=== PATIENT | female | born 1940 | race Caucasian/White ===

== ENCOUNTER 2023-12-12 18:49 | Inpatient (IN) | payer OTHER, SELFPAY ==
[2023-12-12] VITALS (70 sets, daily range): BP systolic 78–126; BP diastolic 44–92; BMI 17.1
--- NOTE | 2023-12-12 08:07 | ED.GENMED ---
History of Present Illness
<Lois Yarbrough [employer] HEAT WELDER - Last Filed: 12/12/23 15:58>
General
Chief Complaint: Heart Rate Problem
Source: patient and ambulance crew
Exam Limitations: none
Time Seen by Provider: 12/12/23 07:59
Nursing documentation reviewed up to this point in time: agreed with
History of Present Illness
History of Present Illness:
83-year-old female with history of COPD, adenocarcinoma RUL s/p lobectomy, HTN, anxiety/depression, HLD, bowel resection, anemia, hypothyroidism, A-fib with RVR, the first episode was 06/04/2023 and she was cardioverted. On Eliquis.
It is reported the patient felt faint today and had chest heaviness for the past 2 days. According to EMS she was found to be in A-fib with RVR. Pt denies CP at this time. Feels 'a little bit' SOB. Denies n/v/c/d, denies Abdominal pain.
Past History
<Lois Yarbrough, [employer] HE[employer] W[employer]DER - Last Filed: 12/12/23 15:58>
Past History
ED Past Medical History: Arrthythmia (Afib with RVR), COPD, Hypercholesterolemia and Hypothyroidism
ED Past Surgical History: Appendectomy, Bowel resection and Other (RUL lobectomy for lung CA)
Social History
Tobacco: Former smoker
Personal: Single
Living: with family
Review of Systems
<Lois Yarbrough, [employer] HE[employer] W[employer]DER - Last Filed: 12/12/23 15:58>
Review of Systems
Allergies reviewed?: Yes
All Other Systems: ROS reviewed and negative except as documented in HPI and ROS
Constitutional: Reports fatigue; Denies fever
Respiratory: Reports trouble breathing ('a ittle' SOB); Denies cough
Cardiac: Denies chest pain, diaphoresis, palpitations or syncope
ABD/GI: Denies abdominal pain, nausea, vomiting or diarrhea
: Reports no symptoms
Musculoskeletal: Reports no symptoms
Skin: Reports no symptoms
Neurological: Reports no symptoms
Phy Exam
<Lois Yarbrough [employer] HE[employer] W[employer]DER - Last Filed: 12/12/23 15:58>
Physical Exam
Physical Exam:
GENERAL: No acute distress. A&Ox3.
CONSTITUTIONAL: Afebrile.
EYES: PERRL, conjunctivae normal
ENMT: moist mucus membranes, Pharynx nl
RESPIRATORY: Regular respirations, nonlabored, lungs clear.
CARDIOVASCULAR: Regular rate and rhythm, HR 156 a fib or flutter on bedside monitor, no murmurs, no rubs.
GI: Soft, nontender, normal BS
MUSCULOSKELETAL: Moves with ease. Well perfused. No edema
SKIN: Warm, dry, pink
PSYCH: Normal mood and affect. Well kept, interactive and appropriate
NEUROLOGIC: Awake, alert and oriented. No focal neurological deficits
Scores
<Lois Yarbrough, [employer] HE[employer] WELDER - Last Filed: 12/12/23 15:58>
[id number] Score for Afib Stroke Risk
Age in Years (65=0, 65-74=1, >/=75=2): > or = 75
Sex (Female=+1): Female
Congestive Heart Failure History (Yes=+1): No
Hypertension History (Yes=+1): No
Stroke/TIA/Thromboembolism History (Yes=+2): No
Vascular Disease History (Yes=+1): No
Diabetes Mellitus (Yes=+1): No
Score: 3
Anticoagulation Recommendations: Recommend anticoagulation (as validated in nonvalvular fib)
Course
<Lois Yarbrough, [employer] HE[employer] WELDER - Last Filed: 12/12/23 15:58>
Orders/Labs/Results
Orders:
Orders
12/12/23 08:04
Electrocardiogram (*1) Urgent
Reason for Study: Chest Pain
Cardiac Monitoring- Treatment ONCE
EKG- Treatment ONCE
IV Insert/Care/Rem.- Treatment PRN
O2 Therapy [RESP] Urgent
Titrate/Wean O2 to maintain O2 sat greater than (%): 90
Special Instructions: Maintain sats >/=90%
Pulse Ox/spot Check [RESP] Urgent
Quantity: 1
Special Instructions: ON ROOM AIR
12/12/23 08:08
Complete Blood Count/With Diff Urgent
Comprehensive Metabolic Panel Urgent
12/12/23 08:19
Diltiazem HCl [Cardizem] 10 mg IV NOW STA
12/12/23 08:20
Diltiazem 125 mg/125 ml Nss [Cardizem] 125 mg in 125 ml IV NOW
Initial dose in mg/hr, then titrate:: 5
Titrate to keep:: Heart rate 80-100 bpm
Titrate by mg/hr:: 5 mg/hr
Frequency of titrations (minutes):: 15
Maximum dose in mg/hr:: 15
12/12/23 08:21
0.9% Sodium Chloride 500 ml [Nss] 500 ml IV BOLUS
12/12/23 09:08
Troponin I Urgent
12/12/23 10:46
Diltiazem HCl [Cardizem] 5 mg IV NOW STA
12/12/23 10:48
Diltiazem HCl [Cardizem] 10 mg IV NOW STA
12/12/23 12:56
Diltiazem [Cardizem] 120 mg PO NOW STA
Metoprolol [Lopressor] 75 mg PO NOW STA
12/12/23 13:30
Metoprolol Xl [Toprol Xl] 25 mg PO NOW STA
Metoprolol Xl [Toprol Xl] 50 mg PO NOW STA
12/12/23 13:51
Diltiazem Extended Release [Cardizem Cd] 120 mg PO NOW STA
12/12/23 13:52
CR Chest - 2 Views Urgent
Comment:
Reason For Exam: chest pain
12/12/23 14:11
Urinalysis Reflex To Culture Urgent
Date Specimen was Collected: 12/12/23
Time Specimen was Collected: 13:01
Urine Microscopic Reflex Cult Urgent
12/12/23 14:15
Acetaminophen [Tylenol] 1,000 mg .ROUTE .STK-MED ONE
12/12/23 14:21
Acetaminophen [Tylenol] 1,000 mg PO NOW STA
12/12/23 15:45
Lactic Acid Q4H
Comment: CANCEL 2nd LACTIC ACID IF 1st LACTIC ACID IS LESS THAN 2
Blood Culture Q30M
ARACELI Source: Blood/Venous
Specimen Description:
12/12/23 15:48
COVID-19 Antigen Urgent
Source: Nasal Swab
Influenza A+B Rapid Molecular Urgent
ARACELI Source: Nasal Swab
Specimen Description:
12/12/23 16:15
Blood Culture Q30M
ARACELI Source: Blood/Venous
Specimen Description:
12/12/23 19:45
Lactic Acid Q4H
Comment: CANCEL 2nd LACTIC ACID IF 1st LACTIC ACID IS LESS THAN 2
Abnormal Lab Results
12/12/23 12/12/23
08:08 14:11
WBC 15.2 H 10^3/uL
(4.8-10.8)
RBC 3.89 L 10^6/uL
(4.20-5.40)
Hgb 11.1 L g/dL
(12.0-16.0)
Hct 33.6 L %
(37.0-47.0)
RDW 14.6 H %
(11.5-14.5)
Plt Count 453 H 10^3/uL
(130-400)
Abs Immat Gran (auto) 0.1 H 10^3/uL
(0-0.05)
Absolute Neuts (auto) 12.9 H 10^3/uL
(1.4-6.5)
Absolute Lymphs (auto) 1.0 L 10^3/uL
(1.2-3.4)
Absolute Monos (auto) 1.1 H 10^3/uL
(0.1-0.6)
Neutrophils % 84.8 H %
(42.2-75.2)
Lymphocytes % 6.5 L %
(20.5-51.1)
Sodium 134 L mmol/L
(135-145)
BUN 21 H mg/dl
(7-17)
Glucose 116 H mg/dl
(70-99)
AST 43 H U/L
(14-36)
ALT 44 H U/L
(0-35)
Alkaline Phosphatase 311 H U/L
(38-126)
Total Protein 6.0 L g/dl
(6.3-8.2)
Albumin 3.2 L g/dl
(3.5-5.0)
Urine Ketones Trace A
(Negative)
Ur Occult Blood Reflex 1+ A
(Negative)
Urine Bilirubin 1+ A
(Negative)
Leukocyte Esterase Rfl Trace A
(Negative)
Urine RBC 3-6 A /HPF
(0-2)
Urine Bacteria (Reflex) Few A
(Negative)
12/12/23 08:08
12/12/23 08:08
Vital Signs
Initial and Last Documented VS:
Initial Vital Signs
Temp Pulse Resp BP Pulse Ox
98.2 F 152 24 107/69 98
12/12/23 08:05 12/12/23 08:05 12/12/23 08:05 12/12/23 08:05 12/12/23 08:05
Last Documented Vital Signs
Temp Pulse Resp BP Pulse Ox
101.8 F H 117 29 98/65 94
12/12/23 14:13 12/12/23 14:22 12/12/23 14:15 12/12/23 14:22 12/12/23 13:46
<Henok Kumari DO - Last Filed: 12/12/23 08:40>
Orders/Labs/Results
Orders:
Orders
12/12/23 08:04
Electrocardiogram (*1) Urgent
Reason for Study: Chest Pain
Cardiac Monitoring- Treatment ONCE
EKG- Treatment ONCE
IV Insert/Care/Rem.- Treatment PRN
O2 Therapy [RESP] Urgent
Titrate/Wean O2 to maintain O2 sat greater than (%): 90
Special Instructions: Maintain sats >/=90%
Pulse Ox/spot Check [RESP] Urgent
Quantity: 1
Special Instructions: ON ROOM AIR
12/12/23 08:08
Complete Blood Count/With Diff Urgent
Comprehensive Metabolic Panel Urgent
12/12/23 08:19
Diltiazem HCl [Cardizem] 10 mg IV NOW STA
12/12/23 08:20
Diltiazem 125 mg/125 ml Nss [Cardizem] 125 mg in 125 ml IV NOW
Initial dose in mg/hr, then titrate:: 5
Titrate to keep:: Heart rate 80-100 bpm
Titrate by mg/hr:: 5 mg/hr
Frequency of titrations (minutes):: 15
Maximum dose in mg/hr:: 15
12/12/23 08:21
0.9% Sodium Chloride 500 ml [Nss] 500 ml IV BOLUS
12/12/23 09:08
Troponin I Urgent
12/12/23 10:46
Diltiazem HCl [Cardizem] 5 mg IV NOW STA
12/12/23 10:48
Diltiazem HCl [Cardizem] 10 mg IV NOW STA
12/12/23 12:56
Diltiazem [Cardizem] 120 mg PO NOW STA
Metoprolol [Lopressor] 75 mg PO NOW STA
12/12/23 13:30
Metoprolol Xl [Toprol Xl] 25 mg PO NOW STA
Metoprolol Xl [Toprol Xl] 50 mg PO NOW STA
12/12/23 13:51
Diltiazem Extended Release [Cardizem Cd] 120 mg PO NOW STA
12/12/23 13:52
CR Chest - 2 Views Urgent
Comment:
Reason For Exam: chest pain
12/12/23 14:11
Urinalysis Reflex To Culture Urgent
Date Specimen was Collected: 12/12/23
Time Specimen was Collected: 13:01
Urine Microscopic Reflex Cult Urgent
12/12/23 14:15
Acetaminophen [Tylenol] 1,000 mg .ROUTE .STK-MED ONE
12/12/23 14:21
Acetaminophen [Tylenol] 1,000 mg PO NOW STA
12/12/23 15:45
Lactic Acid Q4H
Comment: CANCEL 2nd LACTIC ACID IF 1st LACTIC ACID IS LESS THAN 2
Blood Culture Q30M
ARACELI Source: Blood/Venous
Specimen Description:
12/12/23 15:48
COVID-19 Antigen Urgent
Source: Nasal Swab
Influenza A+B Rapid Molecular Urgent
ARACELI Source: Nasal Swab
Specimen Description:
12/12/23 16:15
Blood Culture Q30M
ARACELI Source: Blood/Venous
Specimen Description:
12/12/23 19:45
Lactic Acid Q4H
Comment: CANCEL 2nd LACTIC ACID IF 1st LACTIC ACID IS LESS THAN 2
Abnormal Lab Results
12/12/23 12/12/23
08:08 14:11
WBC 15.2 H 10^3/uL
(4.8-10.8)
RBC 3.89 L 10^6/uL
(4.20-5.40)
Hgb 11.1 L g/dL
(12.0-16.0)
Hct 33.6 L %
(37.0-47.0)
RDW 14.6 H %
(11.5-14.5)
Plt Count 453 H 10^3/uL
(130-400)
Abs Immat Gran (auto) 0.1 H 10^3/uL
(0-0.05)
Absolute Neuts (auto) 12.9 H 10^3/uL
(1.4-6.5)
Absolute Lymphs (auto) 1.0 L 10^3/uL
(1.2-3.4)
Absolute Monos (auto) 1.1 H 10^3/uL
(0.1-0.6)
Neutrophils % 84.8 H %
(42.2-75.2)
Lymphocytes % 6.5 L %
(20.5-51.1)
Sodium 134 L mmol/L
(135-145)
BUN 21 H mg/dl
(7-17)
Glucose 116 H mg/dl
(70-99)
AST 43 H U/L
(14-36)
ALT 44 H U/L
(0-35)
Alkaline Phosphatase 311 H U/L
(38-126)
Total Protein 6.0 L g/dl
(6.3-8.2)
Albumin 3.2 L g/dl
(3.5-5.0)
Urine Ketones Trace A
(Negative)
Ur Occult Blood Reflex 1+ A
(Negative)
Urine Bilirubin 1+ A
(Negative)
Leukocyte Esterase Rfl Trace A
(Negative)
Urine RBC 3-6 A /HPF
(0-2)
Urine Bacteria (Reflex) Few A
(Negative)
12/12/23 08:08
12/12/23 08:08
Vital Signs
Initial and Last Documented VS:
Initial Vital Signs
Temp Pulse Resp BP Pulse Ox
98.2 F 152 24 107/69 98
12/12/23 08:05 12/12/23 08:05 12/12/23 08:05 12/12/23 08:05 12/12/23 08:05
Last Documented Vital Signs
Temp Pulse Resp BP Pulse Ox
101.8 F H 117 29 98/65 94
12/12/23 14:13 12/12/23 14:22 12/12/23 14:15 12/12/23 14:22 12/12/23 13:46
<Lois Yarbrough, [employer] HE[employer] WELDER - Last Filed: 12/12/23 15:58>
MDM/Problems Addressed
Differential Diagnosis Includes:
afib w RVR,
PNA, UTI, Covid, Flu
MDM/Problems Addressed:
83-year-old female with history of COPD, adenocarcinoma RUL s/p lobectomy, HTN, anxiety/depression, HLD, bowel resection, anemia, hypothyroidism, A-fib with RVR, the first episode was 06/04/2023 and she was cardioverted. On Eliquis.
It is reported the patient felt faint today and had chest heaviness for the past 2 days. According to EMS she was found to be in A-fib with RVR. Pt denies CP at this time. Feels 'a little bit' SOB. Denies n/v/c/d, denies Abdominal pain.
NAD, HR 130-150's A fib on monitor, BP 105/ RR 28 Pulse ox 98% RA
9:15 a.m.
EKG: A flutter 2:1 block
Monitor showing alternating a fib- a flutter.
Hemodynamically stable
Dr. Kumari in to evaluate. Pt states 'my chest feels a little heavy.'
CBC: WBC 15.2 otherwise unremarkable
CMP: Mild elevation of liver enzymes
Troponin WNL
Daughter arrives, she works at [employer] and knows pt's long haul truck driver. States pt is constantly in and out of a fib, they have been adjusting her medications, 2 weeks ago changed Metoprolol Tartrate to Succinate and increased it from 50 to
75 mg BID They discussed increasing it to 100 mg BID or to increase her Cardizem as next move. Daughter does not want cardioversion ans she will deal with this with her long haul truck driver.
She states the reason she called EMS is that pt has been complaining all week at various times of her chest hurts, her neck hurts, she feels weak, appetite has been poor, 3 a.m. knocked on daughter's bedroom door and pt told her she felt weak and
'look at my poop, it's green.' (stool wall light colored with a green).
10:50 AM
Heart rate vacillating between 120's-130's
Second Cardizem bolus ordered per Dr. Kumari
1:04 PM
For the past 90 minutes heart rate has remained between 108 and 120
Will give patient's her p.o. diltiazem and metoprolol since she has not taken it yet today and will start to wean her off the Cardizem drip
2 PM:
Patient just spiked a fever
Of 101.8 rectally,
UA negative
Pt continues to complain of chest pressure
Chest x-ray: Radiology report read:IMPRESSION:
1. Moderate cardiomegaly. Mild central pulmonary vascular congestion.
2. Small bilateral pleural effusions.
Plan: Admit to hospitalist: Donavon steven RVR: Cardizem drip weaned down to 5 mg after pt given her daily Cardizem and Metoprol. HR remains low low 100's - 120 BPM
As discussing discharge, pt spiked fever still with chest 'pressure'
Blood cultures pending
Hospitalist notified of admission.
Covid and Flu tests pending
<Lois Yarbrough [employer] HE[employer] WELDER - Last Filed: 12/12/23 15:58>
*Critical Care Note
Total Time (30-74mins, 75-104mins- exclusive of procedures): Not Applicable
ED Attending Note
<Lois Yarbrough [employer] HE[employer] WELDER - Last Filed: 12/12/23 15:58>
-
Portions of this chart may have been created with voice recognition software.� Occasional wrong word or��sound alike� substitutions may have occurred due to the inherent limitations of voice recognition software.
<Henok Kumari DO - Last Filed: 12/12/23 08:40>
ED Attending Note
Patient seen and examined by attending physician: Yes
I performed the substantive portion of visit, reviewed & personally made and approve the management plan that is documented in note by myself or EPIFANIO.: Yes
Discharge Plan
Departure
Patient Disposition: Admit
Date of Disposition: 12/12/23
Time of Disposition: 15:40
Admit to: Telemetry
Presentation/result/management discussed w/ accepting MD/DO: Hospitalist
Condition: Fair
Discharge Problem:
Fever, Atrial fibrillation with RVR
Prescriptions:
No Action
alendronate 35 mg tablet
35 mg PO MO
levothyroxine 100 mcg Tablet
100 mcg PO DAILY AT 0700 Qty: 30 0RF
Eliquis 2.5 mg Tablet
2.5 mg PO BID Qty: 60 0RF
magnesium oxide 500 mg Tablet
500 mg PO DAILY Qty: 60 0RF
atorvastatin 40 mg Tablet
40 mg PO HS
metoprolol succinate 50 mg Tablet Extended Release 24 Hr
75 mg PO BID
dofetilide 250 mcg Capsule
250 mcg PO Q12H
diltiazem HCl 120 mg Capsule,Extended Release 24 Hr
120 mg PO DAILY
benzonatate 100 mg Capsule
100 mg PO TID PRN (Reason: cough)
aspirin 81 mg Tablet,Chewable
81 mg PO DAILY
furosemide 20 mg Tablet
20 mg PO DAILY
mirtazapine 15 mg Tablet,Disintegrating
15 mg PO HS
Referrals:
UNKNOWN - PT DOES,NOT KNOW [Family Provider] -
Interventions
Interventions:
*General Assessment Last Done: 12/12/23 08:05
*Neglect/Abuse Screening Last Done: 12/12/23 08:05
ED- Cardiac Assessment Last Done: 12/12/23 09:00
ED- Pulmonary Assessment Last Done: 12/12/23 09:00
Discharge Date and Time
Print Language: YORUBA
[2023-12-12] MEDS: CARDIZEM 5 MG IV ×2 (08:28→08:44)
[2023-12-12 08:29] LABS: % Basophils 0.5 % (0-2); % Eosinophils 0.3 % (0-6); % Immature Granulocytes 0.5 % (0-0.5); % Lymphocytes 6.5 % (20.5-51.1); % Monocytes 7.4 % (1.7-9.3); % Neutrophils 84.8 % (42.2-75.2); Absolute Basophils 0.1 10^3/uL (0-0.2); Absolute Immature Granulocytes 0.1 10^3/uL (0-0.05); Absolute Monocytes 1.1 10^3/uL (0.1-0.6); Absolute Neutrophils 12.9 10^3/uL (1.4-6.5); Hematocrit 33.6 % (37.0-47.0); Hemoglobin 11.1 g/dL (12.0-16.0); Mean Corpuscular Hgb 28.5 pg (27.0-31.0); Mean Corpuscular Volume 86.4 fL (81.0-99.0); Mean Platelet Volume 9.6 fL (7.4-10.4); Nucleated Red Blood Cells % 0 %; Platelet Count 453 10^3/uL (130-400); Red Blood Cell Count 3.89 10^6/uL (4.20-5.40); Red Cell Dist. Width 14.6 % (11.5-14.5); White Blood Cell Count 15.2 10^3/uL (4.8-10.8)
[2023-12-12] MEDS: NSS 500 IV (08:29)
[2023-12-12 08:32] LABS: ALT (SGPT) 44 U/L (0-35); AST (SGOT) 43 U/L (14-36); Albumin 3.2 g/dl (3.5-5.0); Alkaline Phosphatase 311 U/L (38-126); Blood Urea Nitrogen 21 mg/dl (7-17); Calcium 8.8 mg/dl (8.4-10.2); Carbon Dioxide 25 mmol/L (22-30); Chloride 99 mmol/L (98-107); Estimated Creatinine Clearance 46 ml/min; Glucose 116 mg/dl (70-99); Potassium 4.1 mmol/L (3.5-5.1); Sodium 134 mmol/L (135-145); Total Bilirubin 1.2 mg/dl (0.2-1.3); eGFR > 60.00
[2023-12-12] MEDS: CARDIZEM 125 IV (08:37)
[2023-12-12 09:42] LABS: Troponin I < 0.012 ng/ml
[2023-12-12] MEDS: CARDIZEM 10 MG IV (10:59)
[2023-12-12] MEDS: TOPROL XL 50 MG PO (13:45)
[2023-12-12] MEDS: TOPROL XL 25 MG PO (13:47)
[2023-12-12] MEDS: TYLENOL 1000 MG PO (14:21)
[2023-12-12] MEDS: CARDIZEM CD 120 MG PO (14:22)
[2023-12-12 14:26] LABS: Urine Albumin Trace (Neg - Trace); Urine Bilirubin 1+ (Negative); Urine Character Clear (Clear); Urine Color Yellow; Urine Glucose Negative (Negative); Urine Ketone Trace (Negative); Urine Leukocyte Trace (Negative); Urine Nitrite Negative (Negative); Urine Occult Blood 1+ (Negative); Urine Urobilinogen Negative (Neg - 1+)
[2023-12-12 14:55] LABS: Urine Squamous Cell 16-20 /LPF (Few)
[2023-12-12 14:58] LABS: Urine Bacteria Few (Negative)
--- NOTE | 2023-12-12 17:06 | HPS.HSE ---
Addendum entered and electronically signed by Matthew Barrett DO 12/12/23 18:20:
Patient seen and examined and discussed with ANDREINA Case, and I agree with her note.
Gen-AAOx3, NAD
HEENT-NC, AT, anicteric, clear oral mm
Neck-supple
CV-reg, no M, +S1/S2
Lungs-clear B/L
Abd-soft, NT, ND
Ext-no edema
Musculoskeletal-no cyanosis, clubbing
Skin-warm and dry
Neuro-grossly non-focal
Psych-calm, cooperative
Shock -possibly due to sepsis versus cardiogenic versus other. Support with Levophed infusion. Start in the emergency room. Admit to ICU overnight. Consult tree killer. BNP 4150. Chest x-ray with mild central pulmonary vascular congestion.
Small bilateral pleural effusions.
Check stat echocardiogram this evening given the large heart on chest x-ray, hypotension, history of malignancy. Rule out pericardial effusion, tamponade. Discussed with cardiology.
Sepsis -unclear source. Concern for septic shock given hypotension. Blood cultures sent. She has no localizing findings on exam. Low suspicion for pneumonia. Urinalysis nonconcerning. COVID and influenza negative. Hold antibiotics for now.
Lactic acidosis noted.
Rapid atrial fibrillation -hypotension will make rate control difficult. Transiently received Cardizem infusion in the emergency room now discontinued. She is on metoprolol succinate, diltiazem, dofetilide, Eliquis at home. Cardiology consulted
for assistance. If hypotension persists along with rapid rates may need to perform cardioversion.
Hyponatremia -sodium 134. Check TSH, urine studies.
Normocytic anemia -likely chronic. Monitor for now.
Elevated LFTs -primarily transaminases, alkaline phosphatase. Bilirubin normal. Unclear if due to passive congestion versus other etiology.
Hypothyroidism -on levothyroxine. Check TSH.
Hyperlipidemia -on atorvastatin.
History of pulmonary adenocarcinoma -underwent right upper lobectomy about 5 to 6 years ago according to family.
Dementia, likely Alzheimer's type -watch for delirium in the hospital.
DNR
Updated daughter at the bedside.
Original Note:
Family Physician
-
Family Physician: NOT KNOW UNKNOWN - PT DOES
Chief Complaint
-
Chest Heaviness and Fever
History of Present Illness
This is an 83 year old female with past medical history of atrial fibrillation, hypothyroidism, and recently diagnosed dementia who presents to the emergency department for chest tightness for 3 weeks and fatigue for 1 week. The patient reports she
was also experiencing dizziness and lightheadedness that have both resolved. The patient reports the chest tightness has improved since she presented here this morning. The patient's daughter reports the fatigue for the last week is impacting her
mother's ability to ambulate around their home. The patient reports her legs become painful with exertion. Additionally, since being in the emergency department, the patient spiked a fever of 101.8 F. She denies feeling warm, headache, cough,
palpitations, nausea, vomiting, diarrhea, abdominal pain, dysuria, polyuria, and nocturia. The patient denies recent sick contacts and recent travel.
Medical History
Past Medical History
Past Medical History: Reports Other
Additional Past Medical History:
Paroxysmal Atrial Fibrillation
TIA
Essential Hypertension
Hyperlipidemia
COPD
Adenocarcinoma Right Upper Lobe
Anxiety/Depression
Hypothyroidism
Osteoporosis
Dementia
Past Surgical History: Reports Other
Additional Past Surgical History:
Right Upper Lobectomy
Bowel Resection for Volvulus
Appendectomy
Hysterectomy
Social History
Tobacco: Former Smoker
Alcohol: None
Drug: None
Family History
Family History: Not pertinent
Allergies / Home Medications
Allergies reflects when Allergies were last updated in [facility].
Home Medications with original date entered in [facility]
Allergy/Medication List:
Allergies
Allergy/AdvReac Type Severity Reaction Status Date / Time
No Known Allergies Allergy Verified 06/06/23 19:44
Home Medications
alendronate 35 mg tablet 35 mg PO MO osteoperosis 06/06/23
apixaban 2.5 mg tablet (Eliquis) 2.5 mg PO BID Blood clot prevention/tx #60 tabs 06/07/23
levothyroxine 100 mcg tablet 100 mcg PO DAILY AT 0700 Thyroid #30 tabs 06/07/23
magnesium oxide 500 mg PO DAILY Electrolyte Repletion #60 tabs 06/08/23
aspirin 81 mg chewable tablet 81 mg PO DAILY 12/12/23
atorvastatin 40 mg tablet 40 mg PO HS 12/12/23
benzonatate 100 mg capsule 100 mg PO TID PRN cough 12/12/23
diltiazem HCl 120 mg capsule,24 hr,extended release 120 mg PO DAILY 12/12/23
dofetilide 250 mcg capsule 250 mcg PO Q12H 12/12/23
furosemide 20 mg tablet 20 mg PO DAILY 12/12/23
metoprolol succinate 50 mg tablet,extended release 24 hr 75 mg PO BID 12/12/23
mirtazapine 15 mg disintegrating tablet 15 mg PO HS 12/12/23
Review of Systems
-
A 12 point ROS was completed and negative except as noted: Yes
Constitutional: Reports Fever; Denies Chills
Respiratory: Denies Cough or Trouble Breathing
Cardiac: Denies Chest Pain or Palpitations
Abdomen/GI: Denies Abdominal Pain, Nausea, Vomiting or Diarrhea
: Denies Dysuria or Frequency
Skin: Denies Rash
Physical Exam
Vital Signs
Vital Signs
Temp Pulse Resp BP Pulse Ox
101.8 F H 117 29 98/65 94
12/12/23 14:13 12/12/23 14:22 12/12/23 14:15 12/12/23 14:22 12/12/23 13:46
Physical Exam
General: Comfortable and Conversant
HEENT: Anicteric and Moist mucous membranes
Respiratory: Clear and Non Labored Respirations
Cardiac: S1/S2, Irregular Rhythm and Tachycardia (Rate ranges from 95-105 )
GI: Soft and Non Tender
Rectal: Deferred by Provider
Musculoskeletal: No Clubbing, No Cyanosis and No Edema
Skin: Warm and Dry
Neuro: Awake, Alert and Nonfocal/grossly intact
Psych: Calm
Laboratory Results
-
12/12/23 08:08
12/12/23 08:08
Laboratory Results
Total Bilirubin 1.2 mg/dl (0.2-1.3) 12/12/23 08:08
AST 43 U/L (14-36) H 12/12/23 08:08
ALT 44 U/L (0-35) H 12/12/23 08:08
Alkaline Phosphatase 311 U/L (38-126) H 12/12/23 08:08
Troponin I < 0.012 ng/ml 12/12/23 09:08
Data Reviewed
-
Lab Data: Labs Reviewed by me
Old Records: Reviewed
Impression/Plan
-
Sepsis though source of infection is unclear
-Admit to ICU for close monitoring and possible need for pressors
-Urinalysis not indicative of infection
-CXR without pneumonia
-COVID and Influenza negative
-Check blood cultures
-Start Levophed if needed to maintain MAP greater than 65
-Check STAT Echo due to hypotension and prior history of pericardial effusion
Atrial Fibrillation with Rapid Ventricular Response
-Consult Cardiology
-Rate improved and patient is now off Cardizem drip
-Continue Eliquis for anticoagulation
-Continue oral Cardizem, and Toprol as blood pressure allows
-Continue Tikosyn
Hx TIA
-Continue aspirin
Hyperlipidemia
-Continue atorvastatin
Anxiety/Depression
-Continue Remeron
Hypothyroidism
-Continue levothyroxine
-Check TSH
Dementia, possibly Alzheimer's
-Monitor for mood/behavior changes during hospitalization
Hx Adenocarcinoma Right Upper Lobe s/p Lobectomy
DVT proph: Eliquis
Code Status: DNR
[2023-12-12 17:41] LABS: COVID-19 Antigen Negative (Negative)
[2023-12-12 17:52] LABS: NT-proBNP 4150 pg/ml
[2023-12-12 18:12] LABS: Lactic Acid 2.2 mmol/L (0.7-2.0)
[2023-12-12] MEDS: LEVOPHED 250 IV (18:28)
--- NOTE | 2023-12-12 19:41 | W.PN.CD ---
Addendum entered and electronically signed by Cristóbal Otero MD 12/12/23 19:54:
Unclear indication for BOTH ASA and apixaban. I would do single agent NOAC unless new information becomes available.
Original Note:
Today's Communication / Plan
-
Impression / Plan
-
Impression: 83F with dyspnea and CP noted with recurrent persistent AF. During evaluation she was febrile to 38.8�C. She became hypotensive to mid 70s. Dr. Barrett noted that 2PM CXR showed a markedly larger cardiac silhouette when compared to
May 2023. Urgent echocardiogram confirms large pericardial effusion (new from May 2023, but seen to some degree in July 2023)
Plan
Hypotension - seems likely due to confluence of AF/RVR, medication, infection,and this large effusion. She is dependent on norepinephrine for BP support currently
- Urgent pericardiocentesis -> while it is possible her symptoms are solely due to sepsis physiology it is challenging to rely on that, especially when she's already on a pressor. 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 Last dose of ASA yesterday AM and Eliquis yesterday PM
- treat infection
- hold BP meds and furosemide
AF, persistent. Her outpatient nurse's aides teacher (Jatinder) has been adjusting medications
- Rate: 100-120
- Rhythm: continue dofetilide for now
- Oral Anticoagulation: Hold AC until OK with Dr. Jackson
HTN - hold meds as above
Prior lung cancer
COPD report
Anxiety
Memory?
Critically ill 44 minutes used including discussion with family, primary team, and other consultants.
Physical Exam
Vital Signs/Labs
Vital Signs
Temp Pulse Resp BP Pulse Ox
38.8 C H 103 24 94/65 95
12/12/23 14:13 12/12/23 19:15 12/12/23 19:15 12/12/23 19:10 12/12/23 17:15
12/11/23 12/12/23 12/13/23
06:59 06:59 06:59
Actual Weight 102 lb 8.239 oz
12/12/23 08:08
12/12/23 08:08
12/12/23
09:08
[id number] Pept 4150
LAB Results
12/12/23
09:08
Troponin I < 0.012
Physical Exam
Constitutional: No acute distress
EENT: Anicteric
Cardiovascular: Systolic murmur absent, Diastolic murmur absent, Rhythm/rate is irregular and JVD present
Respiratory: Respiratory effort normal
GI: Soft, Distention absent, Non tender and Normal bowel sounds
Neuro/Psych: Alert
Data Reviewed
-
Date of Service: December 12, 2023
--- NOTE | 2023-12-12 20:36 | PTCARENOTE ---
Received pt from ED RN, daughter is at bedside. Cardiac laboratory operations coordinator called for patient to come down to liaison inspection laboratory assistant for Pericardicentesis. Pt and daughter were taken to laboratory operations coordinator where consent was signed. Pt was Aox3, forgetful, denies pained. VSS, she
remained on 2mcg of levophed with a MAP > 64. Room air, lungs diminished some crackles in left base. Uncontrolled Afib 110's on monitor.
--- NOTE | 2023-12-12 21:20 | ITS.CL.PN ---
[facility] - Procedure Note
Procedure
Procedure Note:
PERICARDIOCENTESIS PROCEDURE NOTE
Date of procedure: 12/12/2023
Referring Physician/Provider: Cristóbal Otero M.D.
Indication: Large pericardial effusion, hypotension, impending tamponade.
Procedure:
After obtaining consent, the patient was brought to the cardiac energy systems laboratory director and placed in a recumbent position. Echocardiogram was used to ascertain the best approach vector. A(n) apical approach was selected. The fifth intercostal space along the
lateral clavicular line was anesthetized with 1% lidocaine. Under ultrasound guidance, a micropuncture needle was advanced into the pericardial space under negative pressure. After obtaining flashback of pericardial fluid, the micropuncture wire was
advanced into the pericardial space and the needle was removed. The micropuncture sheath was advanced over the wire and the wire and dilator were removed. Agitated saline was injected through the micropuncture sheath confirming its presence in the
pericardial space on echocardiography. A 0.035 inch J-wire was advanced through the micropuncture sheath and into the pericardial space. The micropuncture sheath was removed and a 6 Faroese sheath was advanced over the 0.035 inch wire. A pigtail
catheter was advanced through the sheath over the J-wire and placed in the pericardial space. The J-wire was removed. The pericardial pressure was measured. A sufficient sample of pericardial fluid was removed and sent for laboratory testing
(hemoglobin, hematocrit, white blood cell count, LDH, albumin, total protein, cytology and culture). The pigtail catheter was then connected to a Vacutainer and the pericardial space was evacuated. Serial echocardiography confirmed reduction in the
pericardial effusion from severe to trace. All evidence of tamponade was removed. The 6 Faroese sheath was sutured into place. The pigtail catheter was likewise sutured into place then curled around the sheath and covered by a sterile Tegaderm.
Repeat pericardial pressure was measured, confirming significant reduction. The pigtail catheter was then connected to a [place] drain to suction. The patient reported significant improvement in their shortness of breath.
Procedure Details:
Approach: Apical
Sheath/Drain size (Fr) 6
Pericardial Volume (mL): 385
Effusion type: Cloudy, straw-colored.
Non-effusion blood loss (mL): None.
Pericardial pressures
Pre drainage (mmHg): 14
Post drainage (mmHg): 10
Radiation dose:
Dose (mGy): 15.73
DAP (Gy*cm2): 2.0661
Fluoroscopy Time (minutes): 3.2
Conclusions:
1. Successful placement of a 6 Faroese pericardial drain via an apical approach yielding 385 mL of cloudy, straw-colored fluid with reduction in pericardial pressure from 14 mmHg to 10 mmHg.
2. Pericardial fluid has been sent for laboratory analysis.
Edgar Jackson DO, FACC, FACP
Copy to: Cristóbal Otero M.D.
[2023-12-12 21:35] LABS: Body Fluid Hematocrit < 1.0 %
[2023-12-12 21:44] LABS: Body Fluid Glucose 61 mg/dl; Body Fluid LDH 561 U/L; Body Fluid Protein 4.7 g/dl
[2023-12-12 21:54] LABS: Body Fluid WBC 7920 /CUMM
--- NOTE | 2023-12-12 21:56 | PTCARENOTE ---
Pt received from ammunition assembly ii laborer approx [id number], Pericardial drain in place, has serous output in drain. dressing is clean, dry intact. Upon assessment pt sounds to have a cardiac rub post procedure. Pt c/p of mild left shoulder discomfort. Frequent vitals
monitored.
[2023-12-12 21:59] LABS: Body Fluid Second Tech KB
[2023-12-12 22:01] LABS: Body Fluid Granulocytes 87 %; Body Fluid Lymphocytes 8 %; Body Fluid Macrophages 5 %
[2023-12-12] MEDS: TIKOSYN 250 MCG PO (22:29)
[2023-12-12] MEDS: LIPITOR 40 MG PO (22:29)
[2023-12-12] MEDS: REMERON ODT 15 MG PO (22:29)
[2023-12-12] MEDS: COLCHICINE 0.599999999999999978 MG PO (23:13)
[2023-12-12] MEDS: DILAUDID 0.25 MG IV (23:14)
[2023-12-12 23:27] LABS: INR 1.66; PT 19.4 Sec (11.4-14.6)
[2023-12-12 23:28] LABS: APTT 36.8 Sec (23.4-35.0)
[2023-12-12 23:31] LABS: Lactic Acid 1.8 mmol/L (0.7-2.0)
[2023-12-13] VITALS (56 sets, daily range): BP systolic 70–108; BP diastolic 52–88; BMI 15.9
[2023-12-13 04:34] LABS: Hemoglobin 12.1 g/dL (12.0-16.0); Mean Corp Hgb Conc. 33.6 g/dL (33.0-37.0); Mean Corpuscular Hgb 28.5 pg (27.0-31.0); Mean Corpuscular Volume 84.9 fL (81.0-99.0); Mean Platelet Volume 9.8 fL (7.4-10.4); Platelet Count 571 10^3/uL (130-400); Red Blood Cell Count 4.24 10^6/uL (4.20-5.40); Red Cell Dist. Width 14.6 % (11.5-14.5)
[2023-12-13 04:59] LABS: Blood Urea Nitrogen 29 mg/dl (7-17); Calcium 7.9 mg/dl (8.4-10.2); Carbon Dioxide 23 mmol/L (22-30); Chloride 99 mmol/L (98-107); Estimated Creatinine Clearance 36 ml/min; Glucose 127 mg/dl (70-99); Magnesium 1.8 mg/dl (1.6-2.3); Potassium 4.5 mmol/L (3.5-5.1); Sodium 131 mmol/L (135-145); eGFR > 60.00
[2023-12-13 05:29] LABS: TSH Reflex To Free T4 3.94 uIU/ml (0.47-4.68)
--- NOTE | 2023-12-13 05:36 | PTCARENOTE ---
Pt with some discomfort in left shoulder and at drain site, one time dose of Dilaudid given with relief. Drain site is CDI, covered with Tegaderm film, 50 cc of serous fluid output. Pt pleasantly confused, needs constant reminders. Uncontrolled Afib
on monitor. Bed exit alarm is active and audile on bed. Pt has not challenge. No urine output overnight, bladder scanned for zero.
[2023-12-13] MEDS: SYNTHROID 100 MCG PO (05:51)
--- NOTE | 2023-12-13 07:47 | W.PN.HOSP.TC ---
Today's Communication/Plan
-
Continue supportive care
Await cultures
Fluid restriction
Urine studies
Assessment / Plan
Assessment / Plan
Gen-AAOx3, NAD
HEENT-NC, AT, anicteric, clear oral mm
Neck-supple
CV-irregular, tachycardic, no M, +S1/S2, subxiphoid pericardial drain intact
Lungs-clear B/L
Abd-soft, NT, ND
Ext-no edema
Musculoskeletal-no cyanosis, clubbing
Skin-warm and dry
Neuro-grossly non-focal
Psych-calm, cooperative
Shock -possibly due to sepsis versus cardiogenic versus other. Support with Levophed infusion. BNP 4150. Chest x-ray with mild central pulmonary vascular congestion. Small bilateral pleural effusions.
Large pericardial effusion -noted on echocardiogram. Urgent pericardiocentesis with drain placement performed 12/11 evening. 385 cc cloudy straw-colored fluid removed. Drain output 50 cc overnight. Etiology of effusion unclear at this point,
differential includes infection versus malignancy versus inflammatory. Noted history of lung cancer is concerning. Pericardial fluid sent for culture and cytology.
Sepsis -unclear source. Concern for septic shock given hypotension. Blood cultures sent. Low suspicion for pneumonia. Urinalysis nonconcerning. COVID and influenza negative. Hold antibiotics for now. Lactic acidosis improved.
Rapid atrial fibrillation -hypotension will make rate control difficult. Transiently received Cardizem infusion in the emergency room now discontinued. She is on metoprolol succinate, diltiazem, dofetilide, Eliquis at home. Cardiology consulted
for assistance. If hypotension persists along with rapid rates may need to perform cardioversion. Eliquis currently on hold due to large pericardial effusion.
Hyponatremia -sodium 131. TSH 3.9. Check urine studies. Fluid restrict.
Normocytic anemia -likely chronic. Monitor for now.
Elevated LFTs -primarily transaminases, alkaline phosphatase. Bilirubin normal. Unclear if due to passive congestion versus other etiology.
Hypothyroidism -on levothyroxine. TSH normal.
Hyperlipidemia -on atorvastatin.
History of pulmonary adenocarcinoma -underwent right upper lobectomy about 5 to 6 years ago according to family.
Dementia, likely Alzheimer's type -watch for delirium in the hospital.
DNR
Anticipated Discharge: > 48 hours
Subjective/Interval History
-
Date of Service: December 13, 2023
Patient seen and examined. Complaining of feeling hungry. Denies shortness of breath. Chest pressure improving.
Objective Data
-
Labs:
Laboratory Results
12/12/23 12/13/23
23:01 04:09
WBC 15.0 H
Hgb 12.1
Hct 36.0 L
Plt Count 571 H D
PT 19.4 H
INR 1.66
APTT 36.8 H
Sodium 131 L
Potassium 4.5
Chloride 99
Carbon Dioxide 23
BUN 29 H
Creatinine 0.9
Glucose 127 H
Calcium 7.9 L
Vital Signs:
Vital Signs
Temp Pulse Resp BP Pulse Ox
98.1 F 118 22 84/70 95
12/13/23 05:54 12/13/23 07:00 12/13/23 07:00 12/13/23 07:00 12/13/23 07:00
I&O
12/12/23 12/13/23 12/14/23
06:59 06:59 06:59
Intake Total 52.5 / 52.5
Output Total 50 / 50
Balance 2.5 / 2.5
Review of Systems
-
History Source: Patient
All other systems: Reviewed and negative
[2023-12-13] MEDS: TIKOSYN 250 MCG PO ×2 (08:04→20:03)
[2023-12-13] MEDS: TYLENOL 650 MG PO ×2 (08:05→20:03)
[2023-12-13] MEDS: MAGNESIUM OXIDE 500 MG PO (08:05)
[2023-12-13] MEDS: LOW STRENGTH ASPIRIN 81 MG PO (08:05)
[2023-12-13] MEDS: COLCHICINE 0.599999999999999978 MG PO (08:14)
--- NOTE | 2023-12-13 08:36 | PTCARENOTE ---
Pt oriented to person and place (hospital), forgetful, but pleasantly confused. MARTINEZ, follows commands. Reports being extremely hungry this morning. Breakfast ordered as requested. Maintained on levo to keep map 65. Remains in afib, 110-140s.
Pt denies cp/tightness/racing heart. Feels 'a little' sob with movement, and c/o some lightheadedness but 'not to bed'. After sitting up and taking pills, pt suddenly became nauseated and dry heaving when she was rinsing mouth. Resolved without
intervention. Otherwise please refer to worklist.
--- NOTE | 2023-12-13 08:37 | CON.INTV ---
Consultation
Consultation Request
Date/Time Consultation Requested: 12/12/2023 - 1945
Date/Time Consultation Performed: 12/13/2023829
Requesting Provider: Dr. Barrett
Performing Provider: Dr. Marroquin
Reason for Consultation: Hypotension
Medical History
-
Chief Complaint: Dizzy/lightheaded, syncope with chest heaviness for a few days
History of Present Illness:
83-year-old female with a past medical history of A-fib, COPD, hyperlipidemia and hypothyroidism who presents with syncope earlier prior to arrival and chest heaviness X 2 days. EMS called and she was in A-fib with RVR. Brought to the ER for
further evaluation. She was tachycardic to 152, tachypnea to 24 breaths/min, saturating 90% on room air, afebrile to 98.2 �F and hypotensive to 107/69. She was given IVF bolus with NS 0.9% X 500 cc, and started on Cardizem drip. Labs showed
leukocytosis to 15.2, anemia to 11.1, slightly low sodium of 134, elevated LFTs, negative troponin at <0.012, elevated proBNP of 4150, and urinalysis was abnormal with trace leukocyte esterase but only 6�10 urine WBC. She was COVID antigen
negative. TSH also WNL. Blood cultures were collected. CXR showed moderate cardiomegaly with small bilateral pleural effusions. EKG confirmed A-fib with RVR. Found to have large pericardial effusion on bedside echo without overt tamponade
physiology, and she went to labor delivery rn with removal of 385cc of cloudy, straw-colored fluid. Her pericardial pressures improved from 14 to 10 mmHg. To try to reach heart rate control, she was given PO Cardizem and metoprolol however her blood
pressure remained low requiring Levophed. She was then transferred to the ICU for further care, and critical care services consulted for additional management/recommendations.
Patient seen this morning. She denies chest pain or shortness of breath. She is currently Levophed at 4mcg/min, with BP 75/59, heart rate 113, and she is saturating 98% on room air. She is in no acute distress. She is confused, has dementia and
does not know how she got here to the hospital.
PMHx: A-fib Eliquis, COPD, HLD, hypothyroidism, Hx of lung Ca s/p RUL-lobectomy (5-6 years ago per family), dementia with memory loss, history of TIA, osteoporosis
PSHx: Hysterectomy, volvulus with small bowel resection, right upper lobe lobectomy for lung cancer, appendectomy
Past Medical History
Past Medical History: Other (Above as per HPI)
Past Surgical History: Other (Above as per HPI)
Social History
Tobacco: Former Smoker
Alcohol: None
Drug: None
Family History
Family History: Reviewed & Not Pertinent
Allergies / Home Medications
Allergies
Allergy/AdvReac Type Severity Reaction Status Date / Time
No Known Allergies Allergy Verified 06/06/23 19:44
Home Medications
�Medication �Instructions �Recorded �Confirmed �Last Taken �Type
alendronate 35 mg tablet 35 mg PO MO osteoperosis 06/06/23 12/12/23 12/10/23 History
apixaban 2.5 mg tablet (Eliquis) 2.5 mg PO BID Blood clot 06/07/23 12/12/23 12/11/23 Rx
prevention/tx #60 tabs
levothyroxine 100 mcg tablet 100 mcg PO DAILY AT 0700 Thyroid 06/07/23 12/12/23 12/11/23 Rx
#30 tabs
magnesium oxide 500 mg PO DAILY Electrolyte 06/08/23 12/12/23 Unknown Rx
Repletion #60 tabs
aspirin 81 mg chewable tablet 81 mg PO DAILY 12/12/23 12/12/23 Unknown History
atorvastatin 40 mg tablet 40 mg PO HS 12/12/23 12/12/23 12/11/23 History
benzonatate 100 mg capsule 100 mg PO TID PRN cough 12/12/23 12/12/23 Unknown History
diltiazem HCl 120 mg capsule,24 120 mg PO DAILY 12/12/23 12/12/23 12/11/23 History
hr,extended release
dofetilide 250 mcg capsule 250 mcg PO Q12H 12/12/23 12/12/23 12/11/23 History
furosemide 20 mg tablet 20 mg PO DAILY 12/12/23 12/12/23 12/11/23 History
metoprolol succinate 50 mg 75 mg PO BID 12/12/23 12/12/23 12/11/23 History
tablet,extended release 24 hr
mirtazapine 15 mg disintegrating 15 mg PO HS 12/12/23 12/12/23 12/11/23 History
tablet
Review of Systems
-
Unable to Obtain full review of systems at this time due to: Dementia
Vitals / Labs / Diagnostic Testing
Vital Signs
Temp Pulse Resp BP Pulse Ox
97.3 F 138 24 74/59 92
12/13/23 07:59 12/13/23 08:31 12/13/23 08:31 12/13/23 08:31 12/13/23 08:00
Lab Data
12/13/23 04:09
12/13/23 04:09
Laboratory Results
12/12/23
23:01
PT 19.4 H
INR 1.66
APTT 36.8 H
Microbiology
12/12/23 20:38 Pericardial Fluid Gram Stain - Preliminary
12/12/23 17:09 Nasal Swab Influenza Types A & B (STEPHANY) - Final
Negative for Influenza A & B, NAAT
Negative results must be combined with clinical observations
and patient history.
Nucleic Acid Amplification test (NAAT)performed on the
[facility] platform.
Diagnostic Testing:
Physical Exam
-
HEENT: Normocephalic and Anicteric
Cardiovascular: Irregular Rhythm (Irregularly irregular), Peripheral Edema (Negative) and Other (Tachycardic)
Respiratory: Wheeze (Negative), Rales (Bilaterally), Rhonchi (Negative) and Non-Labored Respirations
GI: Soft, Non Distended and Non Tender
Neurology: Awake and Alert
Skin: Warm and Dry
General: Comfortable, Fever (Negative) and Chills (Negative)
Assessment
-
Assessment: 83-year-old female with a past medical history of A-fib, COPD, hyperlipidemia and hypothyroidism who presents with syncope earlier prior to arrival and chest heaviness X 2 days. EMS called and she was in A-fib with RVR. Brought to the
ER for further evaluation. She was tachycardic to 152, tachypnea to 24 breaths/min, saturating 90% on room air, afebrile to 98.2 �F and hypotensive to 107/69. She was given IVF bolus with NS 0.9% X 500 cc, and started on Cardizem drip. Labs
showed leukocytosis to 15.2, anemia to 11.1, slightly low sodium of 134, elevated LFTs, negative troponin at <0.012, elevated proBNP of 4150, and urinalysis was abnormal with trace leukocyte esterase but only 6�10 urine WBC. She was COVID antigen
negative. TSH also WNL. Blood cultures were collected. CXR showed moderate cardiomegaly with small bilateral pleural effusions. EKG confirmed A-fib with RVR. Found to have large pericardial effusion on bedside echo without overt tamponade
physiology, and she went to labor delivery rn with removal of 385cc of cloudy, straw-colored fluid. Her pericardial pressures improved from 14 to 10 mmHg. To try to reach heart rate control, she was given PO Cardizem and metoprolol however her blood
pressure remained low requiring Levophed. She was then transferred to the ICU for further care, and critical care services consulted for additional management/recommendations.
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
Impression:
#Shock - likely due to cardiogenic in setting of pericardial effusion and rapid A-fib; unable to rule out sepsis but she is non-toxic appearing
#Pericardial effusion with concern for infection given it was cloudy, vs pericarditis vs malignant
#Thrombocytosis likely reactive due to acute inflammatory state; doubt this is a myeloproliferative condition
#Persistent atrial fibrillation with RVR requiring Cardizem drip - now off but still in A-fib
#Reported Hx of COPD not in an acute exacerbation
#History of right-sided lung cancer s/p right upper lobe lobectomy
#Dementia with cognitive impairment
Plan:
- Would recommend starting broad spectrum Abx--> I reviewed the case with cardiology, Dr. Peng, and he agrees with starting Abx at this time. ID started rocephin + vanco
- Follow up pericardial fluid studies and blood Cx
- Continue Levophed and wean as tolerated. If Levophed requirements reach 10mcg/min then I will start vasopressin
- Maintain MAP>65
- Trend WBC
- Monitor drain output; defer removal of pericardial drain to cardiology
- Keep in bed until SBP approaches 100mmHg
- Rate control with goal HR<110bpm
- Replete electrolytes with K>4, Mg>2
- Renally dose her colchicine due to low GFR --> reviewed with pharmacy --> reduced to 0.3mg daily
- Maintain SpO2 >88-94%
- prn nebulized bronchodilators with Xopenex; currently she was breathing comfortably on room air saturating 98% so I will not start anything standing especially as it does not appear she takes any maintenance inhalers at home
- Obtain former medical records from her PCP so we can get more information on her lung cancer as well as her COPD; would recommend obtaining CT chest when she is stable and off of vasopressors
- Trend plt count and if it continues to rise antithetical to the patient improving, then would consult hematology at that point
- Maintain euglycemia with goal BG 140-180
- Incentive spirometer encouraged
- DVT ppx
Critical care statement: A total of 40 minutes of critical care time was provided for this patient today. This includes management of unstable vital signs, evaluation of the patient at bedside, reviewing the patient's pertinent medical records
including radiographs, microbiology, laboratory evaluations, and discussion with primary team, consultants, pharmacy, nutrition, physical therapy, case management, charge nurse, critical care nursing, and respiratory therapy.
Data:
CXR 12-12-2023:
1. Moderate cardiomegaly. Mild central pulmonary vascular congestion.
2. Small bilateral pleural effusions.
--- NOTE | 2023-12-13 10:09 | W.PN.CD ---
Today's Communication / Plan
-
Monitor results of pericardiocentesis.
Monitor pericardial drain output. When drainage is < 1 mL/hour x 12-24 hours, we will repeat echo prior to pulling drain.
Continue colchicine for presumptive inflammatory pericarditis.
Treat potential infection empirically.
Hold all diuretics and antihypertensives.
HR of 100-120 is acceptable.
Impression / Plan
-
Impression/Plan: 83F with a history of HTN, lung adenoCA s/p surgical resection (without adjuvant chemotherapy or radiation per daughter) and COPD, admitted in May 2024 with PAF with RVR and started on apixaban, now admitted with dyspnea and CP
noted with recurrent persistent AF, found to be febrile and hypotensive with new, large pericardial effusion.
#Pericardial effusion
-Acute, likely with at least some hemodynamic compromise.
-S/P pericardiocentesis for 385 mL of cloudy, straw colored fluid.
-Exudate. Serum protein 6.0:Pericardial protein 4.7; Serum LDH pending:Pericardial LDH 561.
-DDx includes infection (septic pericarditis), inflammatory pericarditis, malignant pericarditis. Cultures/cytology pending.
-Continue colchicine for presumed inflammatory pericarditis. ID following for possible infection.
-Monitor drain. When output is < 1 mL/hour x 12-24 hours, we will repeat echo prior to pulling drain. Higher than normal threshold to pull drain given loculations/septations.
#Hypotension
-Multifactorial.
-Seems likely due to confluence of AF/RVR, medication, infection,and this large effusion.
-Maintain norepinephrine for BP support. Goal MAP > 65 mmHg.
-Hold all antihypertensives.
-Treat a presumptive infection/sepsis.
-UA is not impressive. COVID negative. CXR does not show infiltrate.
-Monitor blood cultures, pericardial cultures.
#AF
-Persistent. Currently in AF with controlled ventricular response.
-Her outpatient mailing specialist ([place]) has been adjusting medications.
-Maintain dofetilide 250 mg q12 hours.
-Rate: 100-120 (acceptable given her potentially septic picture).
-Rhythm: continue dofetilide for now.
-Oral Anticoagulation: Anticoagulation on hold until we have a better idea of her effusion output.
#HTN
-Chronic.
-Currently hypotensive.
-All medications on hold.
#Prior lung cancer
-Chronic, stable/remote.
-Presence of a exudative pericardial effusion is obviously concerning.
-I would favor CT chest to look for recurrence when she is hemodynamically stable.
#COPD
-Chronic, stable.
-She is not in acute exacerbation.
#Anxiety
#At least mild cognitive impairment.
Critical Care Time = 40 minutes.
Subjective/Interval History:
Admitted with recurrent AF, SOB/QUARLES and CP, found to have a new pericardial effusion.
Echo shows some loculations/septations.
S/P pericardiocentesis (and some BRITTANY) for 385 mL of cloudy, straw colored fluid.
Patient is pleasantly confused.
She required norepinephrine for BP support.
Afebrile since 12/12/2023 at 20:00.
SaO2 92% on RA.
Last dose of metoprolol and diltiazem were yesterday.
She is continuing to get dofetilide.
Pericardial culture shows NGTD.
DATA:
Pericardiocentesis, 12/12/2023:
Conclusions:
1. Successful placement of a 6 Macedonian pericardial drain via an apical approach yielding 385 mL of cloudy, straw-colored fluid with reduction in pericardial pressure from 14 mmHg to 10 mmHg.
2. Pericardial fluid has been sent for laboratory analysis.
TTE, 12/12/2023:
CONCLUSIONS
Normal left ventricular size and systolic function. LV ejection fraction is 60-
65% by visual assessment.
Mild concentric left ventricular hypertrophy.
Moderate eccentric tricuspid regurgitation. Estimated pulmonary artery pressure
of 35-40 mmHg.
Large pericardill effusion without overt tamponade physiology.
Compared to prior study of May, effusion is new.
CXR, 12/12/2023:
IMPRESSION:
1. Moderate cardiomegaly. Mild central pulmonary vascular congestion.
2. Small bilateral pleural effusions.
Physical Exam
Vital Signs/Labs
Vital Signs
Temp Pulse Resp BP Pulse Ox
36.3 C 138 24 74/59 92
12/13/23 07:59 12/13/23 08:31 12/13/23 08:31 12/13/23 08:31 12/13/23 08:00
12/11/23 12/12/23 12/13/23
11:59 11:59 11:59
Actual Weight 46.5 kg 43.3 kg
12/13/23 04:09
12/13/23 04:09
PT 19.4 Sec (11.4-14.6) H 12/12/23 23:01
INR 1.66 12/12/23 23:01
APTT 36.8 Sec (23.4-35.0) H 12/12/23 23:01
Magnesium 1.8 mg/dl (1.6-2.3) 12/13/23 04:09
12/12/23
09:08
Tsb-M-Pqskwtcirls Pept 4150
LAB Results
12/12/23
09:08
Troponin I < 0.012
Physical Exam
Constitutional: No acute distress and Comfortable
EENT: Anicteric and Moist mucous membranes
Cardiovascular: Pedal edema is absent, JVD pressure is normal, Rhythm/rate is irregular, S1S2 is normal and Murmur/rub/gallop absent
Respiratory: Respiratory effort normal, Lungs clear to auscul., Wheeze Absent, Crackles Absent and Rhonchi Absent
GI: Soft, Distention absent, Flat, Non tender and Normal bowel sounds
Neuro/Psych: Alert and Oriented
Other: Cath Site (Left apical pericardial drain in place.)
Data Reviewed
-
Date of Service: December 13, 2023
Medical Decision Making: Reviewed Test Results, Independent Historian Assessment, Test Interpretation and Review of Case with other Provider
EKG: Tracing Personally Visualized and interpreted and Report Reviewed by me
Echo: Tracing Personally Visualized and interpreted and Report Reviewed by me
X-Ray/CT/US/MRI/NUC/PET: Image Personally Visualized and interpreted and Report Reviewed by me
Medical Tests (PFT, Pathology etc): Image Personally Visualized and interpreted, Report Reviewed by me, Discussed with Nurse, Discussed with Patient and Discussed with Family
Labs: Labs Reviewed by me and Labs Ordered by me
[2023-12-13] MEDS: MORPHINE SULFATE 1 MG IV (10:34)
--- NOTE | 2023-12-13 10:39 | PTCARENOTE ---
pt restless in bed c/o chest pain, nonradiating. Hr 90-110s afib since am tikosyn. ekg completed during rounds and reviewed by Dr Marroquin. Pt given morphine as ordered for pain, currently resting. Held on out of bed per Dr Marroquin and delayed
pt/ot until bp above 100
[2023-12-13] MEDS: PHENERGAN 25 MG PO (12:40)
--- NOTE | 2023-12-13 12:47 | PTCARENOTE ---
pt with intermittent nausea/dry heaving. remains pleasantly confused. denies sob. bp remains borderline on levophed as charted. pt aware of need for urine sample. no void this shift, bladder scan under 200ml, purewick placed. frequent
reminders about cardiac drain. reposition frequently for butt discomfort. turning with air pillow.
--- NOTE | 2023-12-13 13:33 | CON.ID ---
Consultation
-
Date/Time Consultation Requested: 12/13/23 13:33
Date/Time Consultation Performed: 12/13/23 13:34
Requesting Provider: Dr Barrett
Performing Provider: Dr Witt
Reason for Consultation: large pericardial effusion, shock
Chief Complaint / Past History
Chief Complaint
Chest Heaviness and Fever
History of Present Illness
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 She is cachexic. Reports caludication. No: headache,
cough, palpitations, nausea, vomiting, diarrhea, abdominal pain, dysuria, sick contacts or recent travel. She is around small children who are not in day care have had some viral illnessness recently that were described as mild. Never around
anyone known to have pulmonary TB. Remote history of gardening. No tick bites for years. Did have a previous diagnosis of lyme disease that she reports was treated.
Since arrival here tmax 101.8 rectally, she has been persistently hypotensive requiring levophed, wbc on arrival 15.2 and today 15.0, hgb 12, plt 571, L shift is noted, INR 1.66, Na 131, cr 0.9, lactic acid 2.2 now 1.8, t bili 1.2, ast 43, alt 44,
alk phos 311, probnp 4000, UA no pyuria, s/p pericardiocentesis late last evening with ~400 ccs were removed, cloudy, a drin was placed, fluid with 8000 wbc, PMN predominant, glucose 61, ldh 560; gram stain no organsims seen, aerobic, fungal and afb
cultures have been sent, path is pending, covid ag neg, she has not yet received antibiotics, ID is consutled for assistance with management.
Past History
Additional Past Medical History:
Paroxysmal Atrial Fibrillation
TIA
Essential Hypertension
Hyperlipidemia
COPD
Adenocarcinoma Right Upper Lobe
Anxiety/Depression
Hypothyroidism
Osteoporosis
Dementia
Additional Past Surgical History:
Right Upper Lobectomy
Bowel Resection for Volvulus
Appendectomy
Hysterectomy
Allergy History:
No Known Allergies Allergy (Verified 06/06/23 19:44)
Medications Reviewed: Yes
Social History
Tobacco: Former Smoker
Alcohol: None
Drug: None
Family History
Family History: Not Pertinent
Review of Systems
Review of Systems
General: Fever
All systems: All other systems were reviewed and were negative
Vital Signs
Temp Pulse Resp BP Pulse Ox
97.7 F 118 24 79/58 97
12/13/23 11:40 12/13/23 12:08 12/13/23 12:08 12/13/23 12:08 12/13/23 11:15
Physical Exam
Physical Exam
Constitutional: No Acute Distress
Cardiovascular: Regular Rate and S1/S2; Negative Murmur or Rub
Pulmonary: Clear and Symmetric; Negative Wheezes, Rales or Rhonchi
Gastrointestinal: Soft, Non Tender, Non Distended and Normal Bowel Sounds
Skin: Warm and Dry; Negative Rash or Jaundice
Lab / Diagnostic Study Results
12/13/23 04:09
12/13/23 04:09
Abs Immat Gran (auto) 0.1 10^3/uL (0-0.05) H 12/12/23 08:08
Absolute Neuts (auto) 12.9 10^3/uL (1.4-6.5) H 12/12/23 08:08
Absolute Lymphs (auto) 1.0 10^3/uL (1.2-3.4) L 12/12/23 08:08
Absolute Monos (auto) 1.1 10^3/uL (0.1-0.6) H 12/12/23 08:08
Absolute Basos (auto) 0.1 10^3/uL (0-0.2) 12/12/23 08:08
Immature Gran % 0.5 % (0-0.5) 12/12/23 08:08
Neutrophils % 84.8 % (42.2-75.2) H 12/12/23 08:08
Lymphocytes % 6.5 % (20.5-51.1) L 12/12/23 08:08
Monocytes % 7.4 % (1.7-9.3) 12/12/23 08:08
Eosinophils % 0.3 % (0-6) 12/12/23 08:08
Basophils % 0.5 % (0-2) 12/12/23 08:08
PT 19.4 Sec (11.4-14.6) H 12/12/23 23:01
INR 1.66 12/12/23 23:01
Lactic Acid 1.8 mmol/L (0.7-2.0) 12/12/23 23:01
Ur Squamous Epith Cells 16-20 /LPF (Few) 12/12/23 14:11
Microbiology Results
Micro:
12/12/23 20:38 Body Fluid Culture - Pending
Pericardial Fluid Gram Stain - Preliminary
12/12/23 20:38 Fungal Culture - Pending
Pericardial Fluid
12/12/23 20:38 Acid Fast Bacilli Smear - Pending
Pericardial Fluid Acid Fast Bacilli Culture - Pending
12/12/23 17:09 Blood Culture - Pending
Blood/Venous
12/12/23 17:09 Influenza Types A & B (STEPHANY) - Final
Nasal Swab Negative for Influenza A & B, NAAT
Negative results must be combined with clinical observations
and patient history.
Nucleic Acid Amplification test (NAAT)performed on the
[employer] platform.
12/12/23 17:28 Blood Culture - Pending
Blood/Venous
Assessment / Plan
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
Cachexia
- pericardial fluid with neutrophil predominant fluid, elevated WBC count; gram stain without organisms. Glucose normal
- blood cultures x2 are in progress no growth to date
- cytology pending - malignant effusion also possible and would be high on my differential particularly with marked cachexia
- fungal and afb cultures on the pericardial fluid sent
- covid ag negative
- qft gold will be sent in the AM; does not require isolation
- lyme serology
- start vancomycin and ceftriaxone for present, follow clinically
--- NOTE | 2023-12-13 13:40 | CM ---
CM following re: discharge planning.
Reviewed pt's chart, met with pt and spoke to pt's daughter Taryn.
Pt is an 83 year old female, admitted with primary dx of Sepsis
Pt reports she lives alone in a 2SH, 2 steps to enter and her daughter stays with her. 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 No DME, VN or SNF history. Pt reports she used to live with her
and he around 6 months ago. Emotional support offered and provided.
Per daughter Taryn, pt mostly staying with her, pt still has her own house and cannot live alone due to dx of Dementia. Per daughter, pt is forgetful. Per daughter, her a year ago. Pt's daughter stated that pt will return back
to her (daughter's) house at discharge and she will provide necessary care for her.
PCP: Dr. Wong
Pharmacy: [facility]
D/C plan: home with anticipated no needs. Daughter to transport at discharge.
CM will follow with discharge plan updates as hospitalization progresses
[2023-12-13] MEDS: TUMS EX (EXTRA STRENGTH) CHEWABLE 2 TABLET PO (14:23)
--- NOTE | 2023-12-13 15:50 | PTCARENOTE ---
Systems reviewed. Pt still with nausea/dry heaves with position changes it seems. Denies sob or pain. REstless at times. Daughter at bedside and updated.
[2023-12-13] MEDS: LEVOPHED 250 IV (15:58)
--- NOTE | 2023-12-13 15:59 | PHA.VAN.IN ---
Assessment
- Assessment
Renal Function: Appears similar to baseline
Plan
- Plan
Initial / Loading Dose: 1250mg (29mg/kg TBW / 22mg/kg IBW)
Maintenance Regimen: dosing by level
Monitoring: random - 12/13 0600 to guage clearance
Given BMI < 20, patient may have enhanced clearance compared to population PK predictions
Will start with dose by level for now to gauge how patient is clearing (est CrCl using IBW = 44 [SCR 0.9] to 56 [SCR 0.7])
Pharmacokinetics Vancomycin I
- -
Patient Age: 83
Patient Sex: Female
Vancomycin Day #: 1
Indication: Other
Requesting Provider: Dr. Witt
Pertinent Antimicrobial Allergies:
NKDA
Height / Weight:
Height 5 ft 5 in
Actual Weight 43.3 kg
IBW in k
Pertinent Past Medical History: BMI ~15.9
- Vital Signs / Lab Results
Temp Pulse Resp BP Pulse Ox
97.7 F 107 21 96/54 97
12/13/23 11:40 12/13/23 15:00 12/13/23 15:00 12/13/23 15:00 12/13/23 11:15
Lab Results - Hematology
12/12/23 12/13/23
08:08 04:09
WBC 15.2 H 15.0 H
Lab Results - Chemistry
12/12/23 12/13/23
08:08 04:09
BUN 21 H 29 H
Creatinine 0.7 0.9
Estimated Creat Clear 46 36
Albumin 3.2 L
12/12/23 12/12/23
17:09 23:01
Lactic Acid 2.2 H 1.8
Lab Results - Urine
12/12/23
14:11
Urine Nitrite (Reflex) Negative
Leukocyte Esterase Rfl Trace A
Urine WBC (Reflex) 6-10
Ur Squamous Epith Cells 16-20
Urine Bacteria (Reflex) Few A
Microbiology Results
12/12/23 20:38 Gram Stain - Preliminary
Pericardial Fluid
12/12/23 17:09 Influenza Types A & B (STEPHANY) - Final
Nasal Swab Negative for Influenza A & B, NAAT
Negative results must be combined with clinical observations
and patient history.
Nucleic Acid Amplification test (NAAT)performed on the
[employer] NOW platform.
[2023-12-13] MEDS: ROCEPHIN 2000 MG IV (16:33)
[2023-12-13] MEDS: STERILE WATER FOR INJECTION 20 ML IV (16:33)
[2023-12-13] MEDS: VANCOCIN 275 MG IV (16:34)
[2023-12-13] MEDS: LIPITOR 40 MG PO (22:01)
[2023-12-13] MEDS: REMERON ODT 15 MG PO (22:01)
[2023-12-14] VITALS (46 sets, daily range): BP systolic 66–148; BP diastolic 45–117; BMI 16.0
--- NOTE | 2023-12-14 03:50 | PTCARENOTE ---
Rec'd care of patient at 2300. Patient pleasantly confused. Oriented to self and place. Anxious at times requiring reassurance. Remains in afib on tele monitor. Rate in the 110-120's. Up to the 130's with anxiety. Pericardial drain in place.
Serosanguineous drainage. Sutures and dressing intact. VSS. Levophed currently infusing at 2 mcg/min. Weaning as tolerated for MAP >65. Lung sounds cta on RA. Patient still with no void. Bladder scan 262 at 0345. Patient placed on bedpan and
encouraged to try and void. Incontinent of loose BM prior. Pericare performed. Bed alarm on and safe environment maintained. Full assessment and care as charted on worklist.
[2023-12-14 04:34] LABS: % Basophils 0.3 % (0-2); % Immature Granulocytes 0.5 % (0-0.5); % Lymphocytes 6.2 % (20.5-51.1); % Monocytes 6.6 % (1.7-9.3); % Neutrophils 86.4 % (42.2-75.2); Absolute Basophils 0.1 10^3/uL (0-0.2); Absolute Immature Granulocytes 0.1 10^3/uL (0-0.05); Absolute Lymphocytes 1.1 10^3/uL (1.2-3.4); Absolute Monocytes 1.1 10^3/uL (0.1-0.6); Absolute Neutrophils 14.8 10^3/uL (1.4-6.5); Hematocrit 35.7 % (37.0-47.0); Hemoglobin 12.3 g/dL (12.0-16.0); Mean Corp Hgb Conc. 34.5 g/dL (33.0-37.0); Mean Corpuscular Hgb 28.6 pg (27.0-31.0); Mean Platelet Volume 9.5 fL (7.4-10.4); Nucleated Red Blood Cells % 0 %; Platelet Count 632 10^3/uL (130-400); Red Cell Dist. Width 14.6 % (11.5-14.5); White Blood Cell Count 17.2 10^3/uL (4.8-10.8)
[2023-12-14 05:08] LABS: Vancomycin Random 14.6 ug/ml
[2023-12-14 05:36] LABS: ALT (SGPT) 43 U/L (0-35); AST (SGOT) 55 U/L (14-36); Albumin 2.6 g/dl (3.5-5.0); Alkaline Phosphatase 244 U/L (38-126); Blood Urea Nitrogen 52 mg/dl (7-17); Calcium 8.3 mg/dl (8.4-10.2); Carbon Dioxide 20 mmol/L (22-30); Chloride 100 mmol/L (98-107); Estimated Creatinine Clearance 17 ml/min; Glucose 115 mg/dl (70-99); Potassium 4.4 mmol/L (3.5-5.1); Sodium 130 mmol/L (135-145); Total Bilirubin 0.5 mg/dl (0.2-1.3); Total Protein 5.4 g/dl (6.3-8.2); eGFR 27.96
[2023-12-14 05:46] LABS: Procalcitonin 2.24 ng/ml (0.0-0.25)
--- NOTE | 2023-12-14 06:11 | PTCARENOTE ---
Addendum entered by Heaven Snell RN 12/14/23 06:24:
Cardiology updated.
Original Note:
Patient placed on bedpan for large liquid BM. Cleaned and repositioned. Once sitting up in bed, patient with a 23 beat run of vtach. Asymptomatic. Followed by afib with rate in the 130-150's. BP 106/81 on 1 mcg/min of Levophed. About 5 minutes
later, patient with another 10 beat run of vtach. Patient's HR fluctuating between 120-130, occasionally up to 140-150's. FIELD [address] RESEARCHER notified. Also notified of Procal level of 2.24 and Blasting Contract Miner increase from 0.9 to 1.8.
[2023-12-14] MEDS: SYNTHROID 100 MCG PO (06:49)
[2023-12-14] MEDS: NSS 1000 IV (08:30)
--- NOTE | 2023-12-14 08:38 | W.PN.HOSP.TC ---
Addendum entered and electronically signed by Matthew Barrett DO 12/14/23 11:54:
Moderate protein calorie malnutrition
Original Note:
Today's Communication/Plan
-
IV fluid bolus
Increase Levophed
Add midodrine
Await cultures
IV amiodarone if no improvement in rhythm
Assessment / Plan
Assessment / Plan
Gen-AAOx3, NAD, nontoxic
HEENT-NC, AT, anicteric, clear oral mm
Neck-supple
CV-irregular, tachycardic, no M, +S1/S2, subxiphoid pericardial drain intact
Lungs-clear B/L
Abd-soft, NT, ND
Ext-no edema
Musculoskeletal-no cyanosis, clubbing
Skin-warm and dry
Neuro-grossly non-focal
Psych-calm, cooperative
Shock -possibly due to sepsis versus cardiogenic versus other. Support with Levophed infusion. BNP 4150. Chest x-ray with mild central pulmonary vascular congestion. Small bilateral pleural effusions. Still hypotensive today, will give IV
fluids and increase Levophed rate. Discussed with nursing.
Large pericardial effusion -noted on echocardiogram. Urgent pericardiocentesis with drain placement performed 12/11 evening. 385 cc cloudy straw-colored fluid removed. Drain output 50 cc overnight. Etiology of effusion unclear at this point,
differential includes infection versus malignancy versus inflammatory. Noted history of lung cancer is concerning. Pericardial fluid sent for culture and cytology.
Now on empiric antibiotics per infectious disease.
Sepsis -unclear source, possibly infectious pericarditis. Concern for septic shock given hypotension. Blood cultures negative so far. Low suspicion for pneumonia. Urinalysis nonconcerning. COVID and influenza negative.
WBCs up to 17,000. Afebrile.
EMMY -likely ATN related to hypotension, shock. Support blood pressure with IV fluids, vasopressors. Monitor renal function. Monitor bladder scans. Consult nephrology if it worsens.
Rapid atrial fibrillation -hypotension will make rate control difficult. Rhythm appears to be SVT with aberrancy versus nonsustained V. tach this morning. Discussed with cardiology. Start amiodarone if no improvement in blood pressure and rhythm
with IV fluid administration. Transiently received Cardizem infusion in the emergency room now discontinued. She is on metoprolol succinate, diltiazem, dofetilide, Eliquis at home. Cardiology consulted for assistance. If hypotension persists
along with rapid rates may need to perform cardioversion. Eliquis currently on hold due to large pericardial effusion.
Hyponatremia -sodium 130. TSH 3.9. Check urine studies.
Normocytic anemia -likely chronic. Monitor for now.
Elevated LFTs -primarily transaminases, alkaline phosphatase. Bilirubin normal. Unclear if due to passive congestion versus other etiology.
Hypothyroidism -on levothyroxine. TSH normal.
Hyperlipidemia -on atorvastatin.
History of pulmonary adenocarcinoma -underwent right upper lobectomy about 5 to 6 years ago according to family.
Dementia, likely Alzheimer's type -watch for delirium in the hospital.
DNR
Updated daughter Taryn on the phone. All questions answered.
Anticipated Discharge: > 48 hours
Subjective/Interval History
-
Date of Service: December 14, 2023
Patient seen and examined. No complaints. Denies chest pain or shortness of breath.
Objective Data
-
Labs:
Laboratory Results
12/14/23
04:25
WBC 17.2 H
Hgb 12.3
Hct 35.7 L
Plt Count 632 H
Sodium 130 L
Potassium 4.4
Chloride 100
Carbon Dioxide 20 L
BUN 52 H
Creatinine 1.8 H
Glucose 115 H
Calcium 8.3 L
Total Bilirubin 0.5
AST 55 H
ALT 43 H
Alkaline Phosphatase 244 H
Vital Signs:
Vital Signs
Temp Pulse Resp BP Pulse Ox
97.8 F 150 17 93/69 96
12/14/23 07:56 12/14/23 06:03 12/14/23 06:03 12/14/23 06:03 12/14/23 04:30
I&O
12/13/23 12/14/23 12/15/23
06:59 06:59 06:59
Intake Total 52.5 / 63.8 849.2 / 849.2
Output Total 50 / 50 50 / 50
Balance 2.5 / 13.8 799.2 / 799.2
Review of Systems
-
History Source: Patient
All other systems: Reviewed and negative
--- NOTE | 2023-12-14 08:39 | W.PN.CD ---
Addendum entered and electronically signed by Edgar Jackson DO 12/14/23 09:37:
Hold dofetilide in light of amiodarone use.
Original Note:
Today's Communication / Plan
-
Agree with ABX.
F/U culture/cytology from pericardium.
LR 1000 mL now.
After 250 mL of LR infused, give amiodarone 150 mg x1.
Repeat echo.
If effusion has resolved, we can pull drain.
If she becomes clinically unstable with VT, defibrillate.
No role for catheterization at this time (no angina, normal LV function).
Impression / Plan
-
Impression/Plan: 83F with a history of HTN, lung adenoCA s/p surgical resection (without adjuvant chemotherapy or radiation per daughter) and COPD, admitted in May 2024 with PAF with RVR and started on apixaban, now admitted with dyspnea and CP
noted with recurrent persistent AF, found to be febrile and hypotensive with new, large pericardial effusion.
#Pericardial effusion
-Acute, likely with at least some hemodynamic compromise.
-S/P pericardiocentesis for 385 mL of cloudy, straw colored fluid.
-Exudate. Serum protein 6.0:Pericardial protein 4.7; Serum LDH pending:Pericardial LDH 561.
-DDx includes infection (septic pericarditis), inflammatory pericarditis, malignant pericarditis. Cultures/cytology pending.
-Continue colchicine for presumed inflammatory pericarditis. ID following for possible infection.
-No further drainage.
-Repeat TTE to assess pericardial effusion. If effusion remains resolved, d/c drain.
#Hypotension
-Multifactorial.
-Seems likely due to confluence of AF/RVR, medication, infection,and this large effusion.
-Maintain norepinephrine for BP support. Goal MAP > 65 mmHg.
-Hold all antihypertensives.
-Treat a presumptive infection/sepsis.
-UA is not impressive. COVID negative. CXR does not show infiltrate.
-Monitor blood cultures, pericardial cultures.
#AF/VT
-Persistent. Currently in AF with rapid ventricular response.
-Her outpatient accountant property ([employer]) has been adjusting medications.
-Maintain dofetilide 250 mg q12 hours.
-Rate: 150-160.
-Rhythm: continue dofetilide for now.
-Oral Anticoagulation: Anticoagulation on hold until we have a better idea of her effusion output.
-VT is new and hypotension is worse. Asymptomatic and breaking back into AF. This could be true sustained VT vs. AF with aberrancy.
-Volume expansion with LR 1L now.
-After 250 mL of LR is infused, give amiodarone 150 mg IV. We need to be cautious. If hypotension is due to intravascular depletion, then AF/RVR is a physiologic (not pathologic) response. Slowing HR would be potentially detrimental.
-Check Mg level.
-If she becomes clinically unstable with VT, perform defibrillation.
#HTN
-Chronic.
-Currently hypotensive.
-All medications on hold.
#Prior lung cancer
-Chronic, stable/remote.
-Presence of a exudative pericardial effusion is obviously concerning.
-I would favor CT chest to look for recurrence when she is hemodynamically stable.
#COPD
-Chronic, stable.
-She is not in acute exacerbation.
#Anxiety
#At least mild cognitive impairment.
Critical Care Time = 42 minutes.
Subjective/Interval History:
Called to bedside for sustained ventricular tachycardia.
Patient reportedly hypotensive (SBP in the 60's) but completely asymptomatic.
Review of telemetry shows wide complex tachycardia.
AF has now accelerated to 150-160's.
No further drainage from the pericardial drain.
WBC up to 17.2.
Procalcitonin elevated at 2.24.
Ceftriaxone and vancomycin started yesterday.
BUN/Creatinine up to 52/1.8.
Mild transaminitis stable.
DATA:
Pericardiocentesis, 12/12/2023:
Conclusions:
1. Successful placement of a 6 Nepali pericardial drain via an apical approach yielding 385 mL of cloudy, straw-colored fluid with reduction in pericardial pressure from 14 mmHg to 10 mmHg.
2. Pericardial fluid has been sent for laboratory analysis.
TTE, 12/12/2023:
CONCLUSIONS
Normal left ventricular size and systolic function. LV ejection fraction is 60-
65% by visual assessment.
Mild concentric left ventricular hypertrophy.
Moderate eccentric tricuspid regurgitation. Estimated pulmonary artery pressure
of 35-40 mmHg.
Large pericardill effusion without overt tamponade physiology.
Compared to prior study of May, effusion is new.
CXR, 12/12/2023:
IMPRESSION:
1. Moderate cardiomegaly. Mild central pulmonary vascular congestion.
2. Small bilateral pleural effusions.
Physical Exam
Vital Signs/Labs
Vital Signs
Temp Pulse Resp BP Pulse Ox
36.6 C 150 17 93/69 96
12/14/23 07:56 12/14/23 06:03 12/14/23 06:03 12/14/23 06:03 12/14/23 04:30
12/12/23 12/13/23 12/14/23
11:59 11:59 11:59
Actual Weight 46.5 kg 43.3 kg 43.6 kg
12/14/23 04:25
12/14/23 04:25
PT 19.4 Sec (11.4-14.6) H 12/12/23 23:01
INR 1.66 12/12/23 23:01
APTT 36.8 Sec (23.4-35.0) H 12/12/23 23:01
Magnesium 1.8 mg/dl (1.6-2.3) 12/13/23 04:09
12/12/23
09:08
Fke-P-Rqampumgafe Pept 4150
LAB Results
12/12/23
09:08
Troponin I < 0.012
Physical Exam
Constitutional: No acute distress and Comfortable
EENT: Anicteric and Moist mucous membranes
Cardiovascular: Pedal edema is absent, JVD pressure is normal, Rhythm/rate is irregular and S1S2 is normal
Respiratory: Respiratory effort normal, Lungs clear to auscul., Wheeze Absent, Crackles Absent and Rhonchi Absent
GI: Soft, Distention absent, Flat, Non tender and Normal bowel sounds
Neuro/Psych: Alert and Oriented
Other: Cath Site (Pericardial drain site is C/D/I.)
Data Reviewed
-
Date of Service: December 14, 2023
Medical Decision Making: Reviewed Test Results, Independent Historian Assessment, Test Interpretation and Review of Case with other Provider
EKG: Tracing Personally Visualized and interpreted, Report Reviewed by me and Ordered by me
Echo: Tracing Personally Visualized and interpreted, Report Reviewed by me and Ordered by me
X-Ray/CT/US/MRI/NUC/PET: Image Personally Visualized and interpreted and Report Reviewed by me
Medical Tests (PFT, Pathology etc): Image Personally Visualized and interpreted and Report Reviewed by me
Labs: Labs Reviewed by me and Labs Ordered by me (Magnesium)
Old Records: Reviewed
--- NOTE | 2023-12-14 08:45 | PHA.VAN.FU ---
Vancomycin Assessment / Plan
- Assessment
Renal Function: SCR Increasing
WBC's are: Trending Up
In the past 24 hrs, patient has been: Afebrile
Concomitant Antimicrobials: ceftriaxone
- Assessment - Therapeutic Drug Monitoring
Random Level: 14.6 - drawn ~12H after 1250mg loading dose
- Dosing Plan
Dosing by Level: Re-dose today (Vanc 500mg)
- Monitoring Plan
Random Level: 12/14 0600
- Follow Up
Pharmacy will continue to follow.
Vancomycin Follow UP
- -
Patient Age: 83
Patient Sex: Female
Vancomycin Day #: 2
Indication: Other
Requesting Provider: Dr. Witt
Pertinent Antimicrobial Allergies:
NKDA
Height / Weight:
Height 5 ft 5 in
Actual Weight 43.6 kg
IBW in k
Pertinent Past Medical History: BMI ~15.9
- Vital Signs / Lab Results
Temp Pulse Resp BP Pulse Ox
97.8 F 150 17 93/69 96
12/14/23 07:56 12/14/23 06:03 12/14/23 06:03 12/14/23 06:03 12/14/23 04:30
Lab Results - Hematology
12/12/23 12/13/23 12/14/23
08:08 04:09 04:25
WBC 15.2 H 15.0 H 17.2 H
Lab Results - Chemistry
12/12/23 12/13/23 12/14/23
08:08 04:09 04:25
BUN 21 H 29 H 52 H
Creatinine 0.7 0.9 1.8 H
Estimated Creat Clear 46 36 17
Albumin 3.2 L 2.6 L
12/12/23 12/12/23
17:09 23:01
Lactic Acid 2.2 H 1.8
Microbiology Results
12/12/23 17:28 Blood Culture - Preliminary
Blood/Venous No Growth in 24 hours- Final report to follow
12/12/23 17:09 Blood Culture - Preliminary
Blood/Venous No Growth in 24 hours- Final report to follow
12/12/23 20:38 Gram Stain - Preliminary
Pericardial Fluid
12/12/23 17:09 Influenza Types A & B (STEPHANY) - Final
Nasal Swab Negative for Influenza A & B, NAAT
Negative results must be combined with clinical observations
and patient history.
Nucleic Acid Amplification test (NAAT)performed on the
[employer] platform.
Therapeutic Drug Monitoring
Random Vancomycin 14.6 ug/ml 12/14/23 04:25
[2023-12-14] MEDS: TIKOSYN PO (08:48)
--- NOTE | 2023-12-14 08:55 | W.PN.ID1 ---
Date of Service
Date of Service: December 14, 2023
Today's Communication
- continue vancomycin and ceftriaxone for present, follow clinically
Assessment / Plan
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
EMMY
Cachexia
- suspect EMMY related to hypoperfusion
- pericardial fluid with neutrophil predominant fluid, elevated WBC count; gram stain without organisms. Glucose normal
- pericaridal fluid culture pending
- blood cultures x2 are in progress no growth to date
- cytology pending - malignant effusion also possible and would be high on my differential particularly with marked cachexia
- fungal and afb cultures on the pericardial fluid sent
- covid ag negative
- qft gold will be sent in the AM; does not require isolation
- lyme serology
- coxsackie serology was sent - unlikely to change house attendant
- continue vancomycin and ceftriaxone for present, follow clinically
Chief Complaint
-: Other (purulent pericarditis)
Subjective / Review of Systems
afebrile
on minimal norepi overnight
episodes of VT this AM
persistent leukocytosis
persistent thrombocytosis
L shift is noted
no eos present
marked emmy - cr 1.8 from 0.9
small increase in transaminitis
Vital Signs / Physical Exam
Vital Signs
Vital Signs
Temp Pulse Resp BP Pulse Ox
97.8 F 150 17 93/69 96
12/14/23 07:56 12/14/23 06:03 12/14/23 06:03 12/14/23 06:03 12/14/23 04:30
Physical Exam
Constitutional: No Acute Distress
Cardiovascular: Regular Rate and S1/S2; Negative Murmur or Rub
Pulmonary: Clear and Symmetric; Negative Wheezes or Rales
Gastrointestinal: Soft, Non Tender, Non Distended and Normal Bowel Sounds
Skin: Warm and Dry; Negative Rash or Jaundice
Lines: Other (drain fluid serosanguinous, mildly cloudy)
Objective Data
Lab Data
Lab Results
12/14/23 04:25
12/14/23 04:25
PT 19.4 Sec (11.4-14.6) H 12/12/23 23:01
INR 1.66 12/12/23 23:01
APTT 36.8 Sec (23.4-35.0) H 12/12/23 23:01
Estimated Creat Clear 17 ml/min 12/14/23 04:25
Lactic Acid 1.8 mmol/L (0.7-2.0) 12/12/23 23:01
Total Bilirubin 0.5 mg/dl (0.2-1.3) 12/14/23 04:25
AST 55 U/L (14-36) H 12/14/23 04:25
ALT 43 U/L (0-35) H 12/14/23 04:25
Alkaline Phosphatase 244 U/L (38-126) H 12/14/23 04:25
Most recent labs reviewed.
Micro Results:
12/12/23 17:28 Blood Culture - Preliminary
Blood/Venous No Growth in 24 hours- Final report to follow
12/12/23 17:09 Blood Culture - Preliminary
Blood/Venous No Growth in 24 hours- Final report to follow
12/12/23 20:38 Body Fluid Culture - Pending
Pericardial Fluid Gram Stain - Preliminary
12/12/23 20:38 Fungal Culture - Pending
Pericardial Fluid
12/12/23 20:38 Acid Fast Bacilli Smear - Pending
Pericardial Fluid Acid Fast Bacilli Culture - Pending
12/12/23 17:09 Influenza Types A & B (STEPHANY) - Final
Nasal Swab Negative for Influenza A & B, NAAT
Negative results must be combined with clinical observations
and patient history.
Nucleic Acid Amplification test (NAAT)performed on the
[employer] platform.
--- NOTE | 2023-12-14 08:55 | PN.CDI ---
CDI
- -
CDI:
Physician Documentation Request
Admit Date: 12/12/23 18:49
Dear Doctor Arnold,
Patient admitted for shock.
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 With < 75% estimated needs > 1 month and observed muscle and fat
wasting pt meets AND/ASPEN criteria of moderate protein calorie malnutrition of chronic illness.'
Based on the information and your assessment, which of the following most accurately represents the patient's nutritional status?
Moderate protein calorie malnutrition
Other
[place] Criteria ([facility] Hospitalist 2017)
2 or more criteria must be present for either
non severe or severe malnutrition
Note that the criteria differs related to the
presence of an acute or chronic illness
Acute Illness Chronic Illness
Energy Intake Non Severe: <75% for >7 days Non Severe: <75% for >1 month
Severe: <50% for >5 days Severe: <75% for >1 month
Weight Loss Non Severe: 1-2% over 1 week Non Severe: 5% over 1 month
5% over 1 month 7.5% over 3 months
7.5% over 3 months 10% over 6 months
1 year N/A 20% over 1 year
Severe: >2% over 1 week Severe: >5% over 1 month
>5% over 1 month >7.5% over 3 months
>7.5% over 3 months >10% over 6 months
1 year N/A >20% over 1 year
Body Fat Non Severe: Mild Decrease Non Severe: Mild Loss
Severe: Moderate Decrease Severe: Severe Loss
Muscle Mass Non Severe: Mild Decrease Non Severe: Mild Loss
Severe: Moderate Decrease Severe: Severe Loss
Fluid Accumulation Non Severe: Mild Accumulation Non Severe: Mild Accumulation
Severe: Moderate to severe Severe: Moderate to severe
accumulation accumulation
Reduced Building Wrecker Strength Non Severe: N/A Non Severe: N/A
Severe: Measurably reduced Severe: Measurably reduced
Additional criteria that can be used to Determine if Mild or Moderate Malnutrition (Merck Manual 2018)
Mild Moderate Severe
Albumin gm/dl <3.0 gm/dl <2.5 gm/dl <2.0 gm/dl
Pre Albumin mg/dl <15 gm/dl <10 mg/dl <5.0 mg/dl
BMI <18.5 <17 <16
Use of terms such as suspected, likely, concern for, or probable (associated with a specific diagnosis that is being evaluated, monitored, or treated as if it exists) are acceptable and can be coded in the inpatient setting, when documented at the
time of discharge.
Thank you,
Jane Chilel RN, BSN
CDI Specialist
Available via [place] text
Please use your independent medical judgment in providing your response.
[2023-12-14] MEDS: CORDARONE 103 MG IV (09:01)
[2023-12-14] MEDS: COLCHICINE 0.299999999999999989 MG PO (09:05)
[2023-12-14] MEDS: ProAmatine 10 MG PO ×3 (09:05→17:19)
[2023-12-14] MEDS: LOW STRENGTH ASPIRIN 81 MG PO (09:05)
[2023-12-14] MEDS: MAGNESIUM OXIDE 500 MG PO (09:06)
[2023-12-14] MEDS: CORDARONE 518 MG IV (09:07)
[2023-12-14 09:31] LABS: Magnesium 2.1 mg/dl (1.6-2.3)
--- NOTE | 2023-12-14 11:12 | W.PN.INTV ---
Today's Communication / Plan
Recommendations
IV amiodarone
Follow repeat echocardiogram
Continue antibiotics
Follow cytology and cultures from pericardial effusion
Follow electrolytes and replete as necessary
Vasopressors as needed.
Will maintain ICU level of care
Assessment
-
Assessment: 83-year-old female with a past medical history of A-fib, COPD, hyperlipidemia and hypothyroidism who presents with syncope earlier prior to arrival and chest heaviness X 2 days. EMS called and she was in A-fib with RVR. Brought to the
ER for further evaluation. She was tachycardic to 152, tachypnea to 24 breaths/min, saturating 90% on room air, afebrile to 98.2 �F and hypotensive to 107/69. She was given IVF bolus with NS 0.9% X 500 cc, and started on Cardizem drip. Labs
showed leukocytosis to 15.2, anemia to 11.1, slightly low sodium of 134, elevated LFTs, negative troponin at <0.012, elevated proBNP of 4150, and urinalysis was abnormal with trace leukocyte esterase but only 6�10 urine WBC. She was COVID antigen
negative. TSH also WNL. Blood cultures were collected. CXR showed moderate cardiomegaly with small bilateral pleural effusions. EKG confirmed A-fib with RVR. Found to have large pericardial effusion on bedside echo without overt tamponade
physiology, and she went to quality control lab technician with removal of 385cc of cloudy, straw-colored fluid. Her pericardial pressures improved from 14 to 10 mmHg. To try to reach heart rate control, she was given PO Cardizem and metoprolol however her blood
pressure remained low requiring Levophed. She was then transferred to the ICU for further care, and critical care services consulted for additional management/recommendations.
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
Impression:
#Shock - likely due to cardiogenic in setting of pericardial effusion and rapid A-fib; unable to rule out sepsis but she is non-toxic appearing
#Pericardial effusion with concern for infection given it was cloudy, vs pericarditis vs malignant
#Thrombocytosis likely reactive due to acute inflammatory state; doubt this is a myeloproliferative condition
#Persistent atrial fibrillation with RVR /ventricular tachycardia-nonsustained.
# Acute kidney injury
#Reported Hx of COPD not in an acute exacerbation
#History of right-sided lung cancer s/p right upper lobe lobectomy
#Dementia with cognitive impairment
Plan:
-
This morning developed hypotension, nonsustained ventricular tachycardia.
Hemodynamics improved after bolus of normal saline.
Started on amiodarone per cardiology.
Echocardiogram to be repeated to reassess pericardial effusion
Cytology pending
If effusion has resolved drain will be pulled out
Levophed has been discontinued.
If vasopressors required may consider Denis-Synephrine.
-
-Continue antibiotics- ID started rocephin + vanco
- Follow up pericardial fluid studies and blood Cx
-
Shock state improved.
Levophed has been discontinued
Continue to hold antihypertensive for now.
Try to avoid further vasopressors if possible with ventricular tachycardia/atrial fibrillation.
Trend WBC and fever curve.
-
Rate control with goal HR<110bpm-atrial fibrillation/ventricular tachycardia.
Management per cardiology as above.
Replete electrolytes with K>4, Mg>2
Renally dose her colchicine due to low GFR --> reviewed with pharmacy --> reduced to 0.3mg daily
-
? History of COPD. No details clear. Not bronchospastic on exam.
As needed Xopenex
Oxygen supplementation to maintain pulse ox above 90%
Eventual CT chest.
-
Thrombocytosis noted: Continue to trend. May be reactive.
May need hematology at some point if not improving
Maintain euglycemia with goal BG 140-180
Incentive spirometer encouraged
- DVT ppx-on apixaban
Critical care statement: A total of 34 minutes of critical care time was provided for this patient today. This includes management of unstable vital signs, evaluation of the patient at bedside, reviewing the patient's pertinent medical records
including radiographs, microbiology, laboratory evaluations, and discussion with primary team, consultants, pharmacy, nutrition, physical therapy, case management, charge nurse, critical care nursing, and respiratory therapy.
Data:
CXR 12-12-2023:
1. Moderate cardiomegaly. Mild central pulmonary vascular congestion.
2. Small bilateral pleural effusions.
Subjective Dataa
Subjective Data
Date of Service:
Date of Service: December 14, 2023
Chief Complaint: Sales Process Manager Follow Up (Shock/pericardial effusion)
Subjective:
Currently denies any significant discomfort.
This morning hypotensive, responded to IV fluids.
Denies nausea or vomiting.
Denies shortness of breath at rest
Review of Systems
General: Fever (n)
Cardiopulmonary: Dyspnea (none at rest) and Sputum Production (n)
GI: Abdominal Pain (n) and Nausea (n)
Neuro: Headache (n)
Objective Data
Data Reviewed
Vital Signs / I&O / Oxygen:
Vital Signs
Temp Pulse Resp BP Pulse Ox
97.8 F 135 17 101/80 96
12/14/23 07:56 12/14/23 09:05 12/14/23 06:03 12/14/23 09:05 12/14/23 04:30
Intake and Output
12/13/23 12/14/23 12/15/23
06:59 06:59 06:59
Intake Total 52.5 / 63.8 849.2 / 849.2
Output Total 50 / 50 50 / 50
Balance 2.5 / 13.8 799.2 / 799.2
SaO2 96
Physical Exam
General: Respiratory Distress (n) and Comfortable
HEENT: Normocephalic
Cardiovascular: S1-S2, Regular Rhythm and Other (Pericardial drain in place-serosanguineous fluid.)
Respiratory: Clear and Non-Labored Respirations
GI: Soft and Non Distended
Neurology: Awake, Alert and No Motor Deficits
Labs/Micro/Reports
Lab Data
12/14/23 04:25
12/14/23 04:25
Microbiology
12/12/23 20:38 Pericardial Fluid Body Fluid Culture - Preliminary
No Growth After 18-24 Hours
12/12/23 20:38 Pericardial Fluid Gram Stain - Preliminary
12/12/23 17:28 Blood/Venous Blood Culture - Preliminary
No Growth in 24 hours- Final report to follow
12/12/23 17:09 Blood/Venous Blood Culture - Preliminary
No Growth in 24 hours- Final report to follow
12/12/23 17:09 Nasal Swab Influenza Types A & B (STEPHANY) - Final
Negative for Influenza A & B, NAAT
Negative results must be combined with clinical observations
and patient history.
Nucleic Acid Amplification test (NAAT)performed on the
[employer] platform.
[2023-12-14] MEDS: VANCOCIN HCL 500 MG 100 IV (12:29)
--- NOTE | 2023-12-14 12:48 | PTCARENOTE ---
pt awake and alert, oriented, anxious at times , SVT on monitor this am at change of shift , periods of VT on monitor , her 78/65 map 72, Levophed at 1mcg , labs noted, magnesium added to labs K 4.4 creatine up to 1.8 , did not void , bladder
scanned for 200 , Dr Barrett at bedside , cardiology notified, pt was given NSS bolus as ordered and Amiodarone bolus and gtt started as ordered , she was weaned off of Levophed by 0930 , her HR down to 130s rhythm is now afib on monitor , HR is now
119-125, no further VT , pt was asymptomatic during all episodes of SVT and VT this am , pericardial drain in with bloody drainage 100ml out since yesterday , pt daughter at bedside and updated on plan of care and condition
--- NOTE | 2023-12-14 13:43 | CM ---
CM following re: discharge planning.
Reviewed pt's chart, met with pt.
Pt lives alone in a 2SH, 2 steps to enter and her daughter stays with her. Pt reports she has 2 children and pt described herself as independent in all areas RN NIGHT. Per daughter Taryn, pt mostly staying with her, pt still has her own house and
cannot live alone due to dx of Dementia. Pt's daughter stated that pt will return back to her (daughter's) house at discharge and she will provide necessary care for her.
PT and OT evaluations pending.
D/C plan: home with anticipated no needs. Daughter to transport at discharge.
CM will follow with discharge plan updates as hospitalization progresses
[2023-12-14] MEDS: ROCEPHIN 2000 MG IV (15:49)
[2023-12-14] MEDS: STERILE WATER FOR INJECTION 20 ML IV (15:49)
--- NOTE | 2023-12-14 17:55 | PTCARENOTE ---
pt had repeat echocardiogram , results given to Dr Jackson, pt had pericardial drain removed at [address] Jackson, dressing over site is dry and intact , no complaints of pain , poor appetite with meals
--- NOTE | 2023-12-14 18:02 | W.PN.UPDATE ---
Update Note
Progress Note Update
No further drainage from pericardial drain.
I reviewed the limited follow up echo, showing resolution of the pericardial effusion.
The patient converted to normal sinus rhythm earlier this afternoon.
The patient's blood pressure and heart rate are markedly improved after her bolus of fluid and episcopalian of NSR.
The pericardial drain was pulled and dressed with gauze and a tegaderm.
The patient tolerated the procedure well.
[2023-12-14] MEDS: REMERON ODT 15 MG PO (21:52)
[2023-12-14] MEDS: LIPITOR 40 MG PO (21:52)
[2023-12-14] MEDS: MORPHINE SULFATE 1 MG IV (21:53)
--- NOTE | 2023-12-14 22:01 | PTCARENOTE ---
Pt received at 19:00. Pt Ox3, with periods of confusion/forgetfulness. Pt aware of confusion, frustrated at times. Pt rang call green multiple times stating that she thought the red button (nurse call), was to hang up her cell phone. Pt easily
redirected. Pt on RA, pulse ox 94%. Breath sounds diminished. Safe environment maintained, call green remains within reach--using appropriately at this time. Pt assisted with repositioning. Plan of care ongoing.
[2023-12-15] VITALS (37 sets, daily range): BP systolic 102–169; BP diastolic 62–138; PULSE 82–85; O2SAT 91; BMI 16.5
[2023-12-15 04:17] LABS: % Basophils 0.5 % (0-2); % Eosinophils 1.5 % (0-6); % Immature Granulocytes 0.5 % (0-0.5); % Lymphocytes 11.6 % (20.5-51.1); % Neutrophils 78.9 % (42.2-75.2); Absolute Basophils 0.1 10^3/uL (0-0.2); Absolute Eosinophils 0.2 10^3/uL (0-0.7); Absolute Immature Granulocytes 0.1 10^3/uL (0-0.05); Absolute Lymphocytes 1.1 10^3/uL (1.2-3.4); Absolute Monocytes 0.7 10^3/uL (0.1-0.6); Absolute Neutrophils 7.8 10^3/uL (1.4-6.5); Hematocrit 30.2 % (37.0-47.0); Hemoglobin 10.5 g/dL (12.0-16.0); Mean Corp Hgb Conc. 34.8 g/dL (33.0-37.0); Mean Corpuscular Hgb 28.8 pg (27.0-31.0); Mean Platelet Volume 9.4 fL (7.4-10.4); Nucleated Red Blood Cells % 0 %; Platelet Count 502 10^3/uL (130-400); Red Blood Cell Count 3.64 10^6/uL (4.20-5.40); Red Cell Dist. Width 14.6 % (11.5-14.5); White Blood Cell Count 9.9 10^3/uL (4.8-10.8)
[2023-12-15 04:40] LABS: ALT (SGPT) 39 U/L (0-35); AST (SGOT) 57 U/L (14-36); Albumin 2.5 g/dl (3.5-5.0); Alkaline Phosphatase 313 U/L (38-126); Blood Urea Nitrogen 48 mg/dl (7-17); Calcium 8.2 mg/dl (8.4-10.2); Carbon Dioxide 22 mmol/L (22-30); Chloride 101 mmol/L (98-107); Estimated Creatinine Clearance 23 ml/min; Glucose 84 mg/dl (70-99); Potassium 3.8 mmol/L (3.5-5.1); Sodium 130 mmol/L (135-145); Total Bilirubin 0.6 mg/dl (0.2-1.3); Total Protein 5.2 g/dl (6.3-8.2); eGFR 41.31
[2023-12-15 04:44] LABS: Vancomycin Random 13.8 ug/ml
[2023-12-15] MEDS: SYNTHROID 100 MCG PO (06:36)
--- NOTE | 2023-12-15 07:16 | PHA.VAN.FU ---
Vancomycin Assessment / Plan
- Assessment
Renal Function: SCR Decreasing (SCr 0.9->1.8->1.3)
WBC's are: WNL
In the past 24 hrs, patient has been: Afebrile (ceftriaxone)
- Assessment - Therapeutic Drug Monitoring
Random Level: 13.8 - 16 hours after 500 mg dose
- Dosing Plan
Continue: to dose by level
Dosing by Level: Re-dose today (750 mg (13 mg.kg of IBW))
- Monitoring Plan
Random Level: 6/2 am
- Follow Up
Pharmacy will continue to follow.
Vancomycin Follow UP
- -
Patient Age: 83
Patient Sex: Female
Vancomycin Day #: 3
Indication: Other
Requesting Provider: Dr. Witt
Pertinent Antimicrobial Allergies:
NKDA
Height / Weight:
Height 5 ft 5 in
Actual Weight 44.9 kg
IBW in k
Pertinent Past Medical History: BMI ~15.9
- Vital Signs / Lab Results
Temp Pulse Resp BP Pulse Ox
97.7 F 78 25 112/71 93
12/15/23 00:22 12/15/23 00:00 12/15/23 00:00 12/15/23 00:00 12/15/23 00:00
Lab Results - Hematology
12/12/23 12/13/23 12/14/23
08:08 04:09 04:25
WBC 15.2 H 15.0 H 17.2 H
12/15/23
04:09
WBC 9.9
Lab Results - Chemistry
12/12/23 12/13/23 12/14/23
08:08 04:09 04:25
BUN 21 H 29 H 52 H
Creatinine 0.7 0.9 1.8 H
Estimated Creat Clear 46 36 17
Albumin 3.2 L 2.6 L
12/15/23
04:09
BUN 48 H
Creatinine 1.3 H
Estimated Creat Clear 23
Albumin 2.5 L
12/12/23 12/12/23
17:09 23:01
Lactic Acid 2.2 H 1.8
Microbiology Results
12/12/23 20:38 Acid Fast Bacilli Smear - Preliminary
Pericardial Fluid Acid Fast Bacilli Culture - Preliminary
12/12/23 17:09 Blood Culture - Preliminary
Blood/Venous No Growth in 48 hours- Final report to follow
12/12/23 17:28 Blood Culture - Preliminary
Blood/Venous No Growth in 48 hours- Final report to follow
12/12/23 20:38 Body Fluid Culture - Preliminary
Pericardial Fluid No Growth After 18-24 Hours
Gram Stain - Preliminary
Therapeutic Drug Monitoring
Random Vancomycin 13.8 ug/ml 12/15/23 04:09
--- NOTE | 2023-12-15 07:26 | W.PN.HOSP.TC ---
Today's Communication/Plan
-
PT/OT
Transfer out of ICU
Assessment / Plan
Assessment / Plan
Gen-AAOx3, NAD, nontoxic, cachectic
HEENT-NC, AT, anicteric, clear oral mm
Neck-supple
CV-irregular, tachycardic, no M, +S1/S2, subxiphoid pericardial drain intact
Lungs-clear B/L
Abd-soft, NT, ND
Ext-no edema
Musculoskeletal-no cyanosis, clubbing
Skin-warm and dry
Neuro-grossly non-focal
Psych-calm, cooperative
Shock - possibly due to sepsis versus cardiogenic versus other. Hemodynamically improved, shock resolved. Continue midodrine. Off IV vasopressors. BNP 4150. Chest x-ray with mild central pulmonary vascular congestion. Small bilateral pleural
effusions.
Large pericardial effusion - noted on echocardiogram. Urgent pericardiocentesis with drain placement performed 12/11 evening. 385 cc cloudy straw-colored fluid removed. Drain output 50 cc overnight. Etiology of effusion unclear at this point,
differential includes infection versus malignancy versus inflammatory. Noted history of lung cancer is concerning. Pericardial fluid sent for culture and cytology. Pericardial drain removed 12/13.
Now on empiric antibiotics per infectious disease.
Sepsis - unclear source, possibly infectious pericarditis. Concern for septic shock given hypotension. Blood cultures negative so far. Low suspicion for pneumonia. Urinalysis nonconcerning. COVID and influenza negative.
White blood cell count normalized, afebrile.
EMMY - likely ATN related to hypotension, shock. Support blood pressure with IV fluids, vasopressors. Creatinine improving. Tamsulosin added for urinary retention.
Rapid atrial fibrillation -spontaneously converted to sinus rhythm. Remains on amiodarone drip. Cardiology to see today.
Moderate protein calorie malnutrition
Hyponatremia -sodium stable 130. TSH 3.9. Check urine studies.
Normocytic anemia -likely chronic. Monitor for now.
Elevated LFTs -primarily transaminases, alkaline phosphatase. Bilirubin normal. Unclear if due to passive congestion versus other etiology.
Hypothyroidism -on levothyroxine. TSH normal.
Hyperlipidemia -on atorvastatin.
History of pulmonary adenocarcinoma -underwent right upper lobectomy about 5 to 6 years ago according to family.
Dementia, likely Alzheimer's type -watch for delirium in the hospital.
DNR
Transfer out of ICU today.
PT/OT
Anticipated Discharge: > 48 hours
Subjective/Interval History
-
Date of Service: December 15, 2023
Patient seen and examined. No complaints.
Objective Data
-
Labs:
Laboratory Results
12/15/23
04:09
WBC 9.9
Hgb 10.5 L
Hct 30.2 L
Plt Count 502 H D
Sodium 130 L
Potassium 3.8
Chloride 101
Carbon Dioxide 22
BUN 48 H
Creatinine 1.3 H
Glucose 84
Calcium 8.2 L
Total Bilirubin 0.6
AST 57 H
ALT 39 H
Alkaline Phosphatase 313 H
Vital Signs:
Vital Signs
Temp Pulse Resp BP Pulse Ox
97.7 F 78 25 112/71 93
12/15/23 00:22 12/15/23 00:00 12/15/23 00:00 12/15/23 00:00 12/15/23 00:00
I&O
12/14/23 12/15/23 12/16/23
06:59 06:59 06:59
Intake Total 849.2 / 856.7 1947.0 / 1947.0
Output Total 50 / 50 500 / 500
Balance 799.2 / 806.7 1447.0 / 1447.0
Review of Systems
-
History Source: Patient
All other systems: Reviewed and negative
--- NOTE | 2023-12-15 07:37 | W.PN.ID1 ---
Date of Service
Date of Service: December 15, 2023
Today's Communication
Continue abx for today.
Assessment / Plan
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
Leukocytosis; improved
EMMY; improved
Cachexia
- suspect EMMY related to hypoperfusion
- pericardial fluid with neutrophil predominant fluid, elevated WBC count; gram stain without organisms. Glucose normal
- pericardial fluid culture pending
- blood cultures x2 are in progress no growth to date
- cytology pending - malignant effusion also possible and would be high on my differential particularly with marked cachexia
- fungal and afb cultures on the pericardial fluid sent
- covid ag negative
- qft gold will be sent in the AM; does not require isolation
- lyme serology
- coxsackie serology was sent - unlikely to exchange floor manager
- continue vancomycin and ceftriaxone for present, follow clinically
����������������������������������������������������������
Chief Complaint
-: Other (purulent pericarditis)
Subjective / Review of Systems
Review of Systems: No Fever and No Chills
Vital Signs / Physical Exam
Vital Signs
Vital Signs
Temp Pulse Resp BP Pulse Ox
98.0 F 78 25 112/71 93
12/15/23 07:31 12/15/23 00:00 12/15/23 00:00 12/15/23 00:00 12/15/23 00:00
Physical Exam
Constitutional: No Acute Distress, Comfortable and Non-toxic
Eyes: Sclera Anicteric
Cardiovascular: S1/S2; Negative S3/S4
Pulmonary: Non Labored; Negative Wheezes or Rales
Gastrointestinal: Soft and Non Distended
Neurological: Awake and Alert
Psychological: Calm
Objective Data
Lab Data
Lab Results
12/15/23 04:09
12/15/23 04:09
PT 19.4 Sec (11.4-14.6) H 12/12/23 23:01
INR 1.66 12/12/23 23:01
APTT 36.8 Sec (23.4-35.0) H 12/12/23 23:01
Estimated Creat Clear 23 ml/min 12/15/23 04:09
Lactic Acid 1.8 mmol/L (0.7-2.0) 12/12/23 23:01
Total Bilirubin 0.6 mg/dl (0.2-1.3) 12/15/23 04:09
AST 57 U/L (14-36) H 12/15/23 04:09
ALT 39 U/L (0-35) H 12/15/23 04:09
Alkaline Phosphatase 313 U/L (38-126) H 12/15/23 04:09
Most recent labs reviewed.
Micro Results:
12/12/23 20:38 Acid Fast Bacilli Smear - Preliminary
Pericardial Fluid Acid Fast Bacilli Culture - Preliminary
12/12/23 17:09 Blood Culture - Preliminary
Blood/Venous No Growth in 48 hours- Final report to follow
12/12/23 17:28 Blood Culture - Preliminary
Blood/Venous No Growth in 48 hours- Final report to follow
12/12/23 20:38 Body Fluid Culture - Preliminary
Pericardial Fluid No Growth After 18-24 Hours
Gram Stain - Preliminary
12/12/23 20:38 Fungal Culture - Pending
Pericardial Fluid
12/12/23 17:09 Influenza Types A & B (STEPHANY) - Final
Nasal Swab Negative for Influenza A & B, NAAT
Negative results must be combined with clinical observations
and patient history.
Nucleic Acid Amplification test (NAAT)performed on the
[employer] platform.
Imaging:
12/14/2023 ECHO (TTE): Normal biventricular size and systolic function. No pericardial effusion. Compared to the 12/12/2023 echocardiogram, the large pericardial effusion with tamponade physiology is no longer seen.
[2023-12-15] MEDS: LOW STRENGTH ASPIRIN 81 MG PO (08:41)
[2023-12-15] MEDS: VANCOCIN 150 IV (08:41)
[2023-12-15] MEDS: MAGNESIUM OXIDE 500 MG PO (08:41)
[2023-12-15] MEDS: ProAmatine 10 MG PO (08:41)
--- NOTE | 2023-12-15 08:44 | PTCARENOTE ---
0700 patient in bed. AAO x3. Denies pain or discomfort. c/o nausea and not able to void. Bladder scanned for 626. ; Left upper arm BP 113/84 MAp 94 SR 82. Trace edema palatable pedal pulses. Amio at 0.5 via RT AC . Transfer to chair with walker one
person assist for balance. Able to void bedside commode dark laly urine 600cc. Appetite poor . Will encourage PO intake
--- NOTE | 2023-12-15 08:45 | W.PN.CD ---
Today's Communication / Plan
-
transition to po amiodarone
resume eliquis
stop baby asa
Impression / Plan
-
Impression/Plan: 83F with a history of HTN, lung adenoCA s/p surgical resection (without adjuvant chemotherapy or radiation per daughter) and COPD, admitted in May 2024 with PAF with RVR and started on apixaban, now admitted with dyspnea and CP
noted with recurrent persistent AF, found to be febrile and hypotensive with new, large pericardial effusion.
#Pericardial effusion
-Acute, likely with at least some hemodynamic compromise.
-S/P pericardiocentesis for 385 mL of cloudy, straw colored fluid.
-Exudate. Serum protein 6.0:Pericardial protein 4.7; Serum LDH pending:Pericardial LDH 561.
-DDx includes infection (septic pericarditis), inflammatory pericarditis, malignant pericarditis. Cultures/cytology pending.
-Continue colchicine for presumed inflammatory pericarditis. ID following for possible infection.
-pericardial drain removed 12/14/23
#Hypotension
-Multifactorial.
-Seems likely due to confluence of AF/RVR, medication, infection,and this large effusion.
-Maintain norepinephrine for BP support. Goal MAP > 65 mmHg.
-Hold all antihypertensives.
-Treat a presumptive infection/sepsis.
-UA is not impressive. COVID negative. CXR does not show infiltrate.
-Monitor blood cultures, pericardial cultures.
#AF/VT
-back in NSR
-Her outpatient energy technician (Jatinder) has been adjusting medications.
-Dofetilide transitioned to Amiodarone given VT/AF despite Tikosyn. Will continue with this, transition to po.
-Rate: 150-160.
-Rhythm: continue dofetilide for now.
-Oral Anticoagulation: will resume anticoagulation, stop aspirin
#HTN
-Chronic.
-Currently hypotensive. Given amiodarone will aim to only resume bb, no ccb
-All medications on hold.
#Prior lung cancer
-Chronic, stable/remote.
-Presence of a exudative pericardial effusion is obviously concerning.
-I would favor CT chest to look for recurrence when she is hemodynamically stable.
#COPD
-Chronic, stable.
-She is not in acute exacerbation.
#Anxiety
#At least mild cognitive impairment.
Tele is stable, now off iv vasopressors, ok to transfer to tele
Critical Care Time = 32minutes.
Subjective/Interval History:
Back in NSR, she is clinically improved, without complaint. Tele stable
DATA:
Pericardiocentesis, 12/12/2023:
Conclusions:
1. Successful placement of a 6 Greek pericardial drain via an apical approach yielding 385 mL of cloudy, straw-colored fluid with reduction in pericardial pressure from 14 mmHg to 10 mmHg.
2. Pericardial fluid has been sent for laboratory analysis.
TTE, 12/12/2023:
CONCLUSIONS
Normal left ventricular size and systolic function. LV ejection fraction is 60-
65% by visual assessment.
Mild concentric left ventricular hypertrophy.
Moderate eccentric tricuspid regurgitation. Estimated pulmonary artery pressure
of 35-40 mmHg.
Large pericardill effusion without overt tamponade physiology.
Compared to prior study of May, effusion is new.
CXR, 12/12/2023:
IMPRESSION:
1. Moderate cardiomegaly. Mild central pulmonary vascular congestion.
2. Small bilateral pleural effusions.
Physical Exam
Vital Signs/Labs
Vital Signs
Temp Pulse Resp BP Pulse Ox
98.0 F 84 25 113/84 93
12/15/23 07:31 12/15/23 08:41 12/15/23 00:00 12/15/23 08:41 12/15/23 00:00
12/14/23 12/15/23 12/16/23
06:59 06:59 06:59
Actual Weight 43.6 kg 44.9 kg
12/15/23 04:09
12/15/23 04:09
PT 19.4 Sec (11.4-14.6) H 12/12/23 23:01
INR 1.66 12/12/23 23:01
APTT 36.8 Sec (23.4-35.0) H 12/12/23 23:01
Magnesium 2.1 mg/dl (1.6-2.3) 12/14/23 04:25
12/12/23
09:08
Tbt-K-Tuyvpeiuqrb Pept 4150
LAB Results
12/12/23
09:08
Troponin I < 0.012
Physical Exam
Constitutional: No acute distress
Cardiovascular: Rhythm & rate is regular, Pedal edema is absent, JVD pressure is normal and Systolic murmur absent
Respiratory: Respiratory effort normal, Lungs clear to auscul., Wheeze Absent and Crackles Absent
Neuro/Psych: AO x 3
Data Reviewed
-
Date of Service: December 15, 2023
Medical Decision Making: Review of Case with other Provider (Dr Barrett, resume eliquis, stop asa, transition to po amio)
[2023-12-15] MEDS: NSS 1000 IV (08:52)
[2023-12-15] MEDS: FLOMAX 0.400000000000000022 MG PO (09:04)
--- NOTE | 2023-12-15 10:24 | W.PN.INTV ---
Today's Communication / Plan
Recommendations
Follow cytology and cultures
Continue antibiotics
Outpatient pulmonary follow-up
As needed Xopenex-patient not bronchospastic
Sign off
Transfer out of ICU
Assessment
-
Assessment: 83-year-old female with a past medical history of A-fib, COPD, hyperlipidemia and hypothyroidism who presents with syncope earlier prior to arrival and chest heaviness X 2 days. EMS called and she was in A-fib with RVR. Brought to the
ER for further evaluation. She was tachycardic to 152, tachypnea to 24 breaths/min, saturating 90% on room air, afebrile to 98.2 �F and hypotensive to 107/69. She was given IVF bolus with NS 0.9% X 500 cc, and started on Cardizem drip. Labs
showed leukocytosis to 15.2, anemia to 11.1, slightly low sodium of 134, elevated LFTs, negative troponin at <0.012, elevated proBNP of 4150, and urinalysis was abnormal with trace leukocyte esterase but only 6�10 urine WBC. She was COVID antigen
negative. TSH also WNL. Blood cultures were collected. CXR showed moderate cardiomegaly with small bilateral pleural effusions. EKG confirmed A-fib with RVR. Found to have large pericardial effusion on bedside echo without overt tamponade
physiology, and she went to lab head with removal of 385cc of cloudy, straw-colored fluid. Her pericardial pressures improved from 14 to 10 mmHg. To try to reach heart rate control, she was given PO Cardizem and metoprolol however her blood
pressure remained low requiring Levophed. She was then transferred to the ICU for further care, and critical care services consulted for additional management/recommendations.
Chronic conditions CONSTRUCTION CONSULTANT: A-fib Eliquis, COPD, HLD, hypothyroidism, Hx of lung Ca s/p RUL-lobectomy (5-6 years ago per family), dementia with memory loss
Impression:
#Shock - likely due to cardiogenic in setting of pericardial effusion and rapid A-fib; unable to rule out sepsis but she is non-toxic appearing
#Pericardial effusion with concern for infection given it was cloudy, vs pericarditis vs malignant
#Thrombocytosis likely reactive due to acute inflammatory state; doubt this is a myeloproliferative condition
#Persistent atrial fibrillation with RVR /ventricular tachycardia-nonsustained.
# Acute kidney injury
#Reported Hx of COPD not in an acute exacerbation
#History of right-sided lung cancer s/p right upper lobe lobectomy
#Dementia with cognitive impairment
Plan:
-
Hemodynamically stable overnight
Heart rate is controlled
No further arrhythmias
Pericardial drain has been discontinued 12/14/2023 and patient tolerating well
Repeat echocardiogram showed resolution of pericardial effusion
-
No further requirements of vasopressors. Shock has resolved
Atrial fibrillation/nonsustained V. tach
On amiodarone drip
Cardiology following.
-
Pericardial effusion could be infectious/malignant.
Cytology pending
Cultures pending
Seems to be responding to antibiotics
-Continue antibiotics- ID started rocephin + vanco
Follow up pericardial fluid studies and blood Cx still pending.
-
Extensive discussion with pharmacy, high risk of toxicity with amiodarone and colchicine.
Hold for now as there is no clear whether there is going to be any significant benefit.
Can reassess later on.
-
? History of COPD. No details clear. Not bronchospastic on exam.
As needed Xopenex
No significant oxygen requirements
Eventual CT chest. Particular with prior history of lung cancer with resection.
Chest x-ray: Not concerning for any lung mass.
-
Thrombocytosis noted: Continue to trend. May be reactive. Improving
Maintain euglycemia with goal BG 140-180
Incentive spirometer encouraged
DVT ppx-on apixaban
-
Agree with transfer out of the critical care unit to telemetry.
Critical care team will sign off
Please call pulmonary if any respiratory issues arise
Recommend outpatient pulmonary follow-up in the future. Unclear details on? COPD and prior lung cancer history status post resection.

Data:
CXR 12-12-2023:
1. Moderate cardiomegaly. Mild central pulmonary vascular congestion.
2. Small bilateral pleural effusions.
Subjective Dataa
Subjective Data
Date of Service:
Date of Service: December 15, 2023
Chief Complaint: Investigation Division Sergeant Follow Up (Shock/pericardial effusion)
Subjective:
No new complaints overnight
Pericardial drain was pulled out
No vasopressor requirements
No further arrhythmias
Afebrile
Review of Systems
General: Fever (n)
Cardiopulmonary: Dyspnea (none at rest)
GI: Abdominal Pain (n)
Neuro: Headache (n)
Objective Data
Data Reviewed
Vital Signs / I&O / Oxygen:
Vital Signs
Temp Pulse Resp BP Pulse Ox
98.0 F 84 25 113/84 93
12/15/23 07:31 12/15/23 08:41 12/15/23 00:00 12/15/23 08:41 12/15/23 00:00
Intake and Output
12/14/23 12/15/23 12/16/23
06:59 06:59 06:59
Intake Total 849.2 / 856.7 1947.0 / 1947.0 256.7 / 256.7
Output Total 50 / 50 500 / 500 600 / 600
Balance 799.2 / 806.7 1447.0 / 1447.0 -343.3 / -343.3
SaO2 93
Physical Exam
General: Respiratory Distress (n) and Comfortable
HEENT: Normocephalic
Cardiovascular: S1-S2 and Regular Rhythm
Respiratory: Clear and Non-Labored Respirations
GI: Soft and Non Distended
Neurology: Awake, Alert and No Motor Deficits
Labs/Micro/Reports
Lab Data
12/15/23 04:09
12/15/23 04:09
Microbiology
12/12/23 20:38 Pericardial Fluid Acid Fast Bacilli Smear - Preliminary
12/12/23 20:38 Pericardial Fluid Acid Fast Bacilli Culture - Preliminary
12/12/23 17:09 Blood/Venous Blood Culture - Preliminary
No Growth in 48 hours- Final report to follow
12/12/23 17:28 Blood/Venous Blood Culture - Preliminary
No Growth in 48 hours- Final report to follow
12/12/23 20:38 Pericardial Fluid Body Fluid Culture - Preliminary
No Growth After 18-24 Hours
12/12/23 20:38 Pericardial Fluid Gram Stain - Preliminary
12/12/23 17:09 Nasal Swab Influenza Types A & B (STEPHANY) - Final
Negative for Influenza A & B, NAAT
Negative results must be combined with clinical observations
and patient history.
Nucleic Acid Amplification test (NAAT)performed on the
[employer] platform.
--- NOTE | 2023-12-15 11:07 | PTCARENOTE ---
Amiodarone IV qtt d/c. Amiodarone PO is schedule at 1999;
[2023-12-15] MEDS: ProAmatine PO ×2 (13:23→19:16)
--- NOTE | 2023-12-15 15:09 | PTCARENOTE ---
Run of VT and changed Rhythm to Afib:
While in SR patient ambulated to bathroom with assistance . While sitting on a toilet had multiple runs of VT; Rhythm changed from SR to Afib/Aflutter 150's . c/of of dizziness, however pt did c/o of been dizzy prior to this episode. BP RT upper arm
115/100 Afib 150; pt assisted back to bed. EKG done, Aflutter with Variable aV block. pt been off Amiodarone qtt 10am. Dr Watson notified. New orders pending. pt's daughter at the bedside updates provided
--- NOTE | 2023-12-15 15:39 | SUR.OPER ---
Amiodarone 150mg bolus ordered for Afib 150's Pharmacy notified
[2023-12-15] MEDS: ROCEPHIN 2000 MG IV (15:48)
[2023-12-15] MEDS: STERILE WATER FOR INJECTION 20 ML IV (15:48)
[2023-12-15] MEDS: CORDARONE 103 MG IV (15:57)
--- NOTE | 2023-12-15 16:14 | PTCARENOTE ---
Amiodarone bolus completed . Afib 105-114; BP 137/94 RR 21; 93 rA
[2023-12-15] MEDS: LOPRESSOR 5 MG IV (17:04)
--- NOTE | 2023-12-15 17:19 | PTCARENOTE ---
Metoprolol 5mg stat order
Afib 130's BP 130/102 MAP 113; per Dr Watson Metoprolol 5mg Adm
--- NOTE | 2023-12-15 17:39 | PTCARENOTE ---
Post metoprolol 5mg
post metoprolol : afib k71 BP 123/79 RR 18 POX 93RA . awake and alert. Denies chest pain. No SOB . Currently in bed call green within reach
[2023-12-15] MEDS: ELIQUIS 2.5 MG PO (20:14)
[2023-12-15] MEDS: PACERONE 400 MG PO (20:14)
[2023-12-15] MEDS: LIPITOR 40 MG PO (22:34)
[2023-12-15] MEDS: REMERON ODT 15 MG PO (22:35)
[2023-12-16] VITALS (7 sets, daily range): BP systolic 102–157; BP diastolic 57–107; BMI 16.1
--- NOTE | 2023-12-16 00:46 | PTCARENOTE ---
Assumed care of patient at shift change. Patient resting comfortably in bed. Pleasantly confused. NSR with PACs on tele monitor. Vitals stable. Lung sounds cta on RA. +BS. No BM. Reported diarrhea on day shift. Assisted x1 to BSC to void. CHG bath
provided and linens changed. Sacral foam applied. Left anterior chest dressing from pericardial drain c/d/i. Left forearm and right antecubital INTs capped. Bed alarm on and functioning. Safe environment maintained.
[2023-12-16] MEDS: SYNTHROID 100 MCG PO (05:20)
--- NOTE | 2023-12-16 05:23 | PTCARENOTE ---
Patient sleeping peacefully throughout the night. Awoken for AM labs. Stating 'I slept like a log'. No complaints. VSS. NSR. No episodes of vtach overnight.
[2023-12-16 05:42] LABS: % Basophils 0.7 % (0-2); % Eosinophils 2.5 % (0-6); % Immature Granulocytes 0.3 % (0-0.5); % Lymphocytes 13.8 % (20.5-51.1); % Monocytes 7.6 % (1.7-9.3); % Neutrophils 75.1 % (42.2-75.2); Absolute Basophils 0.1 10^3/uL (0-0.2); Absolute Eosinophils 0.2 10^3/uL (0-0.7); Absolute Lymphocytes 0.9 10^3/uL (1.2-3.4); Absolute Monocytes 0.5 10^3/uL (0.1-0.6); Absolute Neutrophils 5.1 10^3/uL (1.4-6.5); Hematocrit 32.6 % (37.0-47.0); Hemoglobin 10.8 g/dL (12.0-16.0); Mean Corp Hgb Conc. 33.1 g/dL (33.0-37.0); Mean Corpuscular Hgb 28.9 pg (27.0-31.0); Mean Corpuscular Volume 87.2 fL (81.0-99.0); Mean Platelet Volume 9.2 fL (7.4-10.4); Nucleated Red Blood Cells % 0 %; Platelet Count 477 10^3/uL (130-400); Red Blood Cell Count 3.74 10^6/uL (4.20-5.40); Red Cell Dist. Width 14.6 % (11.5-14.5); White Blood Cell Count 6.8 10^3/uL (4.8-10.8)
[2023-12-16 05:48] LABS: Vancomycin Random 13.3 ug/ml
[2023-12-16 05:51] LABS: ALT (SGPT) 50 U/L (0-35); AST (SGOT) 82 U/L (14-36); Albumin 2.8 g/dl (3.5-5.0); Alkaline Phosphatase 406 U/L (38-126); Blood Urea Nitrogen 26 mg/dl (7-17); Calcium 8.3 mg/dl (8.4-10.2); Carbon Dioxide 22 mmol/L (22-30); Chloride 108 mmol/L (98-107); Estimated Creatinine Clearance 38 ml/min; Glucose 75 mg/dl (70-99); Potassium 3.6 mmol/L (3.5-5.1); Sodium 138 mmol/L (135-145); Total Bilirubin 0.5 mg/dl (0.2-1.3); Total Protein 5.4 g/dl (6.3-8.2); eGFR > 60.00
--- NOTE | 2023-12-16 07:31 | PTCARENOTE ---
0700 patient in bed, awake and oriented with forcefulness , Denies pain or discomfort. Denies nausea. BP via left upper arm 137/69 MAP 89 SR 81; RR 18. 92RA . all peripheral line flushed, capped. call green within reach
[2023-12-16] MEDS: FLOMAX 0.400000000000000022 MG PO (07:42)
[2023-12-16] MEDS: PACERONE 400 MG PO ×2 (07:43→20:14)
[2023-12-16] MEDS: ELIQUIS 2.5 MG PO ×2 (07:43→20:12)
[2023-12-16] MEDS: MAGNESIUM OXIDE 500 MG PO (07:43)
[2023-12-16] MEDS: ProAmatine PO (07:44)
--- NOTE | 2023-12-16 08:01 | W.PN.HOSP.TC ---
Today's Communication/Plan
-
Continue current care
Assessment / Plan
Assessment / Plan
Gen-awake, alert, NAD, nontoxic, cachectic
HEENT-NC, AT, anicteric, clear oral mm
Neck-supple
CV-irregular, tachycardic, no M, +S1/S2, subxiphoid pericardial drain intact
Lungs-clear B/L
Abd-soft, NT, ND
Ext-no edema
Musculoskeletal-no cyanosis, clubbing
Skin-warm and dry
Neuro-grossly non-focal
Psych-calm, cooperative
Shock - possibly due to sepsis versus cardiogenic versus other. Hemodynamically improved, shock resolved. Off IV vasopressors, as blood pressure has recovered we will stop midodrine. BNP 4150. Chest x-ray with mild central pulmonary vascular
congestion. Small bilateral pleural effusions.
Large pericardial effusion - noted on echocardiogram. Urgent pericardiocentesis with drain placement performed 12/11 evening. 385 cc cloudy straw-colored fluid removed. Drain output 50 cc overnight. Etiology of effusion unclear at this point,
differential includes infection versus malignancy versus inflammatory. Noted history of lung cancer is concerning. Pericardial fluid sent for culture and cytology. Pericardial drain removed 12/13.
Now on empiric antibiotics per infectious disease.
Sepsis - unclear source, possibly infectious pericarditis. Sepsis resolved. Blood cultures negative. Pericardial fluid culture no growth.
EMMY - likely ATN related to hypotension, shock. EMMY resolved. Tamsulosin added for urinary retention.
Rapid atrial fibrillation -spontaneously converted to sinus rhythm. Amiodarone changed to oral.
Moderate protein calorie malnutrition
Hypovolemic hyponatremia -sodium normalized with IV fluids.
Normocytic anemia -likely chronic. Monitor for now.
Elevated LFTs -primarily transaminases, alkaline phosphatase. Bilirubin normal. Unclear if due to passive congestion versus other etiology.
Hypothyroidism -on levothyroxine. TSH normal.
Hyperlipidemia -on atorvastatin.
History of pulmonary adenocarcinoma -underwent right upper lobectomy about 5 to 6 years ago according to family.
Dementia, likely Alzheimer's type -watch for delirium in the hospital.
DNR
Transfer out of ICU today.
PT/OT -might need SNF.
Anticipated Discharge: Within 24 hours
Subjective/Interval History
-
Date of Service: December 16, 2023
Patient seen and examined. No complaints. Denies chest pain, shortness of breath.
Objective Data
-
Labs:
Laboratory Results
12/16/23
05:19
WBC 6.8
Hgb 10.8 L
Hct 32.6 L
Plt Count 477 H
Sodium 138 D
Potassium 3.6
Chloride 108 H
Carbon Dioxide 22
BUN 26 H
Creatinine 0.8
Glucose 75
Calcium 8.3 L
Total Bilirubin 0.5
AST 82 H
ALT 50 H
Alkaline Phosphatase 406 H
Vital Signs:
Vital Signs
Temp Pulse Resp BP Pulse Ox
98.1 F 89 16 139/69 95
12/16/23 07:30 12/16/23 07:44 12/16/23 07:30 12/16/23 07:44 12/16/23 07:30
I&O
12/15/23 12/16/23 12/17/23
06:59 06:59 06:59
Intake Total 1947.0 / 1947.0 846.7 / 846.7
Output Total 500 / 500 1500 / 1500
Balance 1447.0 / 1447.0 -653.3 / -653.3
Review of Systems
-
History Source: Patient
All other systems: Reviewed and negative
--- NOTE | 2023-12-16 08:15 | W.PN.CD ---
Today's Communication / Plan
-
start metoprolol succinate 37.5mg bid today
follow tele and bp
Impression / Plan
-
Impression/Plan: 83F with a history of HTN, lung adenoCA s/p surgical resection (without adjuvant chemotherapy or radiation per daughter) and COPD, admitted in May 2024 with PAF with RVR and started on apixaban, now admitted with dyspnea and CP
noted with recurrent persistent AF, found to be febrile and hypotensive with new, large pericardial effusion.
#Pericardial effusion
-Acute, likely with at least some hemodynamic compromise.
-S/P pericardiocentesis for 385 mL of cloudy, straw colored fluid.
-Exudate. Serum protein 6.0:Pericardial protein 4.7; Serum LDH pending:Pericardial LDH 561.
-DDx includes infection (septic pericarditis), inflammatory pericarditis, malignant pericarditis. Cultures/cytology pending.
-Continue colchicine for presumed inflammatory pericarditis. ID following for possible infection.
-pericardial drain removed 12/14/23
#AF/VT
-back in NSR, but over he last 24 hours, mutliple episodes of RVR with IV bb given, still amiodarone loading
-Her outpatient parent partner (Jatinder) has been adjusting medications.
-Dofetilide transitioned to Amiodarone given VT/AF despite Tikosyn.
-resume bb
-Rhythm: continue amiodarone no plan to resume tikosyn.
-Oral Anticoagulation: will resume anticoagulation, stop aspirin
#HTN
-Chronic.
-meds had been held for hypotension
-Resume metoprolol at half her typical dose and gradually increase back up to 75mg bid today
#Prior lung cancer
-Chronic, stable/remote.
-Presence of a exudative pericardial effusion is obviously concerning.
-I would favor CT chest to look for recurrence when she is hemodynamically stable.
#COPD
-Chronic, stable.
-She is not in acute exacerbation.
#Anxiety
#At least mild cognitive impairment.
Subjective/Interval History:
she is feeling well without complaint
DATA:
Pericardiocentesis, 12/12/2023:
Conclusions:
1. Successful placement of a 6 Welsh pericardial drain via an apical approach yielding 385 mL of cloudy, straw-colored fluid with reduction in pericardial pressure from 14 mmHg to 10 mmHg.
2. Pericardial fluid has been sent for laboratory analysis.
TTE, 12/12/2023:
CONCLUSIONS
Normal left ventricular size and systolic function. LV ejection fraction is 60-
65% by visual assessment.
Mild concentric left ventricular hypertrophy.
Moderate eccentric tricuspid regurgitation. Estimated pulmonary artery pressure
of 35-40 mmHg.
Large pericardill effusion without overt tamponade physiology.
Compared to prior study of May, effusion is new.
CXR, 12/12/2023:
IMPRESSION:
1. Moderate cardiomegaly. Mild central pulmonary vascular congestion.
2. Small bilateral pleural effusions.
Physical Exam
Vital Signs/Labs
Vital Signs
Temp Pulse Resp BP Pulse Ox
98.1 F 89 16 139/69 95
12/16/23 07:30 12/16/23 07:44 12/16/23 07:30 12/16/23 07:44 12/16/23 07:30
12/15/23 12/16/23 12/17/23
06:59 06:59 06:59
Actual Weight 44.9 kg 43.8 kg
12/16/23 05:19
12/16/23 05:19
PT 19.4 Sec (11.4-14.6) H 12/12/23 23:01
INR 1.66 12/12/23 23:01
APTT 36.8 Sec (23.4-35.0) H 12/12/23 23:01
Magnesium 2.1 mg/dl (1.6-2.3) 12/14/23 04:25
12/12/23
09:08
Gvg-L-Vgmvcrhtads Pept 4150
Physical Exam
Constitutional: No acute distress
Cardiovascular: Rhythm & rate is regular, Pedal edema is absent and JVD pressure is normal
Respiratory: Respiratory effort normal, Lungs clear to auscul., Wheeze Absent, Crackles Absent and Rhonchi Absent
GI: Soft
Neuro/Psych: AO x 3
Data Reviewed
-
Date of Service: December 16, 2023
Medical Decision Making: Review of Case with other Provider (Dr Barrett and [facility] nursing adding back bb)
EKG: Other (tele with intermittent af with rvr until 18:20)
[2023-12-16] MEDS: TOPROL XL 37.5 MG PO ×2 (08:41→20:13)
--- NOTE | 2023-12-16 09:28 | W.PN.ID1 ---
Date of Service
Date of Service: December 16, 2023
Today's Communication
Continue ceftriaxone (da#4). Discontinue further vancomycin.
Assessment / Plan
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
Leukocytosis; improved
EMMY; improved
Cachexia
- suspect EMMY related to hypoperfusion
- pericardial fluid with neutrophil predominant fluid, elevated WBC count; gram stain without organisms. Glucose normal
- pericardial fluid culture NGTD
- no MRSA recovered. Discontinue further vancomycin.
- blood cultures x2 are in progress no growth to date
- cytology pending
- fungal and afb cultures on the pericardial fluid sent
- covid ag negative
- qft gold sent.
- lyme serology
- coxsackie serology was sent - unlikely to change consultant
����������������������������������������������������������
Chief Complaint
-: Other (purulent pericarditis)
Subjective / Review of Systems
Review of Systems: No Fever, No Chills, No Cough and No Chest Pain
Vital Signs / Physical Exam
Vital Signs
Vital Signs
Temp Pulse Resp BP Pulse Ox
98.1 F 85 16 138/107 95
12/16/23 07:30 12/16/23 08:41 12/16/23 07:30 12/16/23 08:41 12/16/23 07:30
Physical Exam
Constitutional: No Acute Distress, Comfortable and Non-toxic
Eyes: Sclera Anicteric
Cardiovascular: S1/S2; Negative S3/S4
Pulmonary: Non Labored; Negative Wheezes or Rales
Gastrointestinal: Soft and Non Distended
Skin: Negative Rash or Jaundice
Neurological: Awake and Alert
Psychological: Calm
Objective Data
Lab Data
Lab Results
12/16/23 05:19
12/16/23 05:19
PT 19.4 Sec (11.4-14.6) H 12/12/23 23:01
INR 1.66 12/12/23 23:01
APTT 36.8 Sec (23.4-35.0) H 12/12/23 23:01
Estimated Creat Clear 38 ml/min 12/16/23 05:19
Lactic Acid 1.8 mmol/L (0.7-2.0) 12/12/23 23:01
Total Bilirubin 0.5 mg/dl (0.2-1.3) 12/16/23 05:19
AST 82 U/L (14-36) H 12/16/23 05:19
ALT 50 U/L (0-35) H 12/16/23 05:19
Alkaline Phosphatase 406 U/L (38-126) H 12/16/23 05:19
Most recent labs reviewed.
Micro Results:
12/12/23 17:28 Blood Culture - Preliminary
Blood/Venous No Growth in 72 hours- Final report to follow
12/12/23 17:09 Blood Culture - Preliminary
Blood/Venous No Growth in 72 hours- Final report to follow
12/12/23 20:38 Body Fluid Culture - Preliminary
Pericardial Fluid No Growth After 48 Hours
Gram Stain - Preliminary
12/12/23 20:38 Acid Fast Bacilli Smear - Preliminary
Pericardial Fluid Acid Fast Bacilli Culture - Preliminary
12/12/23 20:38 Fungal Culture - Pending
Pericardial Fluid
12/12/23 17:09 Influenza Types A & B (STEPHANY) - Final
Nasal Swab Negative for Influenza A & B, NAAT
Negative results must be combined with clinical observations
and patient history.
Nucleic Acid Amplification test (NAAT)performed on the
[employer] platform.
Imaging:
12/14/2023 ECHO (TTE): Normal biventricular size and systolic function. No pericardial effusion. Compared to the 12/12/2023 echocardiogram, the large pericardial effusion with tamponade physiology is no longer seen.
[2023-12-16] MEDS: ROCEPHIN 2000 MG IV (15:49)
[2023-12-16] MEDS: STERILE WATER FOR INJECTION 20 ML IV (15:49)
--- NOTE | 2023-12-16 18:23 | PTCARENOTE ---
Patient OOB chair since this am. Supervision with walking . pt walked in a room with walker. Few loose stool today . Appetite improved compare to day before. Afib 94. BP 143/88 on RA.
[2023-12-16] MEDS: LIPITOR 40 MG PO (22:11)
[2023-12-16] MEDS: REMERON ODT 15 MG PO (22:11)
[2023-12-17] VITALS (20 sets, daily range): BP systolic 64–152; BP diastolic 37–122; BMI 15.2
--- NOTE | 2023-12-17 02:45 | PTCARENOTE ---
Rec'd care of patient at 1900. Patient resting comfortably in chair. Standby supervision to bathroom for void and BM. Alert and oriented to self and place. Forgetful at times. Bed alarm on and functioning. Patient ringing call geren appropriately.
Vitals stable. NSR on tele monitor. +1 edema in b/l LE. Palpable pulses. Lung sounds cta on RA. Sacral foam and left anterior chest dressing c/d/i. INTs capped.
[2023-12-17] MEDS: SYNTHROID 100 MCG PO (05:38)
[2023-12-17] MEDS: PACERONE 400 MG PO ×2 (08:04→19:21)
[2023-12-17] MEDS: FLOMAX 0.400000000000000022 MG PO (08:05)
[2023-12-17] MEDS: MAGNESIUM OXIDE 500 MG PO (08:05)
[2023-12-17] MEDS: ELIQUIS 2.5 MG PO ×2 (08:05→19:21)
[2023-12-17] MEDS: TOPROL XL 37.5 MG PO (08:05)
--- NOTE | 2023-12-17 08:08 | PTCARENOTE ---
patient in bed. AAO x3. Denies pain/discomfort or nausea. BP 147/122 SR 82 RR 21; No SOB on RA . appetite improving.
--- NOTE | 2023-12-17 09:34 | W.PN.CD ---
Today's Communication / Plan
-
Resume colchicine 0.6 mg BID.
Stop metoprolol.
Start carvedilol 12.5 mg BID.
Continue metoprolol 5 mg IV PRN for acute rate control.
CT Chest with contrast to evaluate for lung CA recurrence in light of exudative pericardial effusion.
RUQ US.
Impression / Plan
-
Impression/Plan: 83F with a history of HTN, lung adenoCA s/p surgical resection (without adjuvant chemotherapy or radiation per daughter) and COPD, admitted in May 2024 with PAF with RVR and started on apixaban, now admitted with dyspnea and CP
noted with recurrent persistent AF, found to be febrile and hypotensive with new, large pericardial effusion.
#Pericardial effusion
-Acute, likely with at least some hemodynamic compromise.
-S/P pericardiocentesis for 385 mL of cloudy, straw colored fluid.
-Exudate. Serum protein 6.0:Pericardial protein 4.7; Serum LDH pending:Pericardial LDH 561.
-DDx includes infection (septic pericarditis), inflammatory pericarditis, malignant pericarditis. Cultures/cytology pending.
-Colchicine held for EMMY. Restart as creatinine has normalized.
-ID following for possible infection.
-Pericardial drain removed 12/14/23.
#AF/VT
-Now in AF with RVR. HR 140-160.
-Dofetilide transitioned to Amiodarone given VT/AF despite dofetilide.
-Metoprolol succinate restarted with amiodarone. HR currently inadequately controlled, but she is asymptomatic. D/C metoprolol and add carvedilol 12.5 mg BID (BP + rate control). Continue to use metoprolol 5 mg IV PRN for acute rate control.
-Oral Anticoagulation: Apixaban 2.5 mg BID resumed.
#Transaminitis
-New diagnosis this admission.
-LFT's trending up.
-RUQ US. Source of her sepsis?
#HTN
-Chronic.
-Meds had been held for hypotension.
-Transition metoprolol to carvedilol 12.5 mg BID.
#Prior lung cancer
-Chronic, stable/remote.
-Presence of a exudative pericardial effusion is obviously concerning.
-CT chest to look for recurrence today.
#COPD
-Chronic, stable.
-She is not in acute exacerbation.
#Anxiety
#At least mild cognitive impairment.
Subjective/Interval History:
Apixaban restarted on 12/15/2023.
Metoprolol succinate 37.5 mg BID added.
Transaminitis trending up.
Coxsackie and TB testing pending.
She lapsed back into atrial fibrillation with RVR (140-160 BPM this morning).
DATA:
Pericardiocentesis, 12/12/2023:
Conclusions:
1. Successful placement of a 6 Taiwanese pericardial drain via an apical approach yielding 385 mL of cloudy, straw-colored fluid with reduction in pericardial pressure from 14 mmHg to 10 mmHg.
2. Pericardial fluid has been sent for laboratory analysis.
TTE, 12/12/2023:
CONCLUSIONS
Normal left ventricular size and systolic function. LV ejection fraction is 60-
65% by visual assessment.
Mild concentric left ventricular hypertrophy.
Moderate eccentric tricuspid regurgitation. Estimated pulmonary artery pressure
of 35-40 mmHg.
Large pericardill effusion without overt tamponade physiology.
Compared to prior study of May, effusion is new.
CXR, 12/12/2023:
IMPRESSION:
1. Moderate cardiomegaly. Mild central pulmonary vascular congestion.
2. Small bilateral pleural effusions.
Physical Exam
Vital Signs/Labs
Vital Signs
Temp Pulse Resp BP Pulse Ox
37.0 C 82 16 147/122 98
12/17/23 07:48 12/17/23 08:05 06/03/24 04:00 12/17/23 08:05 12/16/23 20:17
12/15/23 12/16/23 12/17/23
11:59 11:59 11:59
Actual Weight 44.9 kg 43.8 kg 41.3 kg
12/16/23 05:19
12/16/23 05:19
PT 19.4 Sec (11.4-14.6) H 12/12/23 23:01
INR 1.66 12/12/23 23:01
APTT 36.8 Sec (23.4-35.0) H 12/12/23 23:01
Magnesium 2.1 mg/dl (1.6-2.3) 12/14/23 04:25
12/12/23
09:08
[id number] Pept 4150
Physical Exam
Constitutional: No acute distress and Comfortable
EENT: Anicteric and Moist mucous membranes
Cardiovascular: Pedal edema is absent, JVD pressure is normal, Rhythm/rate is irregular, S1S2 is normal and Murmur/rub/gallop absent
Respiratory: Respiratory effort normal, Lungs clear to auscul., Wheeze Absent, Crackles Absent and Rhonchi Absent
GI: Soft, Distention absent, Flat, Non tender and Normal bowel sounds
Neuro/Psych: Alert and Oriented
Data Reviewed
-
Date of Service: December 17, 2023
Medical Decision Making: Reviewed Test Results, Tests Ordered, Independent Historian Assessment and Test Interpretation
EKG: Tracing Personally Visualized and interpreted and Report Reviewed by me
Echo: Tracing Personally Visualized and interpreted and Report Reviewed by me
X-Ray/CT/US/MRI/NUC/PET: Image Personally Visualized and interpreted and Report Reviewed by me
Medical Tests (PFT, Pathology etc): Image Personally Visualized and interpreted and Report Reviewed by me
Labs: Labs Reviewed by me
--- NOTE | 2023-12-17 09:53 | W.PN.ID1 ---
Addendum entered and electronically signed by Julisa Witt MD 12/17/23 16:44:
stopped ceftriaxone
Addendum entered and electronically signed by Julisa Witt MD 12/17/23 16:42:
chart checked
LFTS not yet resulted - were ordered urgent this am; at this point will cancel and reschedule for the AM
path back - suggestive of relapse of malignant as we feared
Original Note:
Date of Service
Date of Service: December 17, 2023
Today's Communication
CT chest noncontrast
LFTs
continue ctx
Assessment / Plan
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
Leukocytosis; resolved
Transaminitis - mildly progressed
Cachexia
- pericardial fluid with neutrophil predominant fluid, elevated WBC count; gram stain without organisms. Glucose normal
- pericardial fluid culture finalized neg
- blood cultures x2 are in progress no growth to date
- cytology pending
- fungal and afb cultures on the pericardial fluid sent - NGTD
- qft gold pending
- lyme serology pending
- progression of mild transaminitis yesterday - reassess today
- note elevated procalcitonin while Cr was 1.8 - uninterpretable. Of unknown value outside of sepsis and resp infection, would not resend.
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
- follow clinically
����������������������������������������������������������
Chief Complaint
-: Other (purulent pericarditis)
Subjective / Review of Systems
afebrile
bp stbale
leukocytosis resolved as of yesterday
multiple cultures reviewed - in progress
pericardial drain removed 12/13
no complaints
Vital Signs / Physical Exam
Vital Signs
Vital Signs
Temp Pulse Resp BP Pulse Ox
98.6 F 82 23 138/81 98
12/17/23 07:48 12/17/23 09:30 12/17/23 09:30 12/17/23 09:00 12/16/23 20:17
Physical Exam
Constitutional: No Acute Distress
Cardiovascular: Regular Rate and S1/S2; Negative Murmur or Rub
Pulmonary: Clear and Symmetric; Negative Wheezes or Rales
Gastrointestinal: Soft, Non Tender, Non Distended and Normal Bowel Sounds
Skin: Warm and Dry; Negative Rash or Jaundice
Neurological: Awake
Objective Data
Lab Data
Lab Results
12/16/23 05:19
12/16/23 05:19
PT 19.4 Sec (11.4-14.6) H 12/12/23 23:01
INR 1.66 12/12/23 23:01
APTT 36.8 Sec (23.4-35.0) H 12/12/23 23:01
Estimated Creat Clear 38 ml/min 12/16/23 05:19
Lactic Acid 1.8 mmol/L (0.7-2.0) 12/12/23 23:01
Total Bilirubin 0.5 mg/dl (0.2-1.3) 12/16/23 05:19
AST 82 U/L (14-36) H 12/16/23 05:19
ALT 50 U/L (0-35) H 12/16/23 05:19
Alkaline Phosphatase 406 U/L (38-126) H 12/16/23 05:19
Most recent labs reviewed.
Micro Results:
12/12/23 17:09 Blood Culture - Preliminary
Blood/Venous No Growth in 4 days- Final report to follow
12/12/23 17:28 Blood Culture - Preliminary
Blood/Venous No Growth in 4 days- Final report to follow
12/12/23 20:38 Body Fluid Culture - Final
Pericardial Fluid No Growth After 72 Hours
Gram Stain - Final
12/12/23 20:38 Acid Fast Bacilli Smear - Preliminary
Pericardial Fluid Acid Fast Bacilli Culture - Preliminary
12/12/23 20:38 Fungal Culture - Pending
Pericardial Fluid
12/12/23 17:09 Influenza Types A & B (STEPHANY) - Final
Nasal Swab Negative for Influenza A & B, NAAT
Negative results must be combined with clinical observations
and patient history.
Nucleic Acid Amplification test (NAAT)performed on the
[employer] platform.
Imaging:
12/14/2023 ECHO (TTE): Normal biventricular size and systolic function. No pericardial effusion. Compared to the 12/12/2023 echocardiogram, the large pericardial effusion with tamponade physiology is no longer seen.
--- NOTE | 2023-12-17 11:09 | PTCARENOTE ---
Afib 140's to 150's . BP 129/82 MAP 94; RR 19 POX 98RA . patient feels as if her heart is raising , denies dizziness and chest pain . Metoprolol 5 mg prn adm
[2023-12-17] MEDS: LOPRESSOR 5 MG IV ×3 (11:10→21:59)
--- NOTE | 2023-12-17 12:52 | W.PN.HOSP.TC ---
Today's Communication/Plan
-
Monitor HR-may need meds adjusted
Colchine
IV abx
CT chest pending
Abd US pending
Assessment / Plan
Assessment / Plan
Gen-awake, alert, NAD, nontoxic, cachectic
HEENT-NC, AT, anicteric, clear oral mm
Neck-supple
CV-irregular, tachycardic, no M, +S1/S2, subxiphoid pericardial drain intact
Lungs-clear B/L
Abd-soft, NT, ND
Ext-no edema
Musculoskeletal-no cyanosis, clubbing
Skin-warm and dry
Neuro-grossly non-focal
Psych-calm, cooperative
Shock - possibly due to sepsis versus cardiogenic versus other. Hemodynamically improved, shock resolved. Off IV vasopressors, as blood pressure has recovered we will stop midodrine. BNP 4150. Chest x-ray with mild central pulmonary vascular
congestion. Small bilateral pleural effusions.
Large pericardial effusion - noted on echocardiogram. Urgent pericardiocentesis with drain placement performed 12/11 evening. 385 cc cloudy straw-colored fluid removed. Drain output 50 cc overnight. Etiology of effusion unclear at this point,
differential includes infection versus malignancy versus inflammatory. Noted history of lung cancer is concerning. Pericardial fluid sent for culture and cytology. Pericardial drain removed 12/13. Started on colchine BID dosing. Trend cbc.
Now on empiric antibiotics per infectious disease.
Sepsis - unclear source, possibly infectious pericarditis. Sepsis resolved. Blood cultures negative. Pericardial fluid culture no growth.
EMMY - likely ATN related to hypotension, shock. EMMY resolved. Tamsulosin added for urinary retention.
Rapid atrial fibrillation -Amiodarone changed to oral. Coreg started. IV prn. May need infusion if without improvement. Cards recs.
Moderate protein calorie malnutrition
Hypovolemic hyponatremia -sodium normalized with IV fluids.
Normocytic anemia -likely chronic. Monitor for now.
Elevated LFTs -primarily transaminases, alkaline phosphatase. Bilirubin normal. Unclear if due to passive congestion versus other etiology. Check abdomen US. Trend LFTs.
Hypothyroidism -on levothyroxine. TSH normal.
Hyperlipidemia -on atorvastatin.
History of pulmonary adenocarcinoma -underwent right upper lobectomy about 5 to 6 years ago according to family. CT chest pending
Dementia, likely Alzheimer's type -watch for delirium in the hospital.
DNR
PT/OT -might need SNF.
Anticipated Discharge: > 48 hours
Subjective/Interval History
-
Date of Service: December 17, 2023
states feeling better
no chest pain or sob
Objective Data
-
Labs:
Laboratory Results
12/17/23
10:06
Total Bilirubin Pending
AST Pending
ALT Pending
Alkaline Phosphatase Pending
Vital Signs:
Vital Signs
Temp Pulse Resp BP Pulse Ox
98.4 F 150 23 129/82 98
12/17/23 11:19 12/17/23 11:10 12/17/23 09:30 12/17/23 11:10 12/16/23 20:17
I&O
12/16/23 12/17/23 12/18/23
06:59 06:59 06:59
Intake Total 846.7 / 846.7 240 / 240 240 / 240
Output Total 1500 / 1500
Balance -653.3 / -653.3 240 / 240 240 / 240
Data Reviewed
-
Total Time Spent with Patient (in minutes): 55
[2023-12-17] MEDS: TYLENOL 650 MG PO (14:23)
--- NOTE | 2023-12-17 14:25 | W.PN.UPDATE ---
Update Note
Progress Note Update
Our service was alerted by nursing that HR's still fast. Reviewed with Dr. Mora, will transition back from Coreg to increased dose metoprolol 50 mg PO BID. Will give a dose of metoprolol now- already received some this AM.
[2023-12-17] MEDS: TOPROL XL 25 MG PO (14:39)
--- NOTE | 2023-12-17 14:43 | CM ---
CM following re: discharge planning.
Reviewed p[t's chart, met with pt and pt's daughter Taryn at bedside.
PT and OT evaluations noted - home PT vs SNF level of care recommended. CM discussed it with pt and her daughter and they preferred SNF level of care. A list of SNFs provided to pt and her daughter. Following SNFs preferred: [facility],
[facility], [facility] and/or [facility].
A referral to above SNFs made.
D/C plan: Preferred SNF. Awaiting for determination.
CM will follow to assist pt with discharge to a preferred SNF.
[2023-12-17] MEDS: STERILE WATER FOR INJECTION 20 ML IV (15:35)
[2023-12-17] MEDS: ROCEPHIN 2000 MG IV (15:35)
--- NOTE | 2023-12-17 15:50 | PTCARENOTE ---
metoprolol 5 mg IV
Afib 130's BP 107/86 MAP 94; . Metoprolol 5mg IV given per prn order .
--- NOTE | 2023-12-17 16:00 | PTCARENOTE ---
after metoprolol HR afib 114 to 130 BP 127/[address] Jackson made aware, not new orders at this time will continue to monitor. NPO after midnight for US abdominal . CT pending. Called CT department multiple times CT will be done latter this evening
[2023-12-17 16:39] LABS: Lyme Antibody Screen, EIA Negative (Negative)
[2023-12-17] MEDS: TOPROL XL 50 MG PO (19:21)
[2023-12-17] MEDS: COLCHICINE 0.599999999999999978 MG PO (19:22)
[2023-12-17] MEDS: REMERON ODT 15 MG PO (21:59)
[2023-12-17] MEDS: LIPITOR 40 MG PO (21:59)
[2023-12-18] VITALS (19 sets, daily range): BP systolic 85–144; BP diastolic 48–103; BMI 16.3
[2023-12-18 04:51] LABS: % Basophils 0.6 % (0-2); % Eosinophils 2.3 % (0-6); % Immature Granulocytes 0.3 % (0-0.5); % Lymphocytes 9.4 % (20.5-51.1); % Monocytes 7.7 % (1.7-9.3); % Neutrophils 79.7 % (42.2-75.2); Absolute Basophils 0.1 10^3/uL (0-0.2); Absolute Eosinophils 0.2 10^3/uL (0-0.7); Absolute Monocytes 0.8 10^3/uL (0.1-0.6); Absolute Neutrophils 8.1 10^3/uL (1.4-6.5); Hematocrit 31.6 % (37.0-47.0); Hemoglobin 10.4 g/dL (12.0-16.0); Mean Corp Hgb Conc. 32.9 g/dL (33.0-37.0); Mean Corpuscular Hgb 28.8 pg (27.0-31.0); Mean Corpuscular Volume 87.5 fL (81.0-99.0); Nucleated Red Blood Cells % 0 %; Platelet Count 437 10^3/uL (130-400); Red Blood Cell Count 3.61 10^6/uL (4.20-5.40); Red Cell Dist. Width 14.6 % (11.5-14.5); White Blood Cell Count 10.2 10^3/uL (4.8-10.8)
[2023-12-18 05:49] LABS: ALT (SGPT) 39 U/L (0-35); AST (SGOT) 53 U/L (14-36); Albumin 2.7 g/dl (3.5-5.0); Alkaline Phosphatase 279 U/L (38-126); Blood Urea Nitrogen 17 mg/dl (7-17); Calcium 8.8 mg/dl (8.4-10.2); Carbon Dioxide 22 mmol/L (22-30); Chloride 107 mmol/L (98-107); Estimated Creatinine Clearance 52 ml/min; Glucose 97 mg/dl (70-99); Potassium 3.8 mmol/L (3.5-5.1); Sodium 137 mmol/L (135-145); Total Bilirubin 0.5 mg/dl (0.2-1.3); Total Protein 5.2 g/dl (6.3-8.2); eGFR > 60.00
[2023-12-18] MEDS: LOPRESSOR 5 MG IV (06:13)
[2023-12-18] MEDS: SYNTHROID 100 MCG PO (06:15)
[2023-12-18] MEDS: FLOMAX 0.400000000000000022 MG PO (07:57)
[2023-12-18] MEDS: PACERONE 400 MG PO ×2 (07:57→20:11)
[2023-12-18] MEDS: ELIQUIS 2.5 MG PO ×2 (07:58→20:12)
[2023-12-18] MEDS: COLCHICINE 0.599999999999999978 MG PO (07:58)
[2023-12-18] MEDS: TOPROL XL 50 MG PO ×2 (07:58→20:12)
[2023-12-18] MEDS: MAGNESIUM OXIDE 500 MG PO (07:58)
--- NOTE | 2023-12-18 08:24 | W.PN.CD ---
Today's Communication / Plan
-
afib rates mildly elevated. Asymptomatic
continue with amiodarone
continue metoprolol. assess HR and BP after morning dose
yesterday BPs relatively low which may limit titration of metoprolol
Follow up echo now that patient post pericardiocentesis and back on anticoagulation
Impression / Plan
-
Impression/Plan: 83F with a history of HTN, lung adenoCA s/p surgical resection (without adjuvant chemotherapy or radiation per daughter) and COPD, admitted in May 2024 with PAF with RVR and started on apixaban, now admitted with dyspnea and CP
noted with recurrent persistent AF, found to be febrile and hypotensive with new, large pericardial effusion.
#Pericardial effusion
-Acute, likely with at least some hemodynamic compromise.
-S/P pericardiocentesis for 385 mL of cloudy, straw colored fluid.
-Exudate. Serum protein 6.0:Pericardial protein 4.7; Serum LDH pending:Pericardial LDH 561.
-DDx includes infection (septic pericarditis), inflammatory pericarditis, malignant pericarditis. Cultures/cytology pending.
-Colchicine held for EMMY. Restart as creatinine has normalized.
-ID following for possible infection.
-Pericardial drain removed 12/14/23.
#AF/VT
-Now in AF with RVR. HR 140-160.
-Dofetilide transitioned to Amiodarone given VT/AF despite dofetilide.
- amiodarone and metoprolol
- rates mildy elevated . BP relatively low yesterday. Monitor HR and BP with AM metoprolol
-Oral Anticoagulation: Apixaban 2.5 mg BID resumed.
#Transaminitis
-New diagnosis this admission.
-assessment by primary team. Note ID also consulted
#Prior lung cancer
-Chronic, stable/remote.
-Presence of a exudative pericardial effusion is obviously concerning.
-CT chest with small noncalcified nodules concerning for malignancy 12/17/23
#COPD
-Chronic, stable.
-She is not in acute exacerbation.
#Anxiety
#At least mild cognitive impairment.
Subjective/Interval History:
Apixaban restarted on 12/15/2023.
Metoprolol succinate 37.5 mg BID added.
Transaminitis trending up.
Coxsackie and TB testing pending.
She lapsed back into atrial fibrillation with RVR (140-160 BPM this morning).
DATA:
Pericardiocentesis, 12/12/2023:
Conclusions:
1. Successful placement of a 6 [place]illan pericardial drain via an apical approach yielding 385 mL of cloudy, straw-colored fluid with reduction in pericardial pressure from 14 mmHg to 10 mmHg.
2. Pericardial fluid has been sent for laboratory analysis.
TTE, 12/12/2023:
CONCLUSIONS
Normal left ventricular size and systolic function. LV ejection fraction is 60-
65% by visual assessment.
Mild concentric left ventricular hypertrophy.
Moderate eccentric tricuspid regurgitation. Estimated pulmonary artery pressure
of 35-40 mmHg.
Large pericardill effusion without overt tamponade physiology.
Compared to prior study of May, effusion is new.
CXR, 12/12/2023:
IMPRESSION:
1. Moderate cardiomegaly. Mild central pulmonary vascular congestion.
2. Small bilateral pleural effusions.
Physical Exam
Vital Signs/Labs
Vital Signs
Temp Pulse Resp BP Pulse Ox
98.3 F 129 21 104/75 98
12/18/23 07:40 12/18/23 07:30 12/18/23 07:30 12/18/23 07:00 12/18/23 07:30
12/17/23 12/18/23 12/19/23
06:59 06:59 06:59
Actual Weight 41.3 kg 44.5 kg
12/18/23 04:30
12/18/23 04:30
PT 19.4 Sec (11.4-14.6) H 12/12/23 23:01
INR 1.66 12/12/23 23:01
APTT 36.8 Sec (23.4-35.0) H 12/12/23 23:01
Magnesium 2.1 mg/dl (1.6-2.3) 12/14/23 04:25
12/12/23
09:08
Trg-H-Afllijunjrs Pept 4150
Physical Exam
Constitutional: No acute distress
Cardiovascular: Rhythm/rate is irregular
Respiratory: Wheeze Absent and Rhonchi Absent
GI: Soft
Data Reviewed
-
Date of Service: December 18, 2023
Medical Decision Making: Reviewed Test Results
Echo: Report Reviewed by me
Medical Tests (PFT, Pathology etc): Report Reviewed by me
Labs: Labs Reviewed by me
--- NOTE | 2023-12-18 09:10 | W.PN.ID1 ---
Date of Service
Date of Service: December 18, 2023
Today's Communication
- cytology consistent with malignancy
- CT chest: 'Bilateral small solid noncalcified pulmonary nodules concerning for malignancy until proven otherwise. Too small for PET imaging.'
- stopped ceftriaxone evening of 12/16
ID service will follow off of antibiotics for a short period
Assessment / Plan
Malignant Pericarditis
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
Leukocytosis; resolved
Transaminitis - mildly progressed
Cachexia
- pericardial fluid culture finalized neg
- blood cultures x2 NGTD
- cytology consistent with malignancy
- fungal and afb cultures on the pericardial fluid sent - NGTD
- qft gold pending
- lyme serology negtive
- transaminitis improving
- note elevated procalcitonin while Cr was 1.8 - uninterpretable; most likely elevated due to EMMY. Of unknown value outside of sepsis and resp infection, would not resend.
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
- CT chest: 'Bilateral small solid noncalcified pulmonary nodules concerning for malignancy until proven otherwise. Too small for PET imaging.'
- stopped ceftriaxone evening of 12/16
ID service will follow off of antibiotics for a short period
����������������������������������������������������������
Chief Complaint
-: Other (purulent pericarditis)
Subjective / Review of Systems
afebrile
bp stable
without leukocytosis
L shift is noted
cr normal
CT chest concerning for possible malignancy
Vital Signs / Physical Exam
Vital Signs
Vital Signs
Temp Pulse Resp BP Pulse Ox
98.3 F 129 21 104/75 98
12/18/23 07:40 12/18/23 07:30 12/18/23 07:30 12/18/23 07:00 12/18/23 07:30
Physical Exam
Constitutional: No Acute Distress, Chronically Ill and Cachetic
Cardiovascular: Regular Rate and S1/S2; Negative Murmur or Rub
Pulmonary: Clear and Symmetric; Negative Wheezes or Rales
Gastrointestinal: Soft, Non Tender, Non Distended and Normal Bowel Sounds
Skin: Warm and Dry; Negative Rash or Jaundice
Objective Data
Lab Data
Lab Results
12/18/23 04:30
12/18/23 04:30
PT 19.4 Sec (11.4-14.6) H 12/12/23 23:01
INR 1.66 12/12/23 23:01
APTT 36.8 Sec (23.4-35.0) H 12/12/23 23:01
Estimated Creat Clear 52 ml/min 12/18/23 04:30
Lactic Acid 1.8 mmol/L (0.7-2.0) 12/12/23 23:01
Total Bilirubin 0.5 mg/dl (0.2-1.3) 12/18/23 04:30
AST 53 U/L (14-36) H 12/18/23 04:30
ALT 39 U/L (0-35) H 12/18/23 04:30
Alkaline Phosphatase 279 U/L (38-126) H 12/18/23 04:30
Most recent labs reviewed.
Micro Results:
12/12/23 17:09 Blood Culture - Final
Blood/Venous No Growth - Final Report
12/12/23 17:28 Blood Culture - Final
Blood/Venous No Growth - Final Report
12/12/23 20:38 Fungal Culture - Preliminary
Pericardial Fluid Culture in progress.
Positive cultures are reported as soon as detected.
Final report to follow in four to five weeks.
12/12/23 20:38 Body Fluid Culture - Final
Pericardial Fluid No Growth After 72 Hours
Gram Stain - Final
12/12/23 20:38 Acid Fast Bacilli Smear - Preliminary
Pericardial Fluid Acid Fast Bacilli Culture - Preliminary
12/12/23 17:09 Influenza Types A & B (STEPHANY) - Final
Nasal Swab Negative for Influenza A & B, NAAT
Negative results must be combined with clinical observations
and patient history.
Nucleic Acid Amplification test (NAAT)performed on the
[employer] platform.
Imaging:
12/14/2023 ECHO (TTE): Normal biventricular size and systolic function. No pericardial effusion. Compared to the 12/12/2023 echocardiogram, the large pericardial effusion with tamponade physiology is no longer seen.
--- NOTE | 2023-12-18 11:54 | W.PN.HOSP.TC ---
Today's Communication/Plan
-
Rate control-Cards recs
Abx stopped
OP Onc f/u
Assessment / Plan
Assessment / Plan
Gen-awake, alert, NAD, nontoxic, cachectic
HEENT-NC, AT, anicteric, clear oral mm
Neck-supple
CV-irregular, tachycardic, no M, +S1/S2, subxiphoid pericardial drain intact
Lungs-clear B/L
Abd-soft, NT, ND
Ext-no edema
Musculoskeletal-no cyanosis, clubbing
Skin-warm and dry
Neuro-grossly non-focal
Psych-calm, cooperative
Shock - possibly due to sepsis versus cardiogenic versus other. Hemodynamically improved, shock resolved. Off IV vasopressors, as blood pressure has recovered we will stop midodrine. BNP 4150. Chest x-ray with mild central pulmonary vascular
congestion. Small bilateral pleural effusions.
Large pericardial effusion - noted on echocardiogram. Urgent pericardiocentesis with drain placement performed 12/11 evening. 385 cc cloudy straw-colored fluid removed. Drain output 50 cc overnight. Etiology of effusion unclear at this point,
differential includes infection versus malignancy versus inflammatory. Noted history of lung cancer is concerning. Pericardial fluid sent for culture and cytology. Pericardial drain removed 12/13. Started on colchine BID dosing. Trend cbc.
Was on Rocephin was has been discontinued. Patient pericardial fluid negative for growth. Negative for malignancy however Calretinin highlights the reactive mesothelial cells. BEREP4 is negative and MOC31 shows weak positivity in cells that are
favored to be the reactive mesothial cells that are calretinin positive
EMMY - likely ATN related to hypotension, shock. EMMY resolved. Tamsulosin added for urinary retention.
Rapid atrial fibrillation -Amiodarone changed to oral. Coreg stopepd and now back on metoprolol. May need dose adjustment but limited due to soft BP. Cards recs
Moderate protein calorie malnutrition
Hypovolemic hyponatremia -sodium normalized with IV fluids.
Normocytic anemia -likely chronic. Monitor for now.
Elevated LFTs -primarily transaminases, alkaline phosphatase. Bilirubin normal. Unclear if due to passive congestion versus other etiology. Check abdomen US. Trend LFTs.
Hypothyroidism -on levothyroxine. TSH normal.
Hyperlipidemia -on atorvastatin.
History of pulmonary adenocarcinoma -underwent right upper lobectomy about 5 to 6 years ago according to family. CT chest small pericardial effusion with small bilateral pleural effusion. Mild left lower lobe and minimal right lower lobe
consolidation probably atelectasis. Bilateral small nodule noncalcified pulmonary nodule concerning for malignancy until proven otherwise.
Dementia, likely Alzheimer's type -watch for delirium in the hospital.
DNR
PT/OT -might need SNF.
Anticipated Discharge: > 48 hours
Subjective/Interval History
-
Date of Service: December 18, 2023
Remains in afib RVR
no chest pain
intermittent palpaptions
Objective Data
-
Labs:
Laboratory Results
12/18/23
04:30
WBC 10.2
Hgb 10.4 L
Hct 31.6 L
Plt Count 437 H
Sodium 137
Potassium 3.8
Chloride 107
Carbon Dioxide 22
BUN 17
Creatinine 0.5 L
Glucose 97
Calcium 8.8
Total Bilirubin 0.5
AST 53 H
ALT 39 H
Alkaline Phosphatase 279 H
Vital Signs:
Vital Signs
Temp Pulse Resp BP Pulse Ox
98.7 F 146 23 90/77 96
12/18/23 11:24 12/18/23 10:15 12/18/23 10:15 12/18/23 09:49 12/18/23 10:15
I&O
12/17/23 12/18/23 12/19/23
06:59 06:59 06:59
Intake Total 240 / 240 240 / 240
Balance 240 / 240 240 / 240
--- NOTE | 2023-12-18 12:28 | W.PN.UPDATE ---
Addendum entered and electronically signed by MELVI Stanford 12/18/23 17:16:
Patient now appears to be in atrial flutter. EKG.
Amiodarone bolus 150 mg IV x 1, no further digoxin.
Addendum entered and electronically signed by Darren Dukes MD 12/18/23 13:14:
Patient seen in collaboration with [facility]; agree with below.
-Called to reevaluate patient due to A-fib with RVR and low blood pressure.
-Echo now, IV fluid bolus, digoxin.
Addendum entered and electronically signed by MELVI Stanford 12/18/23 12:36:
Add normal saline bolus 500 mL x 1 now
Original Note:
Update Note
Progress Note Update
Patient with heart rate 130-150 bpm. Systolic blood pressure 85-90 mmHg. She is endorsing palpitations and weakness.
Digoxin 250 mcg IV x 1 now.
Follow-up echocardiogram to re-evaluate for pericardial effusion.
[2023-12-18] MEDS: LANOXIN 250 MCG IV (13:05)
[2023-12-18] MEDS: COLCHICINE PO (13:29)
[2023-12-18] MEDS: NSS 250 IV (13:30)
--- NOTE | 2023-12-18 17:23 | PTCARENOTE ---
Pt confused and very anxious at times. Uncontrolled Afib on monitor throughout the day. HR 120s-150s this am. Received 250ml bolus and IV Digoxin. HR improved slightly to 110s-130s. BP improved at that time. Pt reporting different symptoms
throughout the day including palpitations, weakness and later chest pressure and 'seeing stars' with activity. EKG showed Aflutter. New order received for Amiodarone gtt.
[2023-12-18] MEDS: CORDARONE 103 MG IV (17:44)
[2023-12-18] MEDS: LIPITOR 40 MG PO (21:05)
[2023-12-18] MEDS: REMERON ODT 15 MG PO (21:05)
[2023-12-19] VITALS (19 sets, daily range): BP systolic 93–124; BP diastolic 47–83; PULSE 77; BMI 16.4
--- NOTE | 2023-12-19 04:00 | PTCARENOTE ---
Assessment charted on worklist. AAOx2, forgetful at times. Gen weakness. Afib w/ PVC. Diminished lung sounds at the bases, SaO2 95% RA. Pt appeared comfortable throughout the night. Call green within reach.
[2023-12-19] MEDS: SYNTHROID 100 MCG PO (04:49)
[2023-12-19 05:32] LABS: % Basophils 0.6 % (0-2); % Eosinophils 1.6 % (0-6); % Immature Granulocytes 0.6 % (0-0.5); % Lymphocytes 8.1 % (20.5-51.1); % Monocytes 7.6 % (1.7-9.3); % Neutrophils 81.5 % (42.2-75.2); Absolute Basophils 0.1 10^3/uL (0-0.2); Absolute Eosinophils 0.2 10^3/uL (0-0.7); Absolute Immature Granulocytes 0.1 10^3/uL (0-0.05); Absolute Neutrophils 10.2 10^3/uL (1.4-6.5); Hematocrit 36.2 % (37.0-47.0); Hemoglobin 12.3 g/dL (12.0-16.0); Mean Corpuscular Volume 85.4 fL (81.0-99.0); Mean Platelet Volume 9.2 fL (7.4-10.4); Nucleated Red Blood Cells % 0 %; Platelet Count 524 10^3/uL (130-400); Red Blood Cell Count 4.24 10^6/uL (4.20-5.40); Red Cell Dist. Width 14.8 % (11.5-14.5); White Blood Cell Count 12.5 10^3/uL (4.8-10.8)
[2023-12-19 05:52] LABS: ALT (SGPT) 43 U/L (0-35); AST (SGOT) 59 U/L (14-36); Albumin 2.8 g/dl (3.5-5.0); Alkaline Phosphatase 297 U/L (38-126); Blood Urea Nitrogen 17 mg/dl (7-17); Calcium 8.7 mg/dl (8.4-10.2); Carbon Dioxide 24 mmol/L (22-30); Chloride 106 mmol/L (98-107); Estimated Creatinine Clearance 52 ml/min; Glucose 93 mg/dl (70-99); Potassium 4.1 mmol/L (3.5-5.1); Sodium 136 mmol/L (135-145); Total Bilirubin 0.7 mg/dl (0.2-1.3); Total Protein 5.6 g/dl (6.3-8.2); eGFR > 60.00
--- NOTE | 2023-12-19 09:15 | W.PN.ID1 ---
Date of Service
Date of Service: December 19, 2023
Today's Communication
follow clinically off of antibiotics at this time
Assessment / Plan
Malignant Pericarditis
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
Transaminitis - mildly progressed
Cachexia
- pericardial fluid culture finalized neg
- blood cultures x2 NGTD
- cytology consistent with malignancy
- fungal and afb cultures on the pericardial fluid sent - NGTD
- qft gold ordered 12/13 still reported as pending, called lab today, reference lab unfortunately was unable to process and would need a new sample; its no longer clinically relevant and I will not reorder at this time
- coxsackie serology was sent - unlikely to currency exchange specialist
- CT chest: 'Bilateral small solid noncalcified pulmonary nodules concerning for malignancy until proven otherwise. Too small for PET imaging.'
- stopped ceftriaxone evening of 12/16
- follow clinically
Leukocytosis - relapsed 12/18
- mild, may be reactive
- trend
- CXR
- speech evaluation
- further workup pending course
����������������������������������������������������������
Chief Complaint
-: Other (exudative pericarditis)
Subjective / Review of Systems
afebrile
bp stable
tachycardia noted
minimal leukocytosis today
increased thrombocytosis
L shift persists
cr 0.6
ast/alt continued improvement
s/p cardioversion
Vital Signs / Physical Exam
Vital Signs
Vital Signs
Temp Pulse Resp BP Pulse Ox
97.4 F 118 23 108/67 95
12/19/23 07:18 12/19/23 06:00 12/19/23 06:00 12/19/23 06:00 12/19/23 06:00
Physical Exam
Constitutional: No Acute Distress, Chronically Ill and Cachetic
Cardiovascular: Regular Rate and S1/S2
Pulmonary: Clear and Symmetric; Negative Wheezes or Rales
Gastrointestinal: Soft, Non Distended and Normal Bowel Sounds
Skin: Warm and Dry; Negative Rash or Jaundice
Neurological: Negative Awake
Objective Data
Lab Data
Lab Results
12/19/23 05:00
12/19/23 05:00
PT 19.4 Sec (11.4-14.6) H 12/12/23 23:01
INR 1.66 12/12/23 23:01
APTT 36.8 Sec (23.4-35.0) H 12/12/23 23:01
Estimated Creat Clear 52 ml/min 12/19/23 05:00
Lactic Acid 1.8 mmol/L (0.7-2.0) 12/12/23 23:01
Total Bilirubin 0.7 mg/dl (0.2-1.3) 12/19/23 05:00
AST 59 U/L (14-36) H 12/19/23 05:00
ALT 43 U/L (0-35) H 12/19/23 05:00
Alkaline Phosphatase 297 U/L (38-126) H 12/19/23 05:00
Most recent labs reviewed.
Micro Results:
12/12/23 17:09 Blood Culture - Final
Blood/Venous No Growth - Final Report
12/12/23 17:28 Blood Culture - Final
Blood/Venous No Growth - Final Report
12/12/23 20:38 Fungal Culture - Preliminary
Pericardial Fluid Culture in progress.
Positive cultures are reported as soon as detected.
Final report to follow in four to five weeks.
12/12/23 20:38 Body Fluid Culture - Final
Pericardial Fluid No Growth After 72 Hours
Gram Stain - Final
12/12/23 20:38 Acid Fast Bacilli Smear - Preliminary
Pericardial Fluid Acid Fast Bacilli Culture - Preliminary
12/12/23 17:09 Influenza Types A & B (STEPHANY) - Final
Nasal Swab Negative for Influenza A & B, NAAT
Negative results must be combined with clinical observations
and patient history.
Nucleic Acid Amplification test (NAAT)performed on the
[employer] platform.
Imaging:
12/14/2023 ECHO (TTE): Normal biventricular size and systolic function. No pericardial effusion. Compared to the 12/12/2023 echocardiogram, the large pericardial effusion with tamponade physiology is no longer seen.
--- NOTE | 2023-12-19 09:32 | W.PN.CD ---
Today's Communication / Plan
-
cont meds
s/p DCCV
Impression / Plan
-
Impression/Plan: 83F with a history of HTN, lung adenoCA s/p surgical resection (without adjuvant chemotherapy or radiation per daughter) and COPD, admitted in May 2024 with PAF with RVR and started on apixaban, now admitted with dyspnea and CP
noted with recurrent persistent AF, found to be febrile and hypotensive with new, large pericardial effusion.
#Pericardial effusion
-Acute, likely with at least some hemodynamic compromise.
-S/P pericardiocentesis for 385 mL of cloudy, straw colored fluid.
-Exudate. Serum protein 6.0:Pericardial protein 4.7; Serum LDH pending:Pericardial LDH 561.
-DDx includes infection (septic pericarditis), inflammatory pericarditis, malignant pericarditis. Cultures/cytology pending.
-Colchicine held for EMMY. Restart as creatinine has normalized.
-ID following for possible infection.
-Pericardial drain removed 12/14/23.
#AF/VT
-s/p DCCV on December 19 2023, back in SR
-Dofetilide transitioned to Amiodarone given VT/AF despite dofetilide.
- amiodarone and metoprolol
-Oral Anticoagulation: Apixaban 2.5 mg BID resumed.
#Transaminitis
-New diagnosis this admission.
-assessment by primary team. Note ID also consulted
#Prior lung cancer
-Chronic, stable/remote.
-Presence of a exudative pericardial effusion is obviously concerning.
-CT chest with small noncalcified nodules concerning for malignancy 12/17/23
#COPD
-Chronic, stable.
-She is not in acute exacerbation.
#Anxiety
#At least mild cognitive impairment.
Subjective/Interval History:
Apixaban restarted on 12/15/2023.
Metoprolol succinate 37.5 mg BID added.
Transaminitis trending up.
Coxsackie and TB testing pending.
s/p DCCV this AM December 18
DATA:
Pericardiocentesis, 12/12/2023:
Conclusions:
1. Successful placement of a 6 [place] pericardial drain via an apical approach yielding 385 mL of cloudy, straw-colored fluid with reduction in pericardial pressure from 14 mmHg to 10 mmHg.
2. Pericardial fluid has been sent for laboratory analysis.
TTE, 12/12/2023:
CONCLUSIONS
Normal left ventricular size and systolic function. LV ejection fraction is 60-
65% by visual assessment.
Mild concentric left ventricular hypertrophy.
Moderate eccentric tricuspid regurgitation. Estimated pulmonary artery pressure
of 35-40 mmHg.
Large pericardill effusion without overt tamponade physiology.
Compared to prior study of May, effusion is new.
CXR, 12/12/2023:
IMPRESSION:
1. Moderate cardiomegaly. Mild central pulmonary vascular congestion.
2. Small bilateral pleural effusions.
Physical Exam
Vital Signs/Labs
Vital Signs
Temp Pulse Resp BP Pulse Ox
97.4 F 118 23 108/67 95
12/19/23 07:18 12/19/23 06:00 12/19/23 06:00 12/19/23 06:00 12/19/23 06:00
12/18/23 12/19/23 12/20/23
06:59 06:59 06:59
Actual Weight 98 lb 1.691 oz 98 lb 12.273 oz
12/19/23 05:00
12/19/23 05:00
PT 19.4 Sec (11.4-14.6) H 12/12/23 23:01
INR 1.66 12/12/23 23:01
APTT 36.8 Sec (23.4-35.0) H 12/12/23 23:01
Magnesium 2.1 mg/dl (1.6-2.3) 12/14/23 04:25
12/12/23
09:08
[id number] Pept 4150
Physical Exam
Constitutional: No acute distress
EENT: Anicteric
Cardiovascular: Rhythm & rate is regular and Pedal edema is absent
Respiratory: Respiratory effort normal
GI: Soft
Neuro/Psych: Alert and Oriented
Data Reviewed
-
Date of Service: December 19, 2023
EKG: Tracing Personally Visualized and interpreted (AF then SR after DCCV )
Echo: Tracing Personally Visualized and interpreted (MU report pending )
Labs: Labs Reviewed by me
[2023-12-19] MEDS: ELIQUIS 2.5 MG PO ×2 (10:57→20:51)
[2023-12-19] MEDS: TOPROL XL 50 MG PO ×2 (10:57→20:51)
[2023-12-19] MEDS: FLOMAX 0.400000000000000022 MG PO (10:57)
[2023-12-19] MEDS: COLCHICINE 0.299999999999999989 MG PO (10:57)
[2023-12-19] MEDS: PACERONE 400 MG PO ×2 (10:57→20:51)
[2023-12-19] MEDS: MAGNESIUM OXIDE 500 MG PO (10:57)
--- NOTE | 2023-12-19 13:49 | W.PN.HOSP.TC ---
Today's Communication/Plan
-
tele
oob/pt
Assessment / Plan
Assessment / Plan
Gen-awake, alert, NAD, nontoxic, cachectic
HEENT-NC, AT, anicteric, clear oral mm
Neck-supple
CV-irregular, tachycardic, no M, +S1/S2, subxiphoid pericardial drain intact
Lungs-clear B/L
Abd-soft, NT, ND
Ext-no edema
Musculoskeletal-no cyanosis, clubbing
Skin-warm and dry
Neuro-grossly non-focal
Psych-calm, cooperative
Shock - possibly due to sepsis versus cardiogenic versus other. Hemodynamically improved, shock resolved. Off IV vasopressors, as blood pressure has recovered we will stop midodrine. BNP 4150. Chest x-ray with mild central pulmonary vascular
congestion. Small bilateral pleural effusions.
Large pericardial effusion - noted on echocardiogram. Urgent pericardiocentesis with drain placement performed 12/11 evening. 385 cc cloudy straw-colored fluid removed. Drain output 50 cc overnight. Etiology of effusion unclear at this point,
differential includes infection versus malignancy versus inflammatory. Noted history of lung cancer is concerning. Pericardial fluid sent for culture and cytology. Pericardial drain removed 12/13. Started on colchine daily dosing trend cbc.
Was on Rocephin was has been discontinued. Patient pericardial fluid negative for growth. Negative for malignancy however Calretinin highlights the reactive mesothelial cells. BEREP4 is negative and MOC31 shows weak positivity in cells that are
favored to be the reactive mesothial cells that are calretinin positive
EMMY - likely ATN related to hypotension, shock. EMMY resolved. Tamsulosin added for urinary retention.
Rapid atrial fibrillation -Amiodarone changed to oral 400mg BID . Coreg stopepd and now back on metoprolol 50mg BID . May need dose adjustment but limited due to soft BP. Status post MU/cardioversion and now in normal sinus rhythm.
Moderate protein calorie malnutrition
Hypovolemic hyponatremia -sodium normalized with IV fluids.
Normocytic anemia -likely chronic. Monitor for now.
Elevated LFTs -primarily transaminases, alkaline phosphatase. Bilirubin normal. Unclear if due to passive congestion due to severe effusion versus other etiology. Abdominal ultrasound negative for obstruction.
Hypothyroidism -on levothyroxine. TSH normal.
Hyperlipidemia -on atorvastatin.
History of pulmonary adenocarcinoma -underwent right upper lobectomy about 5 to 6 years ago according to family. CT chest small pericardial effusion with small bilateral pleural effusion. Mild left lower lobe and minimal right lower lobe
consolidation probably atelectasis. Bilateral small nodule noncalcified pulmonary nodule concerning for malignancy until proven otherwise.
Dementia, likely Alzheimer's type -watch for delirium and agitation in the hospital.
DNR
PT/OT -might need SNF.
If remains in NSR tx to tele later today
Anticipated Discharge: 24 - 48 hours
Subjective/Interval History
-
Date of Service: December 19, 2023
seen post CV
Now in NSR
feeling better
Objective Data
-
Labs:
Laboratory Results
12/19/23
05:00
WBC 12.5 H
Hgb 12.3
Hct 36.2 L
Plt Count 524 H
Sodium 136
Potassium 4.1
Chloride 106
Carbon Dioxide 24
BUN 17
Creatinine 0.6
Glucose 93
Calcium 8.7
Total Bilirubin 0.7
AST 59 H
ALT 43 H
Alkaline Phosphatase 297 H
Vital Signs:
Vital Signs
Temp Pulse Resp BP Pulse Ox
97.4 F 118 23 108/67 95
12/19/23 11:09 12/19/23 06:00 12/19/23 06:00 12/19/23 06:00 12/19/23 06:00
I&O
12/18/23 12/19/23 12/20/23
06:59 06:59 06:59
Intake Total 240 / 240 120 / 120
Output Total 350 / 350
Balance 240 / 240 -230 / -230
[2023-12-19] MEDS: TYLENOL 650 MG PO (18:41)
--- NOTE | 2023-12-19 20:00 | PTCARENOTE ---
Cannot verify captured vital signs prior to 1900.
[2023-12-19] MEDS: LIPITOR 40 MG PO (20:51)
[2023-12-19] MEDS: REMERON ODT 15 MG PO (20:51)
[2023-12-20] VITALS (12 sets, daily range): BP systolic 105–125; BP diastolic 59–101; PULSE 81–84; O2SAT 90–95; BMI 16.5
[2023-12-20 05:23] LABS: % Basophils 0.5 % (0-2); % Eosinophils 2.8 % (0-6); % Immature Granulocytes 0.6 % (0-0.5); % Lymphocytes 8.4 % (20.5-51.1); % Monocytes 8.7 % (1.7-9.3); Absolute Basophils 0.1 10^3/uL (0-0.2); Absolute Eosinophils 0.3 10^3/uL (0-0.7); Absolute Immature Granulocytes 0.1 10^3/uL (0-0.05); Absolute Lymphocytes 0.9 10^3/uL (1.2-3.4); Absolute Monocytes 0.9 10^3/uL (0.1-0.6); Absolute Neutrophils 8.3 10^3/uL (1.4-6.5); Hematocrit 31.3 % (37.0-47.0); Hemoglobin 10.3 g/dL (12.0-16.0); Mean Corp Hgb Conc. 32.9 g/dL (33.0-37.0); Mean Corpuscular Volume 88.2 fL (81.0-99.0); Mean Platelet Volume 9.4 fL (7.4-10.4); Nucleated Red Blood Cells % 0 %; Platelet Count 402 10^3/uL (130-400); Red Blood Cell Count 3.55 10^6/uL (4.20-5.40); White Blood Cell Count 10.5 10^3/uL (4.8-10.8)
[2023-12-20] MEDS: SYNTHROID 100 MCG PO (05:39)
[2023-12-20 05:52] LABS: ALT (SGPT) 49 U/L (0-35); AST (SGOT) 71 U/L (14-36); Albumin 2.4 g/dl (3.5-5.0); Alkaline Phosphatase 229 U/L (38-126); Blood Urea Nitrogen 18 mg/dl (7-17); Calcium 8.3 mg/dl (8.4-10.2); Carbon Dioxide 25 mmol/L (22-30); Chloride 107 mmol/L (98-107); Estimated Creatinine Clearance 52 ml/min; Glucose 89 mg/dl (70-99); Potassium 4.3 mmol/L (3.5-5.1); Sodium 137 mmol/L (135-145); Total Bilirubin 0.6 mg/dl (0.2-1.3); Total Protein 4.9 g/dl (6.3-8.2); eGFR > 60.00
[2023-12-20] MEDS: ELIQUIS 2.5 MG PO (07:15)
[2023-12-20] MEDS: COLCHICINE 0.299999999999999989 MG PO (07:15)
[2023-12-20] MEDS: FLOMAX 0.400000000000000022 MG PO (07:15)
[2023-12-20] MEDS: MAGNESIUM OXIDE 500 MG PO (07:15)
[2023-12-20] MEDS: TOPROL XL 50 MG PO (07:16)
[2023-12-20] MEDS: PACERONE 400 MG PO (07:42)
--- NOTE | 2023-12-20 08:05 | W.PN.CD ---
Today's Communication / Plan
-
continue colchicine for 3 month course
amiodarone 400mg bid through 12/28, then 200mg daily
continue Toprol XL 50mg bid, eliquis 2.5mg bid
stable from cardiac perspective: please call us back with additional questions
we will arrange for follow up with us
Impression / Plan
-
Impression/Plan: 83F with a history of HTN, lung adenoCA s/p surgical resection (without adjuvant chemotherapy or radiation per daughter) and COPD, admitted in May 2024 with PAF with RVR and started on apixaban, now admitted with dyspnea and CP
noted with recurrent persistent AF, found to be febrile and hypotensive with new, large pericardial effusion.
#Pericardial effusion
-Acute, likely with at least some hemodynamic compromise.
-S/P pericardiocentesis for 385 mL of cloudy, straw colored fluid on 12/11; Pericardial drain removed 12/14/23.
-Exudate. Serum protein 6.0:Pericardial protein 4.7; Serum LDH pending:Pericardial LDH 561.
-DDx includes infection (septic pericarditis), inflammatory pericarditis, malignant pericarditis. Cultures/cytology pending.
-ID following for possible infection.
-MU on 12/18: trivial/small pericardial effusion
-continue colchicine for 3 month course
#AF/VT
-s/p DCCV on December 19 2023, back in SR
-Dofetilide transitioned to Amiodarone given VT/AF despite dofetilide.
-amiodarone 400mg bid through 12/28, then 200mg daily
- amiodarone and metoprolol
-Oral Anticoagulation: Apixaban 2.5 mg BID resumed.
#Valvular HD: mild/moderate MR and moderate/severe TR
-outpatient follow up
#Prior lung cancer
-Chronic, stable/remote.
-Presence of a exudative pericardial effusion is obviously concerning.
-CT chest with small noncalcified nodules concerning for malignancy 12/17/23
#COPD
-Chronic, stable.
-She is not in acute exacerbation.
#Anxiety
#At least mild cognitive impairment.
Subjective/Interval History:
No chest pain, SOB, edema.
DATA:
Pericardiocentesis, 12/12/2023:
Conclusions:
1. Successful placement of a 6 [place] pericardial drain via an apical approach yielding 385 mL of cloudy, straw-colored fluid with reduction in pericardial pressure from 14 mmHg to 10 mmHg.
2. Pericardial fluid has been sent for laboratory analysis.
TTE, 12/12/2023:
CONCLUSIONS
Normal left ventricular size and systolic function. LV ejection fraction is 60-
65% by visual assessment.
Mild concentric left ventricular hypertrophy.
Moderate eccentric tricuspid regurgitation. Estimated pulmonary artery pressure
of 35-40 mmHg.
Large pericardill effusion without overt tamponade physiology.
Compared to prior study of May, effusion is new.
CXR, 12/12/2023:
IMPRESSION:
1. Moderate cardiomegaly. Mild central pulmonary vascular congestion.
2. Small bilateral pleural effusions.
Physical Exam
Vital Signs/Labs
Vital Signs
Temp Pulse Resp BP Pulse Ox
98.2 F 76 19 123/59 94
12/20/23 07:46 12/20/23 07:42 12/20/23 06:00 12/20/23 07:42 12/20/23 06:00
12/19/23 12/20/23 12/21/23
06:59 06:59 06:59
Actual Weight 44.8 kg 45 kg
12/20/23 04:57
12/20/23 04:57
PT 19.4 Sec (11.4-14.6) H 12/12/23 23:01
INR 1.66 12/12/23 23:01
APTT 36.8 Sec (23.4-35.0) H 12/12/23 23:01
Magnesium 2.1 mg/dl (1.6-2.3) 12/14/23 04:25
12/12/23
09:08
[id number] Pept 4150
Physical Exam
Constitutional: No acute distress and Comfortable
EENT: Moist mucous membranes
Cardiovascular: Rhythm & rate is regular, Pedal edema is absent, JVD pressure is normal and Systolic murmur present
Respiratory: Respiratory effort normal and Lungs clear to auscul.
GI: Soft, Distention absent and Flat
Neuro/Psych: AO x 3
Data Reviewed
-
Date of Service: December 20, 2023
EKG: Other (Tele: SR 80s)
Echo: Report Reviewed by me
Labs: Labs Reviewed by me
--- NOTE | 2023-12-20 09:26 | PTCARENOTE ---
Patient AAOx1 confused to location and time. Very pleasant. Denies any discomfort at this time. VS within normal limits. Patient inquiring about DC orders. Patient assisted with morning meds as well as breakfast.
--- NOTE | 2023-12-20 10:38 | W.PN.ID1 ---
Date of Service
Date of Service: December 20, 2023
Today's Communication
Observe off abx.
ID will sign off.
Assessment / Plan
Exudative Pericarditis
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
Transaminitis - mildly progressed
Cachexia
- pericardial fluid culture finalized neg
- blood cultures x2 NGTD
- cytology: reactive mesothelial cells
- fungal and afb cultures on the pericardial fluid sent - NGTD
- coxsackie serology was sent - unlikely to manager exchange
- CT chest: 'Bilateral small solid noncalcified pulmonary nodules concerning for malignancy until proven otherwise. Too small for PET imaging.'
- stopped ceftriaxone evening of 12/16
- Observe off abx
Leukocytosis - resolved
ID will sign off.
����������������������������������������������������������
Chief Complaint
-: Other (exudative pericarditis)
Subjective / Review of Systems
Feeling better today.
Vital Signs / Physical Exam
Vital Signs
Vital Signs
Temp Pulse Resp BP Pulse Ox
98.2 F 76 19 123/59 94
12/20/23 07:46 12/20/23 07:42 12/20/23 06:00 12/20/23 07:42 12/20/23 06:00
Physical Exam
Constitutional: Cachetic
Cardiovascular: Regular Rate and S1/S2
Pulmonary: Clear
Gastrointestinal: Soft, Non Tender and Non Distended
Neurological: AO x 3
Objective Data
Lab Data
Lab Results
12/20/23 04:57
12/20/23 04:57
PT 19.4 Sec (11.4-14.6) H 12/12/23 23:01
INR 1.66 12/12/23 23:01
APTT 36.8 Sec (23.4-35.0) H 12/12/23 23:01
Estimated Creat Clear 52 ml/min 12/20/23 04:57
Lactic Acid 1.8 mmol/L (0.7-2.0) 12/12/23 23:01
Total Bilirubin 0.6 mg/dl (0.2-1.3) 12/20/23 04:57
AST 71 U/L (14-36) H 12/20/23 04:57
ALT 49 U/L (0-35) H 12/20/23 04:57
Alkaline Phosphatase 229 U/L (38-126) H 12/20/23 04:57
Most recent labs reviewed.
Micro Results:
12/12/23 17:09 Blood Culture - Final
Blood/Venous No Growth - Final Report
12/12/23 17:28 Blood Culture - Final
Blood/Venous No Growth - Final Report
12/12/23 20:38 Fungal Culture - Preliminary
Pericardial Fluid Culture in progress.
Positive cultures are reported as soon as detected.
Final report to follow in four to five weeks.
12/12/23 20:38 Body Fluid Culture - Final
Pericardial Fluid No Growth After 72 Hours
Gram Stain - Final
12/12/23 20:38 Acid Fast Bacilli Smear - Preliminary
Pericardial Fluid Acid Fast Bacilli Culture - Preliminary
12/12/23 17:09 Influenza Types A & B (STEPHANY) - Final
Nasal Swab Negative for Influenza A & B, NAAT
Negative results must be combined with clinical observations
and patient history.
Nucleic Acid Amplification test (NAAT)performed on the
[employer] platform.
Imaging:
12/14/2023 ECHO (TTE): Normal biventricular size and systolic function. No pericardial effusion. Compared to the 12/12/2023 echocardiogram, the large pericardial effusion with tamponade physiology is no longer seen.
--- NOTE | 2023-12-20 10:44 | W.PN.HOSP.TC ---
Today's Communication/Plan
-
cont amiodarone/bb
CM for dispo
Assessment / Plan
Assessment / Plan
Gen-awake, alert, NAD, nontoxic, cachectic
HEENT-NC, AT, anicteric, clear oral mm
Neck-supple
CV-regular and NSR on tele, , +S1/S2,
Lungs-clear B/L
Abd-soft, NT, ND
Ext-no edema
Musculoskeletal-no cyanosis, clubbing
Skin-warm and dry
Neuro-grossly non-focal
Psych-calm, cooperative
Shock - possibly due to sepsis versus cardiogenic versus other. Hemodynamically improved, shock resolved. Off IV vasopressors, as blood pressure has recovered we will stop midodrine. BNP 4150. Chest x-ray with mild central pulmonary vascular
congestion. Small bilateral pleural effusions.
Large pericardial effusion - noted on echocardiogram. Urgent pericardiocentesis with drain placement performed 12/11 evening. 385 cc cloudy straw-colored fluid removed. Drain output 50 cc overnight. Etiology of effusion unclear at this point,
differential includes infection versus malignancy versus inflammatory. Noted history of lung cancer is concerning. Pericardial fluid sent for culture and cytology. Pericardial drain removed 12/13. Started on colchine daily dosing plan to
continue for 3 months. trend cbc.
Was on Rocephin was has been discontinued. Patient pericardial fluid negative for growth. Negative for malignancy however Calretinin highlights the reactive mesothelial cells. BEREP4 is negative and MOC31 shows weak positivity in cells that are
favored to be the reactive mesothial cells that are calretinin positive
EMMY - likely ATN related to hypotension, shock. EMMY resolved. Tamsulosin added for urinary retention.
Rapid atrial fibrillation -Amiodarone changed to oral 400mg BID till 12/28 and the 200mg daily . Coreg stopepd and now back on metoprolol 50mg BID . May need dose adjustment but limited due to soft BP. Status post MU/cardioversion and now in normal
sinus rhythm. Cont eliquis,.
Moderate protein calorie malnutrition
Hypovolemic hyponatremia -sodium normalized with IV fluids.
Normocytic anemia -likely chronic. Monitor for now.
Elevated LFTs -primarily transaminases, alkaline phosphatase. Bilirubin normal. Unclear if due to passive congestion due to severe effusion versus other etiology. Abdominal ultrasound negative for obstruction. OP f/u.
Hypothyroidism -on levothyroxine. TSH normal.
Hyperlipidemia -on atorvastatin.
History of pulmonary adenocarcinoma -underwent right upper lobectomy about 5 to 6 years ago according to family. CT chest small pericardial effusion with small bilateral pleural effusion. Mild left lower lobe and minimal right lower lobe
consolidation probably atelectasis. Bilateral small nodule noncalcified pulmonary nodule concerning for malignancy until proven otherwise.
Dementia, likely Alzheimer's type -watch for delirium and agitation in the hospital.
DNR
PT/OT -medically stable. CM for dispo.
d/w with cards
Anticipated Discharge: Today
Subjective/Interval History
-
Date of Service: December 20, 2023
Remains in NSR
Objective Data
-
Labs:
Laboratory Results
12/20/23
04:57
WBC 10.5
Hgb 10.3 L
Hct 31.3 L
Plt Count 402 H D
Sodium 137
Potassium 4.3
Chloride 107
Carbon Dioxide 25
BUN 18 H
Creatinine 0.5 L
Glucose 89
Calcium 8.3 L
Total Bilirubin 0.6
AST 71 H
ALT 49 H
Alkaline Phosphatase 229 H
Vital Signs:
Vital Signs
Temp Pulse Resp BP Pulse Ox
98.2 F 76 19 123/59 94
12/20/23 07:46 12/20/23 07:42 12/20/23 06:00 12/20/23 07:42 12/20/23 06:00
I&O
06/05/24 06/06/24 06/07/24
06:59 06:59 06:59
Intake Total 120 / 120
Output Total 350 / 350
Balance -230 / -230
--- NOTE | 2023-12-20 13:44 | CM ---
Addendum entered by Saba Mcrae 12/20/23 16:59:
SNF Authorization approved 12/19 - 12/24; Authorization #[id number]; Next Review Date 12/25/2023; Call #[phone]
Authorization for Ambulance #[id number]
Ambulance steel pickler scheduled for 1929
Attending notified and acknowledged [place] Text
Patient's daughter, Taryn, notified of discharge plan via phone
[facility]
Report# [phone]

Addendum entered by Saba Mcrae 12/20/23 14:52:
Authorization Reference # [id number]
Authorization approval pending medical insurance clerk review
Original Note:
Plan: discharge to SNF today via ambulance pending insurance Authorization Approval
SNF preference is [facility]
Report# [id number]
[2023-12-20 14:34] LABS: COVID-19 Antigen Negative (Negative)
--- NOTE | 2023-12-20 14:59 | W.DCSUMMARY ---
Discharge Summary
Discharge Data
Date of Admission: 12/12/23
Date of Discharge: 12/20/23
-
Pending Results: No
Hospital Course
85 female past medical history of hypothyroidism, hyperlipidemia, pulmonary adenocarcinoma, dementia, anemia, related complex hospital course. Patient was found to be in shock which was seems secondary to cardiogenic likely secondary pericardial
effusion. Patient with large pericardial effusion noted on echocardiogram. Underwent pericardiocentesis with drain placement 529. 385 cc of cloudy drained colored fluid removed. Additional fluid in [place] drain. Eventually [place] drain was removed.
Pericardial fluid was negative for culture. Overall cytology was negative for malignancy per cytology report. Patient was started on colchicine daily per cardiology. Antibiotics were discontinued per infectious disease. Patient also had EMMY
which was deemed secondary to ATN hypotension and shock. Acute kidney injury resolved. Patient was also found to atrial fibrillation with difficult to control heart rate. Patient was on amiodarone. Coreg was discontinued and started metoprolol.
Patient underwent MU cardioversion and has remained symptomatic with rapid ventricular response. Post procedure patient remained in normal sinus rhythm. Patient sodium stabilized. Patient was up by PT and OT and be discharged to [facility]
facility.
Discharge Plan
-
Patient Disposition: Assisted/SNF
Discharge Diagnosis/Procedures: Shock likely cardiogenic secondary to pericardial effusion
Large pericardial effusion status post pericardiocentesis status post drain placement and removal
Acute kidney injury
Rapid atrial fibrillation status post MU and cardioversion
Moderate protein caloric malnutrition
Hypovolemic hyponatremia
Transaminitis
Condition: Fair
Diet: Regular
Activity: With assistance
Driving Restrictions: Not until seen by your Dr
Blood Work: CMP in 1 week via primary doctor.
Others Tests: echo 4 weeks - cardiology office will call to arrange
Activity Restrictions/Additional Instructions:
Follow-up with your primary coordinator skill training program and oncologist for lung malignancy.
Continue to hold Lipitor in the setting of elevated LFTs. Can restart lipitor 40mg if improvement in liver function testing.
Amiodarone 400mg bid through 12/28, then 200mg daily
Referrals:
Roge Springer MD [Active] - in two to three weeks (May see PROCEDURE MANAGER)
Josh Ruano MD [Active] - in one month (cardiology office will call to arrange)
UNKNOWN - PT DOES,NOT KNOW [Family Provider] -
Prescriptions:
New
amiodarone [Pacerone] 200 mg Tablet
See Rx Instructions .ROUTE .COMPLEX Qty: 60 0RF
Rx Instructions:
amiodarone 400mg bid through 12/28, then 200mg daily
metoprolol succinate 50 mg Tablet Extended Release 24 Hr
50 mg PO BID 30 Days Qty: 60 0RF
colchicine 0.6 mg Tablet
0.3 mg PO DAILY Qty: 90 0RF
Continued
alendronate 35 mg tablet
35 mg PO MO
levothyroxine 100 mcg Tablet
100 mcg PO DAILY AT 0700 Qty: 30 0RF
Eliquis 2.5 mg Tablet
2.5 mg PO BID Qty: 60 0RF
magnesium oxide 500 mg Tablet
500 mg PO DAILY Qty: 60 0RF
benzonatate 100 mg Capsule
100 mg PO TID PRN (Reason: cough)
mirtazapine 15 mg Tablet,Disintegrating
15 mg PO HS
Discontinued
atorvastatin 40 mg Tablet
40 mg PO HS
metoprolol succinate 50 mg Tablet Extended Release 24 Hr
75 mg PO BID
dofetilide 250 mcg Capsule
250 mcg PO Q12H
diltiazem HCl 120 mg Capsule,Extended Release 24 Hr
120 mg PO DAILY
aspirin 81 mg Tablet,Chewable
81 mg PO DAILY
furosemide 20 mg Tablet
20 mg PO DAILY
Discharge Orders:
Discharge Patient (As Directed); Ordered 12/20/23
Ordered By: Terrance Cunningham
Discharge Date and Time
Discharge Date/Time: 12/20/23 19:35
Print Language: SWAZI
[2023-12-20] MEDS: TYLENOL 650 MG PO (19:07)
[2023-12-24 17:17] LABS: Coxsackie B1 >= 1:640 (<1:10); Coxsackie B2 1:20 (<1:10); Coxsackie B5 <1:10 (<1:10); Coxsackie B6 <1:10 (<1:10)
== END 2023-12-20 19:35 | DRG 871 ==
LOC: ICU 18:49
PROVIDERS: Internal Medicine Cardiovascular Disease; Physician Assistant Medical; Registered Nurse; ADMITTING PHYSICIAN Hospitalist; ATTENDING PHYSICIAN Hospitalist; CONSULT PHYSICIAN Internal Medicine Cardiovascular Disease; CONSULT PHYSICIAN Internal Medicine Critical Care Medicine; EMERGENCY PHYSICIAN Emergency Medicine; OTHER PHYSICIAN Student in an Organized Health Care Education/Training Program
PROC: 0W9D30Z Drainage of Pericardial Cavity with Drainage Device, Percutaneous Approach (ICD-10-PCS; 2023-12-12)
PROC: 3E033RZ Introduction of Antiarrhythmic into Peripheral Vein, Percutaneous Approach (ICD-10-PCS; 2023-12-14)
PROC: B24BZZ4 Ultrasonography of Heart with Aorta, Transesophageal (ICD-10-PCS; 2023-12-19)
PROC: 5A2204Z Restoration of Cardiac Rhythm, Single (ICD-10-PCS; 2023-12-19)
DX: A41.9 Sepsis, unspecified organism (principal); N17.0 Acute kidney failure with tubular necrosis; R65.21 Severe sepsis with septic shock; I48.19 Other persistent atrial fibrillation; E87.1 Hypo-osmolality and hyponatremia; J90 Pleural effusion, not elsewhere classified; F02.83 Dementia in other diseases classified elsewhere, unspecified severity, with mood disturbance; F02.84 Dementia in other diseases classified elsewhere, unspecified severity, with anxiety; I31.39 Other pericardial effusion (noninflammatory); I47.20 Ventricular tachycardia, unspecified; E44.0 Moderate protein-calorie malnutrition; Z68.1 Body mass index [BMI] 19.9 or less, adult; R64 Cachexia; I30.1 Infective pericarditis; J44.9 Chronic obstructive pulmonary disease, unspecified; D64.9 Anemia, unspecified; G30.9 Alzheimer's disease, unspecified; E03.9 Hypothyroidism, unspecified; I10 Essential (primary) hypertension; E78.00 Pure hypercholesterolemia, unspecified; M81.0 Age-related osteoporosis without current pathological fracture; D75.839 Thrombocytosis, unspecified; R74.01 Elevation of levels of liver transaminase levels; E86.1 Hypovolemia; I08.1 Rheumatic disorders of both mitral and tricuspid valves; F32.A Depression, unspecified; Z66 Do not resuscitate; Z90.2 Acquired absence of lung [part of]; Z87.891 Personal history of nicotine dependence; Z85.118 Personal history of other malignant neoplasm of bronchus and lung; Z79.01 Long term (current) use of anticoagulants; Z79.890 Hormone replacement therapy; Z86.73 Personal history of transient ischemic attack (TIA), and cerebral infarction without residual deficits; Z11.52 Encounter for screening for COVID-19; Z79.83 Long term (current) use of bisphosphonates
CPT/HCPCS: 88305; 93308; 33016; 51701; 71045; 71046; 71250; 76700; 80048; 80053; 80202; 81003; 81015; 82945; 83605; 83615; 83735; 83880; 84145; 84157; 84443; 84484; 85014; 85025; 85027; 85610; 85730; 86480; 86618; 86658; 87015; 87040; 87070; 87102; 87116; 87205; 87502; 87811; 88112; 88341; 88342; 89051; 92960; 93005; 93306; 93312; 93320; 93321; 93325; 96365; 96366; 96367; 96376; 97116; 97163; 97166; 97530; 97535; 99285; C1894; J1160

== ENCOUNTER 2023-12-23 00:17 | Emergency (ER) | payer OTHER, SELFPAY ==
[2023-12-23] VITALS (29 sets, daily range): BP systolic 70–152; BP diastolic 53–136; BMI 16.3
[2023-12-23 00:55] LABS: % Basophils 0.5 % (0-2); % Eosinophils 1.2 % (0-6); % Immature Granulocytes 1.5 % (0-0.5); % Monocytes 7.6 % (1.7-9.3); % Neutrophils 79.2 % (42.2-75.2); Absolute Basophils 0.1 10^3/uL (0-0.2); Absolute Eosinophils 0.1 10^3/uL (0-0.7); Absolute Immature Granulocytes 0.2 10^3/uL (0-0.05); Absolute Lymphocytes 1.1 10^3/uL (1.2-3.4); Absolute Monocytes 0.8 10^3/uL (0.1-0.6); Absolute Neutrophils 8.7 10^3/uL (1.4-6.5); Hematocrit 32.8 % (37.0-47.0); Hemoglobin 11.3 g/dL (12.0-16.0); Mean Corp Hgb Conc. 34.5 g/dL (33.0-37.0); Mean Corpuscular Hgb 28.9 pg (27.0-31.0); Mean Corpuscular Volume 83.9 fL (81.0-99.0); Mean Platelet Volume 9.9 fL (7.4-10.4); Nucleated Red Blood Cells % 0 %; Platelet Count 392 10^3/uL (130-400); Red Blood Cell Count 3.91 10^6/uL (4.20-5.40); Red Cell Dist. Width 15.4 % (11.5-14.5)
[2023-12-23] MEDS: CARDIZEM 10 MG IV (01:11)
[2023-12-23 01:21] LABS: ALT (SGPT) 58 U/L (0-35); AST (SGOT) 100 U/L (14-36); Albumin 2.7 g/dl (3.5-5.0); Alkaline Phosphatase 250 U/L (38-126); Blood Urea Nitrogen 16 mg/dl (7-17); Calcium 8.8 mg/dl (8.4-10.2); Carbon Dioxide 23 mmol/L (22-30); Chloride 105 mmol/L (98-107); Estimated Creatinine Clearance 53 ml/min; Glucose 96 mg/dl (70-99); Potassium 4.3 mmol/L (3.5-5.1); Sodium 134 mmol/L (135-145); Total Bilirubin 0.8 mg/dl (0.2-1.3); Total Protein 5.5 g/dl (6.3-8.2); eGFR > 60.00
[2023-12-23 01:29] LABS: Troponin I < 0.012 ng/ml
[2023-12-23] MEDS: CARDIZEM 125 IV (01:29)
[2023-12-23] MEDS: LOPRESSOR 25 MG PO (02:50)
--- NOTE | 2023-12-23 03:39 | ED.GENMED ---
History of Present Illness
General
Chief Complaint: Heart Rate Problem
Source: patient
Time Seen by Provider: 12/23/23 00:25
Travel History
Have you had any contact with someone who has COVID-19?: No
Do you have any symptoms of coronavirus? Fever > 100 degrees, chills, cough, shortness of breath, sore throat, loss of taste or smell, muscle aches, or headache?: No
History of Present Illness
History of Present Illness:
83-year-old female who was recently here at the hospital pericardial effusion and rapid atrial fibrillation who presents again with palpitations and fast heart rate. The patient states she did feel little bit of tightness in her chest related to
the palpitations. Heart rates were ranging from 120-140. Patient on my evaluation reports feeling better. No shortness. No nausea or vomiting.
Past History
Past History
ED Past Medical History: Arrthythmia (Afib with RVR), COPD, Hypercholesterolemia and Hypothyroidism
ED Past Surgical History: Appendectomy, Bowel resection and Other (RUL lobectomy for lung CA)
Social History
Tobacco: Former smoker
Personal: Single
Living: with family
Phy Exam
Physical Exam
Physical Exam:
CONSTITUTIONAL Patient alert and oriented to person, place and time. Well-appearing. Vital signs reviewed.
HEAD atraumatic, normocephalic.
EYES eyelids normal to inspection, Extraocular muscles intact, Conjunctiva normal, Sclera normal.
NECK normal range of motion, Trachea midline, no jugular venous distention.
RESPIRATORY CHEST No respiratory distress noted, Chest expansion equal, Bilateral breath sounds clear.
CARDIOVASCULAR irregularly irregular and tachycardic
BACK normal inspection, no obvious deformities
UPPER EXTREMITY range of motion normal, Motor strength normal, no cyanosis, no edema.
LOWER EXTREMITY range of motion normal, Motor strength normal, no cyanosis, no edema.
NEURO Speech normal, No focal motor deficits, Cranial Nerves intact to screening exam.
SKIN skin warm, dry, and normal in color.
Course
Orders/Labs/Results
Orders:
Orders
12/23/23 00:26
Electrocardiogram (*1) Urgent
Reason for Study: Atrial Fibrillation
EKG- Treatment ONCE
12/23/23 00:38
Complete Blood Count/With Diff Urgent
12/23/23 00:49
CR Chest Portable - 1 View Urgent
Comment:
Reason For Exam: tachycardia
Reason Study Needs to be Portable: Unable to Transport
12/23/23 00:50
Diltiazem 125 mg/125 ml Nss [Cardizem] 125 mg in 125 ml IV NOW
Initial dose in mg/hr, then titrate:: 5
Titrate to keep:: Heart rate 80-100 bpm
Titrate by mg/hr:: 5 mg/hr
Frequency of titrations (minutes):: 15
Maximum dose in mg/hr:: 15
Diltiazem HCl [Cardizem] 10 mg IV NOW STA
12/23/23 00:52
Comprehensive Metabolic Panel Urgent
Comment: REDRAW
Troponin I Urgent
12/23/23 02:32
Metoprolol [Lopressor] 25 mg PO NOW STA
12/23/23 05:47
Diltiazem Extended Release [Cardizem Cd] 120 mg PO NOW STA
Abnormal Lab Results
12/23/23 12/23/23
00:38 00:52
WBC 11.0 H 10^3/uL
(4.8-10.8)
RBC 3.91 L 10^6/uL
(4.20-5.40)
Hgb 11.3 L g/dL
(12.0-16.0)
Hct 32.8 L %
(37.0-47.0)
RDW 15.4 H %
(11.5-14.5)
Abs Immat Gran (auto) 0.2 H 10^3/uL
(0-0.05)
Absolute Neuts (auto) 8.7 H 10^3/uL
(1.4-6.5)
Absolute Lymphs (auto) 1.1 L 10^3/uL
(1.2-3.4)
Absolute Monos (auto) 0.8 H 10^3/uL
(0.1-0.6)
Immature Gran % 1.5 H %
(0-0.5)
Neutrophils % 79.2 H %
(42.2-75.2)
Lymphocytes % 10.0 L %
(20.5-51.1)
Sodium 134 L mmol/L
(135-145)
Creatinine 0.5 L mg/dL
(0.6-1.0)
AST 100 H U/L
(14-36)
ALT 58 H U/L
(0-35)
Alkaline Phosphatase 250 H U/L
(38-126)
Total Protein 5.5 L g/dl
(6.3-8.2)
Albumin 2.7 L g/dl
(3.5-5.0)
12/23/23 00:38
12/23/23 00:52
Vital Signs
Initial and Last Documented VS:
Initial Vital Signs
Pulse Resp
137 17
12/23/23 00:23 12/23/23 00:23
Last Documented Vital Signs
Temp Pulse Resp BP Pulse Ox
98.3 F 122 21 102/82 91
12/23/23 00:25 12/23/23 06:00 12/23/23 04:30 12/23/23 06:00 12/23/23 05:30
MDM/Problems Addressed
MDM/Problems Addressed:
Atrial flutter with RVR
*Radiology
Radiology exam reviewed: preliminary read by ED provider (Pleural effusion)
*Pulse Oximetry
Patient hypoxic: no
*EKG
Interpreted by ED Provider?: Yes
Interpretation: abnormal
Rate: tachycardiac
Rhythm: atrial flutter
[place]: normal axis
Ischemia: non-specific ST changes
*Direct Marketing Manager Interpretation
Rate: tachycardiac
Interpretation: abnormal
Rhythm: atrial flutter
*Critical Care Note
Total Time (30-74mins, 75-104mins- exclusive of procedures): 40 minutes
Data Reviewed
Review of Other/Old Records Reveals: Labs (Recent labs reviewed), Progress Notes (Recent cardiology consultation reviewed. Patient had a pericardiocentesis and a cardioversion) and Discharge Summary (Discharge summary recent admission showing that
the patient was discharged on amiodarone, metoprolol and Eliquis)
Source: patient
Prescriptions/Medications Considered But Not Given:
Considered heparin but patient already on Eliquis
Patient Management
Discussion with other providers: Spindle Plumber (cardiology)
Escalation/DeEscalation of care consider admission/obs:
83-year-old female who again presents in a flutter. Heart rate much after IV Cardizem. Patient was then given extra dose of metoprolol. Heart rate now 112. She does look well. Chest x-ray reading reviewed with patient is not hypoxic in any way.
Her heart rate is now improved. She was just cardioverted a few days ago. My suspicion is that she will not be able to be maintained in normal sinus rhythm given her atrial dilatation. Case was discussed with cardiology. Already anticoagulated.
She was in the past on Cardizem. Dr. Dukes does recommend adding back diltiazem and adding it to amiodarone and metoprolol. I do feel she is stable for outpt f/u with cards. bedside u/s shows only trace pericardial effusion.
ED Attending Note
-
Portions of this chart may have been created with voice recognition software.� Occasional wrong word or��sound alike� substitutions may have occurred due to the inherent limitations of voice recognition software.
Discharge Plan
Departure
Patient Disposition: Home (Routine Discharge)
Date of Disposition: 12/23/23
Time of Disposition: 06:14
Patient with high blood pressure during this ER visit?: No
Discharge Problem:
Atrial flutter with rapid ventricular response
Instructions: Atrial Fibrillation and Atrial Flutter ED
Prescriptions:
New
diltiazem HCl [Cardizem LA] 120 mg tablet extended release 24 hr
120 mg PO DAILY Qty: 30 0RF
No Action
alendronate 35 mg tablet
35 mg PO MO
levothyroxine 100 mcg Tablet
100 mcg PO DAILY AT 0700 Qty: 30 0RF
Eliquis 2.5 mg Tablet
2.5 mg PO BID Qty: 60 0RF
magnesium oxide 500 mg Tablet
500 mg PO DAILY Qty: 60 0RF
benzonatate 100 mg Capsule
100 mg PO TID PRN (Reason: cough)
mirtazapine 15 mg Tablet,Disintegrating
15 mg PO HS
amiodarone [Pacerone] 200 mg Tablet
See Rx Instructions .ROUTE .COMPLEX Qty: 60 0RF
Rx Instructions:
amiodarone 400mg bid through 12/28, then 200mg daily
metoprolol succinate 50 mg Tablet Extended Release 24 Hr
50 mg PO BID 30 Days Qty: 60 0RF
colchicine 0.6 mg Tablet
0.3 mg PO DAILY Qty: 90 0RF
Referrals:
Carlos Alberto Moore MD [Active] -
Royce Ayala MD [Family Provider] -
Activity Restrictions/Additional Instructions:
Please see cardiology in follow-up in the next 2 days. Return immediately for shortness of breath, lightheadedness, weakness, passing out episode or any other concerns.
Interventions
Interventions:
*Risk Screen - Suicide Last Done: 12/23/23 00:23
*General Assessment Last Done: 12/23/23 00:36
*Neglect/Abuse Screening Last Done: 12/23/23 00:24
*ED COVID-19 Vaccine History Last Done: 12/23/23 00:23
ED- Cardiac Assessment Last Done: 12/23/23 00:32
ED- Pulmonary Assessment Last Done: 12/23/23 00:33
Discharge Date and Time
Print Language: SWEDISH
[2023-12-23] MEDS: CARDIZEM CD 120 MG PO (06:05)
== END 2023-12-23 07:13 | disposition home or self-care (01) ==
LOC: EMR 00:17
PROVIDERS: EMERGENCY PHYSICIAN Emergency Medicine; FAMILY PHYSICIAN Family Medicine
DX: R00.2 Palpitations (principal); I48.91 Unspecified atrial fibrillation; I31.39 Other pericardial effusion (noninflammatory); E78.00 Pure hypercholesterolemia, unspecified; E03.9 Hypothyroidism, unspecified; I48.92 Unspecified atrial flutter; J44.9 Chronic obstructive pulmonary disease, unspecified; Z85.118 Personal history of other malignant neoplasm of bronchus and lung; Z87.891 Personal history of nicotine dependence; Z90.49 Acquired absence of other specified parts of digestive tract
CPT/HCPCS: 99283; 96374; 96376; 71045; 80053; 84484; 85025; 93005

== ENCOUNTER 2024-01-03 21:30 | Inpatient (IN) | payer OTHER, SELFPAY ==
[2024-01-03] VITALS (11 sets, daily range): BP systolic 106–129; BP diastolic 57–101; BMI 15.4
[2024-01-03 18:59] LABS: % Basophils 0.6 % (0-2); % Eosinophils 1.3 % (0-6); % Immature Granulocytes 0.7 % (0-0.5); % Lymphocytes 12.6 % (20.5-51.1); % Monocytes 6.4 % (1.7-9.3); % Neutrophils 78.4 % (42.2-75.2); Absolute Basophils 0.1 10^3/uL (0-0.2); Absolute Eosinophils 0.1 10^3/uL (0-0.7); Absolute Immature Granulocytes 0.1 10^3/uL (0-0.05); Absolute Lymphocytes 1.3 10^3/uL (1.2-3.4); Absolute Monocytes 0.6 10^3/uL (0.1-0.6); Absolute Neutrophils 7.8 10^3/uL (1.4-6.5); Hematocrit 34.5 % (37.0-47.0); Hemoglobin 11.7 g/dL (12.0-16.0); Mean Corp Hgb Conc. 33.9 g/dL (33.0-37.0); Mean Corpuscular Volume 82.5 fL (81.0-99.0); Mean Platelet Volume 9.1 fL (7.4-10.4); Nucleated Red Blood Cells % 0 %; Platelet Count 596 10^3/uL (130-400); Red Blood Cell Count 4.18 10^6/uL (4.20-5.40); Red Cell Dist. Width 15.2 % (11.5-14.5)
[2024-01-03 19:00] LABS: Urine Albumin Trace (Neg - Trace); Urine Bilirubin 1+ (Negative); Urine Character Clear (Clear); Urine Color Yellow; Urine Glucose Negative (Negative); Urine Ketone Negative (Negative); Urine Leukocyte Negative (Negative); Urine Nitrite Negative (Negative); Urine Occult Blood Negative (Negative); Urine Specific Gravity 1.015 (<1.030); Urine Urobilinogen Negative (Neg - 1+)
[2024-01-03 19:25] LABS: Troponin I < 0.012 ng/ml
[2024-01-03 20:23] LABS: Blood Urea Nitrogen 35 mg/dl (7-17); Calcium 8.4 mg/dl (8.4-10.2); Carbon Dioxide 24 mmol/L (22-30); Chloride 98 mmol/L (98-107); Estimated Creatinine Clearance 25 ml/min; Glucose 97 mg/dl (70-99); Sodium 129 mmol/L (135-145); eGFR 41.31
--- NOTE | 2024-01-03 20:32 | ED.GENMED ---
History of Present Illness
General
Chief Complaint: Weakness
Source: patient
Exam Limitations: none
Time Seen by Provider: 01/03/24 19:53
Nursing documentation reviewed up to this point in time: agreed with
History of Present Illness
History of Present Illness:
Patient with history of atrial fibrillation on amiodarone and Eliquis, presents to ED secondary to intermittent episodes of chest palpitations described as 'pounding', along with fatigue, nausea, and decreased appetite. Denies fever or chills.
Denies vomiting or diarrhea. Denies abdominal pain. Denies shortness of breath. Denies leg pain or swelling. Denies recent illness. At the time of evaluation ED, patient is without any complaints. However, patient states that aforementioned
symptoms happen periodically and she does not know why.
Past History
Past History
ED Past Medical History: Arrthythmia (Afib with RVR), COPD, Hypercholesterolemia and Hypothyroidism
ED Past Surgical History: Appendectomy, Bowel resection and Other (RUL lobectomy for lung CA)
Social History
Tobacco: Former smoker
Personal: Single
Living: with family
Review of Systems
Review of Systems
Allergies reviewed?: Yes
All Other Systems: ROS reviewed and negative except as documented in HPI and ROS
Constitutional: Reports no symptoms
EENT: Reports no symptoms
Respiratory: Reports no symptoms; Denies trouble breathing
Cardiac: Reports palpitations
ABD/GI: Reports nausea; Denies abdominal pain, vomiting or diarrhea
Musculoskeletal: Reports no symptoms
Skin: Reports no symptoms
Neurological: Reports no symptoms
Phy Exam
Physical Exam
Physical Exam:
Physical Exam
General: no apparent distress, not acutely ill. afebrile. tachycardic.
Head: nc/at. eomi
Neck: supple. no meningeal signs.
Heart: irregular irregular, tachycardic, systolic ejection murmur. equal radial pulses.
Lungs: no acute respiratory distress. clear bilaterally
Abdomen: normal bowel sounds. not tender.
Neuro: alert and oriented. no focal neurological deficits
Skin: no rash
Psychiatric: well kept. interactive and cooperative
Extremities: LE b/l edema, nonpitting. no calf tenderness.
Course
Orders/Labs/Results
Orders:
Orders
01/03/24 18:40
Electrocardiogram (*1) Urgent
Reason for Study: Fatigue / Weakness
CR Chest - 2 Views Urgent
Comment:
Reason For Exam: shortness of breath
01/03/24 18:41
EKG- Treatment ONCE
01/03/24 18:45
C-Reactive Protein Urgent
Complete Blood Count/With Diff Urgent
NT-proBNP Urgent
Comment: ADD ON
Troponin I Urgent
Urinalysis Reflex To Culture Urgent
Date Specimen was Collected: 01/03/24
Time Specimen was Collected: 18:41
01/03/24 19:51
Basic Metabolic Panel Urgent
01/03/24 20:22
0.9% Sodium Chloride 500 ml [Nss] 500 ml IV BOLUS
Diltiazem HCl [Cardizem] 10 mg IV NOW STA
01/03/24 20:35
Apixaban [Eliquis] 2.5 mg PO NOW STA
01/03/24 21:00
0.9% Sodium Chloride 500 ml [Nss] 500 ml IV 100 mls/hr
01/03/24 21:13
Admit/Transfer Patient As Directed
Co-Sign Provider:
Level of Care: Inpatient admission
Assign to:: IMU- Intermediate Care
Physician / Group: [email or web address]
Diagnosis: Recurrent fast AF while on Amiodarone, marginally hypotensive
Reason for Hospitalization: Recurrent fast AF while on Amiodarone,
marginally hypotensive
B/l pleural effusion ( Moderate on Lt, small on Rt)
Expected length of stay greater than two midnights?: Yes
ELOS- Estimated Length of Stay in days: 6
I certify the patient meets the requirements for IP care: Yes
01/03/24 21:19
Code Status As Directed
Resuscitation Status: Do not resuscitate
Based on pt advanced directive or healthcare POA form: Yes
01/03/24 21:20
DNR Bracelet Application ONCE
01/03/24 21:23
Metoprolol Xl [Toprol Xl] 25 mg PO NOW STA
01/03/24 22:00
Flush (0.9% Sodium Chloride) [Flush (Nss)] See Dose Instructions IV PER PROTOCOL
01/03/24 23:21
0.9% Sodium Chloride 500 ml [Nss] 500 ml IV 40 mls/hr
Acetaminophen [Tylenol] 1,000 mg PO Q8HPRN PRN
Benzonatate [Tessalon Perles] 100 mg PO Q8HPRN PRN
Bisacodyl [Dulcolax] 10 mg RECTAL [id number] PRN
Docusate W/Senna [Senokot-S] 1 tablet PO BIDPRN PRN
Magnesium Hydroxide [Milk of Magnesia] 30 ml PO DAILYPRN PRN
Mirtazapine Odt [Remeron Odt] 15 mg PO HS
Ondansetron Injectable [Zofran] 4 mg IV Q6HPRN PRN
Phosphate Enema [Fleet Phosphate Enema-Adult] 135 ml RECTAL DAILYPRN PRN
Polyethylene Glycol Powder [Miralax] 17 grams PO DAILYPRN PRN
01/03/24 23:21
DIETARY CONSULT Routine
Reason for Consult: Prot iker malnutrition BMI 15
Body Fluid Amylase Routine
Fluid Source: Pleural
Body Fluid Cell Count Routine
What is the Body Fluid: pleural fluid
Comment: post procedure
Body Fluid Glucose Routine
Fluid Source: Pleural
Body Fluid LDH Routine
Fluid Source: Pleural
Body Fluid Protein Routine
Fluid Source: Pleural
Body Fluid Triglycerides Routine
Fluid Source: Pleural
Body Fluid pH Routine
Fluid Source: Pleural
Hematocrit Routine
Fluid Culture with Gram Stain Routine
ARACELI Source: Pleural Fluid
Specimen Description:
Comment: post procedure
Gram Stain Routine
ARACELI Source: Pleural Fluid
Specimen Description:
Comment: POST PROCEDURE
Activity As Directed
Activity Level: With Assistance
Intake/ Output As Directed
Frequency: Per unit guidelines
Vital Signs As Directed
Frequency: Per unit guidelines
Weight As Directed
Frequency: Daily
IRAD Cytology Routine
Source: Pleural Fluid, Left
Clinical Impression: Benign vs malignant effusion
01/04/24 Breakfast
Clear Liquid
At Your Request: Limited Participation
Complete Blood Count/No Diff IN AM
Comprehensive Metabolic Panel IN AM
Levothyroxine [Synthroid] 100 mcg PO DAILY @ 0600
01/04/24 08:00
Amiodarone [Pacerone] 200 mg PO DAILY
Colchicine 0.3 mg PO DAILY
Magnesium l-Lactate [Mag-Tab Sr] 84 mg PO DAILY
Metoprolol Xl [Toprol Xl] 25 mg PO BID
Abnormal Lab Results
01/03/24 01/03/24
18:45 19:51
RBC 4.18 L 10^6/uL
(4.20-5.40)
Hgb 11.7 L g/dL
(12.0-16.0)
Hct 34.5 L %
(37.0-47.0)
RDW 15.2 H %
(11.5-14.5)
Plt Count 596 H 10^3/uL
(130-400)
Abs Immat Gran (auto) 0.1 H 10^3/uL
(0-0.05)
Absolute Neuts (auto) 7.8 H 10^3/uL
(1.4-6.5)
Immature Gran % 0.7 H %
(0-0.5)
Neutrophils % 78.4 H %
(42.2-75.2)
Lymphocytes % 12.6 L %
(20.5-51.1)
Sodium 129 L mmol/L
(135-145)
BUN 35 H mg/dl
(7-17)
Creatinine 1.3 H mg/dL
(0.6-1.0)
C-Reactive Protein 55.50 H mg/L
(0.0-10.00)
Urine Bilirubin 1+ A
(Negative)
01/03/24 18:45
01/03/24 19:51
Vital Signs
Initial and Last Documented VS:
Initial Vital Signs
Pulse Resp BP
113 22 115/57
01/03/24 18:44 01/03/24 18:44 01/03/24 18:44
Last Documented Vital Signs
Temp Pulse Resp BP Pulse Ox
97.4 F 94 22 121/90 93
01/03/24 23:52 01/03/24 23:47 01/03/24 23:47 01/03/24 23:47 01/04/24 00:45
MDM/Problems Addressed
MDM/Problems Addressed:
History exam consistent with rapid atrial fibrillation, along with acute renal failure, likely secondary to decreased oral intake. Patient will be admitted for better rate control along with hydration.
HR improved after cardizem bolus.
*Critical Care Note
Total Time (30-74mins, 75-104mins- exclusive of procedures): Not Applicable
ED Attending Note
-
Portions of this chart may have been created with voice recognition software.� Occasional wrong word or��sound alike� substitutions may have occurred due to the inherent limitations of voice recognition software.
Discharge Plan
Departure
Patient Disposition: Admit
Date of Disposition: 01/03/24
Time of Disposition: 20:38
Admit to: Telemetry
Presentation/result/management discussed w/ accepting MD/DO: Hospitalist
Discharge Problem:
Atrial fibrillation, rapid, Acute renal failure
Interventions
Interventions:
*Risk Screen - Suicide Last Done: 01/03/24 18:45
*General Assessment Last Done: 01/03/24 18:45
*Neglect/Abuse Screening Last Done: 01/03/24 18:45
ED- Fall Risk Assessment Last Done: 01/03/24 18:45
*ED COVID-19 Vaccine History Last Done: 01/03/24 18:45
*Nursing Disposition Last Done: 01/03/24 23:29
ED- Cardiac Assessment Last Done: 01/03/24 18:45
ED- Neurological Assessment Last Done: 01/03/24 18:45
ED- Pulmonary Assessment Last Done: 01/03/24 18:45
Discharge Date and Time
Discharge Date/Time: 01/03/24 23:30
[2024-01-03] MEDS: NSS 500 IV ×2 (20:33→21:53)
[2024-01-03] MEDS: CARDIZEM 10 MG IV (20:35)
[2024-01-03] MEDS: ELIQUIS 2.5 MG PO (20:48)
--- NOTE | 2024-01-03 21:08 | HPS.HSE ---
Family Physician
-
Family Physician: Royce Ayala MD
Chief Complaint
-
palpitation
History of Present Illness
83F Recent admission with Dxes: Shock likely cardiogenic secondary to pericardial effusion,Large pericardial effusion s/p pericardiocentesis status post drain placement and removal, EMMY, Rapid AF s/p MU and succesful CV,
Moderate protein caloric malnutrition, Hypovolemic hyponatremia and transaminitis seen at ER: for palpitation
Evaluation of palpitation;
- described as chest pounding palpitation
- Associated with fatigue, nausea, and decreased appetite.
- Denied CP
- Denied SoB , felt like fainting
At ER:
In AF with RVR 110s
marginal hypotension 115/57
IV Cardizem 10 mg given
Medical History
Past Medical History
Past Medical History: Reports Other
Additional Past Medical History:
Paroxysmal Atrial Fibrillation
TIA
Essential Hypertension
Hyperlipidemia
COPD
Adenocarcinoma Right Upper Lobe
Anxiety/Depression
Hypothyroidism
Osteoporosis
Dementia
Past Surgical History: Reports Other
Additional Past Surgical History:
Arrthythmia (Afib with RVR)
COPD
Hypercholesterolemia
Hypothyroidism
Social History
Tobacco: Former Smoker
Alcohol: None
Drug: None
Family History
Family History: Not pertinent
Allergies / Home Medications
Allergies reflects when Allergies were last updated in [facility].
Home Medications with original date entered in [facility]
Allergy/Medication List:
Allergies
Allergy/AdvReac Type Severity Reaction Status Date / Time
No Known Allergies Allergy Verified 06/06/23 19:44
Home Medications
alendronate 35 mg tablet 35 mg PO MO osteoperosis 06/06/23
apixaban 2.5 mg tablet (Eliquis) 2.5 mg PO BID Blood clot prevention/tx #60 tabs 06/07/23
levothyroxine 100 mcg tablet 100 mcg PO DAILY AT 0700 Thyroid #30 tabs 06/07/23
magnesium oxide 500 mg PO DAILY Electrolyte Repletion #60 tabs 06/08/23
aspirin 81 mg chewable tablet 81 mg PO DAILY 12/12/23
atorvastatin 40 mg tablet 40 mg PO HS 12/12/23
benzonatate 100 mg capsule 100 mg PO TID PRN cough 12/12/23
diltiazem HCl 120 mg capsule,24 hr,extended release 120 mg PO DAILY 12/12/23
dofetilide 250 mcg capsule 250 mcg PO Q12H 12/12/23
furosemide 20 mg tablet 20 mg PO DAILY 12/12/23
metoprolol succinate 50 mg tablet,extended release 24 hr 75 mg PO BID 12/12/23
mirtazapine 15 mg disintegrating tablet 15 mg PO HS 12/12/23
Review of Systems
-
Constitutional: Reports See HPI; Denies Fever or Night Sweats
EENT: Reports No Symptoms
Respiratory: Reports See HPI
Cardiac: Reports See HPI and Palpitations; Denies Syncope
Abdomen/GI: Reports No Symptoms
: Reports No Symptoms
Musculoskeletal: Reports No Symptoms
Skin: Reports No Symptoms
Neurological: Reports No Symptoms
Endocrine: Reports No Symptoms
Hematologic/Lymphatic: Reports No Symptoms
Psych: Reports No Symptoms
Physical Exam
Vital Signs
Vital Signs
Temp Pulse Resp BP Pulse Ox
98.5 F 99 18 117/74 96
01/03/24 18:45 01/03/24 20:35 01/03/24 20:00 01/03/24 20:35 01/03/24 20:00
Physical Exam
General: Comfortable and Conversant
HEENT: Anicteric and Moist mucous membranes
Respiratory: Clear and Non Labored Respirations
Cardiac: S1/S2, Irregular Rhythm and Tachycardia (Rate ranges from 95-105 )
GI: Soft and Non Tender
Rectal: Deferred by Provider
Musculoskeletal: No Clubbing, No Cyanosis and No Edema
Skin: Warm and Dry
Neuro: Awake, Alert and Nonfocal/grossly intact
Psych: Calm
Laboratory Results
-
01/03/24 18:45
01/03/24 19:51
Laboratory Results
Total Bilirubin Cancelled 01/03/24 19:51
AST Cancelled 01/03/24 19:51
ALT Cancelled 01/03/24 19:51
Alkaline Phosphatase Cancelled 01/03/24 19:51
Troponin I < 0.012 ng/ml 01/03/24 18:45
Data Reviewed
-
Diagnostic Radiology: Report Reviewed by me
Medical Tests (Nuc Med, Echo, EKG etc): Report Reviewed by me
Lab Data: Discussed with Physician
Old Records: Reviewed
Impression/Plan
-
Reviewed VS: BP 115/57 HR 110 RR18 POx 96
Data
Hgb 11.7
Plt 596
Na 129 - was 134 on 12/23/23
Cr 1.3- baseline 0.5 on 12/23/23
eGFR 41 - baseline > 60
NEG TPNI
Pending pro BNP
CRP 55
NEG UA
CXR:
- There is moderate left-sided pleural effusion, increased in volume when compared with the prior study and associated with probable compressive atelectasis at the left lung base
- There is a small right-sided pleural effusion, new when compared with the prior study
12/19/23 MU
LVEF 55-60
Nl RV size and function
No thrombus detected in the left atrial appendage.
Mild to moderate MR
Moderate to severe TR
Trivial to small mainly posterior pericardial effusion.
Compared to TTE from December 18, 2023, pericardial effusion better appreciated as
12/19/23 MU abd Direct CV : successfully cardioverted with 200 joules.
Last hospitalist admission: 12/11- 12/20/23
P DXS:
Shock likely cardiogenic secondary to pericardial effusion
Large pericardial effusion status post pericardiocentesis status post drain placement and removal
EMMY
Rapid atrial fibrillation status post MU and cardioversion
Moderate protein caloric malnutrition
Hypovolemic hyponatremia
Transaminitis
ASSESSMENT & PLAN
Recurrent fast AF while on Amiodarone,
marginally hypotensive
Currently on Eliquis plus Metoprolol succinate 25 mg dailly + Diltiazem 120 mg daily p;kim 30mg q12h
- cont. Amiodarone 200mg daily
- on metoprolol: escalade to 25 mg BID- may need dose adjustment but limited due to soft B
- cont. eliquis
- Keep on clear till eval by Card in case CV indicates
- ECO to eval recurrent pericardial effusion
- CBC card consult
B/l pleural effusion ( Moderate on Lt, small on Rt)
HX Pericardial effusion s/p pericardia drainage and removal on last admission
LVEF 55-60 and Nl RV size and function as of 12/19/23 MU
- check pro BNP
- cont. Colchicine
- IR consult for Lt sided thoracentesis ( Dx-tic and Rxtic )
Pre renal EMMY
Associated hypovolemic hyponatremia
Dehydration
EMMY - likely ATN related to hypotension, shock. EMMY resolved. Tamsulosin added for urinary retention.
- NS
- Trend RFts
- daily Wt
Moderate protein calorie malnutrition
- maintenance service technician consult
Hypothyroidism
-on levothyroxine
- recent TSH normal.
Hyperlipidemia
- on atorvastatin.
History of pulmonary adenocarcinoma -underwent right upper lobectomy about 5 to 6 years ago according to family.
Last CT chest:
small pericardial effusion with small bilateral pleural effusion.
Mild left lower lobe and minimal right lower lobe consolidation probably atelectasis.
Bilateral small nodule noncalcified pulmonary nodule concerning for malignancy until proven otherwise.
Dementia, likely Alzheimer's type -watch for delirium and agitation in the hospital.
DVT Px: on Eliquis
Code: DNR per patient in the presence of VEHICLE INSURANCE AGENT
IMU
[2024-01-03] MEDS: TOPROL XL 25 MG PO (21:53)
[2024-01-03 22:42] LABS: NT-proBNP 5910 pg/ml
--- NOTE | 2024-01-03 23:45 | PTCARENOTE ---
pt c/o new onset CP and chest pressure. EKG done. sent and notified TACK PULLER. Stat labs drawn. VSS. HR low 100's afib. Pt seems comfortable and relaxed in bed.
[2024-01-04] VITALS (15 sets, daily range): BP systolic 99–129; BP diastolic 53–91; BMI 16.6; BMI 15.2
[2024-01-04 00:38] LABS: Hematocrit 32.8 % (37.0-47.0)
[2024-01-04 00:52] LABS: Blood Urea Nitrogen 31 mg/dl (7-17); Calcium 8.3 mg/dl (8.4-10.2); Carbon Dioxide 21 mmol/L (22-30); Chloride 102 mmol/L (98-107); Estimated Creatinine Clearance 27 ml/min; Glucose 87 mg/dl (70-99); Potassium 4.3 mmol/L (3.5-5.1); Sodium 131 mmol/L (135-145); eGFR 45.48
[2024-01-04 01:13] LABS: Troponin I < 0.012 ng/ml
[2024-01-04] MEDS: REMERON ODT 15 MG PO ×2 (03:45→21:44)
[2024-01-04] MEDS: NSS 500 IV (03:45)
[2024-01-04] MEDS: SYNTHROID 100 MCG PO (04:38)
[2024-01-04 05:05] LABS: Hematocrit 34.1 % (37.0-47.0); Hemoglobin 11.6 g/dL (12.0-16.0); Mean Corpuscular Hgb 28.1 pg (27.0-31.0); Mean Corpuscular Volume 82.6 fL (81.0-99.0); Mean Platelet Volume 9.1 fL (7.4-10.4); Platelet Count 639 10^3/uL (130-400); Red Blood Cell Count 4.13 10^6/uL (4.20-5.40); Red Cell Dist. Width 15.1 % (11.5-14.5); White Blood Cell Count 10.5 10^3/uL (4.8-10.8)
[2024-01-04 05:21] LABS: ALT (SGPT) 27 U/L (0-35); AST (SGOT) 41 U/L (14-36); Albumin 2.6 g/dl (3.5-5.0); Alkaline Phosphatase 182 U/L (38-126); Blood Urea Nitrogen 29 mg/dl (7-17); Calcium 8.5 mg/dl (8.4-10.2); Carbon Dioxide 23 mmol/L (22-30); Chloride 105 mmol/L (98-107); Estimated Creatinine Clearance 27 ml/min; Glucose 86 mg/dl (70-99); LDH 214 U/L (120-246); Potassium 4.4 mmol/L (3.5-5.1); Sodium 134 mmol/L (135-145); Total Bilirubin 0.5 mg/dl (0.2-1.3); Total Protein 5.2 g/dl (6.3-8.2); eGFR 45.48
--- NOTE | 2024-01-04 07:09 | PTCARENOTE ---
Admitted pt overnight. aaox2, forgetful. Remains in afib low 100bpm. RA clear lungs, QUARLES & CP on exertion. EKG & trop done overnight to confirm. FLYING SQUAD SALESPERSON aware. UP to BSC x1. Reminded to turn. Sacral wound, WOC consulted.
--- NOTE | 2024-01-04 08:00 | WOUNDNOTE ---
[facility] RN note: Patient admitted with recurrent fast AF while on amiodarone. Patient currently living with her daughter.
See H&P for complete history.
PMH: recent admission 12/11-12/20/23 for pericardial effusion, s/p pericardiocentesis, s/p drain and removal of drain, EMMY, a fib s/p MU, TIA, HTN, COPD, adenocarcinoma R upper lobe, anxiety/depression, former smoker.
Wound Location and type/assessment: Patient admitted with: Dull red sacrum with a linear slightly open area vs newly healed area without drainage. Patient has a very bony sacral prominence. She likes to keep a pillow on either side of her buttocks
to off load her sacrum while in bed. Heels blanchable red. +1-2 LE edema. She wears knee high Tubigrip. +Pedal pulses heard via portable Doppler.
Appetite: currently on clear liquids. Poor appetite lately.
Pressure redistribution devices in place: Centrella Max air bed. She can turn self in bed. Heels off bed with pillow.
Plan: Sacral shaped silicone border foam dressing maintained on sacrum. Heel elevation maintained. Air chair cushion placed under each posterior hip/out buttocks area to help off load her bony sacrum. Instructed patient pressure injury prevention
measures.
Will confirm orders with hospitalist and updated JENNIFER Yan.
Care plan to be updated. Will sign off. Contact as needed.
Note to case management requested for discharge: VN if she qualifies.
[2024-01-04] MEDS: PACERONE 200 MG PO (08:14)
[2024-01-04] MEDS: COLCHICINE 0.299999999999999989 MG PO (08:14)
[2024-01-04] MEDS: ELIQUIS 2.5 MG PO ×2 (08:14→19:58)
[2024-01-04] MEDS: TOPROL XL PO ×2 (08:15→19:57)
[2024-01-04] MEDS: MAG-TAB SR 84 MG PO (08:15)
--- NOTE | 2024-01-04 08:43 | CON.CAR ---
Addendum entered and electronically signed by Milan James MD 01/04/24 12:06:
I saw and examined the patient.
The CHAIN HOIST OPERATOR's note was reviewed and I agree with the note.
83-year-old woman with history of lung cancer status postresection/chemo/XRT, COPD, PAF, history of pericardial effusion and pericardiocentesis 12/12/2023 who presents with reported shortness of breath and palpitations. Patient able to provide
limited information due to memory impairment. Patient noted to be in A-fib with RVR on presentation also with pleural effusion and just underwent thoracentesis today. Currently appears comfortable while laying flat. A-fib rates remain in the
120s. Patient has been maintained on amiodarone and was also on beta-jw and Cardizem. Amiodarone was initiated on the last hospitalization and she has had 1 cardioversion in early December.
-Continue amiodarone
-Additional rate control with IV Cardizem
-Continue anticoagulation
-Echocardiogram to reassess for pericardial effusion
-Continue to optimize medical therapy and rate control. If no evidence of pericardial effusion and respiratory status stabilizes then will consider cardioversion later this admission.
Original Note:
Consultation
Consultation Request
Date/Time Consultation Requested: 01/02/21 11:20p
Date/Time Consultation Performed: 01/04/24 8:40a
Requesting Provider: Dr. Serrano
Performing Provider: MELVI Pacheco for Dr. James
Reason for Consultation: rapid afib
Medical History
-
History of Present Illness:
Mrs. Lucas is an 83 yo female with HTN, lung cancer s/p surgical resection (without adjuvant chemotherapy or radiation per daughter) and COPD, admitted in May 2023 with PAF with RVR on Eliquis, mild/mod MR, mod/severe TR, COPD and anxiety, who
presents to the ER with c/o recurrent palpitations, fatigue, nausea, and decreased appetite for several days. She c/o feeling SOB and palpitations. EKG shows recurrent Afib with rapid rates. She is admitted to the hospitalist service with EMMY,
recurrent pleural effusions and we are consulted for rapid Afib. EMMY creat 1.3 on admit, troponin <0.012, proBNP 5910, hyponatremia 129 on admit -> now 134 today. CXR wtih moderate left-sided pleural effusion, increased in volume when compared
with the prior study and associated with probable compressive atelectasis at the left lung base, and a small right-sided pleural effusion, new when compared with the prior study.
She was just admitted at 12/12/23 through 12/20/23 with QUARLES/CP with recurrent rapid AFib, Dofetilide caused VT/Afib so it was changed to Amiodarone (plan for amiodarone load 400mg BID until 12/29/23 then reduce 200mg daily), s/p MU/DCCV 12/19/23,
maintained on Eliquis 2.5mg bid, and Toprol 50mg bid. She also had large pericardial effusion s/p pericardiocentesis 12/12/23 with 385 ml removed, drain removed 12/14/23, plan to continue colchicine for 3 month course. She also went to the ER 12/23/23
with rapid Afib, IV Dilt with slowing of rates, so Cardizem CD 120mg QD added to Toprol 50mg BID and Amiodarone load/taper as above, Eliquis continued, CXR was stable.
Past Medical History
Past Medical History: Other (as above)
Past Surgical History: Other (as above)
Allergies / Home Medications
Allergy/AdvReac Type Severity Reaction Status Date / Time
No Known Allergies Allergy Verified 06/06/23 19:44
�Medication �Instructions �Recorded �Confirmed �Type
alendronate 35 mg tablet 35 mg PO MO osteoperosis 06/06/23 01/03/24 History
benzonatate 100 mg capsule 100 mg PO Q8HPRN PRN cough 12/12/23 01/03/24 History
mirtazapine 15 mg disintegrating 15 mg PO HS Mental Health/Anxiety 12/12/23 01/03/24 History
tablet
colchicine 0.6 mg tablet 0.3 mg (1/2 x 0.6 mg) PO DAILY #90 12/20/23 01/03/24 Rx
tabs
acetaminophen 500 mg tablet 1,000 mg PO Q8HPRN PRN mild pain 01/03/24 01/03/24 History
amiodarone 200 mg tablet 200 mg PO DAILY Arrhythmia 01/03/24 01/03/24 History
apixaban 2.5 mg tablet 2.5 mg PO BID Blood Clot 01/03/24 01/03/24 History
Prevention/Tx
bisacodyl 10 mg rectal suppository 10 mg CO DAILY PRN if no BM in 8hr 01/03/24 01/03/24 History
(Dulcolax (bisacodyl)) after MOM
diltiazem HCl 120 mg capsule,24 120 mg PO DAILY Arrhythmia 01/03/24 01/03/24 History
hr,extended release
diltiazem HCl 30 mg tablet 30 mg PO Q12H Arrhythmia 01/03/24 01/03/24 History
levothyroxine 100 mcg tablet 100 mcg PO DAILY Thyroid 01/03/24 01/03/24 History
magnesium hydroxide 400 mg/5 mL 30 ml PO DAILY PRN if no BM x 2 01/03/24 01/03/24 History
oral suspension (Milk of Magnesia) days
magnesium oxide 400 mg (241.3 mg 400 mg PO DAILY Electrolyte 01/03/24 01/03/24 History
magnesium) tablet Repletion
menthol 4 % topical gel (Biofreeze 1 applic topical BID posterior neck 01/03/24 01/03/24 History
(menthol))
menthol 5 % topical patch (Icy Hot 1 patch topical BID B/L shoulders 01/03/24 01/03/24 History
(menthol))
metoprolol succinate 25 mg 25 mg PO DAILY Heart Failure 01/03/24 01/03/24 History
tablet,extended release 24 hr
ondansetron HCl 4 mg tablet 4 mg PO BIDPRN PRN nausea 01/03/24 01/03/24 History
sodium phosphates 19 gram-7 118 ml CO DAILYPRN PRN if no BM 01/03/24 01/03/24 History
gram/118 mL enema (Fleet Enema) 8hr after supp
Review of Systems
-
History Source: Patient
All other systems: Negative unless noted
Physical Exam
Vital Signs
Temp Pulse Resp BP Pulse Ox
98.1 F 110 16 110/69 93
01/04/24 07:50 01/04/24 06:00 01/04/24 06:00 01/04/24 08:15 01/04/24 06:00
Lab Results
01/04/24 04:46
01/04/24 04:46
Troponin I < 0.012 ng/ml 01/04/24 00:22
[id number] Pept Cancelled 01/03/24 20:52
Physical Exam
General: Other (thin, frail)
HEENT: Normocephalic, Anicteric and Moist Mucous Membranes
Respiratory: Non Labored Respirations and Other (diminished b/l bases)
Cardiac: S1/S2 and Irregular Rhythm (tachycardic)
Breast: Deferred by me
GI: Soft, Non Tender, Non Distended and Normal Bowel Sounds
Rectal: Deferred by Provider
Genito-urinary: No Costovertebral Tender
Musculoskeletal: No Clubbing, No Cyanosis and No Edema
Skin: Warm and Dry
Neuro: AO x 3
Hematologic/Lymphatic: No Lymphadenopathy
Psych: Calm
Impression / Plan
-
Pleural effusion - moderate left and new small right.
- plan for thoracentesis today.
AFib - recurrent with rapid rates.
- s/p MU/DCCV on 12/19/23 restoring NSR.
- Amiodarone loaded 400mg BID until 12/29/23 then reduced to 200mg daily.
- Home meds: Toprol 50mg BID, and Dilitazem 120mg was added at ER visit 12/23/23, Amiodarone 200mg daily.
- Dofetilide transitioned to Amiodarone given VT/AF.
- Oral Anticoagulation: Apixaban 2.5 mg BID, continue.
- plan for IV Diltiazem drip for now, Toprol 25mg BID, Amiodarone 200mg daily.
- check echo, consider DCCV if echo is stable.
Pericardial effusion - last admit 12/12/23 with at least some hemodynamic compromise.
- s/p pericardiocentesis for 385 mL of cloudy, straw colored fluid on 12/12/23, pericardial drain removed 12/14/23.
- MU on 12/18: trivial/small pericardial effusion
- plan for colchicine for 3 months.
- check echo today.
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
- stable on meds, continue.
Prior lung cancer - s/p resection.
- remote.
- presence of a exudative pericardial effusion is obviously concerning.
- CT chest with small noncalcified nodules concerning for malignancy 12/17/23.
COPD - chronic, stable.
Anxiety - chronic.
Data Reviewed
-
EKG: Tracing Personally Visualized and interpreted (Afib RVR 115 bpm)
Radiology: Report Reviewed by me (moderate left-sided pleural effusion, increased in volume when compared with the prior study and associated with probable compressive atelectasis at the left lung base There is a small right-sided pleural effusion,
new when compared with the prior study)
Medical Tests (Nuc Med, Echo etc): Report Reviewed by me
Labs: Labs Reviewed by me
Old Records: Reviewed
--- NOTE | 2024-01-04 09:11 | PTCARENOTE ---
Report given to CORY RN - Tele with AF rates 100-120s -BP 110/69- am meds given. Has not had breakfast yet- spoke with daughter. Will send via monitored stretcher.
[2024-01-04 10:27] LABS: Body Fluid pH 7.46
[2024-01-04 10:36] LABS: Body Fluid Polymorphonuclear 11.9 %; Body Fluid WBC 596 /CUMM
[2024-01-04 10:37] LABS: Body Fluid Mononuclear 88.1 %
[2024-01-04 10:41] LABS: Body Fluid Amylase 34 U/L; Body Fluid Glucose 85 mg/dl; Body Fluid LDH 100 U/L; Body Fluid Protein 2.9 g/dl; Body Fluid Triglycerides 34 mg/dl
[2024-01-04 10:47] LABS: Body Fluid Second Tech HB
--- NOTE | 2024-01-04 11:16 | PTCARENOTE ---
Returned from [facility]- Bandaid intact to left posterior back. BP 125/84 AF 100-120s on tele. Denies pain. Clear liq. tray ordered.
[2024-01-04] MEDS: CARDIZEM 125 IV ×2 (11:53→18:19)
--- NOTE | 2024-01-04 12:19 | W.PN.HOSP.TC ---
Today's Communication/Plan
-
Monitor vital signs and see plan
Remains in A-fib
Continue with Cardizem drip, metoprolol
Continue Eliquis
Check Pro-Berto
Advance diet
bladder scan
Daughter updated over the phone
Assessment / Plan
Assessment / Plan
General: Comfortable and Conversant
HEENT: Anicteric and Moist mucous membranes
Respiratory: Clear and Non Labored Respirations
Cardiac: S1/S2, Irregular Rhythm and Tachycardia
GI: Soft and Non Tender
Rectal: Deferred by Provider
Musculoskeletal: No Clubbing, No Cyanosis and No Edema
Neuro: Awake, Alert and Nonfocal/grossly intact
Psych: Calm
Recurrent fast AF while on Amiodarone,
marginally hypotensive at times
on eliquis; per staff at [facility] they were going to change his diltiazem 120 ER to 30 mg IR twice daily however that medication change was never started since she came to hospital.
- cont. Amiodarone ; currently on diltiazem gtt
- on metoprolol: escalade to 25 mg BID- may need dose adjustment but limited due to soft B
- cont. eliquis
advance diet since no plans of CV today
- Echo to eval recurrent pericardial effusion
cardiology following
B/l pleural effusion ( Moderate on Lt, small on Rt)
HX Pericardial effusion s/p pericardia drainage and removal on last admission
LVEF 55-60 and Nl RV size and function as of 12/19/23 MU
- check pro BNP elevated
- cont. Colchicine
s/p IR thora; unsure how much fluid is removed; appears exudative. check procal
EMMY
hyponatremia
trend creatinine
bladder scan
ua wnl
- NS
Moderate protein calorie malnutrition
- location and measurement technician consult
Hypothyroidism
-on levothyroxine
- recent TSH normal.
Hyperlipidemia
- on atorvastatin.
History of pulmonary adenocarcinoma -underwent right upper lobectomy about 5 to 6 years ago according to family.
Last CT chest:
small pericardial effusion with small bilateral pleural effusion.
Mild left lower lobe and minimal right lower lobe consolidation probably atelectasis.
Bilateral small nodule noncalcified pulmonary nodule concerning for malignancy until proven otherwise.
Dementia, likely Alzheimer's type -watch for delirium and agitation in the hospital.
DVT Px: on Eliquis
Code: DNR per patient in the presence of VARSITY BASEBALL COACH
I spent a total of 52 minutes with the patient or on the floor. More than 50% of this time involved counseling and coordination of care.
Anticipated Discharge: > 48 hours
Subjective/Interval History
-
Date of Service: January 04, 2024
denies chest pain
Objective Data
-
Labs:
Laboratory Results
01/03/24 01/04/24 01/04/24
23:21 00:22 04:46
WBC 10.5
Hgb 11.6 L
Hct 32.8 L 34.1 L
Plt Count 639 H
Sodium 131 L 134 L
Potassium 4.3 4.4
Chloride 102 105
Carbon Dioxide 21 L 23
BUN 31 H 29 H
Creatinine 1.2 H 1.2 H
Glucose Cancelled 87 86
Calcium 8.3 L 8.5
Total Bilirubin 0.5
AST 41 H
ALT 27
Alkaline Phosphatase 182 H
Vital Signs:
Vital Signs
Temp Pulse Resp BP Pulse Ox
98.2 F 114 15 99/68 94
01/04/24 11:09 01/04/24 10:06 01/04/24 10:06 01/04/24 10:06 01/04/24 10:06
I&O
01/03/24 01/04/24 01/05/24
06:59 06:59 06:59
Intake Total 500 / 500
Balance 500 / 500
--- NOTE | 2024-01-04 14:02 | PTCARENOTE ---
IV Diltiazem gtt infusing - titrated to 15mg/hr per protocol. Rates 100-110s SBP>100 -
[2024-01-04 14:36] LABS: Procalcitonin < 0.05 ng/ml (0.0-0.25)
--- NOTE | 2024-01-04 16:37 | PTCARENOTE ---
POx readings low 86% sleeping- c/o sob when awoken- 2L NC placed- order obtained. Currently 92% on 2L NC, IV Diltiazem at 15mg/hr- rates slowly coming down now 90s-100s. BP 108/64.
[2024-01-04] MEDS: LIPITOR 40 MG PO (21:44)
--- NOTE | 2024-01-04 22:04 | PTCARENOTE ---
Received pt at change of shift. AAOx3 but very forgetful. On 2 L NC; QUARLES when using the BSC; lungs are CTA. Pulseox now 94% on the 2 L. Cardizem gtt now running at 5 mg/hr with HR in 80s-90s in AFib on monitor; HR increases 120s during
ambulation. Tubi transitional kindergarten teacher removed at bedtime per order. Sacral foams intact; bandaid from thoracentesis intact. Resting in bed with call green in reach.
[2024-01-05] VITALS (18 sets, daily range): BP systolic 94–123; BP diastolic 58–103; BMI 16.4
[2024-01-05 05:20] LABS: % Basophils 0.9 % (0-2); % Eosinophils 2.5 % (0-6); % Immature Granulocytes 0.5 % (0-0.5); % Lymphocytes 12.6 % (20.5-51.1); % Monocytes 7.1 % (1.7-9.3); % Neutrophils 76.4 % (42.2-75.2); Absolute Basophils 0.1 10^3/uL (0-0.2); Absolute Eosinophils 0.2 10^3/uL (0-0.7); Absolute Immature Granulocytes 0.1 10^3/uL (0-0.05); Absolute Lymphocytes 1.2 10^3/uL (1.2-3.4); Absolute Monocytes 0.7 10^3/uL (0.1-0.6); Hematocrit 32.6 % (37.0-47.0); Hemoglobin 10.6 g/dL (12.0-16.0); Mean Corp Hgb Conc. 32.5 g/dL (33.0-37.0); Mean Corpuscular Hgb 28.6 pg (27.0-31.0); Mean Corpuscular Volume 87.9 fL (81.0-99.0); Mean Platelet Volume 9.2 fL (7.4-10.4); Nucleated Red Blood Cells % 0 %; Platelet Count 586 10^3/uL (130-400); Red Blood Cell Count 3.71 10^6/uL (4.20-5.40); Red Cell Dist. Width 15.4 % (11.5-14.5); White Blood Cell Count 9.2 10^3/uL (4.8-10.8)
[2024-01-05] MEDS: SYNTHROID 100 MCG PO (05:25)
[2024-01-05 05:47] LABS: Blood Urea Nitrogen 20 mg/dl (7-17); Calcium 8.5 mg/dl (8.4-10.2); Carbon Dioxide 24 mmol/L (22-30); Chloride 106 mmol/L (98-107); Estimated Creatinine Clearance 36 ml/min; Glucose 81 mg/dl (70-99); Potassium 4.2 mmol/L (3.5-5.1); Sodium 136 mmol/L (135-145); eGFR > 60.00
[2024-01-05] MEDS: PACERONE 200 MG PO (08:17)
[2024-01-05] MEDS: MAG-TAB SR 84 MG PO (08:17)
[2024-01-05] MEDS: ELIQUIS 2.5 MG PO ×2 (08:17→19:39)
[2024-01-05] MEDS: COLCHICINE 0.299999999999999989 MG PO (08:18)
[2024-01-05] MEDS: TOPROL XL PO ×2 (08:19→21:24)
--- NOTE | 2024-01-05 11:02 | W.PN.CD ---
Addendum entered and electronically signed by Milan James MD 01/05/24 13:17:
I saw and examined the patient.
The HORSERADISH GRINDER's note was reviewed and I agree with the note.
will try to transition from IV to short acting oral cardizme if significant increase in rates the we can resume IV cardizme.
otherwise plan for CV 01/07/24 as outlined.
I reviewed issues with her daughter who is hospital laboratory technician nurse at [employer] [facility]
Addendum entered and electronically signed by MELVI Fagan 01/05/24 12:32:
Transition to PO diltiazem- will start with short-acting. Tentative plan for cardioversion in AM Sunday- patient made NPO and nursing water plant pump operator supervisor aware. Nursing note to hold metoprolol and dilt AM of CV.
Original Note:
Today's Communication / Plan
-
-continue metoprolol, amiodarone, and diltiazem
-monitor respiratory status
-possible CV this admit
Impression / Plan
-
83-year-old woman with history of memory impairment, lung cancer status postresection/chemo/XRT, COPD, PAF, history of pericardial effusion and pericardiocentesis 12/12/2023 who presents with reported shortness of breath and palpitations. Patient
noted to be in A-fib with RVR on presentation also with pleural effusion and underwent thoracentesis. Patient has been maintained on amiodarone and was also on beta-jw and Cardizem. Amiodarone was initiated on the last hospitalization and she
has had 1 cardioversion in early December.
Pleural effusion - moderate left and new small right.
-s/p thoracentesis L side 1000 ml 01/04/24
-remains on O2 by NC
AFib - recurrent with rapid rates.
- s/p MU/DCCV on 12/19/23 restoring NSR.
- Amiodarone loaded 400mg BID until 12/29/23 then reduced to 200mg daily.
- Home meds: Toprol 50mg BID, and Dilitazem 120mg was added at ER visit 12/23/23, Amiodarone 200mg daily.
- Dofetilide recently transitioned to Amiodarone given VT/AF.
- Oral Anticoagulation: Apixaban 2.5 mg BID, continue.
- plan for IV Diltiazem drip for now, Toprol 25mg BID, Amiodarone 200mg daily.
- echo showed no pericardial effusion
- we will consider CV this admit
Pericardial effusion - last admit 12/12/23 with at least some hemodynamic compromise.
-s/p pericardiocentesis for 385 mL of cloudy, straw colored fluid on 12/12/23, pericardial drain removed 12/14/23
-no recurrence on echo
-continue colchicine
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
- echo this admit: Concentric LVH with EF 60-65%. Biatrial enlargement. Aortic sclerosis without stenosis. No recurrence of pericardial effusion. Trace MR, mild TR.
Prior lung cancer - s/p resection.
- remote.
- presence of a exudative pericardial effusion is obviously concerning.
- CT chest with small noncalcified nodules concerning for malignancy 12/17/23.
COPD - chronic
Anxiety - chronic.
Subjective: Sometimes feels palps, denies SOB, forgetful
Physical Exam
Vital Signs/Labs
Vital Signs
Temp Pulse Resp BP Pulse Ox
98.1 F 99 17 102/69 94
01/05/24 07:52 01/05/24 08:00 01/05/24 08:00 01/05/24 08:19 01/05/24 08:10
01/04/24 01/05/24 01/06/24
06:59 06:59 06:59
Actual Weight 46.6 kg 46 kg
01/05/24 05:06
01/05/24 05:06
01/03/24 01/03/24
18:45 20:52
Lkl-E-Gevqjjmjnns Pept 5910 Cancelled
LAB Results
01/03/24 01/04/24
18:45 00:22
Troponin I < 0.012 < 0.012
Physical Exam
Constitutional: No acute distress
EENT: Anicteric
Cardiovascular: Rhythm/rate is irregular
Respiratory: Respiratory effort normal and Other (coarse lung sounds left base)
Neuro/Psych: Alert
Data Reviewed
-
Date of Service: January 05, 2024
EKG: Other (AFIB tele)
Labs: Labs Reviewed by me
[2024-01-05] MEDS: CARDIZEM 125 IV (12:27)
--- NOTE | 2024-01-05 12:54 | W.PN.HOSP.TC ---
Today's Communication/Plan
-
Monitor vital signs and see plan
Wean oxygen as tolerated
Path pending from pleural effusion
Cardioversion on Sunday
Continue with Cardizem, metoprolol
Assessment / Plan
Assessment / Plan
General: Comfortable and Conversant
HEENT: Anicteric and Moist mucous membranes
Respiratory: Clear and Non Labored Respirations
Cardiac: S1/S2, Irregular Rhythm and Tachycardia
GI: Soft and Non Tender
Musculoskeletal: No Clubbing, No Cyanosis and No Edema
Neuro: Awake, Alert and Nonfocal/grossly intact
Psych: Calm
Recurrent fast AF while on Amiodarone,
marginally hypotensive at times
on eliquis; per staff at [facility] they were going to change his diltiazem 120 ER to 30 mg IR twice daily however that medication change was never started since she came to hospital.
- cont. Amiodarone ; was on dilt gtt; now on PO. plan for CV sunday
- on metoprolol: escalade to 25 mg BID- may need dose adjustment but limited due to soft B
- cont. eliquis
- Echo without recurrence of pericardial effusion, EF 60 to 65%.
cardiology following
B/l pleural effusion ( Moderate on Lt, small on Rt)
HX Pericardial effusion s/p pericardia drainage and removal on last admission
LVEF 55-60 and Nl RV size and function as of 12/19/23 MU
- check pro BNP elevated
- cont. Colchicine
s/p IR thora; unsure how much fluid is removed; appears exudative. check procal neg. gram stain neg; path pending. check CXR on sunday; if pleural effusion recurs then consult pulmonary
EMMY
hyponatremia
trend creatinine, improving
bladder scan
ua wnl
- NS
Moderate protein calorie malnutrition
- hand flatwork finisher consult
Hypothyroidism
-on levothyroxine
- recent TSH normal.
Hyperlipidemia
- on atorvastatin.
History of pulmonary adenocarcinoma -underwent right upper lobectomy about 5 to 6 years ago according to family.
Last CT chest:
small pericardial effusion with small bilateral pleural effusion.
Mild left lower lobe and minimal right lower lobe consolidation probably atelectasis.
Bilateral small nodule noncalcified pulmonary nodule concerning for malignancy until proven otherwise.
Dementia, likely Alzheimer's type -watch for delirium and agitation in the hospital.
DVT Px: on Eliquis
Code: DNR established on admission
I spent a total of 53 minutes with the patient or on the floor. More than 50% of this time involved counseling and coordination of care.
Anticipated Discharge: > 48 hours
Subjective/Interval History
-
Date of Service: January 05, 2024
denies pain
Objective Data
-
Labs:
Laboratory Results
01/05/24
05:06
WBC 9.2
Hgb 10.6 L
Hct 32.6 L
Plt Count 586 H
Sodium 136
Potassium 4.2
Chloride 106
Carbon Dioxide 24
BUN 20 H
Creatinine 0.9
Glucose 81
Calcium 8.5
Vital Signs:
Vital Signs
Temp Pulse Resp BP Pulse Ox
97.6 F 99 17 102/69 94
01/05/24 11:33 01/05/24 08:00 01/05/24 08:00 01/05/24 08:19 01/05/24 08:10
I&O
01/04/24 01/05/24 01/06/24
06:59 06:59 06:59
Intake Total 1080 / 1080
Output Total 250 / 250
Balance 830 / 830
[2024-01-05] MEDS: CARDIZEM 30 MG PO (13:08)
--- NOTE | 2024-01-05 16:23 | CM ---
Patient from [facility] with Dx Afib with RVR, B/l pleural effusion, EMMY, Moderate protein calorie malnutrition. O2 2L. Receiving Cardizem gtt. Plan cardioversion 01/06.
Spoke with patient's daughter Taryn, who is an RN in the [employer] at [employer];
the patient was at [facility] for short term rehab that was due to complete on 01/08- daughter says patient is not planning on returning to SNF.
The patient had been staying with the daughter at her home for the past 6 months, since her , however due to stairs there will not be returning there.
The patient plans on returning to her own home at discharge and daughter will be staying with her.
The patient resides in a 2 story house with first floor bedroom bath and no MARIANNE.
The address is: [address] [place] [id number]
The patient has been independent in ADLs and recently assisted with ambulation at SNF.
[facility] had ordered DME through [facility]: RW, w/c, raised toilet seat
[facility] had made a referral to [facility] - daughter agrees to [facility] at d/c. Referral placed.
Her only SNF was [facility].
PCP - Annette Wong
Pharmacy - [facility] [address]
Message to Dr Gonzalez requesting PT/OT Evals.
Plan watch for any Home O2 needs.
Plan follow up after PT/OT Evals.
Plan follow up with daughter to confirm DME delivery through [facility].
Plan follow up with [facility] for acceptance.
Plan home with DME through [facility], with [facility], with daughter.
--- NOTE | 2024-01-05 16:30 | STATUS ---
SITUATION:
C/o chest discomfort rates 8/10 feels 'bruised'-
BACKGROUND:
Uncontrolled AF, IV Diltiazem gtt converted to PO few hours ago. Thoracentesis yesterday.
ASSESSMENT:
AF on tele rates back up to 110s-130s. BP 117/78. Very anxious. Dyspneic- Sao2 88% on RAIR.
RECOMMENDATION: EKG completed, replaced O2. D/w Dr. James- IV Diltiazem gtt resumed at 10mg/hr.
[2024-01-05] MEDS: ZOFRAN 4 MG IV (18:19)
[2024-01-05] MEDS: SENOKOT-S 1 TABLET PO (18:19)
--- NOTE | 2024-01-05 18:31 | PTCARENOTE ---
Addendum entered by Farrah Andersen RN 01/05/24 18:34:
Correction had sm brown stool today.
Original Note:
C/o nausea after dinner - IV Zofran given and PRN senna given (no BM in days). Some complaints of neck pain as well - repositioned. IV Diltiazem gtt at 15mg / hr HR remain >110 currently. Emotional support provided with good relief. Anxiety
resolves will that.
[2024-01-05] MEDS: TYLENOL 1000 MG PO (19:48)
[2024-01-05] MEDS: LIPITOR 40 MG PO (21:40)
[2024-01-05] MEDS: REMERON ODT 15 MG PO (21:40)
--- NOTE | 2024-01-05 21:49 | PTCARENOTE ---
Addendum entered by Latrice Marquis RN 01/06/24 02:38:
Pt appears to be resting comfortably. respirations even and unlabored.
Addendum entered by Latrice Marquis RN 01/06/24 01:47:
Pt continued with nausea and retching. Tiffany Wu made aware, Compazine ordered.
Addendum entered by Latrice Marquis RN 01/06/24 00:55:
Pt had complaints of nausea, Zofran given.
Original Note:
Pt on Cardizem gtt at 15ml/hr. Pt appearing anxious, emotional support given. Pt having left shoulder pain in one spot, rubbing spot on should helped, also Tylenol. Assessment care and vitals as charted.
[2024-01-06] VITALS (25 sets, daily range): BP systolic 92–147; BP diastolic 57–116; BMI 16.1
[2024-01-06] MEDS: CARDIZEM 125 IV ×3 (00:23→21:50)
[2024-01-06] MEDS: ZOFRAN 4 MG IV ×2 (00:28→08:40)
[2024-01-06] MEDS: COMPAZINE 5 MG IV (01:40)
[2024-01-06 05:37] LABS: % Basophils 0.3 % (0-2); % Eosinophils 0.4 % (0-6); % Immature Granulocytes 0.8 % (0-0.5); % Lymphocytes 6.1 % (20.5-51.1); % Monocytes 6.1 % (1.7-9.3); % Neutrophils 86.3 % (42.2-75.2); Absolute Eosinophils 0.1 10^3/uL (0-0.7); Absolute Immature Granulocytes 0.1 10^3/uL (0-0.05); Absolute Lymphocytes 0.7 10^3/uL (1.2-3.4); Absolute Monocytes 0.7 10^3/uL (0.1-0.6); Hematocrit 33.5 % (37.0-47.0); Hemoglobin 10.8 g/dL (12.0-16.0); Mean Corp Hgb Conc. 32.2 g/dL (33.0-37.0); Mean Corpuscular Hgb 27.6 pg (27.0-31.0); Mean Corpuscular Volume 85.7 fL (81.0-99.0); Mean Platelet Volume 9.3 fL (7.4-10.4); Nucleated Red Blood Cells % 0 %; Platelet Count 576 10^3/uL (130-400); Red Blood Cell Count 3.91 10^6/uL (4.20-5.40); Red Cell Dist. Width 15.5 % (11.5-14.5); White Blood Cell Count 11.6 10^3/uL (4.8-10.8)
[2024-01-06 05:57] LABS: Blood Urea Nitrogen 19 mg/dl (7-17); Calcium 8.2 mg/dl (8.4-10.2); Carbon Dioxide 21 mmol/L (22-30); Chloride 107 mmol/L (98-107); Estimated Creatinine Clearance 45 ml/min; Glucose 93 mg/dl (70-99); Potassium 4.2 mmol/L (3.5-5.1); Sodium 134 mmol/L (135-145); eGFR > 60.00
[2024-01-06] MEDS: SYNTHROID 100 MCG PO (06:09)
[2024-01-06] MEDS: TOPROL XL PO (08:04)
[2024-01-06] MEDS: MAG-TAB SR 84 MG PO (08:11)
[2024-01-06] MEDS: ELIQUIS 2.5 MG PO ×2 (08:11→19:59)
[2024-01-06] MEDS: COLCHICINE 0.299999999999999989 MG PO (08:11)
[2024-01-06] MEDS: PACERONE 200 MG PO (08:13)
[2024-01-06] MEDS: MILK OF MAGNESIA 30 ML PO (11:02)
[2024-01-06] MEDS: MIRALAX 17 GRAMS PO (11:03)
--- NOTE | 2024-01-06 11:16 | PTCARENOTE ---
Assumed care of patient at beginning of this shift from previous RN with cardizem infusing at 10mg/hr; HR mostly 90s, occasionally low 100s. Ordered NPO after MN for cardioversion. Denies CP and SOB. Per report, patient had not voided on prior shift
with previous bladder scan 321. Patient with no void this morning; bladder scan by PCT 416. Patient then assisted to commode by PCT and voided small amount; was not measured. PVR scan 256. Will continue to watch output. Per report, patient was given
zofran and compazine on previous shift for c/o nausea and decreased appetite. Administered zofran this morning with some relief of nausea. Patient also with only a small bm after senokot yesterday; administered miralax and MOM as ordered prn. See
worklist for full assessment and vital signs; see MAR for med administration.
--- NOTE | 2024-01-06 13:09 | W.PN.HOSP.TC ---
Addendum entered and electronically signed by Devan Gonzalez MD 01/06/24 14:23:
Daughter updated over the phone
Original Note:
Today's Communication/Plan
-
Monitor vital signs and see plan
Check abdomen x-ray
N.p.o. past midnight for cardioversion tomorrow
Continue with amio
bladder scan
f/u path from pleural effusion
CXR in am
Assessment / Plan
Assessment / Plan
General: Comfortable and Conversant
HEENT: Anicteric and Moist mucous membranes
Respiratory: Clear and Non Labored Respirations
Cardiac: S1/S2, Irregular Rhythm and Tachycardia
GI: Soft and Non Tender
Musculoskeletal: No Clubbing, No Cyanosis and No Edema
Neuro: Awake, Alert and Nonfocal/grossly intact
Psych: Calm
Recurrent fast AF while on Amiodarone,
marginally hypotensive at times
on eliquis; per staff at [facility] they were going to change his diltiazem 120 ER to 30 mg IR twice daily however that medication change was never started since she came to hospital.
- cont. Amiodarone ; dilt gtt;plan for CV sunday
- on metoprolol: escalade to 25 mg BID
- cont. eliquis
- Echo without recurrence of pericardial effusion, EF 60 to 65%.
cardiology following
B/l pleural effusion ( Moderate on Lt, small on Rt)
HX Pericardial effusion s/p pericardia drainage and removal on last admission
LVEF 55-60 and Nl RV size and function as of 12/19/23 MU
- check pro BNP elevated
- cont. Colchicine
s/p IR thora; unsure how much fluid is removed; appears exudative. check procal neg. gram stain neg; path pending. check CXR on sunday; if pleural effusion recurs then consult pulmonary
Nausea
cw laxatives; check abdomen xray
EMMY
hyponatremia
trend creatinine, improving
bladder scan
ua wnl
Moderate protein calorie malnutrition
- concrete pourer consult
Hypothyroidism
-on levothyroxine
- recent TSH normal.
Hyperlipidemia
- on atorvastatin.
History of pulmonary adenocarcinoma -underwent right upper lobectomy about 5 to 6 years ago according to family.
Last CT chest:
small pericardial effusion with small bilateral pleural effusion.
Mild left lower lobe and minimal right lower lobe consolidation probably atelectasis.
Bilateral small nodule noncalcified pulmonary nodule concerning for malignancy until proven otherwise.
Dementia, likely Alzheimer's type -watch for delirium and agitation in the hospital.
DVT Px: on Eliquis
Code: DNR established on admission
I spent a total of 52 minutes with the patient or on the floor. More than 50% of this time involved counseling and coordination of care.
Anticipated Discharge: > 48 hours
Subjective/Interval History
-
Date of Service: January 06, 2024
denies sob
Objective Data
-
Labs:
Laboratory Results
01/06/24
05:13
WBC 11.6 H
Hgb 10.8 L
Hct 33.5 L
Plt Count 576 H
Sodium 134 L
Potassium 4.2
Chloride 107
Carbon Dioxide 21 L
BUN 19 H
Creatinine 0.7
Glucose 93
Calcium 8.2 L
Vital Signs:
Vital Signs
Temp Pulse Resp BP Pulse Ox
98.0 F 119 26 101/74 96
01/06/24 11:30 01/06/24 10:03 01/06/24 10:03 01/06/24 10:03 01/06/24 10:03
I&O
01/05/24 01/06/24 01/07/24
06:59 06:59 06:59
Intake Total 1080 / 1080 990 / 990 120 / 120
Output Total 250 / 250 0 / 0
Balance 830 / 830 990 / 990 120 / 120
--- NOTE | 2024-01-06 14:44 | PTCARENOTE ---
Patient continues to have difficulty voiding; only very small-scant amounts with bladder scan reading 200s. Dr Gonzalez made aware via tiger text and instructed to straight cath. 250ml cloudy yellow urine return. Patient did have large soft bm
following MOM and miralax. Dr Gonzalez updated.
[2024-01-06] MEDS: TOPROL XL 12.5 MG PO (15:32)
--- NOTE | 2024-01-06 15:34 | PTCARENOTE ---
Patient's HR 114-120s, occasionally 130; cardizem infusing at 15mg/hr. Patient has not received toprol xl 25mg d/t parameters (SBP <110). BP was 107/78 with MAP [address] James; instructed to give toprol xl 12.5mg po x1 dose. At
time med was given at 15:32, BP 110/96 with HR 123.
[2024-01-06] MEDS: TOPROL XL 25 MG PO (19:59)
[2024-01-06] MEDS: REMERON ODT 15 MG PO (21:51)
[2024-01-06] MEDS: LIPITOR 40 MG PO (21:51)
[2024-01-07] VITALS (21 sets, daily range): BP systolic 95–142; BP diastolic 56–94; BMI 16.2
[2024-01-07] MEDS: SYNTHROID 100 MCG PO (05:21)
--- NOTE | 2024-01-07 05:51 | PTCARENOTE ---
Pt remained on Cardizem gtt at 15mg/hr. HR at times up to the 120's. Pt voided small amount 100ml, bladder scanned residual 43ml. Pt NPO since midnight. Assessment care and vitals as charted.
[2024-01-07 06:05] LABS: % Basophils 0.3 % (0-2); % Eosinophils 0.2 % (0-6); % Immature Granulocytes 0.4 % (0-0.5); % Lymphocytes 5.4 % (20.5-51.1); % Monocytes 4.5 % (1.7-9.3); % Neutrophils 89.2 % (42.2-75.2); Absolute Immature Granulocytes 0.1 10^3/uL (0-0.05); Absolute Lymphocytes 0.6 10^3/uL (1.2-3.4); Absolute Monocytes 0.5 10^3/uL (0.1-0.6); Absolute Neutrophils 10.2 10^3/uL (1.4-6.5); Hematocrit 32.7 % (37.0-47.0); Hemoglobin 10.9 g/dL (12.0-16.0); Mean Corp Hgb Conc. 33.3 g/dL (33.0-37.0); Mean Corpuscular Hgb 28.4 pg (27.0-31.0); Mean Corpuscular Volume 85.2 fL (81.0-99.0); Nucleated Red Blood Cells % 0 %; Platelet Count 695 10^3/uL (130-400); Red Blood Cell Count 3.84 10^6/uL (4.20-5.40); Red Cell Dist. Width 15.8 % (11.5-14.5); White Blood Cell Count 11.5 10^3/uL (4.8-10.8)
[2024-01-07 06:26] LABS: Blood Urea Nitrogen 18 mg/dl (7-17); Calcium 8.5 mg/dl (8.4-10.2); Carbon Dioxide 23 mmol/L (22-30); Chloride 105 mmol/L (98-107); Estimated Creatinine Clearance 45 ml/min; Glucose 90 mg/dl (70-99); Potassium 4.7 mmol/L (3.5-5.1); Sodium 135 mmol/L (135-145); eGFR > 60.00
[2024-01-07] MEDS: CARDIZEM 125 IV (06:31)
[2024-01-07] MEDS: TOPROL XL PO (07:30)
[2024-01-07] MEDS: PACERONE 200 MG PO (08:14)
[2024-01-07] MEDS: ELIQUIS 2.5 MG PO ×2 (08:14→19:58)
[2024-01-07] MEDS: COLCHICINE 0.299999999999999989 MG PO (08:14)
[2024-01-07] MEDS: MAG-TAB SR 84 MG PO (08:15)
--- NOTE | 2024-01-07 08:57 | W.PN.CD ---
Today's Communication / Plan
-
-Plan for cardioversion 01/07/2024 ( procedure and risk were reviewed with the patient and daughter - consent signed by both)
- contiue amio. hold IV cardizem enroute to lab
- case reviewed with Dr Melo
Impression / Plan
-
83-year-old woman with history of memory impairment, lung cancer status postresection/chemo/XRT, COPD, PAF, history of pericardial effusion and pericardiocentesis 12/12/2023 who presents with reported shortness of breath and palpitations. Patient
noted to be in A-fib with RVR on presentation also with pleural effusion and underwent thoracentesis. Patient has been maintained on amiodarone and was also on beta-jw and Cardizem. Amiodarone was initiated on the last hospitalization and she
has had 1 cardioversion in early December.
Pleural effusion - moderate left and new small right.
-s/p thoracentesis L side 1000 ml 01/04/24
-remains on O2 by NC
AFib - recurrent with rapid rates.
- s/p MU/DCCV on 12/19/23 restoring NSR.
- Amiodarone loaded 400mg BID until 12/29/23 then reduced to 200mg daily.
- Home meds: Toprol 50mg BID, and Dilitazem 120mg was added at ER visit 12/23/23, Amiodarone 200mg daily.
- Dofetilide recently transitioned to Amiodarone given VT/AF.
- Oral Anticoagulation: Apixaban 2.5 mg BID, continue.
- plan for IV Diltiazem drip for now, Toprol 25mg BID, Amiodarone 200mg daily.
- echo showed no pericardial effusion
-Plan for cardioversion 01/07/2024 ( procedure and risk were reviewed with the patient and daughter - consent signed by both)
Pericardial effusion - last admit 12/12/23 with at least some hemodynamic compromise.
-s/p pericardiocentesis for 385 mL of cloudy, straw colored fluid on 12/12/23, pericardial drain removed 12/14/23
-no recurrence on echo
-continue colchicine
gi/ nutrition -ppor appetite . daughter raises concern. may be multifactoria. defer to primary team
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
- echo this admit: Concentric LVH with EF 60-65%. Biatrial enlargement. Aortic sclerosis without stenosis. No recurrence of pericardial effusion. Trace MR, mild TR.
Prior lung cancer - s/p resection.
- remote.
- presence of a exudative pericardial effusion is obviously concerning.
- CT chest with small noncalcified nodules concerning for malignancy 12/17/23.
COPD - chronic
Anxiety - chronic.
Subjective: Comfortable no complaints of chest pain or shortness of breath
Physical Exam
Vital Signs/Labs
Vital Signs
Temp Pulse Resp BP Pulse Ox
97.6 F 96 19 113/66 91
01/07/24 04:15 01/07/24 08:14 01/07/24 07:00 01/07/24 08:14 01/07/24 07:00
01/06/24 01/07/24 01/08/24
06:59 06:59 06:59
Actual Weight 45.1 kg 45.6 kg
01/07/24 05:44
01/07/24 05:44
01/03/24 01/03/24
18:45 20:52
Bkr-[id number] Pept 5910 Cancelled
Physical Exam
Constitutional: No acute distress
Cardiovascular: Rhythm/rate is irregular
Respiratory: Wheeze Absent and Rhonchi Absent
GI: Soft and Non tender
Neuro/Psych: Alert
Data Reviewed
-
Date of Service: January 07, 2024
Medical Decision Making: Reviewed Test Results
EKG: Report Reviewed by me
Medical Tests (PFT, Pathology etc): Report Reviewed by me
Labs: Labs Reviewed by me
--- NOTE | 2024-01-07 09:50 | PTCARENOTE ---
Assumed care of patient at beginning of this shift with Cardizem infusing at 15mg/hr. HR 78-80; infusion decreased to 10mg/hr at 07:32; remains afib on the monitor. Scheduled for cardioversion today; confirmed with Dr Watson that patient may
take amiodarone and eliquis as scheduled. Metoprolol held as per instructions and patient below parameters for SBP. See worklist for full assessment and vital signs.
--- NOTE | 2024-01-07 10:28 | W.PN.HOSP.TC ---
Today's Communication/Plan
-
Cardioversion today
Consult pulmonary
Assessment / Plan
Assessment / Plan
Recurrent fast AF while on Amiodarone,
on eliquis; per staff at [facility] [place] they were going to change his diltiazem 120 ER to 30 mg IR twice daily however that medication change was never started since she came to hospital.
- cont. Amiodarone ; dilt gtt;plan for CV today
- on metoprolol: escalade to 25 mg BID
- cont. eliquis
- Echo without recurrence of pericardial effusion, EF 60 to 65%.
cardiology following
HX Pericardial effusion s/p pericardia drainage and removal on last admission
LVEF 55-60 and Nl RV size and function as of 12/19/23 MU
- cont. Colchicine
B/l pleural effusion ( Moderate on Lt, small on Rt)
s/p IR thora- 1000ml removed
Exudative by protein criteria
Most recent chest CT starting on this month Showed small bilateral lung nodules. She is known to have lung cancer status post right upper lobectomy. She states she has not followed with anybody since then.
Await cytology of the left pleural effusion.
Will consult pulmonary in regards to lung nodules and history of lung cancer.
EMMY
hyponatremia
trend creatinine, improving
bladder scan
ua wnl
Moderate protein calorie malnutrition
- laborer car barn consult
Hypothyroidism
-on levothyroxine
- recent TSH normal.
Hyperlipidemia
- on atorvastatin.
Dementia, likely Alzheimer's type -watch for delirium and agitation in the hospital.
DVT Px: on Eliquis
Code: DNR established on admission
Total time spent on today's encounter was 52 minutes which included time spent in counseling the patient/family regarding diagnosis and treatment plan as listed above, goals of care, and symptom management. Case was discussed with nursing staff,
specialists, . All labs and imaging personally reviewed by me. Remainder the time spent in detailed review of previous records, lab data, imaging, and other medical provider documentation.
Anticipated Discharge: > 48 hours
Subjective/Interval History
-
Date of Service: January 07, 2024
Patient remains in A-fib. Await cardioversion today.
Denies any chest pain, palpitation or shortness of breath. No cough or fever.
Objective Data
-
Labs:
Laboratory Results
01/07/24
05:44
WBC 11.5 H
Hgb 10.9 L
Hct 32.7 L
Plt Count 695 H D
Sodium 135
Potassium 4.7
Chloride 105
Carbon Dioxide 23
BUN 18 H
Creatinine 0.7
Glucose 90
Calcium 8.5
Vital Signs:
Vital Signs
Temp Pulse Resp BP Pulse Ox
98.1 F 83 17 99/67 97
01/07/24 07:15 01/07/24 09:00 01/07/24 09:00 01/07/24 09:00 01/07/24 09:00
I&O
01/06/24 01/07/24 01/08/24
06:59 06:59 06:59
Intake Total 990 / 990 650 / 650
Output Total 0 / 0 350 / 350
Balance 990 / 990 300 / 300
Review of Systems
-
EENT: Denies Sore Throat
Abdomen/GI: Denies Abdominal Pain, Nausea or Vomiting
Neuro: Denies Dizzy
Physical Exam
-
General: No Apparent Distress
HEENT: Moist Mucous Membranes
Respiratory: Crackles (Left base); Negative Wheezes
Cardiac: S1/S2, Irregular Rhythm and Tachycardic
GI: Soft, Nontender, Nondistended and Normal Bowel Sounds
Musculoskeletal: Edema, Right Lower Extrem and Edema, Left Lower Extrem
Neuro: AO x 3
Psych: Calm; Negative Confused
Data Reviewed
-
Labs: Labs Reviewed by me
--- NOTE | 2024-01-07 10:52 | PTCARENOTE ---
Patient to equipment operator/laborer/supervisor; gracie held prior to getting patient onto stretcher as ordered.
--- NOTE | 2024-01-07 11:37 | ITS.CL.CARDI ---
Mining Consultant - Cardioversion
Cardioversion
Procedure Report:
Date of Procedure: January 07 2024
Procedure: Cardioversion
Indication: Symptomatic atrial fibrillation
Performing Physician: Puneet Melo DO, FACC
Technique: The patient was brought to the holding area. Signed informed consent was obtained. A time out was called and performed. The patient was anesthetized by the anesthesia service. Anticoagulation status was reviewed and appropriate. R2 pads
were placed anteriorly and posteriorly. A 200 J synchronized biphasic shock restored normal sinus rhythm without significant bradycardia. There were no complications.
Conclusion: Uncomplicated cardioversion from atrial fibrillation to sinus rhythm.
Recommendation: Routine post cardioversion care. Continue custodial anticoagulation.
--- NOTE | 2024-01-07 12:02 | CON.PUL ---
Consultation
Consultation Request
Date/Time Consultation Requested: 01/07/2024
Date/Time Consultation Performed: 01/07/2024
Requesting Provider: Dr. Jung
Performing Provider: Dr. Roge Velasco
Reason for Consultation: Lung nodule/pleural
Medical History
-
Chief Complaint: Dizzy/lightheaded, syncope with chest heaviness for a few days
History of Present Illness:
83-year-old female with a past medical history of A-fib, COPD, hyperlipidemia and hypothyroidism who recently was admitted after developing syncope discovered to have pericardial effusion. Underwent pericardiocentesis. She was treated with
antibiotics for possible infectious pericarditis. Cytology and cultures negative.
She did have bilateral pleural effusions on chest x-ray upon discharge.
Subsequent CT chest 12/17/2023 showed tiny small lung nodules, lingular bronchiectasis. Bilateral small pleural effusions.
Readmitted to the hospital 01/03/2024 with palpitations and shortness of breath. Feeling that she is going to faint. She was found to have an atrial fibrillation with rapid ventricular response.
Chest x-ray showed bilateral pleural effusions left greater than right.
She was discharged on colchicine for pericardial effusion/pericarditis. Management per cardiology.
Underwent left thoracentesis-showed exudative pleural effusion.
We were consulted for evaluation of tiny pulmonary nodules and exudative pleural effusion.
Past Medical History
Past Medical History: Other (Above as per HPI)
Past Surgical History: Other (Above as per HPI)
Social History
Tobacco: Former Smoker
Alcohol: None
Drug: None
Family History
Family History: Reviewed & Not Pertinent
Allergies / Home Medications
Allergies
Allergy/AdvReac Type Severity Reaction Status Date / Time
No Known Allergies Allergy Verified 06/06/23 19:44
Home Medications
�Medication �Instructions �Recorded �Confirmed �Last Taken �Type
alendronate 35 mg tablet 35 mg PO MO osteoperosis 06/06/23 01/03/24 12/10/23 History
benzonatate 100 mg capsule 100 mg PO Q8HPRN PRN cough 12/12/23 01/03/24 Unknown History
mirtazapine 15 mg disintegrating 15 mg PO HS Mental Health/Anxiety 12/12/23 01/03/24 12/11/23 History
tablet
colchicine 0.6 mg tablet 0.3 mg (1/2 x 0.6 mg) PO DAILY #90 12/20/23 01/03/24 Unknown Rx
tabs
acetaminophen 500 mg tablet 1,000 mg PO Q8HPRN PRN mild pain 01/03/24 01/03/24 Unknown History
amiodarone 200 mg tablet 200 mg PO DAILY Arrhythmia 01/03/24 01/03/24 Unknown History
apixaban 2.5 mg tablet 2.5 mg PO BID Blood Clot 01/03/24 01/03/24 Unknown History
Prevention/Tx
bisacodyl 10 mg rectal suppository 10 mg KY DAILY PRN if no BM in 8hr 01/03/24 01/03/24 Unknown History
(Dulcolax (bisacodyl)) after MOM
diltiazem HCl 120 mg capsule,24 120 mg PO DAILY Arrhythmia 01/03/24 01/03/24 Unknown History
hr,extended release
diltiazem HCl 30 mg tablet 30 mg PO Q12H Arrhythmia 01/03/24 01/03/24 Unknown History
levothyroxine 100 mcg tablet 100 mcg PO DAILY Thyroid 01/03/24 01/03/24 Unknown History
magnesium hydroxide 400 mg/5 mL 30 ml PO DAILY PRN if no BM x 2 01/03/24 01/03/24 Unknown History
oral suspension (Milk of Magnesia) days
magnesium oxide 400 mg (241.3 mg 400 mg PO DAILY Electrolyte 01/03/24 01/03/24 Unknown History
magnesium) tablet Repletion
menthol 4 % topical gel (Biofreeze 1 applic topical BID posterior neck 01/03/24 01/03/24 Unknown History
(menthol))
menthol 5 % topical patch (Icy Hot 1 patch topical BID B/L shoulders 01/03/24 01/03/24 Unknown History
(menthol))
metoprolol succinate 25 mg 25 mg PO DAILY Heart Failure 01/03/24 01/03/24 Unknown History
tablet,extended release 24 hr
ondansetron HCl 4 mg tablet 4 mg PO BIDPRN PRN nausea 01/03/24 01/03/24 Unknown History
sodium phosphates 19 gram-7 118 ml [place] DAILYPRN PRN if no BM 01/03/24 01/03/24 Unknown History
gram/118 mL enema (Fleet Enema) 8hr after supp
Review of Systems
-
History Source: Patient
All other systems: Negative unless noted
Vitals / Labs / Diagnostic Testing
Vital Signs
Temp Pulse Resp BP Pulse Ox
98.1 F 104 19 121/74 97
01/07/24 07:15 01/07/24 10:00 01/07/24 10:00 01/07/24 10:00 01/07/24 09:00
Lab Data
01/07/24 05:44
01/07/24 05:44
Microbiology
01/04/24 10:02 Pleural Fluid Body Fluid Culture - Final
No Growth After 72 Hours
01/04/24 10:02 Pleural Fluid Gram Stain - Final
Diagnostic Testing:
Physical Exam
-
HEENT: Normocephalic
Cardiovascular: S1/S2
Respiratory: Non-Labored Respirations
GI: Soft and Non Distended
Neurology: Awake and Oriented
Skin: Warm
General: Comfortable
Assessment
-
83-year-old woman with multiple comorbidities. Recently in the hospital after developed pericardial effusion requiring pericardial window. Negative cytology and cultures pretreatment antibiotics and colchicine. Readmitted with rapid atrial
fibrillation on amiodarone. Palpitations. Found to have worsening left pleural effusion underwent thoracentesis. Also CT scan in early December with tiny lung nodules-we were consulted for evaluation of both.
Bilateral pleural effusions: Left greater than right
Status postthoracentesis 01/04/2024 1 L straw-colored
01/04/2024: pH 7.46/white blood cells 596/88% mononuclear/11% PMNs/glucose 85
Total protein 2.9/LDH 100
Amylase and triglycerides normal
Finding bilateral pulmonary nodules: Unclear etiology. 2-3 mm.
Inflammatory versus less likely malignant.
With lingular bronchiectasis-TROY a possibility.
Conditions present prior admission:
Admission to [facility] 11/2023: Shock due to pericardial effusion and rapid atrial fibrillation.
Status. Post pericardiocentesis
Cultures negative
Cytology negative for malignant cells
Discharged on colchicine
Status post
Dementia with cognitive impairment
Atrial fibrillation/ventricular tachycardia in the setting of pericardial effusion
? COPD-does not have a local assistive technology specialist
Osteoporosis
HLD,
hypothyroidism,
Hx of lung Ca s/p RUL-lobectomy (5-6 years ago per family),
dementia with memory loss, history of TIA, osteoporosis
PSHx: Hysterectomy, volvulus with small bowel resection, right upper lobe lobectomy for lung cancer, appendectomy
-
Assessment and plan:
-
In regards to tiny pulmonary nodules bilaterally on CAT scan from 12/17/2023: Too small to characterize at this point.
With prior history of lung resection malignancy a possibility. Definitely there is no evidence for recurrent lung cancer as there is no dominant lesion.
Inflammatory versus malignant.
To a small for PET scan sensitivity.
With lingular bronchiectasis: Infectious etiology such as TROY is a possibility.
This will need ongoing follow-up with repeat imaging in the outpatient setting.
If patient willing, can follow-up locally. Does not have a local assistive technology specialist.
-
Bilateral pleural effusions present on prior admission.
Worsened over the weeks post recent DC.
Most recent chest x-ray showed worsening left pleural effusion. Also has small right pleural effusion.
Status postthoracentesis-01/04/2024 exudative.
Doubt any infectious etiology at this point.
She also recently had pericardial effusion status post pericardiocentesis.
Cytology and cultures negative at that time
Coxsackie antibodies were elevated-unclear significance.? Post viral.
-
Alternatively, with both pericardial and pleural effusions must rule out connective tissue disease.
Will obtain sedimentation rate, PASHA, rheumatoid factor, anti-CCP, complements etc.
Suspicion of very high blood possible.
-
proBNP is elevated/uncontrolled Atrial fibrillation: Bilateral pleural effusions may represent cardiogenic component.
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
- echo: Concentric LVH with EF 60-65%. Biatrial enlargement. Aortic sclerosis without stenosis. No recurrence of pericardial effusion. Trace MR, mild TR.
Cardiology follow plans for cardioversion on 01/07/2024.
Continue with cardiac management
-
Continue oxygen supplementation to maintain pulse ox above 88%.
-
? COPD: No details available.
Not bronchospastic on exam
Not on bronchodilators.
-
Will follow

CT chest 12/17/2023: Reviewed
Small pericardial effusion.
Small bilateral pleural effusions.
Many bilateral 2-3 mm solid noncalcified pulmonary nodules.
Moderate lingular bronchiectasis.
No evidence for interstitial lung disease. No abnormal mediastinal masses. No lymphadenopathy.
Abdominal ultrasound 12/18/2023:
Bilateral pleural effusions. Otherwise normal
Echocardiogram 12/18/2023:
LVEF 65-70%
Normal biventricular size and function
Moderate to severe TR.
Pulmonary artery pressure 40 to 45 mmHg.
no recurrent pericardial of
Data Reviewed
-
Radiology: Image personally visualized and interpreted and Report reviewed by me
--- NOTE | 2024-01-07 12:43 | PTCARENOTE ---
Patient returned from record label intern post successful cardioversion per report; patient NSR. Verified with Dr James that cardizem infusion does not need to be restarted and order can be d/c'd.
[2024-01-07 14:43] LABS: Erythrocyte Sed Rate 63 mm/hour (0-20)
[2024-01-07] MEDS: TOPROL XL 25 MG PO (20:13)
[2024-01-07] MEDS: REMERON ODT 15 MG PO (21:47)
[2024-01-07] MEDS: LIPITOR 40 MG PO (21:47)
[2024-01-08] VITALS (16 sets, daily range): BP systolic 112–184; BP diastolic 62–119; PULSE 89–90; O2SAT 96–97; BMI 16.1
--- NOTE | 2024-01-08 00:15 | PTCARENOTE ---
Addendum entered by Latrice Marquis RN 01/08/24 06:26:
Pt having another episode of anxiety this morning. Pt saying she can 'feel it build and i cant catch my breath'. SPO2 at 97% RA. Emotional support given with a lot of reassurance, 0.5L NC placed for emotional comfort. All vitals stable.
Original Note:
Assumed care of Pt from RN. Pt ringing green and calling out frequently. When answered by pct's Pt does not know what is wrong but feel 'upset in belly', Pt asked if she needs to use bathroom and denies need. Pt continuing to call out and ring green.
RN to room to assess. Pt physical Assessment benign. With emotional support Pt is able to tell RN she is 'anxious'. Time taken to give more emotional support, reassurance and reposition to a comfortable side position. Pt able to fall a sleep at this
time. Respiration even and unlabored. Vitals stable.
[2024-01-08 00:16] LABS: Complement C3 129 mg/dl (88-165)
[2024-01-08] MEDS: SYNTHROID 100 MCG PO (04:00)
[2024-01-08 04:09] LABS: Hematocrit 31.7 % (37.0-47.0); Hemoglobin 10.7 g/dL (12.0-16.0); Mean Corp Hgb Conc. 33.8 g/dL (33.0-37.0); Mean Corpuscular Hgb 28.5 pg (27.0-31.0); Mean Corpuscular Volume 84.3 fL (81.0-99.0); Mean Platelet Volume 8.8 fL (7.4-10.4); Platelet Count 712 10^3/uL (130-400); Red Blood Cell Count 3.76 10^6/uL (4.20-5.40); Red Cell Dist. Width 15.7 % (11.5-14.5); White Blood Cell Count 13.4 10^3/uL (4.8-10.8)
[2024-01-08] MEDS: COLCHICINE 0.299999999999999989 MG PO (08:53)
[2024-01-08] MEDS: PACERONE 200 MG PO (08:53)
[2024-01-08] MEDS: TOPROL XL 25 MG PO ×2 (08:54→19:58)
[2024-01-08] MEDS: MAG-TAB SR 84 MG PO (08:54)
[2024-01-08] MEDS: ELIQUIS 2.5 MG PO ×2 (08:54→19:58)
--- NOTE | 2024-01-08 09:55 | W.PN.CD ---
Today's Communication / Plan
-
- Patient remains in sinus rhythm after undergoing successful cardioversion yesterday.
- Continue Toprol 25mg BID, Amiodarone 200mg daily.
- No further cardiac recommendations at this time; outpatient follow-up with Cardiology.
Impression / Plan
-
83-year-old woman with history of memory impairment, lung cancer status postresection/chemo/XRT, COPD, PAF, history of pericardial effusion and pericardiocentesis 12/12/2023 who presents with reported shortness of breath and palpitations. Patient
noted to be in A-fib with RVR on presentation also with pleural effusion and underwent thoracentesis. Patient has been maintained on amiodarone and was also on beta-jw and Cardizem. Amiodarone was initiated on the last hospitalization and she
has had 1 cardioversion in early December.
Pleural effusion - moderate left and new small right.
-s/p thoracentesis L side 1000 ml 01/04/24
-remains on O2 by NC
AFib - recurrent with rapid rates.
- s/p MU/DCCV on 12/19/23 restoring NSR.
- Amiodarone loaded 400mg BID until 12/29/23 then reduced to 200mg daily.
- Dofetilide recently transitioned to Amiodarone given VT/AF.
- Oral Anticoagulation: Apixaban 2.5 mg BID, continue.
- Patient remains in sinus rhythm after undergoing successful cardioversion yesterday.
- Continue Toprol 25mg BID, Amiodarone 200mg daily.
Pericardial effusion - last admit 12/12/23 with at least some hemodynamic compromise.
-s/p pericardiocentesis for 385 mL of cloudy, straw colored fluid on 12/12/23, pericardial drain removed 12/14/23
-no recurrence on echo
-continue colchicine
gi/ nutrition -ppor appetite . daughter raises concern. may be multifactoria. defer to primary team
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
- echo this admit: Concentric LVH with EF 60-65%. Biatrial enlargement. Aortic sclerosis without stenosis. No recurrence of pericardial effusion. Trace MR, mild TR.
Prior lung cancer - s/p resection.
- remote.
- presence of a exudative pericardial effusion is obviously concerning.
- CT chest with small noncalcified nodules concerning for malignancy 12/17/23.
COPD - chronic
Anxiety - chronic.
Subjective: No major events overnight. No cardiac complaints this a.m. Remains in sinus rhythm on telemetry.
Physical Exam
Vital Signs/Labs
Vital Signs
Temp Pulse Resp BP Pulse Ox
97.8 F 91 16 131/63 99
01/08/24 07:20 01/08/24 08:53 01/08/24 08:00 01/08/24 08:53 01/08/24 08:00
01/07/24 01/08/24 01/09/24
06:59 06:59 06:59
Actual Weight 45.6 kg 45.2 kg
01/08/24 03:57
01/07/24 05:44
01/03/24 01/03/24
18:45 20:52
Xuu-[id number] Pept 5910 Cancelled
Physical Exam
Constitutional: No acute distress and Comfortable
EENT: Anicteric
Cardiovascular: Rhythm & rate is regular, Pedal edema present (trace), Systolic murmur present (09/18) and S1S2 is normal
Respiratory: Respiratory effort normal and Lungs clear to auscul.
GI: Soft
Neuro/Psych: AO x 3
Other: Skin (Warm, dry, intact)
Data Reviewed
-
Date of Service: January 08, 2024
EKG: Tracing Personally Visualized and interpreted (Telemetry: Sinus rhythm)
Labs: Labs Reviewed by me
--- NOTE | 2024-01-08 10:32 | W.PN.PUL3 ---
Today's Communication / Plan
-
Will follow cytology
Follow rheumatology serology
Recommend outpatient pulmonary follow-up for small lung nodules
Recommend outpatient follow-up for evaluation of COPD?
Sign off
Assessment
-
83-year-old woman with multiple comorbidities. Recently in the hospital after developed pericardial effusion requiring pericardial window. Negative cytology and cultures pretreatment antibiotics and colchicine. Readmitted with rapid atrial
fibrillation on amiodarone. Palpitations. Found to have worsening left pleural effusion underwent thoracentesis. Also CT scan in early December with tiny lung nodules-we were consulted for evaluation of both.
Bilateral pleural effusions: Left greater than right
Status postthoracentesis 01/04/2024 1 L straw-colored
01/04/2024: pH 7.46/white blood cells 596/88% mononuclear/11% PMNs/glucose 85
Total protein 2.9/LDH 100
Amylase and triglycerides normal
Finding bilateral pulmonary nodules: Unclear etiology. 2-3 mm.
Inflammatory versus less likely malignant.
With lingular bronchiectasis-TROY a possibility.
Conditions present prior admission:
Admission to [facility] 11/2023: Shock due to pericardial effusion and rapid atrial fibrillation.
Status. Post pericardiocentesis
Cultures negative
Cytology negative for malignant cells
Discharged on colchicine
Status post
Dementia with cognitive impairment
Atrial fibrillation/ventricular tachycardia in the setting of pericardial effusion
? COPD-does not have a local casing blower
Osteoporosis
HLD,
hypothyroidism,
Hx of lung Ca s/p RUL-lobectomy (5-6 years ago per family),
dementia with memory loss, history of TIA, osteoporosis
PSHx: Hysterectomy, volvulus with small bowel resection, right upper lobe lobectomy for lung cancer, appendectomy
-
Assessment and plan:
-
No overnight respiratory events.
Successfully cardioverted-cardiology has signed off
On oral anticoagulants
Currently on room air
Shortness of breath improved but has chronic exertional dyspnea
Lung exam relatively clear without bronchospasm. Minimal bibasilar crackles.
-
In regards to tiny pulmonary nodules bilaterally on CAT scan from 12/17/2023: Too small to characterize at this point.
With prior history of lung resection malignancy a possibility. Definitely there is no evidence for recurrent lung cancer as there is no dominant lesion.
Inflammatory versus malignant.
To a small for PET scan sensitivity.
With lingular bronchiectasis: Infectious etiology such as TROY is a possibility.
This will need ongoing follow-up with repeat imaging in the outpatient setting.
If patient willing, can follow-up locally. Does not have a local casing blower. Information was left on the chart during last admission.
-
Bilateral pleural effusions present on prior admission.
Worsened over the weeks post recent DC.
Most recent chest x-ray showed worsening left pleural effusion. Also has small right pleural effusion.
Status postthoracentesis-01/04/2024 exudative.
Doubt any infectious etiology at this point. Cultures negative so far.
Cytology pending: Cannot rule out malignant.
She also recently had pericardial effusion status post pericardiocentesis.
Cytology and cultures negative at that time
Coxsackie antibodies were elevated-unclear significance.? Post viral.
-
Alternatively, with both pericardial and pleural effusions must rule out connective tissue disease.
Will obtain sedimentation rate, PASHA, rheumatoid factor, anti-CCP, complements etc. pending results. Can be followed in the outpatient setting.
Suspicion of very high blood possible.
-
proBNP is elevated/uncontrolled Atrial fibrillation: Bilateral pleural effusions may represent cardiogenic component.
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
- echo: Concentric LVH with EF 60-65%. Biatrial enlargement. Aortic sclerosis without stenosis. No recurrence of pericardial effusion. Trace MR, mild TR.
Status post successful cardioversion 01/07/2024.
No further diuresis.
Anticoagulation
Cardiology has signed off continue with cardiac management
-
? COPD: No details available.
Not bronchospastic on exam
Not on bronchodilators.
-
No additional recommendations from the pulmonary perspective. Cytology will need to be followed.
Recommend outpatient pulmonary follow-up for repeat imaging.
Serology for rheumatologic disease need to be followed as well. Can be done in the outpatient setting.
-
At this point I will sign off.

CT chest 12/17/2023: Reviewed
Small pericardial effusion.
Small bilateral pleural effusions.
Many bilateral 2-3 mm solid noncalcified pulmonary nodules.
Moderate lingular bronchiectasis.
No evidence for interstitial lung disease. No abnormal mediastinal masses. No lymphadenopathy.
Abdominal ultrasound 12/18/2023:
Bilateral pleural effusions. Otherwise normal
Echocardiogram 12/18/2023:
LVEF 65-70%
Normal biventricular size and function
Moderate to severe TR.
Pulmonary artery pressure 40 to 45 mmHg.
no recurrent pericardial of
Subjective Data
-
Date of Service:
Date of Service: January 08, 2024
Chief Complaint: Pulmonary Follow Up (Bilateral pleural effusions, tiny pulmonary nodules.)
Subjective:
No new overnight events
Successfully cardioverted
No new pulmonary complaints.
Review of Systems
Cardiopulmonary: Dyspnea on Exertion (Chronic) and Chest Pain (n)
GI: Abdominal Pain (n)
Neuro: Headache (n)
Objective Data
Data Reviewed
Vital Signs / I&O / Oxygen:
Vital Signs
Temp Pulse Resp BP Pulse Ox
97.8 F 91 16 131/63 99
01/08/24 07:20 01/08/24 08:53 01/08/24 08:00 01/08/24 08:53 01/08/24 08:00
Intake and Output
01/07/24 01/08/24 01/09/24
06:59 06:59 06:59
Intake Total 650 / 650 120 / 120
Output Total 350 / 350
Balance 300 / 300 120 / 120
SaO2 99
Nasal Cannula flow liters per 2
minute
Physical Exam
General: Respiratory Distress (n) and Other (Cachectic)
HEENT: Normocephalic
Respiratory: Clear and Non-Labored Respirations
GI: Non Distended
Neurology: Awake and Alert
Labs/Micro/Reports
Lab Data
01/08/24 03:57
01/07/24 05:44
Microbiology
01/04/24 10:02 Pleural Fluid Body Fluid Culture - Final
No Growth After 72 Hours
01/04/24 10:02 Pleural Fluid Gram Stain - Final
--- NOTE | 2024-01-08 11:12 | W.PN.HOSP.TC ---
Today's Communication/Plan
-
DC planning
Assessment / Plan
Assessment / Plan
Recurrent fast AF while on Amiodarone,
on eliquis; per staff at [facility] home they were going to change his diltiazem 120 ER to 30 mg IR twice daily however that medication change was never started since she came to hospital.
- S/p electrical cardioversion 01/06-remains in sinus rhythm
- cont. Amiodarone ;off of dilt gtt
- on metoprolol: escalade to 25 mg BID
- cont. eliquis
- Echo without recurrence of pericardial effusion, EF 60 to 65%.
cardiology following
HX Pericardial effusion s/p pericardia drainage and removal on last admission
LVEF 55-60 and Nl RV size and function as of 12/19/23 MU
- cont. Colchicine
B/l pleural effusion ( Moderate on Lt, small on Rt)
s/p IR thora- 1000ml removed
Exudative by protein criteria
Most recent chest CT starting on this month Showed small bilateral lung nodules. She is known to have lung cancer status post right upper lobectomy. She states she has not followed with anybody since then.
Await cytology of the left pleural effusion.
appreciate pulmonary input regarding lung nodules and pleural effusion-diagnostic consideration and follow-up plan noted. Follow-up with pulmonary as an outpatient.
EMMY Resolved EMMY. Creatinine back to baseline.
hyponatremia- normalized
Moderate protein calorie malnutrition
- platen press operator consult
Hypothyroidism
-on levothyroxine
- recent TSH normal.
Hyperlipidemia
- on atorvastatin.
Dementia, likely Alzheimer's type -watch for delirium and agitation in the hospital.
DVT Px: on Eliquis
Code: DNR established on admission
PT OT eval
DC home today if okay from cardiology standpoint.
Anticipated Discharge: Today
Subjective/Interval History
-
Date of Service: January 08, 2024
feels okay today.
In sinus rhythm. Denies any chest pain or shortness of breath today. No nausea vomiting.
Denies any dizziness.
Pt off of oxgen.
Objective Data
-
Labs:
Laboratory Results
01/08/24
03:57
WBC 13.4 H
Hgb 10.7 L
Hct 31.7 L
Plt Count 712 H
Vital Signs:
Vital Signs
Temp Pulse Resp BP Pulse Ox
97.8 F 91 16 131/63 99
01/08/24 07:20 01/08/24 08:53 01/08/24 08:00 01/08/24 08:53 01/08/24 08:00
I&O
01/07/24 01/08/24 01/09/24
06:59 06:59 06:59
Intake Total 650 / 650 120 / 120
Output Total 350 / 350
Balance 300 / 300 120 / 120
Review of Systems
-
Constitutional: Denies Fever
EENT: Denies Sore Throat
Abdomen/GI: Denies Abdominal Pain, Nausea or Vomiting
Neuro: Denies Dizzy
Physical Exam
-
General: No Apparent Distress
HEENT: Moist Mucous Membranes
Respiratory: Decreased Breath Sounds (In left base)
Musculoskeletal: Edema, Right Lower Extrem and Edema, Left Lower Extrem
Neuro: AO x 3
Psych: Calm; Negative Confused
Data Reviewed
-
Labs: Labs Reviewed by me
--- NOTE | 2024-01-08 11:44 | PTCARENOTE ---
Pt rec'd from cool roofing installer RN, anxious and sl tearful, stated she feels like she can't catch her breath, sats remain stable high 90's -100% on 0.5L, weaned off O2 to room air, assisted oob to use commode and sit in chair till approx 11 am then asking
to get back to bed. Pt more relaxed as morning went on. Pt with limited appetite, voiding small amounts malodorous urine PRN. Lung sounds auscultated posteriorly and scatt coarse t/o left side noted. Will discuss plan with Dr. Jung upon rounds.
--- NOTE | 2024-01-08 11:57 | PTCARENOTE ---
Attending plan noted-poss dc home today with followup as outpatient with pulm. Awaiting cards clearance.
--- NOTE | 2024-01-08 12:46 | PTCARENOTE ---
pt assisted to bathroom, +large negrete BM, now seated back into chair for lunch. Poss dc later today.
--- NOTE | 2024-01-08 15:28 | CM ---
CM reviewed chart- anticipated dc noted pending lactation consultant sign off
Call to dtr with update- she requested DME to be coordinated through [employer]
Call to [facility]- awaiting pt to pay copayment for DMEs
Dtr provided call-in number to provide payment [phone] $27.05
Home O2 eval completed and pt qualifies for 2 L on ambulation
Discussion with PT/OT later in the day and SNF recommended
Pt noted concern with being home by herself during day as dtr works
Discussion with dtr and she is requesting pt return to [facility]
In agreement with backup referrals to [facility], [facility], [facility]
Referrals and [facility] sent via [facility]
Pt will require auth for SNF
Discharge Disposition- SNF pending auth
--- NOTE | 2024-01-08 16:21 | PTCARENOTE ---
Pt's daughter at bedside, tells this RN she would rather take patient home that have her go to SNF. She is requesting to discuss with attending Dr. Jung, tt sent to notify him.
--- NOTE | 2024-01-08 20:14 | PTCARENOTE ---
Received pt at change of shift. Pt OOB to chair and a 1 assist to get back in bed. Hygiene care provided. Pt appears QUARLES and at rest. Pulse ox in the mid 90s on RA. Pt very forgetful and repeats questions within minutes of one another; states
she does not do well when she's in the hospital. Bed alarm on. Resting in bed with call green in reach.
[2024-01-08] MEDS: REMERON ODT 15 MG PO (23:07)
[2024-01-08] MEDS: LIPITOR 40 MG PO (23:07)
[2024-01-09] VITALS (12 sets, daily range): BP systolic 88–168; BP diastolic 72–90; BMI 15.9
[2024-01-09] MEDS: SYNTHROID 100 MCG PO (06:27)
[2024-01-09] MEDS: PACERONE 200 MG PO (09:34)
[2024-01-09] MEDS: TOPROL XL 25 MG PO ×2 (09:34→21:28)
[2024-01-09] MEDS: MAG-TAB SR 84 MG PO (09:34)
[2024-01-09] MEDS: ELIQUIS 2.5 MG PO ×2 (09:34→21:28)
[2024-01-09] MEDS: COLCHICINE 0.299999999999999989 MG PO (09:34)
--- NOTE | 2024-01-09 11:48 | CM ---
Patient from [facility] with Hx dementia with Dx Afib with RVR s/p cardioversion, B/l pleural effusion s/p thoracentesis, Moderate protein calorie malnutrition. Home O2 Assessment done yesterday - 2L O2 with ambulation. PT & OT 01/07 recommend
skilled rehab.
Message from Dr Jung; patient may likely be ready for d/c tomorrow.
Spoke with patient's daughter Taryn; she plans on having patient return home tomorrow and daughter will be staying with her for the next few days. Daughter is meeting with [facility] today to set up caregivers for daytime (4 hrs/day 5
days/week) while daughter is at work, and daughter can be with her in the evening. Daughter is aware of patient's mobility as per PT/OT yesterday.
Daughter is expecting delivery from [facility] today with home O2, RW, w/c & raised toilet seat.
Daughter aware [facility] V[facility] is in place.
Spoke with Fabiola Nunez; provided clinical update and anticipated d/c date tomorrow.
Message to Shari PT & Agnes OT; patient going home tomorrow with VN & caregivers, may be helpful if she could be seen one more time today or tomorrow to see if she can improve her mobility.
Plan follow up with daughter tomorrow to confirm delivery home O2 & other DME.
Plan probable home tomorrow with Home O2 & other DME, with [facility] BRAY, with [facility] caregivers, with daughter.
--- NOTE | 2024-01-09 12:13 | W.PN.HOSP.TC ---
Today's Communication/Plan
-
Right thoracentesis-diagnostic and therapeutic
Check urinalysis
Follow white count
Assessment / Plan
Assessment / Plan
Recurrent fast AF while on Amiodarone,
on eliquis; per staff at [facility]) they were going to change his diltiazem 120 ER to 30 mg IR twice daily however that medication change was never started since she came to hospital.
- S/p electrical cardioversion 01/06-remains in sinus rhythm
- cont. Amiodarone ;off of dilt gtt
- on metoprolol: escalade to 25 mg BID
- cont. eliquis
- Echo without recurrence of pericardial effusion, EF 60 to 65%.
cardiology following
HX Pericardial effusion s/p pericardia drainage and removal on last admission
LVEF 55-60 and Nl RV size and function as of 12/19/23 [facility]
- cont. Colchicine
B/l pleural effusion
s/p IR thora- 1000ml removed
Exudative by protein criteria
Most recent chest CT starting on this month Showed small bilateral lung nodules. She is known to have lung cancer status post right upper lobectomy. She states she has not followed with anybody since then.
Await cytology of the left pleural effusion.
appreciate pulmonary input regarding lung nodules and pleural effusion-diagnostic consideration and follow-up plan noted. Follow-up with pulmonary as an outpatient.
Need home o2 assessments prior to DC
Shortness of breath-repeat chest x-ray shows no small to moderate right pleural effusion. Will attempt to tamponade pleural effusion and follow the symptom of shortness of breath. Weight has been stable, check a BNP and if elevated consider
Lasix.
Leukocytosis without fevers - Denies GI/ symptoms. Will check the right pleural fluid for pH and culture. Check UA. Follow off of abx.
EMMY Resolved EMMY. Creatinine back to baseline.
hyponatremia- normalized
Moderate protein calorie malnutrition
- florist consult
Hypothyroidism
-on levothyroxine
- recent TSH normal.
Hyperlipidemia
- on atorvastatin.
Dementia, likely Alzheimer's type -watch for delirium and agitation in the hospital.
DVT Px: on Eliquis
Code: DNR established on admission
DW daughter yesterday on the phone-once medically stable she wants to take her home and she is going to help her out next few days.
Total time spent on today's encounter was 52 minutes which included time spent in counseling the patient/family regarding diagnosis and treatment plan as listed above, goals of care, and symptom management. Case was discussed with nursing staff,
specialists, and care coordinators/case management. All labs and imaging personally reviewed by me. Remainder the time spent in detailed review of previous records, lab data, imaging, and other medical provider documentation.
Anticipated Discharge: 24 - 48 hours
Subjective/Interval History
-
Date of Service: January 09, 2024
Complains of shortness of breath. Present at rest. No fever or chills.. Not much of cough. No chest pain.
No nausea or vomiting.
Objective Data
-
Vital Signs:
Vital Signs
Temp Pulse Resp BP Pulse Ox
98.4 F 81 16 145/82 93
01/09/24 11:06 01/09/24 04:00 01/09/24 04:00 01/09/24 04:00 01/09/24 04:00
I&O
01/08/24 01/09/24 01/10/24
06:59 06:59 06:59
Intake Total 120 / 120 240 / 240
Output Total 250 / 250
Balance 120 / 120 -10 / -10
Review of Systems
-
Abdomen/GI: Denies Abdominal Pain, Nausea, Vomiting or Diarrhea
Genitourinary: Denies Dysuria or Frequency
Neuro: Denies Dizzy or Headache
Physical Exam
-
Respiratory: Non Labored Respirations and Decreased Breath Sounds (AT R BASE); Negative Accessory Resp Muscle Use
Cardiac: Regular Rhythm and S1/S2
GI: Soft
Musculoskeletal: Edema, Right Lower Extrem and Edema, Left Lower Extrem
Neuro: AO x 3
Psych: Calm; Negative Confused
Data Reviewed
-
Labs: Labs Reviewed by me
[2024-01-09] MEDS: ZOFRAN 4 MG IV ×2 (12:29→18:37)
--- NOTE | 2024-01-09 12:52 | PTCARENOTE ---
pt c/o nausea, denies any other symptoms. prn zofran administered with relief. 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
[2024-01-09 14:58] LABS: Body Fluid LDH 108 U/L; Body Fluid Protein 2.9 g/dl
[2024-01-09] MEDS: REMERON ODT 15 MG PO (21:28)
[2024-01-09] MEDS: LIPITOR 40 MG PO (21:28)
[2024-01-10] VITALS (30 sets, daily range): BP systolic 88–151; BP diastolic 55–96; PULSE 94; O2SAT 96; BMI 16.0
[2024-01-10 01:37] LABS: ANA, IgG Reflex to HEp-2 None Detected (None Detected)
[2024-01-10 01:45] LABS: CCP Antibody IgG/IgA 2 Units (0-19)
[2024-01-10] MEDS: SYNTHROID 100 MCG PO (05:23)
[2024-01-10 05:43] LABS: Hemoglobin 11.6 g/dL (12.0-16.0); Mean Corp Hgb Conc. 33.1 g/dL (33.0-37.0); Mean Corpuscular Volume 84.3 fL (81.0-99.0); Mean Platelet Volume 8.6 fL (7.4-10.4); Platelet Count 615 10^3/uL (130-400); Red Blood Cell Count 4.15 10^6/uL (4.20-5.40); Red Cell Dist. Width 15.7 % (11.5-14.5); White Blood Cell Count 11.3 10^3/uL (4.8-10.8)
[2024-01-10 06:13] LABS: NT-proBNP 3420 pg/ml
[2024-01-10] MEDS: COLCHICINE 0.299999999999999989 MG PO (07:59)
[2024-01-10] MEDS: ELIQUIS 2.5 MG PO ×2 (08:00→20:32)
[2024-01-10] MEDS: MAG-TAB SR 84 MG PO (08:00)
[2024-01-10] MEDS: PACERONE 200 MG PO (08:01)
[2024-01-10] MEDS: TOPROL XL 25 MG PO (08:01)
--- NOTE | 2024-01-10 12:10 | CM ---
Addendum entered by Mckenna Mares RN 01/10/24 15:18:
Spoke with Lindsay, [facility]. They are able to accept the patient on Sat 01/11 once insurance approves. Erica in [place] is working Sun & Sun. They will need a Covid test on Sat 01/11. , Dr Ayala .
Spoke with daughter who agrees to [facility] on Sunday.
Plan SNF auth tomorrow for Sunday.
Addendum entered by Mckenna Mares RN 01/10/24 12:21:
Patient and daughter's SNF preferences are [facility], [facility], [facility]. SNF referrals updated and messages out to [facility] at [facility] and [facility]. [facility] has no available beds.
During discussion with patient, daughter & nurse, concern expressed that patient is nauseated and not eating. Dr Jung and Daya, Director Of Teacher Education aware.
Plan follow up SNF referrals.
Original Note:
Patient from [facility] with Hx dementia with Dx Afib with RVR s/p cardioversion, B/l pleural effusion s/p thoracentesis, Moderate protein calorie malnutrition. Home O2 Assessment today - home O2 not needed.
Met with patient while she was working with PT & OT; therapists expressed that they felt strongly that patient would benefit from SNF for rehab. PT documenting: She has significantly weak gait and poor endurance/activity tolerance. Patient would
be a high falls risk due to weakness and LE buckling with ambulation this session.
Spoke with patient with daughter Taryn on speaker phone and nurse Chetna present; discussed patient's current mobility. Patient and daughter agree to short term rehab again. Their SNF preference
--- NOTE | 2024-01-10 12:26 | PTCARENOTE ---
Patient has very por intake today stating that everything 'tastes like poison'. Notified Dr. Jung. Multiple options for food provided and patient continues to have poor PO intake. Did move her bowels today. Denying nausea today as well.
[2024-01-10] MEDS: ZOFRAN 4 MG IV (12:51)
--- NOTE | 2024-01-10 13:08 | W.PN.HOSP.TC ---
Today's Communication/Plan
-
see above
Assessment / Plan
Assessment / Plan
Recurrent fast AF while on Amiodarone,
on eliquis; per staff at [facility] they were going to change his diltiazem 120 ER to 30 mg IR twice daily however that medication change was never started since she came to hospital.
- S/p electrical cardioversion 01/06-remains in sinus rhythm
- cont. Amiodarone ;off of dilt gtt
- on metoprolol: escalade to 25 mg BID
- cont. eliquis
- Echo without recurrence of pericardial effusion, EF 60 to 65%.
cardiology signed off.
HX Pericardial effusion s/p pericardia drainage and removal on last admission
LVEF 55-60 and Nl RV size and function as of 12/19/23 [facility]
- cont. Colchicine
B/l pleural effusion
s/p IR thora- 1000ml removed
Exudative by protein criteria but not LDH
Most recent chest CT starting on this month Showed small bilateral lung nodules. She is known to have lung cancer status post right upper lobectomy. She states she has not followed with anybody since then.
Await cytology of the left pleural effusion.
appreciate pulmonary input regarding lung nodules and pleural effusion-diagnostic consideration and follow-up plan noted. Follow-up with pulmonary as an outpatient.
Shortness of breath-repeat chest x-ray shows no small to moderate right pleural effusion. Right pleural Right Pleural Shows and it was more than a liter again. BNP is high but lower than admission. She has bilateral lower extremity edema. I
suspect the bilateral pleural effusion may be cardiac related. Continue Lasix.
Poor oral intake with some dysgeusia and nausea -patient on combination of amio which is new to her on this admission on colchicine. I suspect 1 of them is the culprit. Will ask cards to see if i can stop Colchicine . Check LFTs and lipase .
Leukocytosis without fevers - Denies GI/ symptoms. Improving without abx. Check UA. Follow off of abx.
EMMY Resolved EMMY. Creatinine back to baseline.
hyponatremia- normalized
Moderate protein calorie malnutrition
- english faculty member consult
Hypothyroidism
-on levothyroxine
- recent TSH normal.
Hyperlipidemia
- on atorvastatin.
Dementia, likely Alzheimer's type -watch for delirium and agitation in the hospital.
DVT Px: on Eliquis
Code: DNR
PT rec rehab
Will dc home once her oral intake issues are resolved
[facility] who will review her again
[facility] who will review her meds
Anticipated Discharge: Within 24 hours
Subjective/Interval History
-
Date of Service: January 10, 2024
Breathing improved after right thoracentesis.
Off of Oxygen; didnt need O2 with exertion on home O 2 eval today.
Slow improvement in oral intake.
Feels weak and was concerned about going home and not able to do things for herself.
Objective Data
-
Labs:
Laboratory Results
01/10/24
05:33
WBC 11.3 H
Hgb 11.6 L
Hct 35.0 L
Plt Count 615 H
Vital Signs:
Vital Signs
Temp Pulse Resp BP Pulse Ox
98.2 F 90 18 113/79 92
01/10/24 11:35 01/10/24 12:00 01/10/24 12:00 01/10/24 12:00 01/10/24 12:00
I&O
01/09/24 01/10/24 01/11/24
06:59 06:59 06:59
Intake Total 240 / 240 120 / 120
Output Total 250 / 250
Balance -10 / -10 120 / 120
Review of Systems
-
Constitutional: Denies Fever
Cardiac: Denies Chest Pain
Abdomen/GI: Denies Abdominal Pain or Nausea
Neuro: Denies Dizzy
Physical Exam
-
General: No Apparent Distress
HEENT: Moist Mucous Membranes
Respiratory: Clear to Auscultation and Non Labored Respirations; Negative Accessory Resp Muscle Use
Cardiac: Regular Rhythm and S1/S2
GI: Soft
Neuro: AO x 3
Psych: Calm
Data Reviewed
-
Labs: Labs Reviewed by me
--- NOTE | 2024-01-10 13:11 | PTCARENOTE ---
Patient sitting in chair, complaining of nausea. Zofran administered as per doctors orders. Patient did have a bowel movement today. Poor po intake. Nurses ordered lunch and provided Ensure Enlive supplement on ice.
--- NOTE | 2024-01-10 13:32 | W.PN.HOSP.TC ---
Today's Communication/Plan
-
see note above
Assessment / Plan
Assessment / Plan
Recurrent fast AF while on Amiodarone,
on eliquis; per staff at [facility] they were going to change his diltiazem 120 ER to 30 mg IR twice daily however that medication change was never started since she came to hospital.
- S/p electrical cardioversion 01/06-remains in sinus rhythm
- cont. Amiodarone ;off of dilt gtt
- on metoprolol: escalade to 25 mg BID
- cont. eliquis
- Echo without recurrence of pericardial effusion, EF 60 to 65%.
cardiology signed off.
HX Pericardial effusion s/p pericardia drainage and removal on last admission
LVEF 55-60 and Nl RV size and function as of 12/19/23 [facility]
- cont. Colchicine
B/l pleural effusion
s/p IR thora- 1000ml removed
Exudative by protein criteria but not LDH
Most recent chest CT starting on this month Showed small bilateral lung nodules. She is known to have lung cancer status post right upper lobectomy. She states she has not followed with anybody since then.
Await cytology of the left pleural effusion.
appreciate pulmonary input regarding lung nodules and pleural effusion-diagnostic consideration and follow-up plan noted. Follow-up with pulmonary as an outpatient.
Shortness of breath-repeat chest x-ray shows no small to moderate right pleural effusion. Right pleural Right Pleural Shows and it was more than a liter again. BNP is high but lower than admission. She has bilateral lower extremity edema. I
suspect the bilateral pleural effusion may be cardiac related. Continue Lasix.
Poor oral intake with some dysgeusia and nausea -patient on combination of amio which is new to her on this admission on colchicine. I suspect 1 of them is the culprit. Will ask cards to see if i can stop Colchicine . Check LFTs and lipase .
Leukocytosis without fevers - Denies GI/ symptoms. Improving without abx. Check UA. Follow off of abx.
EMMY Resolved EMMY. Creatinine back to baseline.
hyponatremia- normalized
Moderate protein calorie malnutrition
- senior attorney consult
Hypothyroidism
-on levothyroxine
- recent TSH normal.
Hyperlipidemia
- on atorvastatin.
Dementia, likely Alzheimer's type -watch for delirium and agitation in the hospital.
DVT Px: on Eliquis
Code: DNR
PT rec rehab
Will dc home once her oral intake issues are resolved
[facility] who will review her again
[facility] who will review her meds
Anticipated Discharge: 24 - 48 hours
Subjective/Interval History
-
Date of Service: January 10, 2024
Objective Data
-
Labs:
Laboratory Results
01/10/24
05:33
WBC 11.3 H
Hgb 11.6 L
Hct 35.0 L
Plt Count 615 H
Vital Signs:
Vital Signs
Temp Pulse Resp BP Pulse Ox
98.2 F 90 18 113/79 92
01/10/24 11:35 01/10/24 12:00 01/10/24 12:00 01/10/24 12:00 01/10/24 12:00
I&O
01/09/24 01/10/24 01/11/24
06:59 06:59 06:59
Intake Total 240 / 240 120 / 120
Output Total 250 / 250
Balance -10 / -10 120 / 120
--- NOTE | 2024-01-10 13:48 | W.PN.PUL3 ---
Today's Communication / Plan
-
Consider trial of diuresis and if not effective then a trial of prednisone for possible post viral serositis.
Continue to follow final rheumatologic evaluation.
Increase physical activity as tolerated/physical therapy/nutritional support-patient is very deconditioned.
Also malnourished. Her appetite is poor. Reports some nausea with eating. Denies abdominal pain.
Will follow
Assessment
-
83-year-old woman with multiple comorbidities. Recently in the hospital after developed pericardial effusion requiring pericardial window. Negative cytology and cultures pretreatment antibiotics and colchicine. Readmitted with rapid atrial
fibrillation on amiodarone. Palpitations. Found to have worsening left pleural effusion underwent thoracentesis. Also CT scan in early December with tiny lung nodules-we were consulted for evaluation of both.
Bilateral pleural effusions: Left greater than right
Status postthoracentesis 01/04/2024 1 L straw-colored
01/04/2024: pH 7.46/white blood cells 596/88% mononuclear/11% PMNs/glucose 85
Total protein 2.9/LDH 100
Amylase and triglycerides normal
Status post thoracentesis 01/09/2024 on the left
Minimally exudative by protein criteria. LDH not significantly elevated. Glucose is normal. Lymphocytic.
Finding bilateral pulmonary nodules: Unclear etiology. 2-3 mm.
Inflammatory versus less likely malignant.
With lingular bronchiectasis-TROY a possibility.
Conditions present prior admission:
Admission to [facility] 11/2023: Shock due to pericardial effusion and rapid atrial fibrillation.
Status. Post pericardiocentesis
Cultures negative
Cytology negative for malignant cells
Discharged on colchicine
Status post
Dementia with cognitive impairment
Atrial fibrillation/ventricular tachycardia in the setting of pericardial effusion
? COPD-does not have a local billing control clerk
Osteoporosis
HLD,
hypothyroidism,
Hx of lung Ca s/p RUL-lobectomy (5-6 years ago per family),
dementia with memory loss, history of TIA, osteoporosis
PSHx: Hysterectomy, volvulus with small bowel resection, right upper lobe lobectomy for lung cancer, appendectomy
-
Assessment and plan:
-
I was asked to revaluate patient in Dr. Jung 01/10/2024
Still complaining of dyspnea.
On room air.
Repeat chest x-ray 01/09/2024 showed worsening right pleural effusion. Moderate.
Underwent thoracentesis 1 L drained of serous fluid. (01/09/2024)
Total protein 2.9/LDH 108.
-
Bilateral pleural effusions present on prior admission.
Worsened over the weeks post recent DC.
Most recent chest x-ray showed worsening left pleural effusion. Also has small right pleural effusion.
Status postthoracentesis-01/04/2024 exudative.
Doubt any infectious etiology at this point. Cultures negative so far.
Cytology pending: negative
She also recently had pericardial effusion status post pericardiocentesis.
Cytology and cultures negative at that time
On colchicine
Not recurrent on ECHO this admit.
Coxsackie antibodies were elevated-unclear significance.? Post viral.
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
-
Suspect low albumin levels also contributing. last albumin on 01/04/2024 was 2.6. To be repeated today.
-
Rule out some degree of volume as well as proBNP on 01/10/2024 is 3420. Defer to cardiology whether a trial of diuresis may be helpful.
-
Alternatively if continues to be recurrent a trial of prednisone may be worth it.
-
With both pericardial and pleural effusions must rule out connective tissue disease.
so far serology ordered by me negative.
Normal complements.
Suspicion not very high.
-
Normal renal function
Normal liver function
Normal TSH in the recent past
No proteinuria and recent urinalysis
-
Chronic bilateral lower extremity edema. Contributing to symptoms.
Deconditioning. Also contributing to symptoms.
-
proBNP is elevated-3420 ( 01/10/2024) Atrial fibrillation-rate is better controlled: Bilateral pleural effusions may represent cardiogenic component.
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
- echo: Concentric LVH with EF 60-65%. Biatrial enlargement. Aortic sclerosis without stenosis. No recurrence of pericardial effusion. Trace MR, mild TR.
Status post successful cardioversion 01/07/2024.
defer whether a trial of diuresis may be worth it to cardiology. Discussed with Dr. Jung.
Anticoagulation
Cardiology has signed off continue with cardiac management
-
In regards to tiny pulmonary nodules bilaterally on CAT scan from 12/17/2023: Too small to characterize at this point.
With prior history of lung resection malignancy a possibility. Definitely there is no evidence for recurrent lung cancer as there is no dominant lesion.
Inflammatory versus malignant.
To a small for PET scan sensitivity.
With lingular bronchiectasis: Infectious etiology such as TROY is a possibility.
This will need ongoing follow-up with repeat imaging in the outpatient setting.
If patient willing, can follow-up locally. Does not have a local billing control clerk. Information was left on the chart during last admission.
-
? COPD: No details available.
Not bronchospastic on exam
Not on bronchodilators.
-
all patient evaluation recommended in the past. information has been left in the chart.
Dr. Velasco updated daughter on 01/10/2024. Multifactorial shortness of breath including pleural effusion, cardiac disease, anemia and significant deconditioning.

CT chest 12/17/2023: Reviewed
Small pericardial effusion.
Small bilateral pleural effusions.
Many bilateral 2-3 mm solid noncalcified pulmonary nodules.
Moderate lingular bronchiectasis.
No evidence for interstitial lung disease. No abnormal mediastinal masses. No lymphadenopathy.
Abdominal ultrasound 12/18/2023:
Bilateral pleural effusions. Otherwise normal
Echocardiogram 12/18/2023:
LVEF 65-70%
Normal biventricular size and function
Moderate to severe TR.
Pulmonary artery pressure 40 to 45 mmHg.
no recurrent pericardial of
Subjective Data
-
Date of Service:
Date of Service: January 10, 2024
Chief Complaint: Pulmonary Follow Up (Bilateral pleural effusions, tiny pulmonary nodules.)
Subjective:
he continues to report shortness of breath with exertion, none at rest.
Worsening right pleural effusion noted. Status post thoracentesis 01/09/2024.
Denies any cough, phlegm production or wheezing.
Review of Systems
General: Fever (n)
Cardiopulmonary: Dyspnea and Dyspnea on Exertion
Objective Data
Data Reviewed
Vital Signs / I&O / Oxygen:
Vital Signs
Temp Pulse Resp BP Pulse Ox
98.2 F 90 18 113/79 92
01/10/24 11:35 01/10/24 12:00 01/10/24 12:00 01/10/24 12:00 01/10/24 12:00
Intake and Output
01/09/24 01/10/24 01/11/24
06:59 06:59 06:59
Intake Total 240 / 240 120 / 120
Output Total 250 / 250
Balance -10 / -10 120 / 120
SaO2 92
Nasal Cannula flow liters per 2
minute
Physical Exam
General: Respiratory Distress (n) and Other (Cachectic)
HEENT: Normocephalic
Cardiovascular: S1-S2 and Peripheral Edema (2+, bilateral leg wraps.)
Respiratory: Clear and Non-Labored Respirations
GI: Non Distended
Neurology: Awake and Alert
Labs/Micro/Reports
Lab Data
01/10/24 05:33
Microbiology
01/09/24 14:04 Pleural Fluid Body Fluid Culture - Preliminary
No Growth After 18-24 Hours
01/09/24 14:04 Pleural Fluid Gram Stain - Preliminary
01/04/24 10:02 Pleural Fluid Body Fluid Culture - Final
No Growth After 72 Hours
01/04/24 10:02 Pleural Fluid Gram Stain - Final
--- NOTE | 2024-01-10 14:07 | W.PN.CD ---
Addendum entered and electronically signed by Josh Ruano MD 01/10/24 14:51:
I saw and examined the patient.
The SPREADER BOX OPERATOR's note was reviewed and I agree with the note.
Comment: I saw and examined the patient.
The SPREADER BOX OPERATOR's note was reviewed and I agree with the note.
Comment: IV lasix
Addendum entered and electronically signed by MELVI Fagan 01/10/24 14:42:
Of note, there was some question of her taste being off, but she tells me this is chronic and preceded her recently initiated medications.
Original Note:
Today's Communication / Plan
-
-initiate IV lasix and and monitor response
-increase BB and monitor symptoms (see below)
Impression / Plan
-
83-year-old woman with history of memory impairment, lung cancer status postresection/chemo/XRT, COPD, PAF, history of pericardial effusion and pericardiocentesis 12/12/2023 who presents with reported shortness of breath and palpitations. Patient
noted to be in A-fib with RVR on presentation also with pleural effusion and underwent thoracentesis. Patient has been maintained on amiodarone and was also on beta-jw and Cardizem. Amiodarone was initiated on the last hospitalization and she
has had 1 cardioversion in early December.
Pleural effusion -
-s/p thoracentesis L side 1000 ml 01/04/24
-s/p thoracentesis R side 1100 ml 01/09/24
-acute HFpEF seems to be contributing and we will trial IV lasix and monitor response
AFib - recurrent with rapid rates.
-s/p MU/DCCV on 12/19/23 restoring NSR.
-continue amiodarone 200 mg daily
-continue metoprolol
-continue Eliquis
-follow telemetry
Chest discomfort:
-patient chronically has this with exertion, always goes away with rest. Sounds like it could be stable angina. Will advance medical therapy with increasing BB and monitor.
-EKG fine
Pericardial effusion - last admit 12/12/23 with at least some hemodynamic compromise.
-s/p pericardiocentesis for 385 mL of cloudy, straw colored fluid on 12/12/23, pericardial drain removed 12/14/23
-no recurrence on echo
-continue colchicine
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
- echo this admit: Concentric LVH with EF 60-65%. Biatrial enlargement. Aortic sclerosis without stenosis. No recurrence of pericardial effusion. Trace MR, mild TR.
Prior lung cancer - s/p resection.
-eval per IM and pulm here
Subjective:
Feeling fine OOB to chair
Reports some chest pressure with walking today, which is not new for her- plan as above
Physical Exam
Vital Signs/Labs
Vital Signs
Temp Pulse Resp BP Pulse Ox
98.2 F 90 18 113/79 92
01/10/24 11:35 01/10/24 12:00 01/10/24 12:00 01/10/24 12:00 01/10/24 12:00
01/09/24 01/10/24 01/11/24
06:59 06:59 06:59
Actual Weight 44.7 kg 44.9 kg
01/10/24 05:33
01/03/24 01/03/24 01/10/24
18:45 20:52 05:33
Laf-K-Kghrrioqotb Pept 5910 Cancelled [id number]
Physical Exam
Constitutional: No acute distress
EENT: Anicteric
Cardiovascular: Rhythm & rate is regular
Respiratory: Respiratory effort normal and Crackles Present (bases)
Neuro/Psych: Alert and Oriented
Data Reviewed
-
Date of Service: January 10, 2024
EKG: Other (SR)
--- NOTE | 2024-01-10 14:26 | PTCARENOTE ---
After physical therapy patient was complaining of a brief period of chest pressure that resolved quickly. EKG completed, cardiology notified. Patient is now denying chest pain sitting in chair with family at bedside EKG normal sinus.
[2024-01-10 14:32] LABS: Rheumatoid Agglutinin Less Than 10 IU (<10 IU)
[2024-01-10 14:59] LABS: ALT (SGPT) 27 U/L (0-35); AST (SGOT) 49 U/L (14-36); Albumin 2.8 g/dl (3.5-5.0); Alkaline Phosphatase 229 U/L (38-126); Blood Urea Nitrogen 21 mg/dl (7-17); Calcium 8.9 mg/dl (8.4-10.2); Carbon Dioxide 23 mmol/L (22-30); Chloride 103 mmol/L (98-107); Estimated Creatinine Clearance 35 ml/min; Glucose 109 mg/dl (70-99); Potassium 4.3 mmol/L (3.5-5.1); Sodium 135 mmol/L (135-145); Total Bilirubin 0.7 mg/dl (0.2-1.3); Total Protein 5.4 g/dl (6.3-8.2); eGFR > 60.00
[2024-01-10 15:17] LABS: Myeloperoxidase Antibody 0 AU/mL (0-19); Serine Protease-3, IgG 0 AU/mL (0-19)
[2024-01-10] MEDS: LASIX 20 MG IV (15:23)
[2024-01-10 15:34] LABS: Lipase 55 U/L (23-300)
[2024-01-10 16:04] LABS: Jo-1 Antibodies 0 AU/mL (0-40)
[2024-01-10 16:35] LABS: Urine Albumin Negative (Neg - Trace); Urine Bilirubin Negative (Negative); Urine Character Clear (Clear); Urine Color Yellow; Urine Glucose Negative (Negative); Urine Ketone Negative (Negative); Urine Leukocyte 2+ (Negative); Urine Nitrite Negative (Negative); Urine Occult Blood 2+ (Negative); Urine Specific Gravity 1.015 (<1.030); Urine Urobilinogen Negative (Neg - 1+)
[2024-01-10 17:05] LABS: Urine Red Blood Cell 0-2 /HPF (0-2)
[2024-01-10 17:06] LABS: Urine White Cell 21-25 /HPF (0-5)
[2024-01-10 17:07] LABS: Urine Bacteria Many (Negative)
--- NOTE | 2024-01-10 17:51 | PTCARENOTE ---
After patient was transferred back to bed her heart rate increased into the 130s and patient became anxious. EKG completed, and confirmed Afib with RVR @130. Dr. Dukes notified.
[2024-01-10] MEDS: CORDARONE 103 MG IV (18:14)
--- NOTE | 2024-01-10 18:23 | PTCARENOTE ---
Amiodarone drip initiated per protocol. New iv placed, vital signs every 15x2. Afib at 129 at this time, . Patient educated about plan of care, verbalized understanding.
[2024-01-10] MEDS: CORDARONE 518 MG IV (18:36)
[2024-01-10] MEDS: LIPITOR 40 MG PO (20:32)
[2024-01-10] MEDS: REMERON ODT 15 MG PO (20:32)
[2024-01-10] MEDS: TOPROL XL PO (20:49)
[2024-01-10] MEDS: NSS 250 IV (21:04)
[2024-01-10] MEDS: TOPROL XL 50 MG PO (21:11)
[2024-01-10 22:02] LABS: Magnesium 1.8 mg/dl (1.6-2.3)
--- NOTE | 2024-01-10 22:30 | PTCARENOTE ---
Received pt at change of shift. Amio gtt running at 1 mg/min in new PIV. HR remains in the 130s. SBP dropping to the 90s. Notified BOILERMAKER ASSEMBLY AND ERECTIONFRANKIE Grigsby. 250 ml IV bolus ordered and administered. HS dose of 50 mg metoprolol xl given per BOILERMAKER ASSEMBLY AND ERECTION. Cardiology
notified - if SBP drops below 90, Amio to be turned off. Pt to remain NPO after midnight. Resting in bed with call green in reach.
[2024-01-11] VITALS (37 sets, daily range): BP systolic 55–128; BP diastolic 44–93; BMI 15.6
[2024-01-11] MEDS: SYNTHROID 100 MCG PO (06:07)
--- NOTE | 2024-01-11 06:42 | W.PN.UPDATE ---
Update Note
Progress Note Update
Amiodorone infusion started last evening with minimal effect on HR (went from 130s-110s) Systolic bp dropped this morning into 70s. will add IVF bolus. Cardiology aware and cardioversion to be scheduled this am.
[2024-01-11] MEDS: NSS 500 IV (06:43)
[2024-01-11 06:52] LABS: Blood Urea Nitrogen 20 mg/dl (7-17); Calcium 8.2 mg/dl (8.4-10.2); Carbon Dioxide 25 mmol/L (22-30); Chloride 104 mmol/L (98-107); Estimated Creatinine Clearance 34 ml/min; Glucose 100 mg/dl (70-99); Sodium 132 mmol/L (135-145); eGFR > 60.00
--- NOTE | 2024-01-11 07:12 | PTCARENOTE ---
BP dropped to 73/53 with HR in the 110s. Notified BOARD LINER OPERATOR. Amio gtt stopped per cardiology since SBP dropped below 90. 500 ml bolus ordered and administered over 30 minutes. BP came up to 103/66.
[2024-01-11] MEDS: PACERONE 200 MG PO (07:56)
[2024-01-11] MEDS: MAG-TAB SR 84 MG PO (07:56)
[2024-01-11] MEDS: ELIQUIS 2.5 MG PO ×2 (07:56→20:17)
[2024-01-11] MEDS: TOPROL XL PO (07:57)
--- NOTE | 2024-01-11 08:08 | W.PN.CD ---
Today's Communication / Plan
-
-Patient given Lasix yesterday, but went back into A-fib with RVR and developed hypotension.
-Given IV fluid bolus.
-Will discontinue Lasix.
-Given amiodarone 150 IV bolus yesterday, then drip started but subsequently discontinued due to hypotension.
-Continue Eliquis; has had no missed doses since undergoing MU/cardioversion on 01/07/24.
-Will arrange repeat cardioversion this a.m.; currently NPO.
Impression / Plan
-
83-year-old woman with history of memory impairment, lung cancer status postresection/chemo/XRT, COPD, PAF, history of pericardial effusion and pericardiocentesis 12/12/2023 who presents with reported shortness of breath and palpitations. Patient
noted to be in A-fib with RVR on presentation also with pleural effusion and underwent thoracentesis. Patient has been maintained on amiodarone and was also on beta-jw and Cardizem. Amiodarone was initiated on the last hospitalization and she
has had 1 cardioversion in early December.
Pleural effusion -
-s/p thoracentesis L side 1000 ml 01/04/24
-s/p thoracentesis R side 1100 ml 01/09/24
-Patient given Lasix yesterday, but went back into A-fib with RVR and developed hypotension.
-Given IV fluid bolus.
-Will discontinue Lasix.
AFib -
-s/p MU/DCCV on 12/19/23 restoring NSR, but now back in A-fib with RVR.
-Given amiodarone 150 IV bolus yesterday, then drip started but subsequently discontinued due to hypotension.
-Continue amiodarone 200 mg daily
-Continue metoprolol succinate 50 mg BID.
-Continue Eliquis; has had no missed doses since undergoing MU/cardioversion on 01/07/24.
-Will arrange repeat cardioversion this a.m.; currently NPO.
-Continue equipment monitor phototypesetting.
Pericardial effusion - last admit 12/12/23 with at least some hemodynamic compromise.
-s/p pericardiocentesis for 385 mL of cloudy, straw colored fluid on 12/12/23, pericardial drain removed 12/14/23
-no recurrence on echo
-continue colchicine
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
- echo this admit: Concentric LVH with EF 60-65%. Biatrial enlargement. Aortic sclerosis without stenosis. No recurrence of pericardial effusion. Trace MR, mild TR.
Prior lung cancer - s/p resection.
-eval per IM and pulm here
Subjective:
Patient went back into atrial fibrillation with RVR yesterday.
Physical Exam
Vital Signs/Labs
Vital Signs
Temp Pulse Resp BP Pulse Ox
97.5 F 112 15 81/63 93
01/11/24 05:18 01/11/24 06:48 01/11/24 06:48 01/11/24 06:48 01/11/24 06:48
01/10/24 01/11/24 01/12/24
06:59 06:59 06:59
Actual Weight 44.9 kg 43.8 kg
01/10/24 05:33
01/11/24 06:26
Magnesium 1.8 mg/dl (1.6-2.3) 01/10/24 14:14
01/03/24 01/03/24 01/10/24
18:45 20:52 05:33
Kym-W-Mjswirmuzmc Pept 5910 Cancelled 3420
Physical Exam
Constitutional: No acute distress and Comfortable
EENT: Anicteric
Cardiovascular: Systolic murmur absent, Rhythm/rate is irregular, Pedal edema present (1+) and S1S2 is normal
Respiratory: Respiratory effort normal and Lungs clear to auscul.
GI: Soft
Neuro/Psych: AO x 3
Other: Skin (Warm, dry, intact)
Data Reviewed
-
Date of Service: January 11, 2024
EKG: Tracing Personally Visualized and interpreted (Telemetry: A-fib)
Medical Tests (PFT, Pathology etc): Discussed with Physician, Discussed with Nurse and Discussed with Patient
Labs: Labs Reviewed by me
--- NOTE | 2024-01-11 10:22 | CM ---
Patient from [facility] with Hx dementia with Dx Afib with RVR s/p cardioversion, B/l pleural effusion s/p thoracentesis, Moderate protein calorie malnutrition. Plan cardioversion today. Receiving IV Amiodarone. PT & OT 01/09 recommend
skilled rehab.
Spoke with Bell, [facility] Insurance; initiated SNF auth for [facility] for tomorrow ( , Dr Ayala ). They require updated therapy notes from today or tomorrow for SNF auth for tomorrow, therefore the request for auth
is pended. Pended auth # [id number]. cannot submit clinical info at this time. The next step is another phone call to [facility]- if on the weekend the answering service needs to be contacted at [phone] and call will be transferred to the
Weekend Communication Center.
Message to Maty PT & Agnes OT updated therapy notes will be needed when medically appropriate.
Per CM notes yesterday, [facility] is accepting the patient on Sat 01/11 once insurance approves. Erica in [place] is working Sun & Sun. They will need a Covid test on Sat 01/11.
Plan SNF auth once updated therapy notes are available, for possible d/c Sat 01/11.
--- NOTE | 2024-01-11 10:33 | W.PN.PUL3 ---
Today's Communication / Plan
-
Cardioversion later today
Continue with management for heart failure, rate control
Continue colchicine
If continues to have recurrent effusions, may need to consider course of steroids. Hold for now
Eventual outpatient follow-up/repeat CT chest with pulmonary follow-up
Will follow
Assessment
-
83-year-old woman with multiple comorbidities. Recently in the hospital after developed pericardial effusion requiring pericardial window. Negative cytology and cultures pretreatment antibiotics and colchicine. Readmitted with rapid atrial
fibrillation on amiodarone. Palpitations. Found to have worsening left pleural effusion underwent thoracentesis. Also CT scan in early December with tiny lung nodules-we were consulted for evaluation of both.
Bilateral pleural effusions: Left greater than right
Status postthoracentesis 01/04/2024 1 L straw-colored
01/04/2024: pH 7.46/white blood cells 596/88% mononuclear/11% PMNs/glucose 85
Total protein 2.9/LDH 100
Amylase and triglycerides normal
Status post thoracentesis 01/09/2024 on the left
Minimally exudative by protein criteria. LDH not significantly elevated. Glucose is normal. Lymphocytic.
Finding bilateral pulmonary nodules: Unclear etiology. 2-3 mm.
Inflammatory versus less likely malignant.
With lingular bronchiectasis-TROY a possibility.
Conditions present prior admission:
Admission to [facility] 11/2023: Shock due to pericardial effusion and rapid atrial fibrillation.
Status. Post pericardiocentesis
Cultures negative
Cytology negative for malignant cells
Discharged on colchicine
Status post
Dementia with cognitive impairment
Atrial fibrillation/ventricular tachycardia in the setting of pericardial effusion
? COPD-does not have a local novelty balloon assembler and packer
Osteoporosis
HLD,
hypothyroidism,
Hx of lung Ca s/p RUL-lobectomy (5-6 years ago per family),
dementia with memory loss, history of TIA, osteoporosis
PSHx: Hysterectomy, volvulus with small bowel resection, right upper lobe lobectomy for lung cancer, appendectomy
Assessment and plan:
Patient presently on room air
Recurrent bilateral effusions noted
Essentially transudate
Reviewed films. Bilateral effusions, new when compared to 1 year ago
There may be some mild calcifications and pleural thickening at the base per CT imaging, suggesting chronicity
Intermittent hypotension, atrial fibrillation, rate control issues noted
Plan for cardioversion later today
Moving forward
At this time, bland appearing pleural effusions noted, cytology negative
Suspect this is primarily due to combination of heart failure (diastolic function, tachycardia?) vs viral serositis (positive coxsackie antibodies noted)
TSH normal, urinalysis normal, liver function normal, kidney function normal
Patient also has low albumin and 2+ lower extremity edema
Plan to reassess after cardioversion
Remains on colchicine therapy
May need to consider steroid therapy in the next 24 to 48 hours. Serologies are negative
Less likely inflammatory process related to connective tissue disease
Cardiology following
In and out of atrial fibrillation, plan for repeat cardioversion today
Amiodarone has been held due to hypotension
Continue with rate control management per cardiology, anticoagulation per cardiology
Hypotension may preclude ability to further diuresis at this time
In regards to tiny pulmonary nodules bilaterally on CAT scan from 12/17/2023: Too small to characterize at this point.
With prior history of lung resection malignancy a possibility. Definitely there is no evidence for recurrent lung cancer as there is no dominant lesion.
Inflammatory versus malignant.
To a small for PET scan sensitivity.
With lingular bronchiectasis: Infectious etiology such as TROY is a possibility.
This will need ongoing follow-up with repeat imaging in the outpatient setting.
If patient willing, can follow-up locally. Does not have a local novelty balloon assembler and packer. Information was left on the chart during last admission.
? COPD: No details available.
Not bronchospastic on exam
Not on bronchodilators.
Chest exam is clear
Dr. Velasco updated daughter on 01/10/2024. Multifactorial shortness of breath including pleural effusion, cardiac disease, anemia and significant deconditioning.
I reviewed with primary service

CT chest 12/17/2023: Reviewed
Small pericardial effusion.
Small bilateral pleural effusions.
Many bilateral 2-3 mm solid noncalcified pulmonary nodules.
Moderate lingular bronchiectasis.
No evidence for interstitial lung disease. No abnormal mediastinal masses. No lymphadenopathy.
Abdominal ultrasound 12/18/2023:
Bilateral pleural effusions. Otherwise normal
Echocardiogram 12/18/2023:
LVEF 65-70%
Normal biventricular size and function
Moderate to severe TR.
Pulmonary artery pressure 40 to 45 mmHg.
no recurrent pericardial of
Subjective Data
-
Date of Service:
Date of Service: January 11, 2024
Chief Complaint: Pulmonary Follow Up (Bilateral pleural effusions, tiny pulmonary nodules.)
Subjective:
Patient is without complaints at this time, on room air. She does have some mild shortness of breath, mild back discomfort, mild dry cough. Denies nausea. She also describes some mild abdominal discomfort. She feels like she is ready for a bowel
movement. Not passing gas. Comfortable and conversant. Mild lightheadedness with out of bed to chair and marginal blood pressure noted per nursing
Objective Data
Data Reviewed
Vital Signs / I&O / Oxygen:
Vital Signs
Temp Pulse Resp BP Pulse Ox
97.1 F 112 15 81/63 93
01/11/24 07:12 01/11/24 06:48 01/11/24 06:48 01/11/24 06:48 01/11/24 06:48
Intake and Output
01/10/24 01/11/24 01/12/24
06:59 06:59 06:59
Intake Total 180 / 180
Output Total 950 / 950 250 / 250
Balance -770 / -770 -250 / -250
SaO2 93
Nasal Cannula flow liters per 2
minute
Physical Exam
General: Comfortable and Other (Cachectic)
HEENT: Normocephalic and Anicteric
Cardiovascular: S1-S2, Regular Rhythm, Murmur (n), Rub (n) and Peripheral Edema (2+)
Respiratory: Clear, Wheeze (n), Crackles (n), Non-Labored Respirations and Other (Decreased at base)
GI: Soft, Non Distended and Tender (Mild s periumbilical, no rebound or guarding)
Neurology: Awake, Alert and No Motor Deficits (Able to sit up without assistance)
Skin: Good Color, Cyanosis (n), Jaundice (n) and Rash (n)
Labs/Micro/Reports
Lab Data
01/10/24 05:33
01/11/24 06:26
Microbiology
01/09/24 14:04 Pleural Fluid Body Fluid Culture - Preliminary
No Growth After 18-24 Hours
01/09/24 14:04 Pleural Fluid Gram Stain - Preliminary
--- NOTE | 2024-01-11 11:02 | W.PN.HOSP.TC ---
Today's Communication/Plan
-
continue hold colchicine.
For electrical cardioversion today.
Assessment / Plan
Assessment / Plan
Recurrent fast AF while on Amiodarone,
on eliquis; per staff at [facility] they were going to change his diltiazem 120 ER to 30 mg IR twice daily however that medication change was never started since she came to hospital.
- S/p electrical cardioversion 01/06- converted to sinus rhythm but last night she went into rapid A-fib needing amnio gtt. For electrical cardioversion as the blood pressure is on the lower side.
- cont. Amiodarone
- on metoprolol: escalade to 25 mg BID
- cont. eliquis
- Echo without recurrence of pericardial effusion, EF 60 to 65%.
cardiology following
HX Pericardial effusion s/p pericardia drainage and removal on last admission
LVEF 55-60 and Nl RV size and function as of 12/19/23 MU
- On Colchicine - holding for next couple of days to see if nausea is sec to it. According to daughter she has nausea predating this admission .
B/l pleural effusion
s/p BL thora of ~ 1l of fluid
Exudative by protein criteria but not LDH
Most recent chest CT starting on this month Showed small bilateral lung nodules. She is known to have lung cancer status post right upper lobectomy. She states she has not followed with anybody since then.
Neg cytology of the left pleural effusion.
appreciate pulmonary input regarding lung nodules and pleural effusion-diagnostic consideration and follow-up plan noted. Follow-up with pulmonary as an outpatient.
On diuretics for possible CHF
Shortness of breath- Patient has bilateral pleural effusions. BNP is high but lower than admission. She has bilateral lower extremity edema. I suspect the bilateral pleural effusion may be cardiac related/ Acute diastolic CHF. Continue Lasix.
Poor oral intake with some dysgeusia and nausea -patient on combination of amio and colchicine. I suspect colchicine may be a culprit. According to the daughter yesterday she was having persistent nausea even at rehab after discharge from
recent admission for pericardial effusion. Going to hold colchicine for couple of days and nausea resolves that explains it is all med related.
Mild AST/Alk phos chronic elevation -follow for now
Leukocytosis without fevers - Denies GI/ symptoms. Improving without abx. Ucx pending-pt without symtoms. Follow off of abx.
EMMY Resolved EMMY. Creatinine back to baseline.
hyponatremia- normalized
Moderate protein calorie malnutrition
- health unit coordinator consult
Hypothyroidism
-on levothyroxine
- recent TSH normal.
Hyperlipidemia
- on atorvastatin.
Dementia, likely Alzheimer's type -watch for delirium and agitation in the hospital.
DVT Px: on Eliquis
Code: DNR
PT rec rehab
Will dc home once her oral intake issues are resolved
DW Pulm today and he would review data on pleural effusions
DW Cards today -for CV today
Anticipated Discharge: 24 - 48 hours
Subjective/Interval History
-
Date of Service: January 11, 2024
Feels weak and tired.
Objective Data
-
Labs:
Laboratory Results
01/11/24
06:26
Sodium 132 L
Potassium 4.0
Chloride 104
Carbon Dioxide 25
BUN 20 H
Creatinine 0.9
Glucose 100 H
Calcium 8.2 L
Vital Signs:
Vital Signs
Temp Pulse Resp BP Pulse Ox
97.1 F 112 15 81/63 95
01/11/24 07:12 01/11/24 06:48 01/11/24 06:48 01/11/24 06:48 01/11/24 10:41
I&O
01/10/24 01/11/24 01/12/24
06:59 06:59 06:59
Intake Total 180 / 180
Output Total 950 / 950 250 / 250
Balance -770 / -770 -250 / -250
Review of Systems
-
Respiratory: Reports Trouble Breathing (Improved post thoracentesis on the right side)
Cardiac: Denies Chest Pain
Abdomen/GI: Denies Abdominal Pain or Nausea
Neuro: Reports Dizzy (with transfers out of bed)
Physical Exam
-
General: No Apparent Distress
HEENT: Moist Mucous Membranes
Respiratory: Clear to Auscultation
Cardiac: Regular Rhythm and S1/S2
GI: Soft
Neuro: AO x 3
Psych: Calm
Data Reviewed
-
Labs: Labs Reviewed by me
--- NOTE | 2024-01-11 11:40 | ITS.CL.CARDI ---
[facility] - Cardioversion
Cardioversion
Procedure Report:
Date of Procedure:
Procedure: Cardioversion
Indication: Symptomatic atrial fibrillation
Performing Physician: Finn Latif MD
Technique: The patient was brought to the holding area. Signed informed consent was obtained. A time out was called and performed. The patient was anesthetized by the anesthesia service. Anticoagulation status was reviewed and appropriate. R2 pads
were placed anteriorly and posteriorly. A 200 J synchronized biphasic shock restored normal sinus rhythm without significant bradycardia. There were no complications.
Conclusion: Uncomplicated cardioversion from atrial fibrillation to sinus rhythm.
Recommendation: Routine post cardioversion care. Continue residential anticoagulation.
--- NOTE | 2024-01-11 12:56 | PTCARENOTE ---
this am pt oob to use bedside commode and c/o dizziness, bps running low this am. pt returned to bed. hospitalist made aware. pt off floor for cardioversion and is now back in room. sinus rythym on monitor most recent bp 107/69.
[2024-01-11] MEDS: ZOFRAN 4 MG IV (18:33)
--- NOTE | 2024-01-11 19:00 | PTCARENOTE ---
Cannot verify accuracy of captured vital signs prior to 1900.
[2024-01-11] MEDS: TOPROL XL 50 MG PO (20:17)
[2024-01-11] MEDS: REMERON ODT 15 MG PO (20:18)
[2024-01-11] MEDS: LIPITOR 40 MG PO (20:19)
--- NOTE | 2024-01-11 23:56 | PTCARENOTE ---
Assumed care of patient at 1900. Nursing assessment completed and as documented. Patient remains in NSR denies CP/palpitations. Repositioned for comfort. VSS, call green within reach, care ongoing.
[2024-01-12] VITALS (22 sets, daily range): BP systolic 109–138; BP diastolic 62–94; PULSE 77; O2SAT 95; BMI 15.7
[2024-01-12] MEDS: SYNTHROID 100 MCG PO (05:29)
[2024-01-12 06:01] LABS: Hematocrit 37.1 % (37.0-47.0); Hemoglobin 11.9 g/dL (12.0-16.0); Mean Corp Hgb Conc. 32.1 g/dL (33.0-37.0); Mean Corpuscular Hgb 27.7 pg (27.0-31.0); Mean Corpuscular Volume 86.5 fL (81.0-99.0); Mean Platelet Volume 9.2 fL (7.4-10.4); Platelet Count 578 10^3/uL (130-400); Red Blood Cell Count 4.29 10^6/uL (4.20-5.40); Red Cell Dist. Width 15.6 % (11.5-14.5); White Blood Cell Count 11.5 10^3/uL (4.8-10.8)
[2024-01-12 06:29] LABS: Blood Urea Nitrogen 20 mg/dl (7-17); Calcium 8.7 mg/dl (8.4-10.2); Carbon Dioxide 22 mmol/L (22-30); Chloride 104 mmol/L (98-107); Estimated Creatinine Clearance 31 ml/min; Glucose 74 mg/dl (70-99); Potassium 3.9 mmol/L (3.5-5.1); Sodium 135 mmol/L (135-145)
[2024-01-12] MEDS: MAG-TAB SR 84 MG PO (09:11)
[2024-01-12] MEDS: PACERONE 200 MG PO (09:11)
[2024-01-12] MEDS: TOPROL XL 50 MG PO ×2 (09:12→20:33)
[2024-01-12] MEDS: ELIQUIS 2.5 MG PO ×2 (09:12→20:34)
--- NOTE | 2024-01-12 10:39 | W.PN.PUL3 ---
Today's Communication / Plan
-
Stable on RA, no new complaints
Doing well post thora, diuresis per team
s/p CV, cards following
Outpatient pulmonary FU recommended for nodules
Dispo planning per team
We will sign off at this time, please call with questions
Assessment
-
83-year-old woman with multiple comorbidities. Recently in the hospital after developed pericardial effusion requiring pericardial window. Negative cytology and cultures pretreatment antibiotics and colchicine. Readmitted with rapid atrial
fibrillation on amiodarone. Palpitations. Found to have worsening left pleural effusion underwent thoracentesis. Also CT scan in early December with tiny lung nodules-we were consulted for evaluation of both.
Bilateral pleural effusions: Left greater than right
Status postthoracentesis 01/04/2024 1 L straw-colored
01/04/2024: pH 7.46/white blood cells 596/88% mononuclear/11% PMNs/glucose 85
Total protein 2.9/LDH 100
Amylase and triglycerides normal
Status post thoracentesis 01/09/2024 on the left
Minimally exudative by protein criteria. LDH not significantly elevated. Glucose is normal. Lymphocytic.
Finding bilateral pulmonary nodules: Unclear etiology. 2-3 mm.
Inflammatory versus less likely malignant.
With lingular bronchiectasis-TROY a possibility.
Conditions present prior admission:
Admission to [facility] 11/2023: Shock due to pericardial effusion and rapid atrial fibrillation.
Status. Post pericardiocentesis
Cultures negative
Cytology negative for malignant cells
Discharged on colchicine
Status post
Dementia with cognitive impairment
Atrial fibrillation/ventricular tachycardia in the setting of pericardial effusion
? COPD-does not have a local automotive shop foreman
Osteoporosis
HLD
Hypothyroidism
Hx of lung Ca s/p RUL-lobectomy (5-6 years ago per family)
dementia with memory loss, history of TIA, osteoporosis
PSHx: Hysterectomy, volvulus with small bowel resection, right upper lobe lobectomy for lung cancer, appendectomy
Plan
Patient presently on room air
Recurrent bilateral effusions noted--transudate
Reviewed films. Bilateral effusions, new when compared to 1 year ago
There may be some mild calcifications and pleural thickening at the base per CT imaging, suggesting chronicity
[place] appearing pleural effusions noted, cytology negative
Suspect this is primarily due to combination of heart failure (diastolic function, tachycardia?) vs viral serositis (positive coxsackie antibodies noted)
TSH normal, urinalysis normal, liver function normal, kidney function normal
Patient also has low albumin and 2+ lower extremity edema
Intermittent hypotension, atrial fibrillation, rate control issues noted
s/p cardioversion per team
Doing well, rhythm stable
Remains on colchicine therapy
Less likely inflammatory process related to connective tissue disease
In regards to tiny pulmonary nodules bilaterally on CAT scan from 12/17/2023: Too small to characterize at this point.
With prior history of lung resection malignancy a possibility. Definitely there is no evidence for recurrent lung cancer as there is no dominant lesion.
Inflammatory versus malignant.
Too small for PET scan sensitivity.
With lingular bronchiectasis: Infectious etiology such as TROY is a possibility.
This will need ongoing follow-up with repeat imaging in the outpatient setting.
If patient willing, can follow-up locally. Does not have a local automotive shop foreman. Information was left on the chart during last admission.
? COPD: No details available.
Not bronchospastic on exam
Not on bronchodilators.
Chest exam is clear
Dr. Velasco updated daughter on 01/10/2024. Multifactorial shortness of breath including pleural effusion, cardiac disease, anemia and significant deconditioning.
I reviewed with primary service
Diagnostic Data
CT chest 12/17/2023: Reviewed - Small pericardial effusion. Small bilateral pleural effusions. Many bilateral 2-3 mm solid noncalcified pulmonary nodules. Moderate lingular bronchiectasis.
No evidence for interstitial lung disease. No abnormal mediastinal masses. No lymphadenopathy.
Abdominal ultrasound 12/18/2023: Bilateral pleural effusions. Otherwise normal
Echocardiogram 12/18/2023: LVEF 65-70%. Normal biventricular size and function. Moderate to severe TR. Pulmonary artery pressure 40 to 45 mmHg. no recurrent pericardial effusion.
Subjective Data
-
Date of Service:
Date of Service: January 12, 2024
Chief Complaint: Pulmonary Follow Up (Bilateral pleural effusions, tiny pulmonary nodules.)
Subjective:
no events ON, remains stable on RA
sleeping on my arrival
Objective Data
Data Reviewed
Vital Signs / I&O / Oxygen:
Vital Signs
Temp Pulse Resp BP Pulse Ox
97.7 F 73 16 131/70 94
01/12/24 07:36 01/12/24 08:00 01/12/24 08:00 01/12/24 08:00 01/12/24 08:31
Intake and Output
01/11/24 01/12/24 01/13/24
06:59 06:59 06:59
Intake Total 180 / 180 120 / 120
Output Total 950 / 950 450 / 450
Balance -770 / -770 -330 / -330
SaO2 94
Nasal Cannula flow liters per 2
minute
Physical Exam
General: Comfortable and Other (Cachectic)
HEENT: Normocephalic and Anicteric
Cardiovascular: S1-S2, Regular Rhythm, Murmur (n), Rub (n) and Peripheral Edema (2+)
Respiratory: Clear, Wheeze (n), Crackles (n), Non-Labored Respirations and Other (Decreased at base)
GI: Soft, Non Distended and Tender (Mild s periumbilical, no rebound or guarding)
Neurology: Awake, Alert, Oriented, AO x 3 and No Motor Deficits (Able to sit up without assistance)
Skin: Good Color, Cyanosis (n), Jaundice (n) and Rash (n)
Labs/Micro/Reports
Lab Data
01/12/24 05:43
01/12/24 05:43
Microbiology
01/10/24 16:17 Urine Urine Culture - Final
Klebsiella pneumoniae
Escherichia coli
01/09/24 14:04 Pleural Fluid Body Fluid Culture - Preliminary
No Growth After 48 Hours
01/09/24 14:04 Pleural Fluid Gram Stain - Preliminary
--- NOTE | 2024-01-12 11:41 | W.PN.CD ---
Today's Communication / Plan
-
Cont current meds
No need for lasix at this point
OK to d/c from cardiology perspective
Impression / Plan
-
83-year-old woman with history of memory impairment, lung cancer status postresection/chemo/XRT, COPD, PAF, history of pericardial effusion and pericardiocentesis 12/12/2023 who presents with reported shortness of breath and palpitations. Patient
noted to be in A-fib with RVR on presentation also with pleural effusion and underwent thoracentesis. Patient has been maintained on amiodarone and was also on beta-jw and Cardizem. Amiodarone was initiated on the last hospitalization and she
has had 1 cardioversion in early December.
Pleural effusion -
-s/p thoracentesis L side 1000 ml 01/04/24
-s/p thoracentesis R side 1100 ml 01/09/24
-given lasix then AF RVR again
- sp dccv again on January 10, maintaining SR
AFib -
-s/p MU/DCCV on 12/19/23 restoring NSR and again on January 10
-Continue amiodarone 200 mg daily
-Continue metoprolol succinate 50 mg BID.
-Continue Eliquis; has had no missed doses since undergoing MU/cardioversion on 01/07/24.
-Continue media monitor.
Pericardial effusion - last admit 12/12/23 with at least some hemodynamic compromise.
-s/p pericardiocentesis for 385 mL of cloudy, straw colored fluid on 12/12/23, pericardial drain removed 12/14/23
-no recurrence on echo
-continue colchicine, her issues with eating and taste she tells me have been ongoing for years
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
- echo this admit: Concentric LVH with EF 60-65%. Biatrial enlargement. Aortic sclerosis without stenosis. No recurrence of pericardial effusion. Trace MR, mild TR.
Prior lung cancer - s/p resection.
-eval per IM and pulm here
Subjective:
SR no new complaints
Physical Exam
Vital Signs/Labs
Vital Signs
Temp Pulse Resp BP Pulse Ox
97.7 F 73 16 131/70 94
01/12/24 07:36 01/12/24 08:00 01/12/24 08:00 01/12/24 08:00 01/12/24 08:31
01/11/24 01/12/24 01/13/24
06:59 06:59 06:59
Actual Weight 96 lb 8.999 oz 97 lb 3.582 oz
01/12/24 05:43
01/12/24 05:43
Magnesium 1.8 mg/dl (1.6-2.3) 01/10/24 14:14
01/03/24 01/03/24 01/10/24
18:45 20:52 05:33
[id number] Pept 5910 Cancelled 3420
Physical Exam
Constitutional: No acute distress
EENT: Anicteric
Cardiovascular: Rhythm & rate is regular and Pedal edema is absent
Respiratory: Respiratory effort normal
GI: Soft
Neuro/Psych: Alert and Oriented
Data Reviewed
-
Date of Service: January 12, 2024
EKG: Tracing Personally Visualized and interpreted (sr)
Labs: Labs Reviewed by me
--- NOTE | 2024-01-12 13:01 | W.PN.HOSP.TC ---
Today's Communication/Plan
-
start on antibiotics for UTI
Continue with the current medication. Follow some nausea symptoms .
Assessment / Plan
Assessment / Plan
Recurrent fast AF while on Amiodarone,
on eliquis; per staff at [facility] they were going to change his diltiazem 120 ER to 30 mg IR twice daily however that medication change was never started since she came to hospital.
- S/p electrical cardioversion 01/06- converted to sinus rhythm but last night she went into rapid A-fib needing amnio gtt. s/p electrical cardioversion 01/10 again - in SR
- cont. Amiodarone
- on metoprolol
- cont. eliquis
- Echo without recurrence of pericardial effusion, EF 60 to 65%.
cardiology following
HX Pericardial effusion s/p pericardia drainage and removal on last admission
LVEF 55-60 and Nl RV size and function as of 12/19/23 MU
- On Colchicine - Continue to hold for another day or two to see if nausea is sec to it. According to daughter she has nausea predating this admission .
B/l pleural effusion
s/p BL thora of ~ 1l of fluid
Exudative by protein criteria but not LDH
Most recent chest CT starting on this month Showed small bilateral lung nodules. She is known to have lung cancer status post right upper lobectomy. She states she has not followed with anybody since then.
Neg cytology of the left pleural effusion.
appreciate pulmonary input regarding lung nodules and pleural effusion-diagnostic consideration and follow-up plan noted. Follow-up with pulmonary as an outpatient.
Diuretics per cards.
Shortness of breath- Patient has bilateral pleural effusions. BNP is high but lower than admission. She has bilateral lower extremity edema. I suspect the bilateral pleural effusion may be cardiac related/ Acute diastolic CHF. Diuretic per
cards.
Poor oral intake with some dysgeusia and nausea -patient on combination of amio and colchicine. I suspect colchicine may be a culprit. According to the daughter she was having persistent nausea even at rehab after discharge from recent
admission for pericardial effusion. Going to hold colchicine and if nausea resolves that explains it is all med related. Denies nausea to me today .
Mild AST/Alk phos chronic elevation -follow for now
Leukocytosis without fevers - Denies GI/ symptoms. Urine study shows pyuria and culture is positive. Started empirical ceftriaxone and follow.
EMMY Resolved EMMY. Creatinine back to baseline.
hyponatremia- normalized
Moderate protein calorie malnutrition
- bobcat operator consult
Hypothyroidism
-on levothyroxine
- recent TSH normal.
Hyperlipidemia
- on atorvastatin.
Dementia, likely Alzheimer's type -watch for delirium and agitation in the hospital.
DVT Px: on Eliquis
Code: DNR
PT rec rehab
Start on IV antibiotics for UTI and follow-up nausea symptoms
DC planning
Anticipated Discharge: Within 24 hours
Subjective/Interval History
-
Date of Service: January 12, 2024
feeling improved. Denies shortness of breath.
Denies any nausea today.
Objective Data
-
Labs:
Laboratory Results
01/12/24
05:43
WBC 11.5 H
Hgb 11.9 L
Hct 37.1
Plt Count 578 H
Sodium 135
Potassium 3.9
Chloride 104
Carbon Dioxide 22
BUN 20 H
Creatinine 1.0
Glucose 74
Calcium 8.7
Vital Signs:
Vital Signs
Temp Pulse Resp BP Pulse Ox
98.3 F 73 16 131/70 94
01/12/24 11:42 01/12/24 08:00 01/12/24 08:00 01/12/24 08:00 01/12/24 08:31
I&O
01/11/24 01/12/24 01/13/24
06:59 06:59 06:59
Intake Total 180 / 180 120 / 120
Output Total 950 / 950 450 / 450
Balance -770 / -770 -330 / -330
Review of Systems
-
Constitutional: Denies Fever
EENT: Denies Sore Throat
Cardiac: Denies Chest Pain
Abdomen/GI: Denies Abdominal Pain
Neuro: Denies Dizzy
Physical Exam
-
General: No Apparent Distress
HEENT: Moist Mucous Membranes
Respiratory: Clear to Auscultation
Cardiac: Regular Rhythm and S1/S2; Negative Tachycardic
GI: Soft and Nontender
Neuro: AO x 3
Psych: Calm
Data Reviewed
-
Labs: Labs Reviewed by me
--- NOTE | 2024-01-12 15:38 | CM ---
Rock reviewed medical records. ROCK was contacted by Erica at [facility]. She was expecting an update on discharge. Patient remains acute at this time. ROCK will continue to follow.
[2024-01-12] MEDS: ANCEF 5 IV ×2 (16:48→21:23)
[2024-01-12] MEDS: ZOFRAN 4 MG IV (18:42)
[2024-01-12] MEDS: REMERON ODT 15 MG PO (20:34)
[2024-01-12] MEDS: LIPITOR 40 MG PO (20:34)
[2024-01-13] VITALS (16 sets, daily range): BP systolic 88–153; BP diastolic 65–128; PULSE 76–81; BMI 15.7
--- NOTE | 2024-01-13 00:34 | PTCARENOTE ---
Assumed care of patient at 1900. Nursing assessment completed and as documented. Remains NSR on monitor rates 70-80's, denies CP/palpitations. Patient assisted to BSC with x1 assist for toileting. Medications given as ordered and without difficulty.
VSS, call green within reach, bed alarmed, care ongoing.
[2024-01-13 05:01] LABS: Hemoglobin 11.3 g/dL (12.0-16.0); Mean Corp Hgb Conc. 34.2 g/dL (33.0-37.0); Mean Corpuscular Hgb 28.1 pg (27.0-31.0); Mean Corpuscular Volume 82.1 fL (81.0-99.0); Mean Platelet Volume 9.4 fL (7.4-10.4); Platelet Count 499 10^3/uL (130-400); Red Blood Cell Count 4.02 10^6/uL (4.20-5.40); Red Cell Dist. Width 15.5 % (11.5-14.5); White Blood Cell Count 10.9 10^3/uL (4.8-10.8)
[2024-01-13] MEDS: ANCEF 5 IV ×3 (05:26→21:03)
[2024-01-13] MEDS: SYNTHROID 100 MCG PO (05:26)
[2024-01-13] MEDS: MAG-TAB SR 84 MG PO (07:56)
[2024-01-13] MEDS: PACERONE 200 MG PO (07:56)
[2024-01-13] MEDS: TOPROL XL 50 MG PO ×2 (07:56→20:53)
[2024-01-13] MEDS: ELIQUIS 2.5 MG PO ×2 (07:56→20:52)
--- NOTE | 2024-01-13 08:12 | W.PN.HOSP.TC ---
Today's Communication/Plan
-
see A/P
Assessment / Plan
Assessment / Plan
A/P:
# Recurrent fast AF while on Amiodarone
on eliquis; per staff at [facility] they were going to change his diltiazem 120 ER to 30 mg IR twice daily however that medication change was never started since she came to hospital.
s/p electrical cardioversion 01/06- converted to sinus rhythm but she went into rapid A-fib needing amnio gtt, s/p second electrical cardioversion 01/10- back in SR
cont. Amiodarone
cont. Toprol
cont. Eliquis
Echo without recurrence of pericardial effusion, EF 60 to 65%.
cardiology following
# HX Pericardial effusion s/p pericardia drainage and removal on last admission
LVEF 55-60 and Nl RV size and function as of 12/19/23 MU
On Colchicine - was held to see if nausea is sec to it. According to daughter she has nausea predating this admission. Resumed Colchicine 01/12.
# B/l pleural effusion
s/p BL thora of ~ 1l of fluid
Exudative by protein criteria but not LDH
Most recent chest CT starting on this month Showed small bilateral lung nodules. She is known to have lung cancer status post right upper lobectomy. She states she has not followed with anybody since then.
Neg cytology of the left pleural effusion.
appreciate pulmonary input regarding lung nodules and pleural effusion- diagnostic consideration and follow-up plan noted. Follow-up with pulmonary as an outpatient.
Diuretics per cards- on hold currently
# Shortness of breath- Patient has bilateral pleural effusions. BNP is high but lower than admission. She has bilateral lower extremity edema. Suspect the bilateral pleural effusion may be cardiac related/ Acute diastolic CHF. Diuretic per cards.
# Poor oral intake with some dysgeusia and nausea- patient on combination of amio and colchicine. Suspect colchicine may be a culprit. According to the daughter she was having persistent nausea even at rehab after discharge from recent admission
for pericardial effusion. Holding colchicine and if nausea resolves that explains it is all med related.
# Mild AST/Alk phos chronic elevation- follow for now
# Leukocytosis without fevers - Denies GI/ symptoms. Urine study shows pyuria and culture positive for Klebsiella and E coli sensitive to Ancef. Cont Ancef.
# EMMY, Resolved
Creatinine back to baseline.
# hyponatremia- normalized
# Moderate protein calorie malnutrition
bottoming room supervisor consult
# Hypothyroidism
on levothyroxine
recent TSH normal.
# Hyperlipidemia on atorvastatin.
# Dementia, likely Alzheimer's type -watch for delirium and agitation in the hospital.
DVT Px: on Eliquis
Code: DNR
PT rec rehab
Anticipated Discharge: 24 - 48 hours
Subjective/Interval History
-
Date of Service: January 13, 2024
Objective Data
-
Labs:
Laboratory Results
01/13/24
04:40
WBC 10.9 H
Hgb 11.3 L
Hct 33.0 L
Plt Count 499 H
Vital Signs:
Vital Signs
Temp Pulse Resp BP Pulse Ox
36.5 C 71 16 143/65 95
01/13/24 07:00 01/13/24 07:56 01/13/24 06:00 01/13/24 07:56 01/13/24 06:00
I&O
01/12/24 01/13/24 01/14/24
06:59 06:59 06:59
Intake Total 120 / 120 / 238
Output Total 450 / 450
Balance -330 / -330 / 238
Review of Systems
-
Unable to obtain full review of systems at this time due to: Dementia
Physical Exam
-
General: Well Developed, No Apparent Distress, Comfortable and Conversant
Respiratory: Clear to Auscultation and Non Labored Respirations; Negative Accessory Resp Muscle Use
Cardiac: Regular Rhythm and S1/S2; Negative Tachycardic
GI: Soft and Nontender
Neuro: Awake and Alert
Psych: Calm
Data Reviewed
-
Labs: Labs Reviewed by me
--- NOTE | 2024-01-13 09:13 | PTCARENOTE ---
Patient received from industrial tractor driver. Patient resting comfortably in bed. AAOx2, little trouble with time. VSS. No events noted overnight. Some complaints of pain in lower back, repositioned which seemed to alleviate pain at this time. Will
attempt to get out of bed and to chair. Call green in reach.
--- NOTE | 2024-01-13 12:13 | PTCARENOTE ---
Reported by PCT that patient was feeling light headed in the chair. Initial sitting BP was 88/71, repeat was improved. Orthostatic standing BP was performed and was 88/70. Patient stated not feeling light headed at this time. Call green in reach.
--- NOTE | 2024-01-13 12:54 | CHAP ---
Blanche said she was doing okay. Emotional and spiritual support provided, along with a prayer blanket.
[2024-01-13] MEDS: ZOFRAN 4 MG IV (16:29)
[2024-01-13] MEDS: REMERON ODT 15 MG PO (20:52)
[2024-01-13] MEDS: LIPITOR 40 MG PO (20:52)
[2024-01-14] VITALS (13 sets, daily range): BP systolic 99–145; BP diastolic 60–81; PULSE 78; O2SAT 95; BMI 15.8
[2024-01-14] MEDS: SYNTHROID 100 MCG PO (05:34)
[2024-01-14] MEDS: ANCEF 5 IV ×3 (05:34→21:13)
[2024-01-14 05:57] LABS: % Basophils 0.6 % (0-2); % Eosinophils 2.2 % (0-6); % Immature Granulocytes 0.5 % (0-0.5); % Lymphocytes 6.1 % (20.5-51.1); % Monocytes 6.9 % (1.7-9.3); % Neutrophils 83.7 % (42.2-75.2); Absolute Basophils 0.1 10^3/uL (0-0.2); Absolute Eosinophils 0.3 10^3/uL (0-0.7); Absolute Immature Granulocytes 0.1 10^3/uL (0-0.05); Absolute Lymphocytes 0.7 10^3/uL (1.2-3.4); Absolute Monocytes 0.8 10^3/uL (0.1-0.6); Absolute Neutrophils 9.3 10^3/uL (1.4-6.5); Hematocrit 34.2 % (37.0-47.0); Hemoglobin 11.1 g/dL (12.0-16.0); Mean Corp Hgb Conc. 32.5 g/dL (33.0-37.0); Mean Corpuscular Volume 86.1 fL (81.0-99.0); Mean Platelet Volume 9.4 fL (7.4-10.4); Nucleated Red Blood Cells % 0 %; Platelet Count 445 10^3/uL (130-400); Red Blood Cell Count 3.97 10^6/uL (4.20-5.40); Red Cell Dist. Width 15.6 % (11.5-14.5); White Blood Cell Count 11.2 10^3/uL (4.8-10.8)
[2024-01-14 06:20] LABS: ALT (SGPT) 14 U/L (0-35); AST (SGOT) 51 U/L (14-36); Albumin 2.4 g/dl (3.5-5.0); Alkaline Phosphatase 172 U/L (38-126); Blood Urea Nitrogen 15 mg/dl (7-17); Calcium 8.5 mg/dl (8.4-10.2); Carbon Dioxide 25 mmol/L (22-30); Chloride 105 mmol/L (98-107); Estimated Creatinine Clearance 44 ml/min; Glucose 88 mg/dl (70-99); Magnesium 1.6 mg/dl (1.6-2.3); Potassium 3.8 mmol/L (3.5-5.1); Sodium 136 mmol/L (135-145); Total Bilirubin 0.5 mg/dl (0.2-1.3); Total Protein 4.8 g/dl (6.3-8.2); eGFR > 60.00
--- NOTE | 2024-01-14 08:13 | W.PN.HOSP.TC ---
Today's Communication/Plan
-
PPI. Antiemetics. GI eval
Assessment / Plan
Assessment / Plan
Physical exam:
General: Acute and chronically ill
HEENT: Normocephalic, Atraumatic and Moist Mucous Membranes
Respiratory: Clear to Auscultation; Negative Wheezes, Rales or Rhonchi
Cardiac: Regular Rhythm and S1/S2
GI: Soft, Nontender and Nondistended
Musculoskeletal: No Clubbing, No Cyanosis and No Edema
Neuro: Awake, Alert and Oriented
Psych: Calm
A/P:
# Recurrent fast AF while on Amiodarone
on eliquis; per staff at [facility] they were going to change his diltiazem 120 ER to 30 mg IR twice daily however that medication change was never started since she came to hospital.
s/p electrical cardioversion 01/06- converted to sinus rhythm but she went into rapid A-fib needing amnio gtt, s/p second electrical cardioversion 01/10- back in SR
cont. Amiodarone
cont. Toprol
cont. Eliquis
Echo without recurrence of pericardial effusion, EF 60 to 65%.
cardiology following
# Poor oral intake with some dysgeusia and persistent nausea-
Start PPI
GI eval
# HX Pericardial effusion s/p pericardia drainage and removal on last admission
LVEF 55-60 and Nl RV size and function as of 12/19/23 MU
On Colchicine - was held to see if nausea is sec to it. According to daughter she has nausea predating this admission. Resumed Colchicine 01/12.
# B/l pleural effusion
s/p BL thora of ~ 1l of fluid
Exudative by protein criteria but not LDH
Most recent chest CT starting on this month Showed small bilateral lung nodules. She is known to have lung cancer status post right upper lobectomy. She states she has not followed with anybody since then.
Neg cytology of the left pleural effusion.
appreciate pulmonary input regarding lung nodules and pleural effusion- diagnostic consideration and follow-up plan noted. Follow-up with pulmonary as an outpatient.
Diuretics per cards- on hold currently
# Shortness of breath- Patient has bilateral pleural effusions. BNP is high but lower than admission. She has bilateral lower extremity edema. Suspect the bilateral pleural effusion may be cardiac related/ Acute diastolic CHF. Diuretic per cards.
# Mild AST/Alk phos chronic elevation- follow for now
# Leukocytosis without fevers - Denies GI/ symptoms. Urine study shows pyuria and culture positive for Klebsiella and E coli sensitive to Ancef. Cont Ancef.
# EMMY, Resolved
Creatinine back to baseline.
# hyponatremia- normalized
# Moderate protein calorie malnutrition
ecg technician consult
# Hypothyroidism
on levothyroxine
recent TSH normal.
# Hyperlipidemia on atorvastatin.
# Dementia, likely Alzheimer's type -watch for delirium and agitation in the hospital.
DVT Px: on Eliquis
Code: DNR
PT rec rehab
Anticipated Discharge: 24 - 48 hours
Subjective/Interval History
-
Date of Service: January 14, 2024
Patient complains of nausea. Generalized weakness. Afebrile
Objective Data
-
Labs:
Laboratory Results
01/14/24
05:44
WBC 11.2 H
Hgb 11.1 L
Hct 34.2 L
Plt Count 445 H
Sodium 136
Potassium 3.8
Chloride 105
Carbon Dioxide 25
BUN 15
Creatinine 0.7
Glucose 88
Calcium 8.5
Total Bilirubin 0.5
AST 51 H
ALT 14
Alkaline Phosphatase 172 H
Vital Signs:
Vital Signs
Temp Pulse Resp BP Pulse Ox
98.0 F 72 17 118/68 95
01/14/24 07:00 01/14/24 06:00 01/14/24 06:00 01/14/24 06:00 01/14/24 06:00
I&O
01/13/24 01/14/24 01/15/24
06:59 06:59 06:59
Intake Total 238 / 238 400 / 400
Balance 238 / 238 400 / 400
[2024-01-14] MEDS: MAG-TAB SR 84 MG PO (08:22)
[2024-01-14] MEDS: TOPROL XL 50 MG PO ×2 (08:23→20:28)
[2024-01-14] MEDS: ELIQUIS 2.5 MG PO ×2 (08:23→20:28)
[2024-01-14] MEDS: COLCHICINE 0.299999999999999989 MG PO (08:23)
[2024-01-14] MEDS: PACERONE 200 MG PO (10:07)
[2024-01-14] MEDS: ZOFRAN 4 MG IV (10:07)
[2024-01-14] MEDS: FLUSH (NSS) 2 FLUSH IV ×2 (10:08→15:13)
--- NOTE | 2024-01-14 10:16 | PTCARENOTE ---
Patient complaining of nausea and requested IV zofran. Patient appetite poor.
[2024-01-14] MEDS: PROTONIX 40 MG PO (11:09)
--- NOTE | 2024-01-14 14:36 | PTCARENOTE ---
Patient AAOx 2-3, forgetful and anxious at times. Assist of x1 to with walker to bathroom. Patient worked with PT/OT today. Out of bed to chair for a few hours. NSR on monitor, HR 70's, vital signs stable.
--- NOTE | 2024-01-14 15:03 | CON.GI ---
Addendum entered and electronically signed by Valeriano Wilson MD 01/14/24 19:22:
I saw and examined the patient.
The PA's note was reviewed and I agree with the note.
Comment:
The patient is a 83 year old female with h/o afib on Eliquis, hyperlipidemia, hypothyroidism, anxiety, h/o lung CA s/p resection, COPD, h/o pericardial effusion s/p pericardiocentesis on 12/12/23 and treated with colchicine, with multiple recent
hospital admissions for recurrent rapid a fib who was most recently admitted 01/03/24 with recurrent pleural effusions and rapid a fib, GI being consulted for evaluation of persistent nausea. Her nausea with w/o significant vomiting. No prior EGD.
Impression / Rec:
1. Nausea - without significant vomiting. Decreased appetite and some weight loss which was during her recurrent hospital admissions. PPI started with some improvement in her symptoms. Likely multifactorial, no obvious indication for endo eval,
prefer OP procedure. GI will s/o, pls call with questions.
Original Note:
Consultation
-
Date/Time Consultation Requested: 01/14/24 1335
Date/Time Consultation Performed: 01/14/24 1515
Requesting Provider: Dr Morales
Performing Provider: Dr Wilson / Dulce Maria Delgado PA-C
Reason for Consultation: nausea
Medical History
Chief Complaint / HPI
Chief Complaint: nausea
History of Present Illness:
This is an 83-year-old female with a past medical history of atrial fibrillation (on Eliquis), hyperlipidemia, hypothyroidism, anxiety, h/o lung CA s/p resection, COPD, h/o pericardial effusion s/p pericardiocentesis on 12/12/23 and treated with
colchicine, with multiple recent hospital admissions for recurrent rapid a fib who was most recently admitted 01/03/24 with recurrent pleural effusions and rapid a fib. Patient is being closely followed by Cardiology and has undergone cardioversion
on 01/06 that converted to sinus rhythm, then back into rapid A fib and required amiodarone gtt. S/p second cardioversion 6/28 which did convert to sinus rhythm with amiodarone continued. GI is asked to consult for ongoing nausea.
Per patient and daughter (who I spoke with over the phone), the nausea has been an ongoing issue for the past 6 months. She rarely vomits. She denies any association with eating; no heartburn, reflux, dysphagia or odynophagia. She does admit to
decreased appetite and has lost weight in the past month, especially as she has been in and out of the hospital/rehab since November. She denies any abdominal pain. No chest or back pain. She denies any prior history of GERD and does not believe she ever
had an endoscopy. She has had prior colonoscopies with Dr. Eric in [place]/[facility], which were reportedly normal. There is a family history of colon cancer (sister), but no other family history of GI malignancies, celiac disease or
IBD. Patient does not smoke, drink alcohol, or takes NSAIDs. She has no bowel complaints - no diarrhea, constipation, melena or hematochezia. 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
Labs reviewed: WBC 11.2, hemoglobin 11.1 (normal range 10-12 going back to May 2023) with normocytic indices, platelets 445, Na 136, K 3.8, Cl 105, Co2 25, BUN 15, creatinine 0.7, serum gluclose 88, bili 0.5, AST 51, ALT 14, alk phos 172, and
TSH 20.6, free T4 pending. She is on levothyroxine 100mcg daily. Iron studies from May 2023 did reveal a mild iron deficiency. Abdominal ultrasound essentially unremarkable showing normal liver without focal hepatic lesion and normal
gallbladder with no biliary duct dilatation. PPI was recently started, patient reports she is feeling better today, not currently feeling nauseous.
Past Medical History
Past Medical History: Other (atrial fibrillation (on Eliquis), hyperlipidemia, hypothyroidism, anxiety, h/o lung CA s/p resection, COPD, h/o pericardial effusion s/p pericardiocentesis, MATTEO, volvulus s/p bowel resection (~8 yrs ago))
Past Surgical History: Other (as per HPI.)
Social History
Tobacco: Non-Smoker
Alcohol: None
Drug: None
Family History
Family History: Other (+family history of colon cancer (sister))
Allergies / Home Medications
Allergy/AdvReac Type Severity Reaction Status Date / Time
No Known Allergies Allergy Verified 06/06/23 19:44
�Medication �Instructions �Recorded
alendronate 35 mg tablet 35 mg PO MO osteoperosis 06/06/23
benzonatate 100 mg capsule 100 mg PO Q8HPRN PRN cough 12/12/23
mirtazapine 15 mg disintegrating 15 mg PO HS Mental Health/Anxiety 12/12/23
tablet
colchicine 0.6 mg tablet 0.3 mg (1/2 x 0.6 mg) PO DAILY #90 12/20/23
tabs
acetaminophen 500 mg tablet 1,000 mg PO Q8HPRN PRN mild pain 01/03/24
amiodarone 200 mg tablet 200 mg PO DAILY Arrhythmia 01/03/24
apixaban 2.5 mg tablet 2.5 mg PO BID Blood Clot 01/03/24
Prevention/Tx
bisacodyl 10 mg rectal suppository 10 mg HI DAILY PRN if no BM in 8hr 01/03/24
(Dulcolax (bisacodyl)) after MOM
diltiazem HCl 120 mg capsule,24 120 mg PO DAILY Arrhythmia 01/03/24
hr,extended release
diltiazem HCl 30 mg tablet 30 mg PO Q12H Arrhythmia 01/03/24
levothyroxine 100 mcg tablet 100 mcg PO DAILY Thyroid 01/03/24
magnesium hydroxide 400 mg/5 mL 30 ml PO DAILY PRN if no BM x 2 01/03/24
oral suspension (Milk of Magnesia) days
magnesium oxide 400 mg (241.3 mg 400 mg PO DAILY Electrolyte 01/03/24
magnesium) tablet Repletion
menthol 4 % topical gel (Biofreeze 1 applic topical BID posterior neck 01/03/24
(menthol))
menthol 5 % topical patch (Icy Hot 1 patch topical BID B/L shoulders 01/03/24
(menthol))
metoprolol succinate 25 mg 25 mg PO DAILY Heart Failure 01/03/24
tablet,extended release 24 hr
ondansetron HCl 4 mg tablet 4 mg PO BIDPRN PRN nausea 01/03/24
sodium phosphates 19 gram-7 118 ml HI DAILYPRN PRN if no BM 01/03/24
gram/118 mL enema (Fleet Enema) 8hr after supp
Review of Systems
-
History Source: Patient and Family
All other systems: A 12 pt ROS was Negative except as stated above in HPI
Vital Signs
Temp Pulse Resp BP Pulse Ox
97.9 F 80 21 102/60 93
01/14/24 11:00 01/14/24 14:26 01/14/24 14:26 01/14/24 14:26 01/14/24 12:02
Physical Exam
Exam
General: Well Developed, Well Nourished and No Apparent Distress
Respiratory: Clear
Cardiac: Regular Rhythm
GI: Soft, Non Tender, Non Distended and Normal Bowel Sounds
Skin: Warm and Dry
Neuro: Awake, Alert and Oriented (x2 (to person and place))
Psych: Calm
Results
WBC 11.2 10^3/uL (4.8-10.8) H 01/14/24 05:44
Hgb 11.1 g/dL (12.0-16.0) L 01/14/24 05:44
Hct 34.2 % (37.0-47.0) L 01/14/24 05:44
MCV 86.1 fL (81.0-99.0) 01/14/24 05:44
Plt Count 445 10^3/uL (130-400) H 01/14/24 05:44
Absolute Neuts (auto) 9.3 10^3/uL (1.4-6.5) H 01/14/24 05:44
Sodium 136 mmol/L (135-145) 01/14/24 05:44
Potassium 3.8 mmol/L (3.5-5.1) 01/14/24 05:44
Chloride 105 mmol/L (98-107) 01/14/24 05:44
Carbon Dioxide 25 mmol/L (22-30) 01/14/24 05:44
BUN 15 mg/dl (7-17) 01/14/24 05:44
Creatinine 0.7 mg/dL (0.6-1.0) 01/14/24 05:44
Calcium 8.5 mg/dl (8.4-10.2) 01/14/24 05:44
Total Bilirubin 0.5 mg/dl (0.2-1.3) 01/14/24 05:44
AST 51 U/L (14-36) H 01/14/24 05:44
ALT 14 U/L (0-35) 01/14/24 05:44
Alkaline Phosphatase 172 U/L (38-126) H 01/14/24 05:44
Lipase 55 U/L (23-300) 01/10/24 14:14
Diagnostic Image Results:
Abdominal US 12/18/23:
Bilateral pleural effusions.
Normal appearance of the gallbladder with no evidence for biliary ductal dilation.
Liver echogenicity appears within normal limits with no evidence of a focal hepatic lesion.
Abdominal x-ray 01/06/24:
Bowel: Intestinal bowel gas pattern is nonobstructive.
Soft tissues: No pathologic soft tissue calcification is seen.. Surgical clips are seen within the soft tissues of the true pelvis.
Osseous structures: Osseous degenerative changes are noted.
Prior GI Procedures:
EGD: never ?
Colonoscopy:'years ago' - reportedly normal
Assessment / Plan
-
83-year-old female with a history of atrial fibrillation (on Eliquis), hyperlipidemia, hypothyroidism, anxiety, h/o lung CA s/p resection, COPD, h/o pericardial effusion s/p pericardiocentesis on 12/12/23 and treated with colchicine, with multiple
recent hospital admissions for recurrent rapid a fib who was most recently admitted 01/03/24 with recurrent pleural effusions and rapid a fib. Patient is being closely followed by Cardiology and has undergone cardioversion on 01/06 that converted to
sinus rhythm, then back into rapid A fib and required amiodarone gtt. S/p second cardioversion 01/10 which did convert to sinus rhythm with amiodarone continued. GI is asked to consult for ongoing nausea.
Per patient and daughter (who I spoke with over the phone), the nausea has been an ongoing issue for the past 6 months. She rarely vomits. She denies any association with eating; no heartburn, reflux, dysphagia or odynophagia. She does admit to
decreased appetite and has lost weight in the past month, especially as she has been in and out of the hospital/rehab since November. She denies any abdominal pain. No chest or back pain. She denies any prior history of GERD and does not believe she ever
had an endoscopy. She has had prior colonoscopies with Dr. Eric in [place]/[facility], which were reportedly normal. There is a family history of colon cancer (sister), but no other family history of GI malignancies, celiac disease or
IBD. Patient does not smoke, drink alcohol, or takes NSAIDs. She has no bowel complaints - no diarrhea, constipation, melena or hematochezia. 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
Labs reviewed: WBC 11.2, hemoglobin 11.1 (normal range 10-12 going back to May 2023) with normocytic indices, platelets 445, Na 136, K 3.8, Cl 105, Co2 25, BUN 15, creatinine 0.7, serum gluclose 88, bili 0.5, AST 51, ALT 14, alk phos 172, and
TSH 20.6, free T4 pending. She is on levothyroxine 100mcg daily. Iron studies from May 2023 did reveal a mild iron deficiency. Abdominal ultrasound essentially unremarkable showing normal liver without focal hepatic lesion and normal
gallbladder with no biliary duct dilatation. PPI was recently started, patient reports she is feeling better today, not currently feeling nauseous.
IMPRESSION / PLAN:
Nausea, likely multifactorial due to medications, recent hospitalizations, stress/anxiety, thyroid disorder
- PPI recently started and patient reports nausea feels improved
- continue Pantoprazole 40mg PO daily
- continue antiemetics PRN
- continue regular diet
- to consider endoscopy - inpatient vs outpatient - likely OK for outpatient followup with her established GI, Dr. Eric
Iron Deficiency Anemia
- mild anemia with Hgb 11.1 which is at her baseline
- iron studies from May 2023 did show mild iron deficiency
- will repeat iron studies now
- with weight loss, could consider outpatient endoscopic studies for further evaluation
Elevated LFTs, mild
- bili 0.5, AST 51, ALT 14, alk phos 172
- will order hepatitis serologies
- trend LFTs
- outpatient follow-up for further workup if remain elevated
Other medical issues managed as per hospitalist, Cardiology, Pulmonology.
-
-
Thank you for consultation and allowing me to participate in the patient's care. Please call the cnc applications engineer GI physician during the after hours with any questions or concerns.
--- NOTE | 2024-01-14 15:11 | CM ---
CM reviewed pt with Dr Morales- BRANDIN 1-2 days
GI consulted placed and pending
Update to [facility] admissions/[facility]
Update to dtr as well
IBC auth initiated last week
Will need updated clinicals to be sent once appropriate
Pended auth # [id number]
[facility] requiring COVID test prior to admission
Discharge Disposition- [facility] pending bed availability and auth
--- NOTE | 2024-01-14 16:15 | PTCARENOTE ---
pt transfer from IMU, pt is AAO*2, disoriented to time. pt is slightly confused and forgetful. pt is close to the nursing station. bed alarm in, call green within the reach. continue plan of care.
--- NOTE | 2024-01-14 16:16 | PTCARENOTE ---
Report given to Pamela RODRIGUEZ. Patient transferred to [address] [place] [address] 411 bed 1 by transport. Patient's daughter notified of move. All belongings with the patient.
[2024-01-14 17:30] LABS: Free T4 1.83 ng/dl (0.78-2.19)
[2024-01-14 18:57] LABS: Iron 23 ug/dl (37-170)
[2024-01-14 19:06] LABS: Percent Saturation 12 % (20-50); Total Iron Binding Capacity 182 ug/dl (265-497)
[2024-01-14 19:34] LABS: Hepatitis A IgM Antibody Negative (Negative); Hepatitis B Core Ab, IgM Negative (Negative)
[2024-01-14] MEDS: LIPITOR 40 MG PO (20:29)
[2024-01-14] MEDS: REMERON ODT 15 MG PO (20:29)
[2024-01-14 21:03] LABS: Hepatitis B Surface Antigen Negative (Negative)
[2024-01-14 21:20] LABS: Hepatitis B Core Ab, Total Negative (Negative); Hepatitis B Surface Antibody Negative; Hepatitis C Antibody Negative (Negative)
[2024-01-14 21:46] LABS: Hepatitis A Antibody, Total Negative (Negative)
[2024-01-14] MEDS: TYLENOL 1000 MG PO (22:06)
[2024-01-15 03:20] VITALS: BP 109/66
[2024-01-15 06:00] VITALS: BMI 16.0
[2024-01-15] MEDS: SYNTHROID 100 MCG PO (06:02)
[2024-01-15] MEDS: ANCEF 5 IV (06:03)
[2024-01-15 08:10] LABS: Hematocrit 35.3 % (37.0-47.0); Hemoglobin 11.4 g/dL (12.0-16.0); Mean Corp Hgb Conc. 32.3 g/dL (33.0-37.0); Mean Corpuscular Hgb 27.7 pg (27.0-31.0); Mean Corpuscular Volume 85.9 fL (81.0-99.0); Mean Platelet Volume 9.8 fL (7.4-10.4); Platelet Count 454 10^3/uL (130-400); Red Blood Cell Count 4.11 10^6/uL (4.20-5.40); Red Cell Dist. Width 15.7 % (11.5-14.5); White Blood Cell Count 11.4 10^3/uL (4.8-10.8)
[2024-01-15 08:22] VITALS: BP 119/68
--- NOTE | 2024-01-15 09:08 | W.PN.HOSP.TC ---
Today's Communication/Plan
-
Change antibiotics to oral. Continue PPI. Discharge planning in progress.
Assessment / Plan
Assessment / Plan
Physical exam:
General: Acute and chronically ill
HEENT: Normocephalic, Atraumatic and Moist Mucous Membranes
Respiratory: Clear to Auscultation; Negative Wheezes, Rales or Rhonchi
Cardiac: Regular Rhythm and S1/S2
GI: Soft, Nontender and Nondistended
Musculoskeletal: No Clubbing, No Cyanosis and No Edema
Neuro: Awake, Alert and Oriented
Psych: Calm
A/P:
# Recurrent fast AF while on Amiodarone
on eliquis; per staff at [facility] they were going to change his diltiazem 120 ER to 30 mg IR twice daily however that medication change was never started since she came to hospital.
s/p electrical cardioversion 01/06- converted to sinus rhythm but she went into rapid A-fib needing amnio gtt, s/p second electrical cardioversion 01/10- back in SR
cont. Amiodarone
cont. Toprol
cont. Eliquis
Echo without recurrence of pericardial effusion, EF 60 to 65%.
cardiology following and cleared her for discharge
# Poor oral intake with some dysgeusia and persistent nausea-
Continue PPI
GI eval appreciated and they signed off and recommend outpatient GI follow-up.
# HX Pericardial effusion s/p pericardia drainage and removal on last admission
LVEF 55-60 and Nl RV size and function as of 12/19/23 [facility]
On Colchicine - was held to see if nausea is sec to it. According to daughter she has nausea predating this admission. Resumed Colchicine 01/12.
# B/l pleural effusion
s/p BL thora of ~ 1l of fluid
Exudative by protein criteria but not LDH
Most recent chest CT starting on this month Showed small bilateral lung nodules. She is known to have lung cancer status post right upper lobectomy. She states she has not followed with anybody since then.
Neg cytology of the left pleural effusion.
appreciate pulmonary input regarding lung nodules and pleural effusion- diagnostic consideration and follow-up plan noted. Follow-up with pulmonary as an outpatient.
Diuretics per cards- on hold currently
# Shortness of breath- Patient has bilateral pleural effusions. BNP is high but lower than admission. She has bilateral lower extremity edema. Suspect the bilateral pleural effusion may be cardiac related/ Acute diastolic CHF. Diuretic per cards.
# Mild AST/Alk phos chronic elevation- follow for now
# UTI culture positive for Klebsiella and E coli sensitive to Ancef. Cont Ancef but now changed to oral.
# EMMY, Resolved
Creatinine back to baseline.
# hyponatremia- normalized
# Moderate protein calorie malnutrition
test lead consult
# Hypothyroidism
on levothyroxine
recent TSH normal.
# Hyperlipidemia-hold statins and can be reinitiated as outpatient depending on LFTs.
# Dementia, likely Alzheimer's type -watch for delirium and agitation in the hospital.
DVT Px: on Eliquis
Code: DNR
PT rec rehab
Anticipated Discharge: Today
Subjective/Interval History
-
Date of Service: January 15, 2024
Patient seen and examined. Does not voice any new complaints.
Objective Data
-
Labs:
Laboratory Results
01/15/24
07:43
WBC 11.4 H
Hgb 11.4 L
Hct 35.3 L
Plt Count 454 H
Sodium Pending
Potassium Pending
Chloride Pending
Carbon Dioxide Pending
BUN Pending
Creatinine Pending
Glucose Pending
Calcium Pending
Vital Signs:
Vital Signs
Temp Pulse Resp BP Pulse Ox
97.2 F 75 18 119/68 95
01/15/24 08:22 01/15/24 08:22 01/15/24 08:22 01/15/24 08:22 01/15/24 08:22
I&O
01/14/24 01/15/24 01/16/24
06:59 06:59 06:59
Intake Total 400 / 400 660 / 660
Balance 400 / 400 660 / 660
[2024-01-15 09:26] LABS: Blood Urea Nitrogen 15 mg/dl (7-17); Calcium 8.6 mg/dl (8.4-10.2); Carbon Dioxide 22 mmol/L (22-30); Chloride 105 mmol/L (98-107); Estimated Creatinine Clearance 45 ml/min; Glucose 71 mg/dl (70-99); Sodium 135 mmol/L (135-145); eGFR > 60.00
[2024-01-15] MEDS: PROTONIX 40 MG PO (09:54)
[2024-01-15] MEDS: COLCHICINE 0.299999999999999989 MG PO (09:55)
[2024-01-15] MEDS: ELIQUIS 2.5 MG PO (09:55)
[2024-01-15] MEDS: MAG-TAB SR 84 MG PO (09:56)
[2024-01-15] MEDS: TOPROL XL 50 MG PO (09:56)
[2024-01-15] MEDS: PACERONE 200 MG PO (09:56)
[2024-01-15 11:00] VITALS: BP 124/63
--- NOTE | 2024-01-15 11:57 | W.DCSUMMARY ---
Discharge Summary
Discharge Data
Date of Admission: 01/03/24
Date of Discharge: 01/15/24
-
Pending Results: No
Hospital Course
Patient 83 years old female with history of A-fib, COPD, hyperlipidemia, hypothyroidism, lung cancer, pericardial effusion status post pericardiocentesis in November this year, presented to the hospital shortness of breath and palpitation and found to be
in atrial fibrillation rapid ventricular response and had pleural effusion. Cardiology consulted. Patient was started on rate control medication and difficult to control so underwent cardioversion. Unfortunately she had to go twice with
cardioversion. She also underwent left thoracentesis with exudative pleural effusion. Pulmonary saw her for pleural effusion and pulmonary nodules and she will be follow-up as outpatient. She was given diuretics but cardiology does not recommend
upon discharge. She has been kept on rate control agents (adjusted accordingly) and anticoagulation. Echocardiogram with no recurrence of pericardial effusion. Patient course complicated with urinary tract infection for which she has received IV
antibiotic and will finished a course of antibiotics orally as outpatient. Patient had Klebsiella pneumonia and E. coli in the urine. She had remained afebrile and hemodynamically stable. She also was evaluated by GI due to persistent nausea and
she was placed on PPI and will continue to follow-up as outpatient. Cardiology cleared her for discharge. She will be discharged to rehab in relatively stable condition today.
Discharge duration: 39 minutes
Discharge Plan
-
Patient Disposition: Intermediate/SNF
Discharge Diagnosis/Procedures: Paroxysmal atrial fibrillation status post cardioversion. Nausea. History of pericardial effusion. Pleural effusions. Acute kidney injury. Moderate protein calorie malnutrition. Elevated liver function tests.
Dementia, Alzheimer's.
Diet: Low Cholesterol
Activity: As tolerated
Blood Work: Please PCP to order CBC, CMP within 1 week.
Specialty Instructions: Weigh Daily- Call MD for wt gain/loss 3 lbs overnight/5 lbs in 1 week
Activity Restrictions/Additional Instructions:
Wound Care Instructions
Sacrum-clean with saline, apply protective sacral silicone border foam dressing, change every 3 days and as loosened dressing.
Bilateral knee high Tubigrip as tolerated; may remove at bedtime; reapply every morning.
Elevate heels off bed with pillow/s.
Pressure redistributing chair cushion (i.e. air chair cushion).
Follow up at wound care center call for an appointment.
Referrals:
Roge Springer MD [Active] - in four to six weeks
Josh Ruano MD [Active] - in one to two weeks
Valeriano Wilson MD [Active] - in three to four weeks
Royce Ayala MD [Family Provider] - in less than 1 week
Prescriptions:
New
metoprolol succinate 50 mg Tablet Extended Release 24 Hr
50 mg PO BID 30 Days Qty: 60 0RF
cephalexin 250 mg Capsule
250 mg PO BID 3 Days Qty: 6 0RF
pantoprazole 40 mg Tablet,Delayed Release (Dr/Ec)
40 mg PO DAILY 30 Days Qty: 30 0RF
Continued
alendronate 35 mg tablet
35 mg PO MO
benzonatate 100 mg Capsule
100 mg PO Q8HPRN PRN (Reason: cough)
mirtazapine 15 mg Tablet,Disintegrating
15 mg PO HS
colchicine 0.6 mg Tablet
0.3 mg PO DAILY Qty: 90 0RF
amiodarone 200 mg Tablet
200 mg PO DAILY
ondansetron HCl 4 mg Tablet
4 mg PO BIDPRN PRN (Reason: nausea)
magnesium oxide 400 mg (241.3 mg magnesium) Tablet
400 mg PO DAILY
magnesium hydroxide [Milk of Magnesia] 400 mg/5 mL Suspension
30 ml PO DAILY PRN (Reason: if no BM x 2 days)
bisacodyl [Dulcolax (bisacodyl)] 10 mg Suppository
10 mg GA DAILY PRN (Reason: if no BM in 8hr after MOM)
Fleet Enema 19-7 gram/118 mL Enema
118 ml GA DAILYPRN PRN (Reason: if no BM 8hr after supp)
Icy Hot (menthol) 5 % Adhesive Patch,Medicated
1 patch TOPICAL BID
Patient Comments:
01/03/2024, on in AM and off in HS.
apixaban 2.5 mg Tablet
2.5 mg PO BID
Biofreeze (menthol) 4 % Gel
1 applic TOPICAL BID
levothyroxine 100 mcg tablet
100 mcg PO DAILY
Discontinued
acetaminophen 500 mg Tablet
1,000 mg PO Q8HPRN MDD 3000 mg PRN (Reason: mild pain)
diltiazem HCl 120 mg Capsule,Extended Release 24 Hr
120 mg PO DAILY
metoprolol succinate 25 mg Tablet Extended Release 24 Hr
25 mg PO DAILY
diltiazem HCl 30 mg Tablet
30 mg PO Q12H
Patient Comments:
01/03/2024, hold for SBP<120.
Discharge Orders:
Discharge Patient (As Directed); Ordered 01/15/24
Ordered By: Terry Morales
Discharge Date and Time
Discharge Date/Time: 01/15/24 18:32
Print Language: CROATIAN
[2024-01-15] MEDS: KEFLEX 250 MG PO (12:16)
[2024-01-15 15:00] VITALS: BP 119/66
--- NOTE | 2024-01-15 15:48 | CM ---
Addendum entered by Carol Banuelos 01/15/24 16:01:
Call to daughter Taryn to make her aware of transport time. She plans to meet her mother at [facility] this evening.
Original Note:
ROCK spoke with [facility] to update authorization (#[id number]) approved from 01/14-01/21/2024 NRD 01/21/2024.
Erica at [facility] provided with authorization information and plan for w/c van transport. Daughter contacted about discharge plans and notified about cost of w/c van transport $120; she was provided with phone number to call for payment
arrangements.
W/C Van olive picker time for 6PM.
Report: [phone]
[2024-01-15 16:21] LABS: COVID-19 Antigen Negative (Negative)
== END 2024-01-15 18:32 | DRG 291 ==
LOC: 4 EAST ACU 21:30
PROVIDERS: Emergency Medicine; Internal Medicine; Internal Medicine Cardiovascular Disease; Nuclear Medicine Nuclear Cardiology; Nurse Practitioner; Nurse Practitioner Gerontology; Physician Assistant; Radiology Vascular & Interventional Radiology; ADMITTING PHYSICIAN Internal Medicine; ATTENDING PHYSICIAN Hospitalist; CONSULT PHYSICIAN Internal Medicine Critical Care Medicine; CONSULT PHYSICIAN Internal Medicine Gastroenterology; EMERGENCY PHYSICIAN Emergency Medicine; FAMILY PHYSICIAN Family Medicine; OTHER PHYSICIAN Internal Medicine Cardiovascular Disease
PROC: 0W9B3ZX Drainage of Left Pleural Cavity, Percutaneous Approach, Diagnostic (ICD-10-PCS; 2024-01-04)
PROC: 5A2204Z Restoration of Cardiac Rhythm, Single (ICD-10-PCS; 2024-01-07)
PROC: 0W993ZX Drainage of Right Pleural Cavity, Percutaneous Approach, Diagnostic (ICD-10-PCS; 2024-01-09)
DX: I11.0 Hypertensive heart disease with heart failure (principal); I50.31 Acute diastolic (congestive) heart failure; E44.0 Moderate protein-calorie malnutrition; N17.9 Acute kidney failure, unspecified; N39.0 Urinary tract infection, site not specified; Z68.1 Body mass index [BMI] 19.9 or less, adult; E87.1 Hypo-osmolality and hyponatremia; J91.8 Pleural effusion in other conditions classified elsewhere; G30.9 Alzheimer's disease, unspecified; F02.80 Dementia in other diseases classified elsewhere, unspecified severity, without behavioral disturbance, psychotic disturbance, mood disturbance, and anxiety; I08.1 Rheumatic disorders of both mitral and tricuspid valves; Z66 Do not resuscitate; D50.9 Iron deficiency anemia, unspecified; E03.9 Hypothyroidism, unspecified; J44.9 Chronic obstructive pulmonary disease, unspecified; J47.9 Bronchiectasis, uncomplicated; B96.20 Unspecified Escherichia coli [E. coli] as the cause of diseases classified elsewhere; B96.1 Klebsiella pneumoniae [K. pneumoniae] as the cause of diseases classified elsewhere; I48.0 Paroxysmal atrial fibrillation; E78.5 Hyperlipidemia, unspecified; M81.0 Age-related osteoporosis without current pathological fracture; R11.2 Nausea with vomiting, unspecified; R91.8 Other nonspecific abnormal finding of lung field; Z86.79 Personal history of other diseases of the circulatory system; Z85.118 Personal history of other malignant neoplasm of bronchus and lung; Z90.2 Acquired absence of lung [part of]; Z92.21 Personal history of antineoplastic chemotherapy; Z92.3 Personal history of irradiation; Z87.19 Personal history of other diseases of the digestive system; Z90.49 Acquired absence of other specified parts of digestive tract; Z90.89 Acquired absence of other organs
CPT/HCPCS: 88305; 93308; 32555; 71045; 71046; 74018; 80048; 80053; 81003; 81015; 82150; 82728; 82945; 83516; 83540; 83550; 83615; 83690; 83735; 83880; 83986; 84145; 84157; 84439; 84443; 84478; 84484; 85014; 85025; 85027; 85652; 86038; 86140; 86160; 86200; 86235; 86430; 86704; 86705; 86706; 86708; 86709; 86803; 87015; 87070; 87077; 87086; 87186; 87205; 87340; 87811; 88112; 88341; 88342; 89051; 92960; 93005; 93321; 93325; 96361; 96374; 97110; 97116; 97162; 97166; 97530; 97535; 99285

== ENCOUNTER 2024-01-21 01:37 | Observation (INO) | payer OTHER, SELFPAY ==
[2024-01-20 22:30] VITALS: BP 129/72
[2024-01-20 22:31] VITALS: BMI 17.5
--- NOTE | 2024-01-20 22:40 | ED.GENMED ---
History of Present Illness
General
Chief Complaint: Chest Pain
Time Seen by Provider: 01/20/24 22:40
History of Present Illness
History of Present Illness:
HPI: The reason for visit is somewhat unclear. The patient cannot clearly tell me why she is here. She says she has been having some chest discomfort intermittently for about 'a month or 2'. She does not necessarily describe worsening pain today.
She thought that there was something wrong and ultimately she came in from [facility] for further evaluation. She denies any complaints currently. The patient also reports low back/buttock discomfort related to the stretcher.
EXAM:
GENERAL: The patient appears somewhat weak and debilitated
HEENT: Moist oral mucosa
CARDIOVASCULAR: No murmurs, normal heart rate, regular rhythm, No chest wall tenderness
PULMONARY: Minimal respiratory distress, decreased breath sounds at the bases with some faint rales at the bases as well
ABDOMEN: Soft with no peritoneal signs, no tenderness
NEUROLOGIC: Fair strength all extremities, no coordination deficits
PSYCHIATRIC: Fair insight and judgement but she does appear to have some mild cognitive impairment, she also appears somewhat anxious
EXTREMITIES: Nontender, trace lower extremity edema, moves all extremities equally
SKIN: No rash, no lesions
TIME OF INITIAL ENCOUNTER: 10:40 PM
NUMBER AND COMPLEXITY OF PROBLEMS ADDRESSED AT THE ENCOUNTER
� Chronic conditions affecting care: Atrial fibrillation, hyperlipidemia, hypothyroidism, lung cancer, COPD, CHF
� Acute Exacerbation and/or Progression of Chronic Illness: The acuity of this illness is unclear
� Differential Diagnosis includes: ACS, electrolyte normality, anemia, dysrhythmia
AMOUNT AND/OR COMPLEXITY OF DATA TO BE REVIEWED AND ANALYZED
� I performed an independent evaluation of and my interpretation is:
EKG: Sinus 77, normal axis, anterior T wave abnormality new in comparison to 01/11/2024
CT:
X-rays: I personally viewed chest x-ray. The right-sided pleural effusion appears stable however the left-sided pleural effusion appears worse in comparison to imaging from
Laboratory Studies: The troponin was less than 0.012, BNP is trending lower
Other:
� Review of other/old records: The patient was admitted here up until 5 days ago. At that time she was in A-fib with RVR and underwent cardioversion twice. She was also treated for UTI.
� Clinical information was obtained by an independent historian: I reviewed the notes from [facility] indicating 'resident reported short of breath, fine crackles noted throughout, pulse ox 96% on room air, positive orthopnea,
no diuretics ordered, poor appetite, expecting very little fluids, on 7 , weight was 22.4 pounds and today was 98, Dr. Garay wanted patient be transferred to the ED.
� Prescriptions/Medications Considered but not given: Considered diuresis however the patient has already been losing weight and her BNP has been coming down.
� Further testing considered but not performed: Considered CT chest however the patient did have a CT chest just over 1 month ago which showed a small pericardial effusion and small bilateral effusions. Today's chest x-ray looks
markedly worse regarding the pleural effusions compared to a month ago.
RISK OF COMPLICATIONS AND/OR MORBIDITY OR MORTALITY OF PATIENT MANAGEMENT
� Social determinants of health affecting care: Resides at [facility]
� Discussion with other providers: Dr. Serrano for admission at 12:35 AM
� Escalation of care including admission/observation vs risk of discharge considered: As the patient's EKG is somewhat changed from prior (anterior T WI) and she has worsening left-sided pleural effusion we will plan to keep in
the hospital for further evaluation. I also updated the daughter, Taryn, .
Past History
Past History
ED Past Medical History: Arrthythmia (Afib with RVR), COPD, Hypercholesterolemia and Hypothyroidism
ED Past Surgical History: Appendectomy, Bowel resection and Other (RUL lobectomy for lung CA)
Social History
Tobacco: Former smoker
Personal: Single
Living: with family
Phy Exam
Physical Exam
Physical Exam:
See HPI
Scores
Heart Score for Chest Pain Patients
STEMI patient?: Not applicable
Course
Orders/Labs/Results
Orders:
Orders
01/20/24 22:26
Electrocardiogram (*1) Urgent
Reason for Study: Chest Pain
Cardiac Monitoring- Treatment ONCE
EKG- Treatment ONCE
IV Insert/Care/Rem.- Treatment PRN
O2 Therapy [RESP] Urgent
Titrate/Wean O2 to maintain O2 sat greater than (%): 90
Special Instructions: Maintain sats >/=90%
Pulse Ox/spot Check [RESP] Urgent
Quantity: 1
Special Instructions: ON ROOM AIR
01/20/24 22:50
Electrocardiogram (*1) Urgent
Reason for Study: Chest Pain
EKG- Treatment ONCE
01/20/24 22:57
Add On- LAB Urgent
Tests Added?: bnp
01/20/24 22:58
CR Chest - 2 Views Urgent
Comment:
Reason For Exam: sob
01/20/24 23:07
Complete Blood Count/With Diff Urgent
Comprehensive Metabolic Panel Urgent
NT-proBNP Urgent
Comment: ADD ON
Troponin I Urgent
Abnormal Lab Results
01/20/24
23:07
RBC 4.08 L 10^6/uL
(4.20-5.40)
Hgb 11.4 L g/dL
(12.0-16.0)
Hct 32.7 L %
(37.0-47.0)
MCV 80.1 L fL
(81.0-99.0)
RDW 15.9 H %
(11.5-14.5)
Abs Immat Gran (auto) 0.1 H 10^3/uL
(0-0.05)
Absolute Neuts (auto) 8.7 H 10^3/uL
(1.4-6.5)
Absolute Lymphs (auto) 0.6 L 10^3/uL
(1.2-3.4)
Neutrophils % 86.2 H %
(42.2-75.2)
Lymphocytes % 5.7 L %
(20.5-51.1)
Sodium 134 L mmol/L
(135-145)
BUN 18 H mg/dl
(7-17)
Glucose 109 H mg/dl
(70-99)
AST 57 H U/L
(14-36)
Alkaline Phosphatase 193 H U/L
(38-126)
Total Protein 5.4 L g/dl
(6.3-8.2)
Albumin 2.7 L g/dl
(3.5-5.0)
01/20/24 23:07
01/20/24 23:07
Vital Signs
Initial and Last Documented VS:
Initial Vital Signs
BP
129/72
01/20/24 22:30
Last Documented Vital Signs
Temp Pulse Resp BP Pulse Ox
98.2 F 77 20 129/72 96
01/20/24 22:39 01/20/24 22:31 01/20/24 22:31 01/20/24 22:30 01/20/24 22:33
*Critical Care Note
Total Time (30-74mins, 75-104mins- exclusive of procedures): Not Applicable
ED Attending Note
-
Portions of this chart may have been created with voice recognition software.� Occasional wrong word or��sound alike� substitutions may have occurred due to the inherent limitations of voice recognition software.
Discharge Plan
Departure
Prescriptions:
No Action
alendronate 35 mg tablet
35 mg PO MO
benzonatate 100 mg Capsule
100 mg PO Q8HPRN PRN (Reason: cough)
mirtazapine 15 mg Tablet,Disintegrating
15 mg PO HS
colchicine 0.6 mg Tablet
0.3 mg PO DAILY Qty: 90 0RF
amiodarone 200 mg Tablet
200 mg PO DAILY
ondansetron HCl 4 mg Tablet
4 mg PO BIDPRN PRN (Reason: nausea)
magnesium oxide 400 mg (241.3 mg magnesium) Tablet
400 mg PO DAILY
magnesium hydroxide [Milk of Magnesia] 400 mg/5 mL Suspension
30 ml PO DAILY PRN (Reason: if no BM x 2 days)
bisacodyl [Dulcolax (bisacodyl)] 10 mg Suppository
10 mg SC DAILY PRN (Reason: if no BM in 8hr after MOM)
Fleet Enema 19-7 gram/118 mL Enema
118 ml SC DAILYPRN PRN (Reason: if no BM 8hr after supp)
Icy Hot (menthol) 5 % Adhesive Patch,Medicated
1 patch TOPICAL BID
Patient Comments:
01/03/2024, on in AM and off in HS.
apixaban 2.5 mg Tablet
2.5 mg PO BID
Biofreeze (menthol) 4 % Gel
1 applic TOPICAL BID
levothyroxine 100 mcg tablet
100 mcg PO DAILY
metoprolol succinate 50 mg Tablet Extended Release 24 Hr
50 mg PO BID 30 Days Qty: 60 0RF
cephalexin 250 mg Capsule
250 mg PO BID 3 Days Qty: 6 0RF
pantoprazole 40 mg Tablet,Delayed Release (Dr/Ec)
40 mg PO DAILY 30 Days Qty: 30 0RF
Referrals:
Anntete Wong MD [Family Provider] -
Interventions
Interventions:
*Risk Screen - Suicide Last Done: 01/20/24 22:33
*General Assessment Last Done: 01/20/24 22:33
*Neglect/Abuse Screening Last Done: 01/20/24 22:33
ED- Fall Risk Assessment Last Done: 01/20/24 22:33
*ED COVID-19 Vaccine History Last Done: 01/20/24 22:33
ED- Cardiac Assessment Last Done: 01/20/24 22:33
Discharge Date and Time
Print Language: ANDORRAN
[2024-01-20 23:00] VITALS: BP 150/67
[2024-01-20 23:14] LABS: % Basophils 0.7 % (0-2); % Eosinophils 1.1 % (0-6); % Immature Granulocytes 0.5 % (0-0.5); % Lymphocytes 5.7 % (20.5-51.1); % Monocytes 5.8 % (1.7-9.3); % Neutrophils 86.2 % (42.2-75.2); Absolute Basophils 0.1 10^3/uL (0-0.2); Absolute Eosinophils 0.1 10^3/uL (0-0.7); Absolute Immature Granulocytes 0.1 10^3/uL (0-0.05); Absolute Lymphocytes 0.6 10^3/uL (1.2-3.4); Absolute Monocytes 0.6 10^3/uL (0.1-0.6); Absolute Neutrophils 8.7 10^3/uL (1.4-6.5); Hematocrit 32.7 % (37.0-47.0); Hemoglobin 11.4 g/dL (12.0-16.0); Mean Corp Hgb Conc. 34.9 g/dL (33.0-37.0); Mean Corpuscular Hgb 27.9 pg (27.0-31.0); Mean Corpuscular Volume 80.1 fL (81.0-99.0); Mean Platelet Volume 9.6 fL (7.4-10.4); Nucleated Red Blood Cells % 0 %; Platelet Count 378 10^3/uL (130-400); Red Blood Cell Count 4.08 10^6/uL (4.20-5.40); Red Cell Dist. Width 15.9 % (11.5-14.5); White Blood Cell Count 10.1 10^3/uL (4.8-10.8)
[2024-01-20 23:37] LABS: ALT (SGPT) 14 U/L (0-35); AST (SGOT) 57 U/L (14-36); Albumin 2.7 g/dl (3.5-5.0); Alkaline Phosphatase 193 U/L (38-126); Blood Urea Nitrogen 18 mg/dl (7-17); Calcium 8.5 mg/dl (8.4-10.2); Carbon Dioxide 23 mmol/L (22-30); Chloride 104 mmol/L (98-107); Estimated Creatinine Clearance 41 ml/min; Glucose 109 mg/dl (70-99); Potassium 4.1 mmol/L (3.5-5.1); Sodium 134 mmol/L (135-145); Total Bilirubin 0.6 mg/dl (0.2-1.3); Total Protein 5.4 g/dl (6.3-8.2); eGFR > 60.00
[2024-01-20 23:43] LABS: NT-proBNP 2380 pg/ml; Troponin I < 0.012 ng/ml
[2024-01-21] VITALS (12 sets, daily range): BP systolic 73–142; BP diastolic 53–77; BMI 16.3; BMI 16.2
--- NOTE | 2024-01-21 01:08 | HPS.HSE ---
Family Physician
-
Family Physician: Annette Wong
Chief Complaint
-
Vague chest discomfort
History of Present Illness
I could not get any information from the patient is poor historian with HX Dementia
Information gathered by chart review and speaking with the ER staff.
83F Poor Historian, HX Dementia from SNF at [facility] pw some vague chest discomfort intermittently for about 1- 2 months
She was DC' d 6 days ago with Dxs: Prx AF , EMMY , Pleural effusions. S/P R thoracentesis 1.1 L yellow clear pleural fluid
- unclear aggravating or relieving factors
- unable to further detailing the CP from patient
Review of prior recent admission:
Dxes: shock likely cardiogenic secondary to pericardial effusion,Large pericardial effusion s/p pericardiocentesis status post drain placement and removal, EMMY, Rapid AF s/p MU and successful CV, Moderate protein caloric malnutrition, Hypovolemic
hyponatremia and transaminitis.
Medical History
Past Medical History
Past Medical History: Reports Other
Additional Past Medical History:
Paroxysmal Atrial Fibrillation
TIA
Essential Hypertension
Hyperlipidemia
COPD
Adenocarcinoma Right Upper Lobe
Anxiety/Depression
Hypothyroidism
Osteoporosis
Dementia
Past Surgical History: Reports Other
Additional Past Surgical History:
Arrthythmia (Afib with RVR)
COPD
Hypercholesterolemia
Hypothyroidism
Social History
Tobacco: Former Smoker
Alcohol: None
Drug: None
Family History
Family History: Not pertinent
Allergies / Home Medications
Allergies reflects when Allergies were last updated in [employer].
Home Medications with original date entered in [employer]
Allergy/Medication List:
Allergies
Allergy/AdvReac Type Severity Reaction Status Date / Time
No Known Allergies Allergy Verified 06/06/23 19:44
Home Medications
alendronate 35 mg tablet 35 mg PO MO osteoperosis 06/06/23
apixaban 2.5 mg tablet (Eliquis) 2.5 mg PO BID Blood clot prevention/tx #60 tabs 06/07/23
levothyroxine 100 mcg tablet 100 mcg PO DAILY AT 0700 Thyroid #30 tabs 06/07/23
magnesium oxide 500 mg PO DAILY Electrolyte Repletion #60 tabs 06/08/23
aspirin 81 mg chewable tablet 81 mg PO DAILY 12/12/23
atorvastatin 40 mg tablet 40 mg PO HS 12/12/23
benzonatate 100 mg capsule 100 mg PO TID PRN cough 12/12/23
diltiazem HCl 120 mg capsule,24 hr,extended release 120 mg PO DAILY 12/12/23
dofetilide 250 mcg capsule 250 mcg PO Q12H 12/12/23
furosemide 20 mg tablet 20 mg PO DAILY 12/12/23
metoprolol succinate 50 mg tablet,extended release 24 hr 75 mg PO BID 12/12/23
mirtazapine 15 mg disintegrating tablet 15 mg PO HS 12/12/23
Review of Systems
-
Constitutional: Reports No Symptoms
EENT: Reports No Symptoms
Respiratory: Reports No Symptoms
Cardiac: Reports Chest Pain (vague chest disconfort )
Abdomen/GI: Reports No Symptoms
: Reports No Symptoms
Musculoskeletal: Reports No Symptoms
Skin: Reports No Symptoms
Neurological: Reports No Symptoms
Endocrine: Reports No Symptoms
Hematologic/Lymphatic: Reports No Symptoms
Psych: Reports No Symptoms
Physical Exam
Vital Signs
Vital Signs
Temp Pulse Resp BP Pulse Ox
98.2 F 77 20 129/72 96
01/20/24 22:39 01/20/24 22:31 01/20/24 22:31 01/20/24 22:30 01/20/24 22:33
Physical Exam
General: Appears Chronically Ill and Other ( debilitated appearance )
HEENT: Moist mucous membranes
Respiratory: Rales ( some faint rales at the bases ) and Other (decreased breath sounds at the bases)
Cardiac: S1/S2 and Regular Rhythm
Breast: Deferred by me
GI: Soft, Non Tender, Non Distended and Normal Bowel Sounds
Rectal: Deferred by Provider
Genito-urinary: Deferred by me
Musculoskeletal: No Edema
Skin: Warm and Dry
Neuro: AO x 3
Psych: Calm
Laboratory Results
-
01/20/24 23:07
01/20/24 23:07
Laboratory Results
Total Bilirubin 0.6 mg/dl (0.2-1.3) 01/20/24 23:07
AST 57 U/L (14-36) H 01/20/24 23:07
ALT 14 U/L (0-35) 01/20/24 23:07
Alkaline Phosphatase 193 U/L (38-126) H 01/20/24 23:07
Troponin I < 0.012 ng/ml 01/20/24 23:07
Data Reviewed
-
Diagnostic Radiology: Image Personally Visualized and interpreted and Report Reviewed by me
Lab Data: Labs Reviewed by me
Old Records: Reviewed
Impression/Plan
-
Reviewed VS: Afebrile and unremarkable
Data
WCC 10
Hgb 11.4 - stable an at baseline
Na 134
nl eGFR
NEG TPNI
pro BNP 2380 - baseline 3400- 5900
EKG:
NORMAL SINUS RHYTHM
T WAVE ABNORMALITY, CONSIDER ANTERIOR ISCHEMIA WHEN COMPARED WITH ECG OF 20-JAN-2024 22:36,
ABNORMAL ECG
01/21/24 CXR :
Lt sided pleural effusion
01/07/24 CXR:
Small left and [id number] right pleural effusions with associated probable atelectasis, progressed.
01/04/24 ECHO
1. Concentric LVH with EF 60-65%
2. Biatrial enlargement
3. Aortic sclerosis without stenosis
4. No recurrence of pericardial effusion
Last hospitalist admission: : 01/03/24 -01/15/24
DC Dxs:
Paroxysmal atrial fibrillation status post cardioversion.
Pleural effusions.
Acute kidney injury.
Moderate protein calorie malnutrition.
Elevated liver function tests.
Dementia, Alzheimer's.
ASSESSMENT & PLAN
Pending Rx reconciliation
Vague intermittent chest discomfort for last 1- 2months: currently denied CP
NEG TPNI
Abn EKG: new abn T wave compare to first EKG 2 hrs ago at ER
- Trend TPNI
- cont Apixaban
- CBC card consult
Interval increased Lt pleural effusion compare to 01/08/CXR
HX B/l pleural effusion ( Moderate on Lt, small on Rt)
HX Pericardial effusion s/p pericardia drainage and removal on last admission
LVEF 55-60 and Nl RV size and function as of 12/19/23 MU
- pro BNP is less than previous range
- cont. Colchicine
- IR consult to eval for Lt sided pleural effusion and thoracentesis or what not !
In NSR
HX Recurrent fast AF while on Amiodarone,
- cont. Amiodarone
- on metoprolol,
- cont. eliquis
Hypothyroidism
-on levothyroxine
- recent TSH normal.
Hyperlipidemia
Moderate protein calorie malnutrition: - BMI only 17
HX pulmonary adenocarcinoma -underwent right upper lobectomy about 5 to 6 years ago according to family.
12/17/23 CT chest: Bilateral small nodule noncalcified pulmonary nodule concerning for malignancy until proven otherwise.
Dementia, likely Alzheimer's type
DVT Px: on Eliquis
Code: DNR per patient in the presence of daughter at bed side
OBS TLM
[2024-01-21 04:18] LABS: Hematocrit 35.3 % (37.0-47.0); Hemoglobin 11.6 g/dL (12.0-16.0); Mean Corp Hgb Conc. 32.9 g/dL (33.0-37.0); Mean Corpuscular Hgb 27.4 pg (27.0-31.0); Mean Corpuscular Volume 83.3 fL (81.0-99.0); Mean Platelet Volume 9.6 fL (7.4-10.4); Platelet Count 483 10^3/uL (130-400); Red Blood Cell Count 4.24 10^6/uL (4.20-5.40); Red Cell Dist. Width 15.9 % (11.5-14.5); White Blood Cell Count 12.8 10^3/uL (4.8-10.8)
[2024-01-21 04:42] LABS: Blood Urea Nitrogen 18 mg/dl (7-17); Calcium 8.7 mg/dl (8.4-10.2); Carbon Dioxide 24 mmol/L (22-30); Chloride 104 mmol/L (98-107); Estimated Creatinine Clearance 39 ml/min; Glucose 95 mg/dl (70-99); LDH 284 U/L (120-246); Potassium 4.1 mmol/L (3.5-5.1); Sodium 135 mmol/L (135-145); Total Protein 5.5 g/dl (6.3-8.2); eGFR > 60.00
[2024-01-21 04:50] LABS: Troponin I < 0.012 ng/ml
[2024-01-21] MEDS: SYNTHROID 100 MCG PO (06:31)
--- NOTE | 2024-01-21 08:07 | CON.CAR ---
Addendum entered and electronically signed by Marcela Watson MD 01/21/24 14:27:
I saw and examined the patient.
The INVOICING MACHINE OPERATOR's note was reviewed and I agree with the note.
Comment: She is feeling better, breathing is less of an issue for her after the tap. She reports she is not eating and does not know why. She has no chest pain or pressure. On exam she has prominent zygomatic arches and bitemporal wasting. In
the examination of her back, you can see intercostal spaces with ease, she has a rrr no mrg, legs with 1 plus pitting edema. Weight is down, proBNP is down from prior. Albumin is low. I think this is all failure to thrive and third spacing.
Recommend compression stockings. Blood pressure was low today, would not give Lasix today. T waves are mildly different than they were in December but not dynamic here today. No chest pain. No further evaluation. Recent echocardiogram was normal.
Original Note:
Consultation
Consultation Request
Date/Time Consultation Requested: 01/21/2024 02:06
Date/Time Consultation Performed: 01/21/2024 08:00
Requesting Provider: Dr. Serrano
Performing Provider: MELVI Garcia for Dr. Watson
Reason for Consultation: Abnormal EKG (TWI)
Medical History
-
Chief Complaint: Chest discomfort
History of Present Illness:
Mrs. Lucas is an 83 year old female (initially seen by Dr. Ruano), with HTN, lung cancer S/P surgical resection (without adjuvant chemotherapy or radiation per daughter), COPD, paroxysmal atrial fibrillation (MU/DCCV 12/19/2023 and again
01/07/2024, on amiodarone, had NSVT with dofetilide), pericardial effusion (pericardiocentesis 12/12/2023, completed 3 months of colchicine) with recent hospitalization 01/03/2024 - 01/15/2024 with atrial fibrillation with rapid ventricular response
and pleural effusion. She had a left thoracentesis for 1 L and a right thoracentesis for just over 1 L five days later. Her hospitalization was complicated by UTI. She presented yesterday with vague chest discomfort. She has had an increase in
her left pleural effusion since prior chest x-ray. Cardiology was consulted for T wave inversion. She denies chest pain and shortness of breath. She is very forgetful during this consultation.
EMS report reflects she has a very poor appetite and has been having poor oral intake (fluid and nutrition). Her weight is trending down but she developed orthopnea which prompted EMS evaluation.
Past Medical History
Past Medical History: Arrhythmias (paroxysmal atrial fibrillation), Cancer (Lung cancer [resection]), COPD, HTN and Other
Past Surgical History: Other
Social History
Tobacco: Former Smoker
Alcohol: None
Drug: None
Living: Snf ([facility])
Employment: Retired
Family History
Family History: Reviewed & Not Pertinent
Allergies / Home Medications
Allergy/AdvReac Type Severity Reaction Status Date / Time
No Known Allergies Allergy Verified 01/20/24 22:32
�Medication �Instructions �Recorded �Confirmed �Type
alendronate 35 mg tablet 35 mg PO MO osteoperosis 06/06/23 01/21/24 History
benzonatate 100 mg capsule 100 mg PO Q8HPRN PRN cough 12/12/23 01/21/24 History
mirtazapine 15 mg disintegrating 15 mg PO HS Mental Health/Anxiety 12/12/23 01/21/24 History
tablet
colchicine 0.6 mg tablet 0.3 mg (1/2 x 0.6 mg) PO DAILY #90 12/20/23 01/21/24 Rx
tabs
amiodarone 200 mg tablet 200 mg PO DAILY Arrhythmia 01/03/24 01/21/24 History
apixaban 2.5 mg tablet 2.5 mg PO BID Blood Clot 01/03/24 01/21/24 History
Prevention/Tx
bisacodyl 10 mg rectal suppository 10 mg CO DAILY PRN if no BM in 8hr 01/03/24 01/21/24 History
(Dulcolax (bisacodyl)) after MOM
levothyroxine 100 mcg tablet 100 mcg PO DAILY Thyroid 01/03/24 01/21/24 History
magnesium hydroxide 400 mg/5 mL 30 ml PO DAILY PRN if no BM x 2 01/03/24 01/21/24 History
oral suspension (Milk of Magnesia) days
magnesium oxide 400 mg (241.3 mg 400 mg PO DAILY Electrolyte 01/03/24 01/21/24 History
magnesium) tablet Repletion
menthol 4 % topical gel (Biofreeze 1 applic topical BID posterior neck 01/03/24 01/21/24 History
(menthol))
menthol 5 % topical patch (Icy Hot 1 patch topical BID B/L shoulders 01/03/24 01/21/24 History
(menthol))
ondansetron HCl 4 mg tablet 4 mg PO BIDPRN PRN nausea 01/03/24 01/21/24 History
sodium phosphates 19 gram-7 118 ml CO DAILYPRN PRN if no BM 01/03/24 01/21/24 History
gram/118 mL enema (Fleet Enema) 8hr after supp
metoprolol succinate 50 mg 50 mg PO BID 30 days #60 tabs 01/15/24 01/21/24 Rx
tablet,extended release 24 hr
pantoprazole 40 mg tablet,delayed 40 mg PO DAILY 30 days #30 tabs 01/15/24 01/21/24 Rx
release
Review of Systems
-
History Source: Patient
All other systems: Negative unless noted
Constitutional: No Symptoms
Respiratory: No Symptoms
Cardiac: No Symptoms
Abdomen/GI: No Symptoms
Musculoskeletal: No Symptoms
Physical Exam
Vital Signs
Temp Pulse Resp BP Pulse Ox
97.5 F 72 18 142/77 95
01/21/24 02:23 01/21/24 02:23 01/21/24 02:23 01/21/24 02:23 01/21/24 02:23
Lab Results
01/21/24 03:44
01/21/24 03:44
Troponin I < 0.012 ng/ml 01/21/24 03:44
Acw-M-Ljthoodqshu Pept 2380 pg/ml 01/20/24 23:07
Physical Exam
General: Well Developed, Well Nourished, No Apparent Distress and Comfortable
HEENT: Normocephalic, Anicteric and Moist Mucous Membranes
Respiratory: Crackles and Non Labored Respirations
Cardiac: S1/S2, Regular Rhythm and Peripheral Edema (+1-2 pitting LE edema)
Breast: Deferred by me
GI: Soft, Non Tender, Non Distended and Normal Bowel Sounds
Rectal: Deferred by Provider
Genito-urinary: No Costovertebral Tender
Musculoskeletal: No Clubbing and No Cyanosis
Skin: Warm and Dry
Neuro: AO x 3
Hematologic/Lymphatic: No Lymphadenopathy
Psych: Calm
Impression / Plan
-
Chest discomfort
-Received 324mg ASA by EMS
-Currently denies along with shortness of breath
-Troponin < 0.012 x 3, further troponin levels cancelled
Abnormal EKG
-Anterior TWI since prior admission, update EKG
-Denies CP and shortness of breath
-No events on telemetry
Pleural effusions, recurrent
-Progressed left pleural effusion on CXR, IR consulted by primary
-S/p right thoracentesis 01/09/2024 1100 mL
-S/p left thoracentesis 01/04/2024 1000 mL
-LVEF 55-60% by MU. Lowest documented proBNP this admission
Paroxysmal atrial fibrillation
-Maintaining sinus rhythm on amiodarone
-DCCV 01/11/2024, continue apixaban 2.5 mg twice daily (age 83, weight <60 kg)
Protein calorie malnutrition, moderate, BMI 16.2
Prior adenocarcinoma of the lung, status post resection, XRT, and chemotherapy
Prior pericardial effusion (12/12/2023), on colchicine
Dementia
Data Reviewed
-
EKG: Report Reviewed by me (Sinus rhythm with anterior T wave abnormality)
Radiology: Report Reviewed by me (CXR: Moderate left and small right pleural effusions, slightly increased.)
Medical Tests (Nuc Med, Echo etc): Report Reviewed by me (Echocardiogram as above)
Labs: Labs Reviewed by me
Old Records: Reviewed (Prior hospitalization as above)
[2024-01-21 08:12] LABS: Troponin I < 0.012 ng/ml
[2024-01-21] MEDS: TOPROL XL 50 MG PO ×2 (08:29→19:33)
[2024-01-21] MEDS: PACERONE 200 MG PO (08:30)
[2024-01-21] MEDS: ELIQUIS 2.5 MG PO ×2 (08:30→19:33)
[2024-01-21] MEDS: COLCHICINE 0.3 MG PO (08:30)
[2024-01-21] MEDS: PROTONIX 40 MG PO (08:31)
[2024-01-21 09:56] LABS: Glycohemoglobin (HgbA1c) 5.8 % (4.0-5.6)
[2024-01-21 10:45] LABS: Body Fluid pH 7.42
[2024-01-21] MEDS: LASIX 20 MG PO (10:55)
[2024-01-21 11:01] LABS: Body Fluid Amylase 30 U/L; Body Fluid Glucose 98 mg/dl; Body Fluid LDH < 90 U/L; Body Fluid Protein 2.8 g/dl; Body Fluid Triglycerides 32 mg/dl
[2024-01-21 12:20] LABS: Body Fluid WBC 1035 /CUMM
[2024-01-21 12:48] LABS: Body Fluid Second Tech EM
--- NOTE | 2024-01-21 13:20 | CM ---
Addendum entered by Mariya Horan 01/21/24 15:07:
Consult placed to Hospice, met with daughter bedside, agreeable to Hospice. [facility] will call Taryn to discuss. CM will continue to follow for all discharge planning needs.
Plan; return home with Hospice pending acceptance.
Original Note:
CM spoke with patients daughter, Taryn, to conduct initial assessment. Patient came from [facility], plan was for patient to discharge to her home in two days with [facility]. Patients daughter hopeful this plan can remain in place. Daughter
reports patient has not been home in about 6 weeks, is eager to go home. Patient has wheelchair, walker, and elevated toilet seat at home, inquiring if patient can get a commode. Patient has a first floor set up. Patient PCP Dr. Wong, pharmacy [facility]
[place]. [employer] form reviewed with daughter on the phone, aware of observation status. CM will continue to follow for all discharge planning needs.
Plan; watch PT/OT timo, will need script for commode if returning home, will send referral to [facility] if recommendation is home isaiah.
--- NOTE | 2024-01-21 13:59 | W.PN.HOSP.TC ---
Addendum entered and electronically signed by Matthew Barrett DO 01/21/24 14:36:
Updated daughter on the phone.
Explained that at this point in time we do not have a good explanation for her recurrent pleural effusions. Perhaps this is her body's way of telling us that it is at the end of life. I introduced the concept of hospice with the goal of keeping
the patient home with the family and avoiding further hospitalizations. Daughter seems receptive and interested in learning more about hospice. Consult placed. Case management updated.
Daughter interested in taking her home tomorrow either on or off hospice.
Original Note:
Today's Communication/Plan
-
Lumbar/sacral x-rays
Wound care consult
Cardiology consult
PT/OT
Assessment / Plan
Assessment / Plan
Gen-AAOx3, NAD
HEENT-NC, AT, anicteric, clear oral mm
Neck-supple
CV-reg, no M, +S1/S2
Lungs-clear B/L
Abd-soft, NT, ND
Ext-no edema
Musculoskeletal-no cyanosis, clubbing
Skin-warm and dry, stage II sacral wound with no active drainage
Neuro-grossly non-focal
Psych-calm, cooperative
Recurrent pleural effusions -unclear etiology. Differential diagnosis includes heart failure versus malignancy versus infection versus other. Had left thoracentesis on 01/03, right thoracentesis on 01/08, left thoracentesis 01/20. Cytology negative
so far. No signs or symptoms of infection such as pneumonia. Just barely exudative fluid based on Lights criteria. Seen by pulmonary during last hospitalization, recommended outpatient follow-up.
Atypical chest pain likely related to pleural effusions. Troponins negative.
Cardiology has started furosemide.
Sacral decubital wound -offloading, consult wound care. Check lumbar and sacral x-rays given complaints of pain.
Paroxysmal atrial fibrillation -on amiodarone, Eliquis.
Moderate protein calorie malnutrition
History of pericardial effusion -still on colchicine. Effusion was treated with a pericardial drain 12/12/2023. Fluid cytology negative.
Hypothyroidism -continue levothyroxine.
Hyperlipidemia
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
Dementia, likely Alzheimer's type
DNR
Anticipated Discharge: > 48 hours
Subjective/Interval History
-
Date of Service: January 21, 2024
Patient seen and examined. Complaining of pain over her sacrum.
Objective Data
-
Labs:
Laboratory Results
01/21/24 01/21/24 01/21/24
03:44 03:44 03:44
WBC 12.8 H
Hgb 11.6 L
Hct Cancelled 35.3 L
Plt Count 483 H D
Sodium 135
Potassium 4.1
Chloride 104
Carbon Dioxide 24
BUN 18 H
Creatinine 0.8
Glucose Cancelled 95
Calcium 8.7
Vital Signs:
Vital Signs
Temp Pulse Resp BP Pulse Ox
98.0 F 72 18 120/68 93
01/21/24 11:00 01/21/24 11:00 01/21/24 11:00 01/21/24 11:00 01/21/24 11:00
Review of Systems
-
History Source: Patient
All other systems: Reviewed and negative
--- NOTE | 2024-01-21 15:10 | WOUNDNOTE ---
[facility] RN note: Patient admitted with chest discomfort, L sided pleural effusion. Patient admitted from SNF rehab. Plan is home to daughter's home with VN, possible home hospice.
See H&P for complete history.
PMH: poor po, bowel resection for volvulus, R upper lobectomy for adenocarcinoma, a fib, HTN, arthritis.
Wound Location and type/assessment: Patient admitted with: sacral stage 2 pressure injury.
Appetite: poor.
Pressure redistribution devices in place: [employer] Accumax. Air chair cushion. Patient can turn self in bed. Patient declined air mattress. Daughter not interested in hospital bed at home.
Plan: Sacral silicone foam dressing changed. Patient turned to L semi side lying position. Heels off bed with air chair cushion. Instructed patient and daughter pressure injury prevention measures. Instructed daughter despite preventative measures
in place, patient at risk for worsening or additional skin breakdown d/t poor nutrition and patient with prominent bony prominences.
Confirmed order with Dr. Barrett and discussed with JENNIFER Martinez.
Care plan to be updated and will follow as needed. Discussed case with ROCK Horan.
--- NOTE | 2024-01-21 18:55 | PTCARENOTE ---
Pt received from outgoing RN. Mainly complaining of pain from the wound on her sacrum. Ox3 and appropriate. NSR on tele. Breath sounds diminished at the bases with few crackles. Call green within reach. Pt makes needs known.
[2024-01-22 03:25] VITALS: BP 97/61
[2024-01-22] MEDS: SYNTHROID 100 MCG PO (05:53)
[2024-01-22 06:00] VITALS: BMI 15.7
[2024-01-22 07:00] VITALS: BP 108/57
--- NOTE | 2024-01-22 09:21 | W.PN.CD ---
Today's Communication / Plan
-
continue current medications
no new recommendations
agree with GOC discussions
I will sign off and see again at your request
Impression / Plan
-
Pleural effusions, recurrent
-Progressed left pleural effusion on CXR, IR consulted by primary
-S/p right thoracentesis 01/09/2024 1100 mL
-S/p left thoracentesis 01/04/2024 1000 mL
-don't suspect large degree of CHF, rather FTT and cachexia with 3rd spacing
-LVEF 55-60% by MU. Lowest documented proBNP this admission
FTT:
-poor po intake
-BMI 15.7
-likely a degree of OBS
-suspect this the driving factor of all current issues
Paroxysmal atrial fibrillation
-Maintaining sinus rhythm on amiodarone
-DCCV 01/11/2024, continue apixaban 2.5 mg twice daily (age 83, weight <60 kg)
Abnormal EKG
-Anterior TWI since prior admission, update EKG
-Denies CP and shortness of breath
-trop negative
-No events on telemetry
-no further evaluation planned
Protein calorie malnutrition, moderate, BMI 16.2
Prior adenocarcinoma of the lung, status post resection, XRT, and chemotherapy
Prior pericardial effusion (12/12/2023), on colchicine
Dementia
Hospice disussions began.
Subjective: she is feeling better, wants to go home today.
TTE 01/04/24:CONCLUSIONS
1. Concentric LVH with EF 60-65%
2. Biatrial enlargement
3. Aortic sclerosis without stenosis
4. No recurrence of pericardial effusion
Physical Exam
Vital Signs/Labs
Vital Signs
Temp Pulse Resp BP Pulse Ox
97.4 F 66 16 108/57 96
01/22/24 07:00 01/22/24 07:00 01/22/24 07:00 01/22/24 07:00 01/22/24 07:00
01/21/24 01/22/24 01/23/24
06:59 06:59 06:59
Actual Weight 44.254 kg 42.864 kg
01/21/24 03:44
01/21/24 03:44
01/20/24
23:07
[id number] Pept 2380
LAB Results
01/20/24 01/21/24 01/21/24
23:07 03:44 07:31
Troponin I < 0.012 < 0.012 < 0.012
01/21/24
08:06
Troponin I Cancelled
Physical Exam
Constitutional: No acute distress and Other (cachectic)
Cardiovascular: Rhythm & rate is regular, JVD pressure is normal and Pedal edema present (tubigrips in place, mild 1edema b/l )
Respiratory: Respiratory effort normal, Lungs clear to auscul., Wheeze Absent, Crackles Absent and Rhonchi Absent
Data Reviewed
-
Date of Service: January 22, 2024
--- NOTE | 2024-01-22 09:41 | HOSPNOTE ---
Spoke with daughter Taryn yesterday 01/20 and discussed hospice and the philosophy. The plan would be for patient to return home with the daughter being the primary healthcare prof. The daughter Taryn is in agreement with hospice care. I will update
physician and CM.
[2024-01-22] MEDS: PROTONIX 40 MG PO (09:44)
[2024-01-22] MEDS: TOPROL XL 50 MG PO (09:45)
[2024-01-22] MEDS: ELIQUIS 2.5 MG PO (09:45)
[2024-01-22] MEDS: COLCHICINE 0.3 MG PO (09:46)
[2024-01-22] MEDS: PACERONE 200 MG PO (09:46)
--- NOTE | 2024-01-22 10:43 | W.PN.HOSP.TC ---
Today's Communication/Plan
-
Discharge
Assessment / Plan
Assessment / Plan
Gen-AAOx3, NAD
HEENT-NC, AT, anicteric, clear oral mm
Neck-supple
CV-reg, no M, +S1/S2
Lungs-rales bilaterally, mostly left-sided
Abd-soft, NT, ND
Ext-no edema
Musculoskeletal-no cyanosis, clubbing
Skin-warm and dry, stage II sacral wound with no active drainage
Neuro-grossly non-focal
Psych-calm, cooperative
Recurrent pleural effusions -unclear etiology. Differential diagnosis includes heart failure versus malignancy versus infection versus third spacing of fluids. Had left thoracentesis on 01/03, right thoracentesis on 01/08, left thoracentesis 01/20.
Cytology negative so far. No signs or symptoms of infection such as pneumonia. Just barely exudative fluid based on Lights criteria. Seen by pulmonary during last hospitalization, recommended outpatient follow-up.
Atypical chest pain likely related to pleural effusions. Troponins negative.
Cardiology has started furosemide.
Sacral decubital wound -offloading, consult wound care. Lumbar and sacral x-rays noted.
Paroxysmal atrial fibrillation -on amiodarone, Eliquis.
Moderate protein calorie malnutrition -albumin 2.7.
History of pericardial effusion -still on colchicine. Effusion was treated with a pericardial drain 12/12/2023. Fluid cytology negative.
Hypothyroidism -continue levothyroxine.
Hyperlipidemia
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
Dementia, likely Alzheimer's type
DNR
Dispo -family has opted for home hospice. Patient medically stable for discharge.
31 minutes spent in discharge process.
Anticipated Discharge: Today
Subjective/Interval History
-
Date of Service: January 22, 2024
Patient seen and examined. No complaints.
Objective Data
-
Vital Signs:
Vital Signs
Temp Pulse Resp BP Pulse Ox
97.4 F 66 16 108/57 96
01/22/24 07:00 01/22/24 07:00 01/22/24 07:00 01/22/24 07:00 01/22/24 07:00
I&O
01/21/24 01/22/24 01/23/24
06:59 06:59 06:59
Intake Total 720 / 720
Balance 720 / 720
Review of Systems
-
History Source: Patient
All other systems: Reviewed and negative
--- NOTE | 2024-01-22 10:47 | W.DS.TRANS ---
DC Summary - Nut Sheller
-
Discharge Instructions:
Discharge Diagnosis/Procedures Recurrent pleural effusions, malnutrition,
sacral decubital wound
Diet Regular
Activity With assistance
Driving Restrictions No driving
Bathing Restrictions None
Other Services Hospice
Instructions:
Stand-Alone Forms:
Changes to Home Medications: No
Discharge Medications:
DC Medications w/original date entered in [employer]
alendronate 35 mg tablet 35 mg PO MO osteoperosis 06/06/23
benzonatate 100 mg capsule 100 mg PO Q8HPRN PRN cough 12/12/23
mirtazapine 15 mg disintegrating tablet 15 mg PO HS Mental Health/Anxiety 12/12/23
colchicine 0.6 mg tablet 0.3 mg (1/2 x 0.6 mg) PO DAILY #90 tabs 12/20/23
amiodarone 200 mg tablet 200 mg PO DAILY Arrhythmia 01/03/24
apixaban 2.5 mg tablet 2.5 mg PO BID Blood Clot Prevention/Tx 01/03/24
bisacodyl 10 mg rectal suppository (Dulcolax (bisacodyl)) 10 mg KS DAILY PRN if no BM in 8hr after MOM 01/03/24
levothyroxine 100 mcg tablet 100 mcg PO DAILY Thyroid 01/03/24
magnesium hydroxide 400 mg/5 mL oral suspension (Milk of Magnesia) 30 ml PO DAILY PRN if no BM x 2 days 01/03/24
magnesium oxide 400 mg (241.3 mg magnesium) tablet 400 mg PO DAILY Electrolyte Repletion 01/03/24
menthol 4 % topical gel (Biofreeze (menthol)) 1 applic topical BID posterior neck 01/03/24
menthol 5 % topical patch (Icy Hot (menthol)) 1 patch topical BID B/L shoulders 01/03/24
ondansetron HCl 4 mg tablet 4 mg PO BIDPRN PRN nausea 01/03/24
sodium phosphates 19 gram-7 gram/118 mL enema (Fleet Enema) 118 ml KS DAILYPRN PRN if no BM 8hr after supp 01/03/24
metoprolol succinate 50 mg tablet,extended release 24 hr 50 mg PO BID 30 days #60 tabs 01/15/24
pantoprazole 40 mg tablet,delayed release 40 mg PO DAILY 30 days #30 tabs 01/15/24
Home Medication Changes
Pending Results: No
[2024-01-22 10:56] VITALS: BP 107/67; PULSE 73; O2SAT 95
[2024-01-22 11:00] VITALS: BP 109/63
[2024-01-22 11:02] VITALS: BP 107/67; PULSE 74
--- NOTE | 2024-01-22 12:07 | CM ---
CM spoke with Hospice nurse, [place], confirmed hospice will accept patient today, no equipment needed at this time. CM spoke with patients daughter, Taryn, Taryn will provide transportation home for patient. Referral sent to Hospice. CM
will continue to follow for all discharge planning needs.
Plan; home with Hospice.
== END 2024-01-22 14:16 | disposition hospice, home (50) ==
LOC: 4 WEST ACU 01:37
PROVIDERS: ADMITTING PHYSICIAN Internal Medicine; ATTENDING PHYSICIAN Hospitalist; EMERGENCY PHYSICIAN Emergency Medicine; FAMILY PHYSICIAN Family Medicine; OTHER PHYSICIAN Internal Medicine Cardiovascular Disease
DX: J90 Pleural effusion, not elsewhere classified (principal); R07.89 Other chest pain; R94.31 Abnormal electrocardiogram [ECG] [EKG]; L89.152 Pressure ulcer of sacral region, stage 2; E44.0 Moderate protein-calorie malnutrition; R62.7 Adult failure to thrive; I48.0 Paroxysmal atrial fibrillation; E03.9 Hypothyroidism, unspecified; J44.9 Chronic obstructive pulmonary disease, unspecified; I10 Essential (primary) hypertension; F41.9 Anxiety disorder, unspecified; E78.5 Hyperlipidemia, unspecified; F32.A Depression, unspecified; M81.0 Age-related osteoporosis without current pathological fracture; E78.00 Pure hypercholesterolemia, unspecified; M51.36 Other intervertebral disc degeneration, lumbar region; M47.819 Spondylosis without myelopathy or radiculopathy, site unspecified; M46.1 Sacroiliitis, not elsewhere classified; M16.0 Bilateral primary osteoarthritis of hip; G30.9 Alzheimer's disease, unspecified; F02.80 Dementia in other diseases classified elsewhere, unspecified severity, without behavioral disturbance, psychotic disturbance, mood disturbance, and anxiety; Z68.1 Body mass index [BMI] 19.9 or less, adult; Z87.891 Personal history of nicotine dependence; Z85.118 Personal history of other malignant neoplasm of bronchus and lung; Z79.890 Hormone replacement therapy; Z86.73 Personal history of transient ischemic attack (TIA), and cerebral infarction without residual deficits; Z90.2 Acquired absence of lung [part of]; Z79.01 Long term (current) use of anticoagulants; Z66 Do not resuscitate; Z92.21 Personal history of antineoplastic chemotherapy; Z92.3 Personal history of irradiation
CPT/HCPCS: 32555; 71045; 71046; 72100; 72220; 80048; 80053; 82150; 82945; 83036; 83615; 83880; 83986; 84155; 84157; 84478; 84484; 85025; 85027; 87015; 87070; 87205; 89051; 93005; 97162; 97166; 99285; G0378